=== PATIENT | male | born 1980 | race Caucasian/White ===

== ENCOUNTER 2017-10-07 18:29 | Emergency (ER) | payer SELFPAY ==
[2017-10-07 18:30] VITALS: BP 151/90; PULSE 77; RESP 16; TEMP 36.9; O2SAT 100; BMI 23.1
--- NOTE | 2017-10-07 18:46 | CT_ITS ---
STUDY: CT ABDOMEN AND PELVIS WITHOUT CONTRAST REASON FOR EXAM: Male, 37 years old. Right flank pain RADIATION DOSAGE (If Supplied By Facility): CTDIvol = ( 6.83 ) mGy, DLP = ( 342.99 ) mGycm TECHNIQUE: Transaxial images were obtained from the lower chest to the upper thighs without oral contrast, and without intravenous contrast. Sagittal and coronal images were reconstructed. Individualized dose optimization techniques were used for this CT. COMPARISON: None. FINDINGS: There is minimal dependent atelectasis in both lung bases. There is no pleural effusion. The heart is normal in size. There is a subcentimeter cyst in the periphery of the left lobe of the liver. The gallbladder and biliary ducts are unremarkable. The spleen is unremarkable. The pancreas is unremarkable. The adrenal glands are unremarkable. The right kidney is unremarkable. There is no dilatation of the collecting system in the right kidney. The left kidney is unremarkable. There is no dilatation of the collecting system in the left kidney. The stomach is unremarkable. The small bowel is unremarkable. There are diverticula in the distal colon without adjacent stranding. The appendix is visualized and appears normal. The aorta and branch vessels are unremarkable. The IVC is unremarkable. The retroperitoneum is unremarkable. There is no free fluid in the abdomen. The urinary bladder is unremarkable. The prostate is normal in size. There are small phleboliths scattered in the lower pelvis. The soft tissues are unremarkable. The osseous structures are unremarkable. CT/Abdomen/Pelvis without Cont IMPRESSION: No acute abnormalities are seen in the abdomen or pelvis. There is no evidence of renal stones or urinary tract dilatation with attention to the right side. There are no acute bowel abnormalities. The appendix is normal. There is mild diverticulosis of the distal colon. There is no ascites, free air, inflammation or significant lymphadenopathy. Electronically Signed: Jolie Jacobsen MD at 19:29 EDT Tel Direct: [phone], Service support ,
[2017-10-07] MEDS: Ondansetron 4 MG/2 ML Vial IV (18:54)
[2017-10-07] MEDS: Ketorolac 30 MG/ML Syringe IV (18:54)
[2017-10-07] MEDS: Morphine 4 MG/ML Syringe IV (18:54)
[2017-10-07] MEDS: 0.9% Normal Saline 1,000 ML 125 ML IV (18:54)
[2017-10-07 19:13] LABS: Absolute Lymphocyte Count 2.73 X10^3/ul (0.83-4.51); Absolute Neutrophil Count 6.3 X10^3/uL (2.0-7.7); Basophil# 0.03 X10^3/uL; Basophil% 0.3 % (0-1); Eosinophil# 0.22 X10^3/uL; Eosinophils% 2.2 % (0-5); Hematocrit 40.7 % (40-54); Hemoglobin 13.9 g/dl (13.0-16.5); Lymphocyte # 2.73 X10^3/ul (4.0); Lymphocyte % 27.8 % (19-41); Mean Corp Hgb Conc 34.2 g/gl (32-36); Mean Corpuscular Hgb 32.6 pg (27.0-32.0); Mean Corpuscular Volume 95.5 fL (80-94); Mean Platelet Vol. 9.4 fl (6.2-12.0); Monocyte# 0.56 X10^3/uL; Monocyte% 5.7 % (0-10); Neutrophil # 6.25 X10^3/uL (2.7-7.7); Neutrophil % 63.6 % (47-70); POSITIVE COUNT NO; POSITIVE DIFFERENTIAL NO; POSITIVE MORPHOLOGY NO; Platelet Count 287 K/mm3 (150-450); RBC Distribution Width CV 12.1 % (11.6-14.6); RBC Distribution Width SD 41.5 fl (35.1-43.9); Red Blood Count 4.26 M/mm3 (4.6-6.2); White Blood Count 9.8 K/mm3 (4.4-11.0)
[2017-10-07 19:18] LABS: ALB/GLOB Ratio 1.1 RATIO (0.9-2.4); AST(SGOT) 9 U/L (15-37); Alanine Aminotransfer ALT/SGPT 27 U/L (16-61); Albumin, Serum 3.6 g/dL (3.2-5.0); Alkaline Phosphatase 76 U/L (45-117); Anion Gap 6 (5-15); BUN 12 mg/dL (7-18); Calcium,Total 8.4 mg/dL (8.5-10.1); Chloride 107 mmol/L (98-107); EST Glomerular Filtration Rate 72 mL/min (>60); Est Glom Filt Rate - Afr Amer 87 mL/min (>60); Estimated Creatinine Clearance 93.71 ml/min; Globulin 3.3 g/dL (2.2-4.2); Glucose 104 mg/dL (74-106); Potassium 3.7 mmol/L (3.5-5.1); Protein, Total 6.9 g/dL (6.4-8.2); Sodium Level 140 mmol/L (136-145)
[2017-10-07 19:28] LABS: Bacteria 0 SEEN /hpf (None Seen); Mucous, Urine 0 SEEN /hpf (<or=2+); Red Blood Cells-Urine 0 SEEN /hpf (0-5); Squamous Epithelial Cells - UA 0 SEEN /hpf (0-5)
[2017-10-07 19:37] LABS: Color, Urine Yellow (Yellow); Glucose, Dipstick Normal (Normal); Ketone-Dipstick Negative (Negative); Leukocyte Esterase-Dipstick Negative /ul (Negative); Nitrite-Dipstick Negative (Negative); Occult Blood-Urine Negative /ul (Negative); Protein-Dipstick 15 mg/dl (Negative); Urine Bilirubin Dipstick Negative (Negative); Urine Clarity Clear (Clear); Urine Urobilinogen Normal (Normal)
[2017-10-07 19:45] LABS: White Blood Cells 0-5 SEEN /hpf (0-5)
--- NOTE | 2017-10-07 19:47 | ED.VISSUMM ---
- ER Visit Summary Date of Service: 10/07/17 Chief Complaint: [Flank pain] History of Present Illness: The patient is a 37 M [presents to the emergency department with right-sided flank pain that started about a week and a half ago. Patient states that he just moved back to the area about a week and a half ago because he went through a divorce. Patient denies any trauma. Denies urinary symptoms. Patient denies fever. Currently rates pain as 7 out of 10. Patient states that certain movements cause a more pain such as sitting up and the bumps in the car ride here were painful. Patient denies nausea or vomiting. Patient denies diarrhea. Patient has not had pain like this before. Patient denies any pain radiating into his legs.] Physical Examination: [HEENT-PERRLA, EOMI. Cranial nerves II through XII grossly intact. TMs clear. Mucous membranes moist. No adenopathy. Cardiovascular-regular rate and rhythm without murmur or ectopy Lungs-clear to auscultation, chest wall stable without crepitus or subcu emphysema Abdomen-normoactive bowel sounds, soft. Patient has tenderness to the right lower quadrant. Patient has CVA tenderness on the right. There is no rebound, rigidity, or perineal signs. Back exam-patient has tenderness to percussion of the right lumbar paraspinal musculature. No bony tenderness on exam of the thoracic or lumbar spine. Patient has negative straight leg raises. Deep tendon reflexes are plus 2 out of 4 bilaterally at the patella and Achilles. Patient has normal L5 extension. Patient has normal sensation to light touch. Extremities-intact ?4, normal range of motion, normal pulses, atraumatic] Test Results: [CBC with differential obtained was normal. Chemistries were normal. Urinalysis was normal. CT flank showed nothing acute.] Emergency Department Course and Treatment: [Patient was medicated with Toradol, morphine, and Zofran.] Treatment Plan: [Patient will be started on Flexeril and 12 [place] for pain. Patient will be referred to primary care physician front window cashier for no doc for follow-up in 5-7 days] Disposition: [Discharged home in stable condition]. Patient advised to return if worsening pain, fever, vomiting, or condition should worsen in any way. Impression: [Flank pain-etiology uncertain.] This note was generated with Dragon dictation software. It may contain incorrect words, spelling, and punctuation that were not noted in review of the chart prior to signing ED Disposition - Plan for ED Patient: Chief Complaint: Flank Pain Referrals: Care Physician,No Primary [Primary Care Provider] -
--- NOTE | 2017-10-07 19:50 | ED.DCSUM_ITS ---
- ER Visit Summary Date of Service: 10/07/17 Chief Complaint: [Flank pain] History of Present Illness: The patient is a 37 M [presents to the emergency department with right-sided flank pain that started about a week and a half ago. Patient states that he just moved back to the area about a week and a half ago because he went through a divorce. Patient denies any trauma. Denies urinary symptoms. Patient denies fever. Currently rates pain as 7 out of 10. Patient states that certain movements cause a more pain such as sitting up and the bumps in the car ride here were painful. Patient denies nausea or vomiting. Patient denies diarrhea. Patient has not had pain like this before. Patient denies any pain radiating into his legs.] Physical Examination: [HEENT-PERRLA, EOMI. Cranial nerves II through XII grossly intact. TMs clear. Mucous membranes moist. No adenopathy. Cardiovascular-regular rate and rhythm without murmur or ectopy Lungs-clear to auscultation, chest wall stable without crepitus or subcu emphysema Abdomen-normoactive bowel sounds, soft. Patient has tenderness to the right lower quadrant. Patient has CVA tenderness on the right. There is no rebound, rigidity, or perineal signs. Back exam-patient has tenderness to percussion of the right lumbar paraspinal musculature. No bony tenderness on exam of the thoracic or lumbar spine. Patient has negative straight leg raises. Deep tendon reflexes are plus 2 out of 4 bilaterally at the patella and Achilles. Patient has normal L5 extension. Patient has normal sensation to light touch. Extremities-intact ?4, normal range of motion, normal pulses, atraumatic] Test Results: [CBC with differential obtained was normal. Chemistries were normal. Urinalysis was normal. CT flank showed nothing acute.] Emergency Department Course and Treatment: [Patient was medicated with Toradol, morphine, and Zofran.] Treatment Plan: [Patient will be started on Flexeril and 12 [place] for pain. Patient will be referred to primary care physician video conference specialist for no doc for follow -up in 5-7 days] Disposition: [Discharged home in stable condition]. Patient advised to return if worsening pain, fever, vomiting, or condition should worsen in any way. Impression: [Flank pain-etiology uncertain.] This note was generated with Dragon dictation software. It may contain incorrect words, spelling, and punctuation that were not noted in review of the chart prior to signing ED Disposition - Plan for ED Patient: Chief Complaint: Flank Pain Referrals: Care Physician,No Primary [Primary Care Provider] -
--- NOTE | 2017-10-07 19:52 | DCINST.ED_ITS ---
ED Disposition - Plan for ED Patient: Chief Complaint: Flank Pain Instructions: ED Flank Pain Uncertain Cause Prescriptions: Hydrocodone/Acetaminophen [[place] 5-325 Tablet] 1 - 2 ea PO 4X/DAY PRN PRN 3 Days #12 tab PRN Reason: Pain Naproxen [Naprosyn] 500 mg PO BID PRN #20 tab Cyclobenzaprine [Flexeril] 10 mg PO TID PRN #20 tab PRN Reason: Muscle Spasm Referrals: Care Physician,No Primary [Primary Care Provider] - Lit Irvin MD [STAFF PHYSICIAN] - 5-7 Days
[2017-10-07 19:56] VITALS: BP 149/100; PULSE 77; RESP 16; O2SAT 100
--- NOTE | 2017-10-07 19:57 | ED.RN ---
PT INSTRUCTED HE COULD NOT DRIVE HOME DUE TO RECEIVING MORPHINE. PT STATED HE HAD A RIDE HERE TO TAKE HIM HOME.
== END 2017-10-07 20:02 | disposition home or self-care (01) ==
LOC: ED 19:16
PROVIDERS: Emergency Provider Emergency Medicine
DX: R10.31 Right lower quadrant pain (principal); Z72.0 Tobacco use
CPT/HCPCS: 74176; 80053; 81001; 85025; 96361; 96374; 96375; 99283; J7030; A4216; J2405

== ENCOUNTER 2019-11-15 17:54 | Emergency (ER) | payer SELFPAY ==
[2019-11-15 17:55] VITALS: BP 121/81; PULSE 119; RESP 18; TEMP 36.7; O2SAT 99; BMI 24.5
--- NOTE | 2019-11-15 19:23 | EKG12_ITS ---
Test Reason : CHEST OTHER Blood Pressure : / mmHG Vent. Rate : 096 BPM Atrial Rate : 096 BPM P-R Int : 144 ms QRS Dur : 082 ms QT Int : 352 ms P-R-T Axes : 073 062 064 degrees QTc Int : 444 ms Normal sinus rhythm Normal ECG Confirmed by MARYANA BRENNER ([id number]), newspaper or periodical editor NICOLA JAMISON ([id number]) on 11/18/2019 11:53:38 AM Referred By: MARICRUZ Confirmed By:MARYANA BRENNER
[2019-11-15 19:40] LABS: Absolute Lymphocyte Count 2.94 X10^3/uL (0.83-4.51); Absolute Neutrophil Count 5.8 X10^3/uL (2.0-7.7); Basophil# 0.08 X10^3/uL; Basophil% 0.8 % (0-1); Eosinophil# 0.24 X10^3/uL; Eosinophils% 2.4 % (0-5); Hematocrit 42.4 % (40-54); Hemoglobin 14.4 g/dL (13.0-16.5); Lymphocyte # 2.94 X10^3/ul (4.0); Lymphocyte % 29.8 % (19-41); Mean Corpuscular Hgb 32.4 pg (27.0-32.0); Mean Corpuscular Volume 95.5 fL (80-94); Mean Platelet Vol. 9.1 fl (6.2-12.0); Monocyte# 0.75 X10^3/uL; Monocyte% 7.6 % (0-10); NRBC Flagged by Analyzer 0 % (0-5); Neutrophil # 5.79 X10^3/uL (2.7-7.7); Neutrophil % 58.7 % (47-70); Platelet Count 333 K/mm3 (150-450); RBC Distribution Width CV 12.2 % (11.6-14.6); RBC Distribution Width SD 42.5 fl (35.1-43.9); Red Blood Count 4.44 M/mm3 (4.6-6.2); White Blood Count 9.9 K/mm3 (4.4-11.0)
[2019-11-15] MEDS: Mag Hydrox/Al Hydrox/Simeth 30 ML UDC PO (19:46)
[2019-11-15 20:10] LABS: ALB/GLOB Ratio 1.2 RATIO (0.9-2.4); AST(SGOT) 15 U/L (15-37); Alanine Aminotransfer ALT/SGPT 54 U/L (16-61); Albumin, Serum 4.1 g/dL (3.2-5.0); Alkaline Phosphatase 78 U/L (45-117); Anion Gap 6 (5-15); BUN 17 mg/dL (7-18); BUN/Creat Ratio 13.8 RATIO (10-20); Calcium,Total 8.5 mg/dL (8.5-10.1); Chloride 105 mmol/L (98-107); Creatinine, Serum 1.23 mg/dL (0.70-1.30); EST Glomerular Filtration Rate 69 mL/min (>60); Est Glom Filt Rate - Afr Amer 84 mL/min (>60); Estimated Creatinine Clearance 87.62 ml/min; Globulin 3.4 g/dL (2.2-4.2); Glucose 80 mg/dL (74-106); Lipase 78 U/L (73-393); Protein, Total 7.5 g/dL (6.4-8.2); Sodium Level 139 mmol/L (136-145)
--- NOTE | 2019-11-15 21:10 | ED.DCSUM_ITS ---
History of Present Illness Chief Complaint: Chest Other Past Medical History - Allergies and Home Meds Allergies/Adverse Reactions: Allergies No Known Allergies Allergy (Verified 11/15/19 17:57) Primary Care Physician: Care Physician,No Primary [Primary Care Provider] - Smoking Status: Current every day smoker Physical Exam Vital Signs/Narrative: Vital Signs Temp Pulse Resp BP Pulse Ox 11/15/19 17:55 98.1 F 119 H 18 121/81 H 99 Diagnostic/Tx/Re-eval Laboratory Last Values WBC 9.9 K/mm3 (4.4-11.0) 11/15/19 19:32 RBC 4.44 M/mm3 (4.6-6.2) L 11/15/19 19:32 Hgb 14.4 g/dL (13.0-16.5) 11/15/19 19:32 Hct 42.4 % (40-54) 11/15/19 19:32 MCV 95.5 fL (80-94) H 11/15/19 19:32 MCH 32.4 pg (27.0-32.0) H 11/15/19 19:32 MCHC 34.0 g/dL (32-36) 11/15/19 19:32 RDW Std Deviation 42.5 fl (35.1-43.9) 11/15/19 19:32 RDW Coeff of Judith 12.2 % (11.6-14.6) 11/15/19 19:32 Plt Count 333 K/mm3 (150-450) 11/15/19 19:32 MPV 9.1 fl (6.2-12.0) 11/15/19 19:32 Immature Gran % (Auto) 0.700 % (0.0-0.9) 11/15/19 19:32 Neut % (Auto) 58.7 % (47-70) 11/15/19 19:32 Lymph % (Auto) 29.8 % (19-41) 11/15/19 19:32 [place] % (Auto) 7.6 % (0-10) 11/15/19 19:32 Eos % (Auto) 2.4 % (0-5) 11/15/19 19:32 Baso % (Auto) 0.8 % (0-1) 11/15/19 19:32 Absolute Neuts (auto) 5.8 X10^3/uL (2.0-7.7) 11/15/19 19:32 Absolute Lymphs (auto) 2.94 X10^3/uL (0.83-4.51) 11/15/19 19:32 Nucleated RBC % 0 % (0-5) 11/15/19 19:32 Sodium 139 mmol/L (136-145) 11/15/19 19:32 Potassium 4.0 mmol/L (3.5-5.1) 11/15/19 19:32 Chloride 105 mmol/L (98-107) 11/15/19 19:32 Carbon Dioxide 28.0 mmol/L (21.0-32.0) 11/15/19 19:32 Anion Gap 6 (5-15) 11/15/19 19:32 BUN 17 mg/dL (7-18) 11/15/19 19:32 Creatinine 1.23 mg/dL (0.70-1.30) 11/15/19 19:32 Estim Creat Clear Calc 87.62 ml/min 11/15/19 19:32 Est GFR (MDRD) Af Amer 84 mL/min (>60) 11/15/19 19:32 Est GFR (MDRD) Non-Af 69 mL/min (>60) 11/15/19 19:32 BUN/Creatinine Ratio 13.8 RATIO (10-20) 11/15/19 19:32 Glucose 80 mg/dL (74-106) 11/15/19 19:32 Calcium 8.5 mg/dL (8.5-10.1) 11/15/19 19:32 Total Bilirubin 0.20 mg/dL (0.20-1.00) 11/15/19 19:32 AST 15 U/L (15-37) 11/15/19 19:32 ALT 54 U/L (16-61) 11/15/19 19:32 Alkaline Phosphatase 78 U/L (45-117) 11/15/19 19:32 Troponin I < 0.015 ng/mL (<0.045) 11/15/19 19:32 Total Protein 7.5 g/dL (6.4-8.2) 11/15/19 19:32 Albumin 4.1 g/dL (3.2-5.0) 06/29/20 19:32 Globulin 3.4 g/dL (2.2-4.2) 11/15/19 19:32 Albumin/Globulin Ratio 1.2 RATIO (0.9-2.4) 11/15/19 19:32 Lipase 78 U/L (73-393) 11/15/19 19:32 - EKG Initial EKG Interpretation: Sinus Rhythm - EKG demonstrates a normal sinus rhythm at a rate of 96 without concerning features of ACS or any ectopy ED Disposition - Plan for ED Patient: Disposition: Home or Assisted Living Diagnosis: GERD (gastroesophageal reflux disease) Instructions: ED ACID INDIGESTION Adult Prescriptions: Sucralfate [Carafate] 1 gm PO 4X/DAY #56 tab Prescription Printed Pantoprazole Sodium [Protonix] 40 mg PO DAILY #30 tab Prescription Printed Referrals: Renaldo Woody MD [NON-STAFF] - (Call for arrangements to discuss EGD and your reflux symptoms) Additional Instructions: As discussed you should quit smoking. As discussed uncontrolled GERD can lead to Easley's esophagus and potentially cancer.
[2019-11-15] MEDS: Pantoprazole Sodium 40 MG Tablet PO (21:22)
[2019-11-15 21:27] VITALS: PULSE 93; RESP 16; O2SAT 99
== END 2019-11-15 21:28 | disposition home or self-care (01) ==
PROVIDERS: Emergency Provider Emergency Medicine
DX: K21.9 Gastro-esophageal reflux disease without esophagitis (principal); F17.200 Nicotine dependence, unspecified, uncomplicated; Z79.899 Other long term (current) drug therapy
CPT/HCPCS: 80053; 83690; 84484; 85025; 93005; 99284; A4216

== ENCOUNTER 2020-04-10 17:03 | Emergency (ER) | payer MEDICAID, SELFPAY ==
[2020-04-10 17:04] VITALS: BP 151/89; PULSE 80; RESP 16; TEMP 35.8; O2SAT 98; BMI 23.1
--- NOTE | 2020-04-10 17:20 | ED.DCSUM_ITS ---
History of Present Illness Chief Complaint: Abscess Informant: Patient Onset: Days Context: Gradual Onset Current Severity: Moderate Maximum Severity: Moderate Narrative: She presents with a painful lump on his back for the past 2 days. He tried to have his significant other during the pus from the area but he states is too painful to touch. He denies fever or chills. He states it started out as a spider bite. - Past Medical History (1) GERD (gastroesophageal reflux disease) Status: Chronic Past Medical History - Allergies and Home Meds Allergies/Adverse Reactions: Allergies No Known Allergies Allergy (Verified 04/10/20 17:05) Primary Care Physician: Care Physician,No Primary [Primary Care Provider] - Prior records reviewed: Yes Lives: Spouse/ Significant Other Smoking Status: Current every day smoker Review of Systems General: Denies: Chills, Fever Eyes: Denies: Visual changes - bilaterally ENT: Denies: Bilateral ear pain Cardiovascular: Denies: Chest pain Respiratory: Denies: Dyspnea, Cough Gastrointestinal: Denies: Abdominal pain, Nausea, Vomiting, Diarrhea Genitourinary: Denies: Dysuria Musculoskeletal: Denies: Extremity Pain Skin: Reports: Abscess - 4 x 4 centimeter abscess over the right scapula. Mild erythema but no significant extending cellulitis. Fluctuance is noted. No sp ontaneous drainage. Neurological: Denies: Headache Hematologic: Denies: Easy bruising, Easy bleeding Allergy: Denies: Uticaria Physical Exam Vital Signs/Narrative: Vital Signs Temp Pulse Resp BP Pulse Ox 04/10/20 17:04 96.4 F L 80 16 151/89 H 98 Inital Vital Signs reviewed: Yes General: Well nourished, Well developed Head: Normocephalic ENT: Moist mucous membranes Neck: Supple Cardiovascular: Regular rate, Regular rhythm Respiratory: No distress, CTA bilaterally Abdomen: Soft, Nontender Back: - - 4 x 4 centimeter abscess of the inferior aspect of the right scapula. No spontaneous drainage. Fluctuance is noted. Neurological: Alert, Oriented x3 Diagnostic/Tx/Re-eval - Medical Decision Making At this time patient is refusing I&D. We will treat him with Bactrim and Keflex. He was advised this is not improving and he decides that he is willing to undergo I&D he can return at any time for this. ED Disposition - Plan for ED Patient: Disposition: Home or Assisted Living Diagnosis: Cutaneous abscess Instructions: ED Abscess Antibiotic Treatment Only Prescriptions: Smz/Tmp Ds [Bactrim Ds] 1 tab PO BID #20 tab Transmission Status: Pending to [facility] Cephalexin [Keflex] 500 mg PO Q6 #40 cap Transmission Status: Pending to [facility] Naproxen [Naprosyn] 500 mg PO BID PRN PRN #20 tab PRN Reason: Pain Score 4-10 Transmission Status: Pending to [facility] Referrals: Fast,Ida, DO [NON-STAFF] - As Needed
[2020-04-10] MEDS: Smz/Tmp Ds Tablet 1 TABLET PO (17:27)
[2020-04-10] MEDS: Naproxen 500 MG Tablet PO (17:27)
[2020-04-10] MEDS: Cephalexin 250 MG Capsule 500 MG PO (17:27)
[2020-04-10 17:46] VITALS: RESP 15
== END 2020-04-10 17:47 | disposition home or self-care (01) ==
PROVIDERS: Emergency Provider Emergency Medicine
DX: L02.212 Cutaneous abscess of back [any part, except buttock and flank] (principal); K21.9 Gastro-esophageal reflux disease without esophagitis; F17.200 Nicotine dependence, unspecified, uncomplicated
CPT/HCPCS: 99283

== ENCOUNTER 2020-04-11 08:03 | Emergency (ER) | payer MEDICAID, SELFPAY ==
[2020-04-10 17:04] VITALS: BMI 23.1
[2020-04-11 08:05] VITALS: BP 136/97; PULSE 136; RESP 17; TEMP 35.7; O2SAT 99; BMI 23.4
--- NOTE | 2020-04-11 08:43 | ED.DCSUM_ITS ---
- ER Visit Summary Date of Service: 04/11/20 Chief Complaint: Abscess History of Present Illness: The patient is a 39 M who presents with an abscess that is been getting worse over the past 2 days. Patient was seen here yesterday and was given prescriptions for Bactrim and Keflex. Patient refused incision and drainage at that time. Patient states that he applied warm compresses yesterday. Patient states that it started draining yesterday. Patient states his girlfriend was able to express large amount of purulent drainage. Patient describes the pain as throbbing. Patient denies any fevers or chills. Physical Examination: Vital signs are stable except for tachycardia of 136. Patient is afebrile. Patient is in no acute distress. Skin is warm and dry. There is erythema and warmth over the right mid thoracic area. There is some induration noted. There is a small pustule noted. There is minimal fluctuance. There is no active drainage. Heart was regular and tachycardic. Lungs are clear and equal bilaterally. Cranial nerves II through XII are intact. There are no focal motor or sensory deficits. Emergency Department Course and Treatment: LET gel was applied to the area. The area was cleaned with chlorhexidine prep. The area was anesthetized with 1% plain lidocaine locally. A small cruciate incision was made using an 11 blade scalpel. A small amount of purulent drainage was expressed. The wound was left open. Bacitracin dressing was applied. Patient tolerated the procedure well. Patient was given a dose of Bactrim and Keflex here. Patient was instructed to fill his prescriptions for Bactrim and Keflex. Patient was advised that these are likely $4 or less at any pharmacy. Patient was instructed to continue with warm compresses. Patient was instructed to follow-up with his primary care physician in 5 to 7 days. Patient understood and was agreeable with the plan. All questions were answered. Disposition: Discharge home Impression: Back abscess This note was generated with [employer] dictation software. It may contain incorrect words, spelling, and punctuation that were not noted in review of the chart prior to signing ED Disposition - Plan for ED Patient: Disposition: Home or Assisted Living Diagnosis: Abscess of back Instructions: ED Abscess Incision And Drainage Referrals: Olivia Greenberg [NON-STAFF] - 5-7 Days Additional Instructions: Fill your prescriptions for Bactrim and Keflex. They are $4 or less at any pharmacy. Continue to use warm compresses. Follow-up in 5 to 7 days for wound recheck.
[2020-04-11] MEDS: Smz/Tmp Ds Tablet 1 TABLET PO (08:55)
[2020-04-11] MEDS: Lidocaine 1% (20 ml mdv) 20 ML Vial INFILT (08:55)
[2020-04-11] MEDS: Lidocaine/Epi/Tetracaine 50 ML 1 APPLIC TOPICAL (08:55)
[2020-04-11] MEDS: Cephalexin 500 MG Capsule PO (08:55)
== END 2020-04-11 10:04 | disposition home or self-care (01) ==
PROVIDERS: Emergency Provider Emergency Medicine
DX: R00.0 Tachycardia, unspecified (principal); Z72.0 Tobacco use; L02.212 Cutaneous abscess of back [any part, except buttock and flank]
CPT/HCPCS: 10060; 99283

== ENCOUNTER 2021-02-04 18:44 | Emergency (ER) | payer MEDICAID, SELFPAY ==
[2021-02-04 18:45] VITALS: BP 143/108; PULSE 95; RESP 16; TEMP 37; O2SAT 99; BMI 27.1
--- NOTE | 2021-02-04 20:51 | ED.VIS.DENTA ---
HPI History of Present Illness Chief Complaint: Dental Narrative Narrative: Patient presenting with right-sided mandibular pain. Patient states that he has a history of dental problems. He states he has not had a problem in a couple of years. He used to have a dentist but he moved away and has been back for 2 years. He denies fever or chills. He denies any difficulty swallowing or breathing. Patient states his symptoms have currently been there for about 3 days. Patient denies any traumatic injury. PFSH PFSH Home Medications amoxicillin-pot clavulanate [Augmentin] 1 tab PO BID #20 tab 02/04/21 [Rx Last Taken Unknown] naproxen 500 mg PO BID #20 tab 02/04/21 [Rx Last Taken Unknown] Allergy/AdvReac Type Severity Reaction Status Date / Time No Known Allergies Allergy Verified 02/04/21 18:44 Social History Smoking Status: Current every day smoker tobacco type: cigarettes ROS ROS ED Constitutional Constitutional ED: Denies chills or fever(s) Eyes Eyes: Denies blurry vision or change in vision ENT ENT ED: Reports other Details: Dental pain ; Denies ear pain or rhinorrhea Cardiovascular Cardiovascular: Denies chest pain or palpitations Respiratory/Chest Respiratory/Chest: Denies cough or dyspnea Gastrointestinal Gastrointestinal: Denies abdominal pain or nausea Musculoskeletal Musculoskeletal: Denies arthralgias, back pain, myalgias or neck pain Integumentary Denies Abrasions or rash Neurologic Neurologic: Denies headache(s) or paresthesias EXAM Physical Exam Const Vital Signs: 02/04/21 18:45 02/04/21 20:54 Temperature 98.6 F Temperature Source Temporal Pulse Rate 95 74 Respiratory Rate 16 17 Blood Pressure 143/108 H 130/78 H Blood Pressure Mean 119 Pulse Ox 99 98 Oxygen Delivery Method Room Air Positive well nourished General Appearance ED: NAD HEENT HEENT Narrative: Multiple dental caries throughout. There is focal dental pain on the right sided mandibular teeth which are partially decayed. No restorable. Buccal mucosa normal. No sign of fluctuance. Tongue is normal size. No sublingual edema. Oropharynx is patent without stridor. Eyes PERRL Neck no lymphadenopathy and supple Resp normal respiratory effort and clear to auscultation bilaterally Cardio regular rate and regular rhythm Neuro oriented x3 and CN's II-XII intact bilaterally Sensorium / Orientation: alert Psych mental status grossly normal MDM MDM MDM Narrative Medical decision making narrative: Patient is given oxycodone for pain in the ED. He is also started on Augmentin. To be given prescription for Augmentin and Naprosyn for home. He is given dental referral sheet. Patient counseled on new or worsening symptoms. Patient stable discharge at this time. Impression: 1. Dental infection Discharge Plan Triage Chief Complaint: Dental ED Provider: Asael Pedroza Dx/Rx/DC Orders Instructions: ED Dental Abscess Prescriptions: New amoxicillin-pot clavulanate [Augmentin] 875-125 mg tablet 1 tab PO BID Qty: 20 RF: 0 naproxen 500 mg tablet 500 mg PO BID Qty: 20 RF: 0 Primary Care Provider: Care Physician,No Primary Referrals: Care Physician,No Primary [Primary Care Provider] - Disposition Disposition: Home, Self Care Discharge Date/Time: 02/04/21 20:58
[2021-02-04 20:54] VITALS: BP 130/78; PULSE 74; RESP 17; O2SAT 98
[2021-02-04] MEDS: oxyCODONE 5 MG Tablet PO (20:56)
[2021-02-04] MEDS: Amox/Clavulanate 875 MG Tablet PO (20:57)
== END 2021-02-04 20:58 | disposition home or self-care (01) ==
PROVIDERS: Emergency Provider Student in an Organized Health Care Education/Training Program
DX: K04.7 Periapical abscess without sinus (principal); K02.9 Dental caries, unspecified; F17.210 Nicotine dependence, cigarettes, uncomplicated
CPT/HCPCS: 99283

== ENCOUNTER 2021-03-01 15:46 | Emergency (ER) | payer MEDICAID, SELFPAY ==
[2021-03-01 15:47] VITALS: BP 147/101; PULSE 98; RESP 20; TEMP 37.4; O2SAT 100; BMI 26.4
--- NOTE | 2021-03-01 16:12 | EX.ED.DYSGE1 ---
HPI History of Present Illness Chief Complaint: Headache Detail of Chief Complaint: Body aches, congestion, cough Informant: patient Onset/Context/Timing Onset: Days (4 days) Context: Gradual Onset Current Severity: Mild Maximum Severity: Mild Narrative Narrative: Patient presents secondary to headache, body aches, congestion. He reports intermittent shortness of breath with occasional cough. He reports having a fever 2 days ago. 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 He got the first Covid vaccine but never followed up for the second injection. [facility] Medical History GERD (gastroesophageal reflux disease) Allergy/AdvReac Type Severity Reaction Status Date / Time No Known Allergies Allergy Verified 03/01/21 16:20 Social History Smoking Status: Current every day smoker tobacco type: cigarettes ROS ROS ED Constitutional Constitutional ED: Reports fever(s); Denies chills Eyes Eyes: Denies change in vision ENT ENT ED: Reports rhinorrhea, sore throat and other Details: Congestion Cardiovascular Cardiovascular: Denies chest pain Respiratory/Chest Respiratory/Chest: Reports cough and dyspnea Gastrointestinal Gastrointestinal: Denies abdominal pain, diarrhea, nausea or vomiting Genitourinary Genitourinary ED: Denies dysuria Musculoskeletal Musculoskeletal: Reports myalgias Integumentary Denies rash Neurologic Neurologic: Denies headache(s) or weakness Allergic/Immunologic Allergic/Immunologic ED: Denies urticaria EXAM Physical Exam Const Vital Signs: 03/01/21 15:47 Temperature 99.3 F H Temperature Source Temporal Pulse Rate 98 Respiratory Rate 20 H Blood Pressure 147/101 H Blood Pressure Mean 116 Pulse Ox 100 Oxygen Delivery Method Room Air Positive well nourished and well developed General Appearance ED: well developed HEENT Reports normocephalic, head/scalp atraumatic, TM's clear and moist mucous membranes HEENT Narrative: Mild posterior pharyngeal drainage. Uvula midline. Tympanic Membrane ED: Yes TM's clear Eyes PERRL and EOMs intact bilaterally Neck supple Chest Wall inspection of chest normal and palpation of chest normal Resp normal respiratory effort and clear to auscultation bilaterally Cardio regular rate and regular rhythm GI normal to inspection, nondistended, normoactive bowel sounds Palpation: soft Extremity normal to inspection Neuro oriented x3 and no sensory deficits noted Sensorium / Orientation: alert Motor Exam: strength 5/5 throughout Psych mental status grossly normal Skin no rashes or lesions noted MDM MDM MDM Narrative Medical decision making narrative: Patient was given naproxen here. Portable chest x-ray and Covid swab obtained. Lab Data Labs: Rapid Covid test positive. Radiography Diagnostic Testing: Clinical Impression(s) from Imaging Studies Chest X-Ray 03/01/21 16:40 IMPRESSION: Normal x-ray examination of the chest. Electronically Signed: Nneka Johnson MD at 16:53 EDT Tel , Service support , Treatment and Re-Evaluation Comments:: Portable chest x-ray per my interpretation shows no focal infiltrate. Radiology rotation is reviewed. On repeat evaluation patient is resting comfortably. O2 sat is 100% on room air. He is instructed to continue supportive care. He is to quarantine for 14 days from onset of symptoms. Discharge Plan Triage Chief Complaint: Headache ED Provider: Jolie Marr Dx/Rx/DC Orders Clinical Impression: COVID-19 Instructions: Coronavirus Disease 2019 (COVID-19): Overview, Coronavirus Disease 2019 (COVID-19): Caring for Yourself or Others Stand Alone Forms: ED Work / School Excuse Primary Care Provider: Care Physician,No Primary Referrals: Travon Rodriguez MD [STAFF PHYSICIAN] - 1-2 Weeks Care Physician,No Primary [Primary Care Provider] - Disposition Disposition: Home, Self Care
[2021-03-01] MEDS: Naproxen 500 MG Tablet PO (16:18)
--- NOTE | 2021-03-01 16:40 | RAD_ITS ---
STUDY: X-RAY CHEST REASON FOR EXAM: Male, 40 years old. Cough TECHNIQUE: Single frontal view of the chest. COMPARISON: None. FINDINGS: The lungs are clear and expanded. There is no demonstrated pleural abnormality. Normal size heart. Normal mediastinum and kallie. Normal visualized pulmonary arteries. Normal visualized aortic arch and descending thoracic aorta. Normal visualized thoracic spine. Normal visualized ribs, clavicles, and shoulders. There is no demonstrated abnormality of the visualized soft tissue structures of the upper abdomen. RAD/Chest 1 View (Portable) IMPRESSION: Normal x-ray examination of the chest. Electronically Signed: Nneka Johnson MD at 16:53 EDT Tel , Service support ,
== END 2021-03-01 17:33 | disposition home or self-care (01) ==
LOC: ED 17:02
PROVIDERS: Emergency Provider Emergency Medicine
DX: U07.1 COVID-19 (principal); K21.9 Gastro-esophageal reflux disease without esophagitis; F17.210 Nicotine dependence, cigarettes, uncomplicated
CPT/HCPCS: 71045; 87426; 99282

== ENCOUNTER 2021-04-01 18:41 | Emergency (ER) | payer MEDICAID, SELFPAY ==
[2021-04-01 18:43] VITALS: BP 143/91; PULSE 105; RESP 18; TEMP 37.3; O2SAT 99; BMI 25.4
[2021-04-01 18:48] VITALS: BP 143/91; PULSE 105; RESP 18; TEMP 37.3; O2SAT 99
--- NOTE | 2021-04-01 19:32 | RAD_ITS ---
STUDY: X-RAY CHEST REASON FOR EXAM: Male, 40 years old. Fever toothache chills TECHNIQUE: Frontal portable view of the chest COMPARISON: 01 March 2021 FINDINGS: The lungs are clear and expanded. There is no demonstrated pleural abnormality. Normal size heart. Normal mediastinum and kallie. Normal visualized pulmonary arteries. Normal visualized aortic arch and descending thoracic aorta. Normal visualized thoracic spine. Normal visualized ribs, clavicles, and shoulders. There is no demonstrated abnormality of the visualized soft tissue structures of the upper abdomen. RAD/Chest 1 View (Portable) IMPRESSION: Normal x-ray examination of the chest. Electronically Signed: Mamadou Smith MD at 20:13 EST Tel , Service support ,
--- NOTE | 2021-04-01 19:32 | EX.ED.DYSGE1 ---
HPI History of Present Illness Chief Complaint: Fever Informant: patient Onset/Context/Timing Onset: Weeks Context: Gradual Onset Timing: Intermittent Current Severity: Mild Maximum Severity: Mild Narrative Narrative: 40-year-old male no seen past medical history but he admittedly states that he rarely ever goes and sees a doctor. He has no primary care physician. He denies any significant surgeries other than his adenoids were removed. Patient states that ENT was diagnosed with Covid March 01. He did have a single vaccine in the [employer] but it caused him to have a hives so he never got the second. He said over the last month he had intermittent fever and chills. Yesterday had nausea and vomiting x2. He denies any dysuria. He has a nonproductive cough and denies any shortness of breath. He denies any abdominal pain. No chest pain. He has smoked marijuana in the past he said he does not know drugs now and is never done any type of IV drugs. He also has diffuse lower jaw dental pain. Prior similar symptoms: Yes Recent Illness/Hospitalization: No PFSH PFSH Medical History GERD (gastroesophageal reflux disease) Home Medications penicillin V potassium 500 mg PO 4X/DAY #40 tab 04/01/21 [Rx Last Taken Unknown] Allergy/AdvReac Type Severity Reaction Status Date / Time No Known Allergies Allergy Verified 04/01/21 18:44 Social History Smoking Status: Current every day smoker tobacco type: cigarettes ROS ROS ED ROS Narrative Fever and chills. Cough. Dental pain. Review of Systems ROS Unobtainable: Denies due to encephalopathy Constitutional Constitutional ED: Reports chills and fever(s) Eyes Eyes: Denies change in vision ENT ENT ED: Denies ear pain or sore throat Cardiovascular Cardiovascular: Denies chest pain Respiratory/Chest Respiratory/Chest: Reports cough; Denies dyspnea Gastrointestinal Gastrointestinal: Reports nausea and vomiting; Denies abdominal pain or diarrhea Genitourinary Genitourinary ED: Denies dysuria Musculoskeletal Musculoskeletal: Denies myalgias Integumentary Denies rash Neurologic Neurologic: Denies headache(s) Psychiatric Psychiatric: Denies depression Endocrine Endocrinology: Denies polyuria Allergic/Immunologic Allergic/Immunologic ED: Denies urticaria EXAM Physical Exam Narrative Exam Narrative: Right male no acute distress vital signs stable afebrile. Pulse ox 9 9% on room air no signs hypoxia. HEENT exam patient has very poor dentition with multiple areas of cavities dental decay and gingivitis. There is no abscess. There is really no significant jaw swelling. The floor of his mouth is unremarkable. There is no significant facial swelling. Neck nontender no lymphadenopathy. Lungs clear to auscultation bilateral. Heart regular rhythm no murmur. Abdomen soft nontender. Moving all 4 extremities. Calves are nontender. There is no cellulitis. Back nontender. Neurologically is awake alert with no focal motor deficit. Const Vital Signs: 04/01/21 18:43 04/01/21 18:48 Temperature 99.2 F H 99.2 F H Temperature Source Temporal Temporal Pulse Rate 105 H 105 H Respiratory Rate 18 18 Blood Pressure 143/91 H 143/91 H Blood Pressure Mean 108 108 Pulse Ox 99 99 Oxygen Delivery Method Room Air Room Air Positive well nourished and well developed; Negative for obese, cachectic, contractures or unkempt General Appearance ED: well developed and NAD; Negative for unkempt, cachectic, contractures, cyanotic, diaphoretic or pallor Nutritional Appearance: Negative for cachectic or obese HEENT Reports moist mucous membranes HEENT Narrative: Very poor decaying dentition with gingivitis and cavities. No abscess. No trismus. No facial swelling. Negative for trauma or tenderness Eyes PERRL and EOMs intact bilaterally Neck no lymphadenopathy, supple and no JVD General: Negative for tenderness Chest Wall inspection of chest normal and palpation of chest normal Resp normal respiratory effort and clear to auscultation bilaterally Effort and Inspection: Negative for pain with movement Auscultation: Negative for rales, rhonchi or wheezes Cardio regular rate, regular rhythm, S1 normal heart sound, S2 normal heart sound and no murmurs GI normal to inspection, nondistended, normoactive bowel sounds, non-tender, non-distended and no masses Auscultation: normoactive bowel sounds Palpation: soft; Negative for tender Back/Spine no CVA tenderness Cervical Spine: Negative for cervical spine tenderness Thoracic Spine / Upper Back: Negative for thoracic spinal tenderness Extremity normal to inspection General Extremety ED: Negative for edema or tenderness General Extremity: Negative for edema Neuro oriented x3, CN's II-XII intact bilaterally and no sensory deficits noted Sensorium / Orientation: alert; Negative for orientation impaired, lethargic or stuporous Motor Exam: strength 5/5 throughout Psych mental status grossly normal Appearance: Negative for unkempt Attitude: No agitated Mood & Affect: Negative for depressed or anxious Skin no rashes or lesions noted and no wounds General Skin Exam: Negative for jaundice or pallor MDM MDM MDM Narrative Medical decision making narrative: Middle-age male covered a month ago still having fever and chills also has infected dentition. Chest x-ray being obtained. Other than his dental caries and gingivitis he does not have anything specific on exam. Repeat exam no change. Patient will be started on a dose of penicillin VK. Discharged home on that 4 times a day for 10 days and follow-up with a dentist as soon as possible. Lab Data Attestation: I reviewed the patient's lab results. Radiography Chest X-Ray - ED: 1 View, Read by ED Physician, Heart, Lungs, Mediastinum, Bony Structures, No Acute Disease and Chronic Changes Diagnostic Testing: Single view, portable chest x-ray interpreted myself shows no acute abnormality. Chronic changes. No pneumonia. No infiltrate. Normal cardiac silhouette. I did go over the film with the patient. Discharge Plan Triage Chief Complaint: Fever ED Provider: Wicho Baker Dx/Rx/DC Orders Clinical Impression: Acute gingivitis, Dental cavities Instructions: Understanding Gingivitis, ED Dental Cavity Prescriptions: New penicillin V potassium 500 mg tablet 500 mg PO 4X/DAY Qty: 40 RF: 0 Primary Care Provider: Care Physician,No Primary Referrals: Olivia Greenberg [NON-STAFF] - As soon as possible Care Physician,No Primary [Primary Care Provider] - Activity Restrictions/Additional Instructions: You will be started on the antibiotic penicillin 4 times a day for 10 days for your dental infections. You must follow-up with a dentist as soon as possible either one of your choice or at the [facility] Tylenol and Motrin for pain and fevers. Follow-up if not improving. Disposition Disposition: Home, Self Care
[2021-04-01] MEDS: Penicillin Vk 250 MG Tablet 500 MG PO (20:10)
== END 2021-04-01 20:11 | disposition home or self-care (01) ==
PROVIDERS: Emergency Provider Emergency Medicine
DX: K05.00 Acute gingivitis, plaque induced (principal); K02.9 Dental caries, unspecified; R50.9 Fever, unspecified; R05.9 Cough, unspecified; R11.2 Nausea with vomiting, unspecified; K21.9 Gastro-esophageal reflux disease without esophagitis; F17.210 Nicotine dependence, cigarettes, uncomplicated; Z86.16 Personal history of COVID-19
CPT/HCPCS: 71045; 99283

== ENCOUNTER 2021-06-19 14:10 | Emergency (ER) | payer MEDICAID, SELFPAY ==
[2021-06-19 14:11] VITALS: BP 146/109; PULSE 115; RESP 18; TEMP 36.6; O2SAT 98; BMI 25.0
--- NOTE | 2021-06-19 15:29 | RAD_ITS ---
STUDY: X-RAY CHEST REASON FOR EXAM: Male, 40 years old. cough TECHNIQUE: Single AP portable view of the chest. COMPARISON: 04/01/2021 FINDINGS: The lungs are clear and expanded. There is no demonstrated pleural abnormality. Normal size heart. Normal mediastinum and kallie. Normal visualized pulmonary arteries. Normal visualized aortic arch and descending thoracic aorta. Normal visualized thoracic spine. Normal visualized ribs, clavicles, and shoulders. There is no demonstrated abnormality of the visualized soft tissue structures of the upper abdomen. RAD/Chest 1 View (Portable) IMPRESSION: Normal x-ray examination of the chest. Electronically Signed: Bryan Rojas MD at 16:22 EST ,
--- NOTE | 2021-06-19 15:29 | EKG12_ITS ---
Test Reason : GENERAL ILLNESS Blood Pressure : / mmHG Vent. Rate : 078 BPM Atrial Rate : 078 BPM P-R Int : 148 ms QRS Dur : 086 ms QT Int : 360 ms P-R-T Axes : 040 046 027 degrees QTc Int : 410 ms Normal sinus rhythm with sinus arrhythmia Normal ECG Confirmed by JORDIN TANG, VIKI ([id number]), supervising editor news reel NICOLA JAMISON ([id number]) on 06/21/2021 10:58:26 AM Referred By: SUSANNA Confirmed By:JOSÉ MIGUEL BRENNER MD
--- NOTE | 2021-06-19 15:30 | EX.ED.DYSGE1 ---
HPI History of Present Illness Chief Complaint: General Illness Detail of Chief Complaint: Not feeling well since this morning Informant: patient Narrative Narrative: Patient presents to the emergency department complaint of feeling well since this morning. Patient states that he woke up around 830 or 9 AM and was can have some coffee and smoke a cigarette when he started feeling hot all over and started feeling lightheaded and sweating. Symptoms occurred while sitting. Patient went to lay down and try to sleep and then got up to go to group. He was told group by the counselor that he looked pale. Patient then try to walk home and started feeling lightheaded again and hot and sweaty so he laid in the snow for short time and then walked home where he has to friend to bring him in to get evaluated. Patient has had a cough that is been chronic and he is a smoker. Patient states that he had Covid in February 2021. Patient did have one of the Covid vaccines but developed hives with it and so he did get the second 1. Patient otherwise has no medical history. He denies any chest pain. He denies abdominal pain. He has had intermittent blood in his stool for a long time he states and no black tarry stools. He denies abdominal pain. Prior similar symptoms: No PFSH PFSH Medical History (Updated 06/19/21 @ 18:[address] Manny Martinez DO) GERD (gastroesophageal reflux disease) Home Medications NK 06/19/21 [History Last Taken Unknown] Allergy/AdvReac Type Severity Reaction Status Date / Time No Known Allergies Allergy Verified 06/19/21 14:14 Surgical History (Updated 06/19/21 @ 15:36 by Dorothy Crooks) History of adenoidectomy Social History Smoking Status: Current every day smoker tobacco type: cigarettes ROS ROS ED Constitutional Constitutional ED: Reports systems reviewed and no addt'l complaints, except as documented; Denies body ache(s), change in weight or chills Eyes Eyes: Denies acute decrease in peripheral vision, change in vision, double vision or loss of vision ENT ENT ED: Reports none; Denies ear pain, lip swelling, loss taste/smell, neck pain, otalgia or sore throat Cardiovascular Cardiovascular: Reports none; Denies abdominal pain, chest pain with activity, leg edema, lightheadedness, palpitations, rapid heart rate or syncope Respiratory/Chest Respiratory/Chest: Reports none and cough; Denies change in mental status, dry cough, dyspnea, hemoptysis, shortness of breath at rest or shortness of breath with exertion Gastrointestinal Gastrointestinal: Reports none; Denies abdominal pain, change in stool character, diarrhea, hematemesis, hematochezia, melena, rectal bleeding or vomiting Genitourinary Genitourinary ED: Reports none; Denies abdominal discomfort, anuria, dysuria, genital pain or polyuria Musculoskeletal Musculoskeletal: Reports none; Denies arthralgias, back pain, difficulty walking, extremity pain, muscle weakness or myalgias Integumentary Reports none; Denies abscess or rash Neurologic Neurologic: Reports none, weakness and other Details: Dizziness ; Denies abnormal gait, confusion, focal weakness, frequent falls, headache(s), loss of vision, numbness, paresthesias, radicular pain or vertigo Psychiatric Psychiatric: Reports systems reviewed and no addt'l complaints, except as documented and none; Denies behavioral changes, confusion, difficulty concentrating, hallucinations, suicidal ideation, tactile hallucinations or visual hallucinations Endocrine Endocrinology: Denies none, cold intolerance, excessive sweating, fatigue or heat intolerance Hematologic/Lymphatic Hematologic/Lymphatic: Reports none; Denies anemia, easy bleeding or easy bruising Allergic/Immunologic Allergic/Immunologic ED: Denies as per HPI, none, lip swelling, mouth swelling, throat swelling, tongue swelling or hives EXAM Physical Exam Const Vital Signs: 06/19/21 14:11 06/19/21 15:36 06/19/21 17:12 Temperature 97.9 F Temperature Source Temporal Pulse Rate 115 H Pulse Rate [Lying] 89 Pulse Rate [Sitting] 83 Pulse Rate [Standing] 96 Respiratory Rate 18 Respiratory Effort Normal Non-Labored Respiratory Pattern Normal Blood Pressure 146/109 H Blood Pressure [Lying] 125/93 H Blood Pressure [Sitting] 131/110 H Blood Pressure [Standing] 128/106 H Blood Pressure Mean 121 Blood Pressure Mean [Lying] 103 Blood Pressure Mean [Sitting] 117 Blood Pressure Mean [Standing] 113 Pulse Ox 98 Oxygen Delivery Method Room Air Positive well nourished and well developed General Appearance ED: well developed and NAD HEENT Reports TM's clear and moist mucous membranes normocephalic and atraumatic; Negative for trauma or tenderness Tympanic Membrane ED: Yes TM's clear Eyes PERRL and EOMs intact bilaterally General Eye ED: Negative for pale conjunctiva or scleral icterus Neck no lymphadenopathy, supple and no JVD General: Negative for tenderness Chest Wall inspection of chest normal and palpation of chest normal Chest: Negative for tenderness Resp normal respiratory effort and clear to auscultation bilaterally Effort and Inspection: Negative for respiratory distress or pain with movement Auscultation: Negative for rhonchi, wheezes or diminished lung sounds Cardio regular rhythm, S1 normal heart sound, S2 normal heart sound and no murmurs Rate: tachycardic Peripheral Pulses: pulses 2+ throughout GI normal to inspection, nondistended, normoactive bowel sounds, soft to palpation, non-tender, non-distended and no masses Back/Spine no CVA tenderness and no thoracic nor lumbar tenderness Extremity normal to inspection General Extremety ED: Negative for edema General Extremity: Negative for edema Neuro oriented x3, CN's II-XII intact bilaterally, no sensory deficits noted and gait normal Sensorium / Orientation: awake, alert, oriented to person, oriented to place and oriented to time Motor Exam: strength 5/5 throughout and strength abnormal Psych mental status grossly normal Skin no rashes or lesions noted and no wounds MDM MDM MDM Narrative Medical decision making narrative: Lab work-up unremarkable. He did have an IV line established on arrival and was given a liter of same fluid bolus. COVID-19 test was negative. Orthostatic vital signs were negative. At this point etiology of patient's symptoms unclear. Recommending pushing fluids and rest. 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 Lab Data Attestation: I reviewed the patient's lab results. Labs: Laboratory Results - last 24 hr 06/19/21 06/19/21 06/19/21 16:00 16:00 16:00 WBC 11.1 H RBC 4.99 Hgb 15.6 Hct 45.9 MCV 92.0 MCH 31.3 MCHC 34.0 RDW Std Deviation 42.8 RDW Coeff of Judith 12.8 Plt Count 345 MPV 8.7 Immature Gran % (Auto) 1.100 H Neut % (Auto) 54.4 Lymph % (Auto) 38.3 [place] % (Auto) 4.7 Eos % (Auto) 1.0 Baso % (Auto) 0.5 Absolute Neuts (auto) 6.0 Absolute Lymphs (auto) 4.25 Nucleated RBC % 0 Differential Comment SCANNED Sodium 137 Potassium 4.1 Chloride 105 Carbon Dioxide 26.0 Anion Gap 6 BUN 16 Creatinine 1.11 Estim Creat Clear Calc 98.98 Est GFR (MDRD) Af Amer 94 Est GFR (MDRD) Non-Af 77 BUN/Creatinine Ratio 14.4 Glucose 102 Calcium 9.2 Troponin I High Sens 39 Urine Color Urine Clarity Urine pH Ur Specific [place] Urine Protein Urine Glucose (UA) Urine Ketones Urine Occult Blood Urine Nitrite Urine Bilirubin Urine Urobilinogen Ur Leukocyte Esterase Urine RBC Urine WBC Ur Squamous Epith Cells Urine Bacteria Urine Mucus Urine Opiates Screen Urine Methadone Screen Ur Barbiturates Screen Ur Phencyclidine Scrn Ur Amphetamines Screen U Methamphetamin-MDMA U Benzodiazepines Scrn Urine Cocaine Screen U Cannabinoids Screen Ur Drug Screen Comment Ethyl Alcohol < 3.0 06/19/21 06/19/21 16:49 16:49 WBC RBC Hgb Hct MCV MCH MCHC RDW Std Deviation RDW Coeff of Judith Plt Count MPV Immature Gran % (Auto) Neut % (Auto) Lymph % (Auto) [place] % (Auto) Eos % (Auto) Baso % (Auto) Absolute Neuts (auto) Absolute Lymphs (auto) Nucleated RBC % Differential Comment Sodium Potassium Chloride Carbon Dioxide Anion Gap BUN Creatinine Estim Creat Clear Calc Est GFR (MDRD) Af Amer Est GFR (MDRD) Non-Af BUN/Creatinine Ratio Glucose Calcium Troponin I High Sens Urine Color Yellow Urine Clarity Clear Urine pH 6.0 Ur Specific [place] 1.020 Urine Protein 15 H Urine Glucose (UA) Normal Urine Ketones Negative Urine Occult Blood Negative Urine Nitrite Negative Urine Bilirubin Negative Urine Urobilinogen Normal Ur Leukocyte Esterase Negative Urine RBC 0 SEEN Urine WBC 0 SEEN Ur Squamous Epith Cells 0 SEEN Urine Bacteria 0 SEEN Urine Mucus 0 SEEN Urine Opiates Screen NEGATIVE Urine Methadone Screen NEGATIVE Ur Barbiturates Screen NEGATIVE Ur Phencyclidine Scrn NEGATIVE Ur Amphetamines Screen NEGATIVE U Methamphetamin-MDMA NEGATIVE U Benzodiazepines Scrn NEGATIVE Urine Cocaine Screen NEGATIVE U Cannabinoids Screen NEGATIVE Ur Drug Screen Comment Ethyl Alcohol Radiography Chest X-Ray - ED: 1 View Diagnostic Testing: Clinical Impression(s) from Imaging Studies Chest X-Ray 06/19/21 15:29 IMPRESSION: Normal x-ray examination of the chest. Electronically Signed: Bryan Rojas MD at 16:22 EST , 1 view chest x-ray obtained interpreted by myself as no acute disease process. Radiology in agreement. EKG Initial EKG: Comments: Sinus rhythm with a ventricular rate of 78 bpm with occasional PACs Prior EKG tracings: not available for review Discharge Plan Triage Chief Complaint: General Illness Other Complaint: Dizziness ED Provider: Manyn Martinez Dx/Rx/DC Orders Clinical Impression: Weakness Instructions: ED Weakness (Uncertain Cause) Prescriptions: No Action NK RF: 0 Primary Care Provider: Care Physician,No Primary Referrals: Jeffrey Mclean MD [STAFF PHYSICIAN] - 3-5 Days Care Physician,No Primary [Primary Care Provider] - Disposition Disposition: Home, Self Care
[2021-06-19 16:15] LABS: Absolute Lymphocyte Count 4.25 X10^3/uL (0.83-4.51); Basophil# 0.06 X10^3/uL; Basophil% 0.5 % (0-1); Eosinophil# 0.11 X10^3/uL; Hematocrit 45.9 % (40-54); Hemoglobin 15.6 g/dL (13.0-16.5); Lymphocyte # 4.25 X10^3/ul (0.83-4.51); Lymphocyte % 38.3 % (19-41); Mean Corpuscular Hgb 31.3 pg (27.0-32.0); Mean Platelet Vol. 8.7 fl (6.2-12.0); Monocyte# 0.52 X10^3/uL; Monocyte% 4.7 % (0-10); NRBC Flagged by Analyzer 0 % (0-5); Neutrophil # 6.04 X10^3/uL (2.7-7.7); Neutrophil % 54.4 % (47-70); POSITIVE MORPHOLOGY YES; Platelet Count 345 K/mm3 (150-450); RBC Distribution Width CV 12.8 % (11.6-14.6); RBC Distribution Width SD 42.8 fl (35.1-43.9); Red Blood Count 4.99 M/mm3 (4.6-6.2); White Blood Count 11.1 K/mm3 (4.4-11.0)
[2021-06-19 16:17] LABS: Differential Indicated SCAN CRITERIA MET
[2021-06-19 16:37] LABS: Anion Gap 6 (5-15); BUN 16 mg/dL (7-18); BUN/Creat Ratio 14.4 RATIO (10-20); Calcium,Total 9.2 mg/dL (8.5-10.1); Chloride 105 mmol/L (98-107); Creatinine, Serum 1.11 mg/dL (0.70-1.30); EST Glomerular Filtration Rate 77 mL/min (>60); Est Glom Filt Rate - Afr Amer 94 mL/min (>60); Estimated Creatinine Clearance 98.98 ml/min; Glucose 102 mg/dL (74-106); Potassium 4.1 mmol/L (3.5-5.1); Sodium Level 137 mmol/L (136-145); Troponin-I HS 39 pg/mL (3.0-78.0)
[2021-06-19 16:50] LABS: Differential Comment SCANNED
[2021-06-19] MEDS: 0.9% Normal Saline 1,000 ML 1000 ML IV (16:51)
[2021-06-19 16:58] LABS: Bacteria 0 SEEN /hpf (None Seen); Mucous, Urine 0 SEEN /hpf (<or=2+); Red Blood Cells-Urine 0 SEEN /hpf (0-5); Squamous Epithelial Cells - UA 0 SEEN /hpf (0-5); White Blood Cells 0 SEEN /hpf (0-5)
[2021-06-19 17:12] VITALS: BP 125/93; BP 128/106; BP 131/110; PULSE 83; PULSE 89; PULSE 96
[2021-06-19 17:13] LABS: Color, Urine Yellow (Yellow); Glucose, Dipstick Normal (Normal); Ketone-Dipstick Negative (Negative); Leukocyte Esterase-Dipstick Negative /ul (Negative); Nitrite-Dipstick Negative (Negative); Occult Blood-Urine Negative /ul (Negative); Protein-Dipstick 15 mg/dl (Negative); Urine Bilirubin Dipstick Negative (Negative); Urine Clarity Clear (Clear); Urine Urobilinogen Normal (Normal)
[2021-06-19 17:56] LABS: Alcohol, Blood (Medical)-Serum < 3.0 mg/dL
[2021-06-19 18:00] LABS: Amphetamine Urine VISTA NEGATIVE (<1000 ng/mL); Barbiturate Urine VISTA NEGATIVE (< 200 ng/mL); Benzodiazepine Urine VISTA NEGATIVE (< 200 ng/mL); Cocaine Urine VISTA NEGATIVE (< 300 ng/mL); Ecstacy Urine VISTA NEGATIVE (< 500 ng/mL); Methadone Urine VISTA NEGATIVE (< 300 ng/mL); PCP Urine VISTA NEGATIVE (< 25 ng/mL); THC Urine VISTA NEGATIVE (< 50 ng/mL); Vista UDS pH Range 5
[2021-06-19 18:13] VITALS: BP 113/89; O2SAT 97
== END 2021-06-19 18:14 | disposition home or self-care (01) ==
PROVIDERS: Emergency Provider Emergency Medicine; Visit Provider Emergency Medicine
DX: R53.1 Weakness (principal); K92.1 Melena; Z20.822 Contact with and (suspected) exposure to COVID-19; R42 Dizziness and giddiness; F17.210 Nicotine dependence, cigarettes, uncomplicated; Z86.16 Personal history of COVID-19
CPT/HCPCS: 71045; 80048; 80307; 81001; 82077; 84484; 85025; 87426; 93005; 96360; 99285; J7030

== ENCOUNTER 2021-08-09 12:37 | Emergency (ER) | payer MEDICAID, SELFPAY ==
[2021-08-09 12:38] VITALS: BP 120/96; PULSE 104; RESP 16; TEMP 36.4; O2SAT 99; BMI 27.2
--- NOTE | 2021-08-09 12:43 | RAD_ITS ---
STUDY: X-RAY - RIGHT HAND REASON FOR EXAM: Male, 40 years old. Injury TECHNIQUE: 4 view(s) of the hand. COMPARISON: None. FINDINGS: Normal radiocarpal articulation. Normal distal radioulnar joint. Normal visualized carpal bones. Normal carpal articulations Normal carpometacarpal articulation of the thumb. Normal second through fifth carpometacarpal joints. Normal metacarpi. Normal metacarpophalangeal joint of the thumb. Normal interphalangeal joint of the thumb. Normal proximal and distal phalanges of the thumb. Normal metacarpophalangeal joints of the second through fifth fingers. Normal proximal and distal interphalangeal joints of the second through fifth fingers. Normal phalanges of the second through fifth fingers. The soft tissue structures are unremarkable. RAD/Hand Min 3 Views IMPRESSION: Normal x-ray examination of the hand. Electronically Signed: Salomon Hamilton MD at 13:29 EDT ,
--- NOTE | 2021-08-09 14:44 | EDS_ITS ---
HPI History of Present Illness Chief Complaint: Laceration [facility] Medical History (Updated 08/09/21 @ 14:[address] Wicho Baker MD) GERD (gastroesophageal reflux disease) Home Medications cephalexin 500 mg PO Q6 #20 cap 08/09/21 [Rx Last Taken Unknown] Allergy/AdvReac Type Severity Reaction Status Date / Time No Known Allergies Allergy Verified 06/19/21 14:14 Surgical History (Updated 06/19/21 @ 15:36 by Dorothy Crooks) History of adenoidectomy Social History Smoking Status: Current every day smoker tobacco type: cigarettes EXAM Physical Exam Const Vital Signs: 08/09/21 12:38 Temperature 97.6 F L Temperature Source Temporal Pulse Rate 104 H Respiratory Rate 16 Blood Pressure 120/96 H Blood Pressure Mean 104 Pulse Ox 99 Oxygen Delivery Method Room Air MDM MDM MDM Narrative Medical decision making narrative: 40-year-old male [id number]. Last night cut his right thumb on a door spring around 8:30 PM. Tetanus is 2 years ago. He denies any other complaints. He is having pain and swelling. Evaluate this patient with our PA. Right hand thumb has a close laceration on both the medial lateral aspect. He has full extension. He can extend against resistance. He has normal touch sensation. There is mild swelling. There is no noted foreign body. No cellulitis. He has limited flexion due to pain and swelling. But he can flex at the interphalangeal joint. Normal cap refill. Rest of the hand is unremarkable. Heart and lung exams are normal. X-ray was negative. This laceration is now around 16 hours old. To be cleaned and dressed. His tetanus is already up-to-date. We placed on Keflex for 5 days. Tylenol and Motrin at home for pain. He was given 2 [place] here for pain. Radiography Diagnostic Testing: Clinical Impression(s) from Imaging Studies Hand X-Ray 08/09/21 12:43 IMPRESSION: Normal x-ray examination of the hand. Electronically Signed: Salomon Hamilton MD at 13:29 EDT , Discharge Plan Triage Chief Complaint: Laceration ED Midlevel Provider: Jose Leos ED Provider: Wicho Baker Dx/Rx/DC Orders Clinical Impression: Laceration of right thumb Instructions: ED Laceration Small or ... Prescriptions: New cephalexin 500 mg capsule 500 mg PO Q6 Qty: 20 RF: 0 Primary Care Provider: Care Physician,No Primary Referrals: Maik Radford MD [NON-STAFF] - 1 Week if not improving Care Physician,No Primary [Primary Care Provider] - Activity Restrictions/Additional Instructions: Ice and elevate your thumb to decrease pain and swelling. Clean it twice a day with soap and water and dry thoroughly. Apply antibiotic ointment. Keflex 1 pill 4 times a day for the next 5 days. Return if worse. Fever, significant red or streaks. This should progressively improve if not follow-up with . Disposition Disposition: Home, Self Care
[2021-08-09 14:48] VITALS: BP 136/86; PULSE 66; RESP 18; O2SAT 99
--- NOTE | 2021-08-09 14:50 | EX.ED.GENINJ ---
HPI History of Present Illness Chief Complaint: Laceration Narrative Narrative: Patient is a 40-year-old male with history of drug abuse, homelessness, presents the emerge department with pain to the right thumb. Patient states he was assisting someone in a garage door when a cable snapped striking his right thumb. Patient states it is red, swollen, this happened approximately 8 PM last night. Patient did not come to the emergency department last night did not have a ride. Patient states the pain was worse and he is here for evaluation. [facility] Medical History (Updated 08/09/21 @ 14:[address] Wicho Baker MD) GERD (gastroesophageal reflux disease) Home Medications cephalexin 500 mg PO Q6 #20 cap 08/09/21 [Rx Last Taken Unknown] Allergy/AdvReac Type Severity Reaction Status Date / Time No Known Allergies Allergy Verified 06/19/21 14:14 Surgical History (Updated 06/19/21 @ 15:36 by Dorothy Crooks) History of adenoidectomy Social History Smoking Status: Current every day smoker tobacco type: cigarettes ROS ROS ED ROS Narrative Constitutional: Negative for fever, chills, weight loss or gain, weakness Eyes: Negative for vision loss, vision change, double vision ENT: Negative for any hearing changes, ringing in the ears, dizziness, discharge, pain Nose: Negative for any congestion, runny nose, sinus pain, allergies Throat: Negative for any sore throat hoarseness, voice changes, Cardiovascular: Negative for any chest pain, tightness, palpitations, racing heartbeat Respiratory: Negative for any coughs, sputum production, coughing, hemoptysis, shortness of breath, shortness of breath on exertion, Gastrointestinal: Negative for any abdominal pain, nausea, vomiting, diarrhea, constipation, blood in stool, blood in vomit : Negative for any urinary frequency, incontinence, dysuria, retention, blood in urine Muscle skeletal: Negative for any muscle joint pain, stiffness, myalgias, arthralgias, neck pain, back pain. Positive for right hand pain, right thumb pain Neurological: Negative for any headache, head injury, dizziness, syncope, numbness or tingling Skin: Negative for any rashes, lumps, itching, abrasions, lacerations Psychiatric: Negative for any depression, anxiety, stress, suicidal ideation, homicidal ideation Hematologic: Negative for any easy bruising, excessive bruising, easy bleeding Allergies: Negative for any eczema, hives, rash EXAM Physical Exam Const Vital Signs: 08/09/21 12:38 08/09/21 14:48 Temperature 97.6 F L Temperature Source Temporal Pulse Rate 104 H 66 Respiratory Rate 16 18 Blood Pressure 120/96 H 136/86 H Blood Pressure Mean 104 Pulse Ox 99 99 Oxygen Delivery Method Room Air Positive well nourished and well developed General Appearance ED: well developed HEENT atraumatic Eyes PERRL and EOMs intact bilaterally Chest Wall inspection of chest normal Resp normal respiratory effort and clear to auscultation bilaterally Cardio regular rhythm Rate: regular rate GI normal to inspection, nondistended, normoactive bowel sounds Back/Spine normal to inspection Extremity Extremity Narrative: Patient has 2 small superficial lacerations both to the anterior posterior base of the right first digit. Patient has full range of motion of the digit, patient is extensor, flexor tendon appear intact. Patient does have pain, soft tissue swelling, slight erythema. Negative for any signs or symptoms of infection, negative for any foreign body noted. General Extremety ED: Yes tenderness Neuro oriented x3 Sensorium / Orientation: alert Psych mental status grossly normal Skin no rashes or lesions noted MDM MDM Radiography Diagnostic Testing: Clinical Impression(s) from Imaging Studies Hand X-Ray 08/09/21 12:43 IMPRESSION: Normal x-ray examination of the hand. Electronically Signed: Salomon Hamilton MD at 13:29 EDT , Treatment and Re-Evaluation Narrative: Patient appears well, patient appears nontoxic, vital signs are stable. Patient presents to the emergency department with complaints of right thumb pain after injury. Patient's x-ray of the right hand showed a normal x-ray of the right hand. Patient's physical examination is consistent with a soft tissue injury. Negative for any foreign body, infection, tendon injury. Patient will have this wound cleansed, patient's tetanus is up-to-date in the last 2 years. Patient instructed use [id number] ibuprofen, Tylenol and will be placed on 5 days of Keflex. Patient strict return for any worsening symptoms. Patient stable for discharge. Discharge Plan Triage Chief Complaint: Laceration ED Midlevel Provider: Jose Leos ED Provider: Wicho Baker Dx/Rx/DC Orders Clinical Impression: Laceration of right thumb Instructions: ED Laceration Small or ... Prescriptions: New cephalexin 500 mg capsule 500 mg PO Q6 Qty: 20 RF: 0 Primary Care Provider: Care Physician,No Primary Referrals: Maik Radford MD [NON-STAFF] - 1 Week if not improving Care Physician,No Primary [Primary Care Provider] - Activity Restrictions/Additional Instructions: Ice and elevate your thumb to decrease pain and swelling. Clean it twice a day with soap and water and dry thoroughly. Apply antibiotic ointment. Keflex 1 pill 4 times a day for the next 5 days. Return if worse. Fever, significant red or streaks. This should progressively improve if not follow-up with Dr. Bradshaw Disposition: Home, Self Care
[2021-08-09] MEDS: HYDROcodone Bitartrate/Apap 5/325 Tablet PO (14:52)
== END 2021-08-09 15:01 | disposition home or self-care (01) ==
PROVIDERS: Emergency Provider Emergency Medicine; Visit Provider Emergency Medicine
DX: S61.011A Laceration without foreign body of right thumb without damage to nail, initial encounter (principal); W26.8XXA Contact with other sharp object(s), not elsewhere classified, initial encounter; K21.9 Gastro-esophageal reflux disease without esophagitis; F17.210 Nicotine dependence, cigarettes, uncomplicated
CPT/HCPCS: 73130; 87811; 99282

== ENCOUNTER → 2021-10-10 | Outpatient (CLI) | payer MEDICAID, SELFPAY ==
--- NOTE | 2021-10-10 13:18 | RAD_ITS ---
STUDY: X-RAY - ABDOMEN/PELVIS REASON FOR EXAM: Male, 41 years old. ABD PAIN TECHNIQUE: Single AP view of the abdomen / pelvis. COMPARISON: None. FINDINGS: Normal visualized lung bases. There is an unremarkable bowel gas pattern. There is no demonstrated free abdominal air. The visualized liver, spleen and kidneys are grossly normal in size and morphology. Normal soft tissue structures. Normal visualized osseous structures. RAD/Abd Inc Decub and/or Erect IMPRESSION: Normal x-ray examination of the abdomen and pelvis. Electronically Signed: Bryan Rojas MD at 9:10 EDT ,
[2021-10-10 13:30] LABS: Erythrocyte Sedimentation Rate 3 mm/hr (0-20)
[2021-10-10 13:32] LABS: Absolute Lymphocyte Count 2.95 X10^3/uL (0.83-4.51); Absolute Neutrophil Count 5.4 X10^3/uL (2.0-7.7); Basophil# 0.06 X10^3/uL; Basophil% 0.7 % (0-1); Eosinophils% 1.1 % (0-5); Hematocrit 39.7 % (40-54); Hemoglobin 13.4 g/dL (13.0-16.5); Lymphocyte # 2.95 X10^3/ul (0.83-4.51); Lymphocyte % 32.5 % (19-41); Mean Corp Hgb Conc 33.8 g/dL (32-36); Mean Corpuscular Hgb 31.7 pg (27.0-32.0); Mean Corpuscular Volume 93.9 fL (80-94); Mean Platelet Vol. 9.1 fl (6.2-12.0); Monocyte# 0.47 X10^3/uL; Monocyte% 5.2 % (0-10); NRBC Flagged by Analyzer 0 % (0-5); Neutrophil # 5.43 X10^3/uL (2.7-7.7); Neutrophil % 59.7 % (47-70); POSITIVE MORPHOLOGY YES; Platelet Count 302 K/mm3 (150-450); RBC Distribution Width CV 12.4 % (11.6-14.6); RBC Distribution Width SD 42.6 fl (35.1-43.9); Red Blood Count 4.23 M/mm3 (4.6-6.2); White Blood Count 9.1 K/mm3 (4.4-11.0)
[2021-10-10 13:37] LABS: Differential Indicated SCAN CRITERIA MET
[2021-10-10 13:51] LABS: ALB/GLOB Ratio 1.2 RATIO (0.9-2.4); AST(SGOT) 26 U/L (15-37); Alanine Aminotransfer ALT/SGPT 71 U/L (16-61); Albumin, Serum 3.8 g/dL (3.2-5.0); Alkaline Phosphatase 65 U/L (45-117); Anion Gap 7 (5-15); BUN 15 mg/dL (7-18); BUN/Creat Ratio 12.3 RATIO (10-20); Calcium,Total 8.8 mg/dL (8.5-10.1); Chloride 109 mmol/L (98-107); Creatinine, Serum 1.22 mg/dL (0.70-1.30); EST Glomerular Filtration Rate 69 mL/min (>60); Est Glom Filt Rate - Afr Amer 84 mL/min (>60); Globulin 3.2 g/dL (2.2-4.2); Glucose 115 mg/dL (74-106); Lipase 72 U/L (73-393); Potassium 4.2 mmol/L (3.5-5.1); Sodium Level 141 mmol/L (136-145)
[2021-10-10 14:03] LABS: Atypical Lymphocyte 1+ %; Reactive Lymphocyte 1+
== END | disposition home or self-care (01) ==
LOC: LAB 13:10
PROVIDERS: Referring Provider Nurse Practitioner Adult Health; Visit Provider Nurse Practitioner Adult Health
DX: R10.9 Unspecified abdominal pain (principal)
CPT/HCPCS: 36415; 74019; 80053; 83690; 85025; 85652

== ENCOUNTER 2022-02-09 14:49 | Emergency (ER) | payer MEDICAID, SELFPAY ==
[2022-02-09 14:50] VITALS: BP 143/92; PULSE 95; RESP 16; TEMP 36.2; O2SAT 97; BMI 28.4
--- NOTE | 2022-02-09 15:09 | EDS_ITS ---
HPI History of Present Illness HPI Narrative: Right shoulder injury after falling off a horse drawn cart. Chief Complaint: Upper Extremity Injury Informant: patient Occured/Mechanism Mechanism/Context: Yes injury and Yes blunt trauma Onset/Context/Timing Onset: Today Context: Sudden Onset Timing: Continuous Quality of Pain: Sharp and Aching Current Severity: Moderate Maximum Severity: Moderate Narrative Narrative: 41-year-old male history of reflux. Was on a horse drawn I think racing heart. It is coming out of the barn. The horse got spooked. He was thrown off the cart. He said when he stood up he kept the rains in his hand because he thought his shoulder was dislocated when the horse pulled he thinks it relocated his shoulder. He is right-hand dominant. He is never had any surgery to his right shoulder. Currently is being worked up for possible rotator cuff tear before today's injury. Denies any other complaints. No LOC. No head or neck injury. Prior similar symptoms: No Recent Illness/Hospitalization: No PFSH PFSH Medical History GERD (gastroesophageal reflux disease) Helicobacter pylori (H. pylori) Home Medications omeprazole 40 mg capsule,delayed release 20 mg PO DAILY 08/30/21 [History Last Taken Unknown] Allergy/AdvReac Type Severity Reaction Status Date / Time No Known Allergies Allergy Verified 02/09/22 14:50 Family History Other Cancer Heart disease Surgical History History of adenoidectomy Social History Smoking Status: Current every day smoker tobacco type: cigarettes ROS ROS ED ROS Narrative Denies recent illness. Review of Systems ROS Unobtainable: Denies due to encephalopathy Constitutional Constitutional ED: Denies chills or fever(s) Eyes Eyes: Denies blurry vision ENT ENT ED: Denies ear pain Cardiovascular Cardiovascular: Denies chest pain Respiratory/Chest Respiratory/Chest: Denies cough or dyspnea Gastrointestinal Gastrointestinal: Denies abdominal pain Genitourinary Genitourinary ED: Denies dysuria Musculoskeletal Musculoskeletal: Denies back pain Integumentary Denies abscess Neurologic Neurologic: Denies headache(s) Psychiatric Psychiatric: Denies anxiety Endocrine Endocrinology: Denies cold intolerance Hematologic/Lymphatic Hematologic/Lymphatic: Denies easy bleeding Allergic/Immunologic Allergic/Immunologic ED: Denies mouth swelling EXAM Physical Exam Narrative Exam Narrative: Signs stable afebrile. No acute distress. H EENT exam unremarkable atraumatic. Pupils round reactive light. C-spine, T-spine, L-spine and back nontender. Normal range of motion of neck. Trachea midline. Lungs clear to auscultation. Heart regular rhythm no murmur. Chest wall nontender. Abdomen soft nontender. Pelvic girdle intact. Moving all 4 extremities. Left upper both lower nontender normal range of motion no deformity. Normal strength. Right shoulder tenderness to palpation. No deformity. Clavicle appears to be intact. Distal humerus, right elbow, right forearm wrist and hand are all nontender with normal range of motion no deformity. Normal radial pulse. 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 No neurologic exam normal. GCS of 15. Const Vital Signs: 02/09/22 14:50 Temperature 97.1 F L Temperature Source Temporal Pulse Rate 95 Respiratory Rate 16 Blood Pressure 143/92 H Blood Pressure Mean 109 Pulse Ox 97 Oxygen Delivery Method Room Air Positive well nourished, well developed and unkempt; Negative for obese, cachectic or contractures General Appearance ED: unkempt, well developed and NAD; Negative for cachectic, contractures, cyanotic or diaphoretic Nutritional Appearance: Negative for cachectic or obese HEENT Reports moist mucous membranes normocephalic and atraumatic; Negative for trauma or tenderness Eyes PERRL and EOMs intact bilaterally General Eye ED: Negative for other Neck full ROM and supple General: Negative for tenderness Lymph Lymphatic: Negative for other Chest Wall inspection of chest normal and palpation of chest normal Chest: Negative for other Resp normal respiratory effort and clear to auscultation bilaterally Effort and Inspection: Negative for pain with movement Auscultation: Negative for rales, rhonchi or wheezes Cardio regular rate, regular rhythm, S1 normal heart sound, S2 normal heart sound and no murmurs Rate: Negative for bradycardia or tachycardic GI non-tender, non-distended and no masses Inspection: Negative for abdominal distention Auscultation: normoactive bowel sounds Palpation: soft; Negative for tender or guarding Bladder / Kidney Exam: No other Back/Spine no CVA tenderness General Back: Negative for CVA tenderness Cervical Spine: Negative for cervical spine tenderness Thoracic Spine / Upper Back: Negative for thoracic spinal tenderness Lumbar Spine / Lower Back: Negative for lumbar spinal tenderness Extremity normal to inspection and full ROM Extremity Narrative: Right Shoulder. No deformity. roving frame tender. Has decreased range of motion. Has canceled distal humerus, elbow, forearm, wrist and hand are nontender. Normal radial pulse. Normal help desk team leader strength. Decreased range of motion of the shoulder. General Extremety ED: Negative for edema General Extremity: Negative for edema Neuro oriented x3, CN's II-XII intact bilaterally, moves all extremities, no focal motor deficits and no sensory deficits noted Sensorium / Orientation: alert, oriented to person, oriented to place and oriented to time; Negative for orientation impaired, lethargic or stuporous Sensory Exam: No sensory level loss detected Motor Exam: strength 5/5 throughout Psych mental status grossly normal Appearance: unkempt Attitude: No agitated Mood & Affect: Negative for depressed, anxious or tearful Skin General Skin Exam: Negative for petechiae Lesions: no lesions Rashes: no rashes Trauma: no lacerations or abrasions MDM MDM MDM Narrative Medical decision making narrative: 41-year-old male right shoulder injury being thrown off a horse drawing cart. X-ray to be obtained. Prior to this injury today he was having problems and a concern was he may have a prior rotator cuff injury. He will be given 2 [place] p.o. for pain. He did not want any injections. Repeat exam patient is doing better. He will be discharged home Tylenol and Motrin for pain. Follow-up because prior to this injury they are working him up for possible rotator cuff tear of his right shoulder he will need an MRI if he does not get his range of motion back. Radiography Diagnostic Testing: Right shoulder x-ray 3 views turbid by myself and I will review shows no acute abnormality. Also read by the radiologist and agrees. Discharge Plan Triage Chief Complaint: Upper Extremity Injury ED Provider: Wicho Baker Dx/Rx/DC Orders Clinical Impression: Contusion of right shoulder Instructions: ED Shoulder Contusion Prescriptions: No Action omeprazole 40 mg capsule,delayed release(DR/EC) 20 mg PO DAILY [facility]: Farrukh Rothman MD [Med Staff - Active Staff] - As soon as possible [facility],Olivia Greenberg [Primary Care Provider] - 1 Week if not improving Activity Restrictions/Additional Instructions: Ice to the shoulder to decrease pain and swelling. Motrin Tylenol for pain. Follow-up with orthopedic doctor shoulders not improving he may need an MRI to evaluate for possible rotator cuff tear. Disposition Disposition: Home, Self Care
--- NOTE | 2022-02-09 15:10 | RAD_ITS ---
STUDY: X-RAY - RIGHT SHOULDER REASON FOR EXAM: Male, 41 years old. Status post fall TECHNIQUE: 4 view(s) of the shoulder. COMPARISON: None. FINDINGS: Normal glenohumeral articulation. Normal acromioclavicular joint. Normal acromion. Normal humeral head and visualized proximal humerus. The soft tissue structures are unremarkable. Normal visualized pulmonary apex. RAD/Shoulder min 2 Views IMPRESSION: Normal x-ray examination of the shoulder. Electronically Signed: Michael Price MD at 15:24 EDT ,
[2022-02-09] MEDS: HYDROcodone Bitartrate/Apap 5/325 Tablet PO (15:25)
[2022-02-09 16:41] VITALS: PULSE 87; RESP 17; O2SAT 98
== END 2022-02-09 16:42 | disposition home or self-care (01) ==
PROVIDERS: Emergency Provider Emergency Medicine; Visit Provider Emergency Medicine
DX: S40.011A Contusion of right shoulder, initial encounter (principal); V80.010A Animal-rider injured by fall from or being thrown from horse in noncollision accident, initial encounter; K21.9 Gastro-esophageal reflux disease without esophagitis; F17.210 Nicotine dependence, cigarettes, uncomplicated; Z79.899 Other long term (current) drug therapy
CPT/HCPCS: 73030; 99283

== ENCOUNTER 2022-02-23 08:00 | Emergency (ER) | payer MEDICAID, SELFPAY ==
[2022-02-23 08:01] VITALS: BP 135/97; PULSE 102; RESP 18; TEMP 36.7; O2SAT 98; BMI 26.4
--- NOTE | 2022-02-23 08:14 | ED.VIS.DENTA ---
HPI History of Present Illness Chief Complaint: Other, Pain/Inj Detail of Chief Complaint: Right-sided facial/jaw pain radiating to the anterior neck Informant: patient Onset/Context/Timing Onset: Days (2 days ago) Context: Sudden Onset Timing: Continuous Quality: Pain Location: Right side of the jaw Current Severity: Moderate Maximum Severity: Severe Worsened by: Palpation, opening closing his mouth, chewing Relieved by: - (Nothing) Associated Symptoms Assocated Symptom - Dental: Negative for fever, jaw swelling, face swelling, cold sensitivity or hot sensitivity Narrative Narrative: Patient is a 41-year-old male who presents with right-sided facial pain and ear pain. Onset 2 days ago. He denies fever, chills night sweats. He denies history of medic fever, heart murmur, mitral prolapse, SBE or being immune suppressed. Patient denies allergies to pain medicine or antibiotics. Patient denies change in voice. Patient denies drooling. Patient denies difficulty swallowing. States he has difficulty opening his mouth. He has not seen a dentist in some time. He denies ocular or visual symptoms. He does report right ear pain. He had no drainage from the ear. He has not noted a rash or any lesions. Prior similar symptoms: No Recent Illness[facility]: [facility] Medical History GERD (gastroesophageal reflux disease) Helicobacter pylori (H. pylori) Home Medications omeprazole 40 mg capsule,delayed release 20 mg PO DAILY 08/30/21 [History Last Taken Unknown] amoxicillin 500 mg capsule ea PO 02/20/22 [History Last Taken Unknown] clarithromycin 500 mg tablet ea PO 02/20/22 [History Last Taken Unknown] etodolac 300 mg capsule 300 mg PO Q8H 10 days #30 caps 02/20/22 [Rx Last Taken Unknown] clindamycin HCl 300 mg capsule (Cleocin HCl) 300 mg PO Q6H #28 CAPSULES 02/23/22 [Rx Last Taken Unknown] hydrocodone-acetaminophen 5-325mg 5mg-325mg 1 tab PO Q6H PRN PRN Pain 3 days #10 TABLETS 02/23/22 [Rx Last Taken Unknown] naproxen 500 mg tablet 500 mg PO BID #14 tabs 02/23/22 [Rx Last Taken Unknown] Allergy/AdvReac Type Severity Reaction Status Date / Time No Known Allergies Allergy Verified 02/23/22 08:01 Family History Other Cancer Heart disease Surgical History History of adenoidectomy Social History (Updated 02/23/22 @ 08:[address] Darrell Goldsmith MD) household members: none Smoking Status: Current every day smoker tobacco type: cigarettes alcohol intake: current alcohol intake frequency: holidays/special occasions only Alcohol type: beer ROS ROS ED Constitutional Constitutional ED: Denies chills, fever(s), subjective, sweats or weight loss Eyes Eyes: Denies blurry vision or change in vision ENT ENT ED: Reports ear pain and other Details: Additional information documented in the HPI ; Denies rhinorrhea or sore throat Cardiovascular Cardiovascular: Denies chest pain or palpitations Respiratory/Chest Respiratory/Chest: Denies cough, dyspnea or dyspnea on exertion Gastrointestinal Gastrointestinal: Denies nausea or vomiting Musculoskeletal Musculoskeletal: Reports neck pain; Denies arthralgias or myalgias Neurologic Neurologic: Denies headache(s), paresthesias or weakness Hematologic/Lymphatic Hematologic/Lymphatic: Denies easy bleeding or easy bruising Allergic/Immunologic Allergic/Immunologic ED: Denies mouth swelling, tongue swelling or urticaria EXAM Physical Exam Const Vital Signs: 02/23/22 08:01 Temperature 98.0 F Temperature Source Temporal Pulse Rate 102 H Respiratory Rate 18 Blood Pressure 135/97 H Blood Pressure Mean 109 Pulse Ox 98 Oxygen Delivery Method Room Air Positive well nourished and well developed; Negative for unkempt Constitutional Narrative: Patient appears uncomfortable. General Appearance ED: well developed; Negative for unkempt or pallor HEENT HEENT Narrative: Head is atraumatic normocephalic. There is no asymmetry. Patient has poor dentition. Teeth 29 through 32 are eroded to the gumline. There is evidence of soft tissue swelling. There is no fluctuance. There is no evidence of Ludewig's angina. There is no trismus. He has no TMJ tenderness with opening closing his mouth. Auricle appears normal. External auditory canals normal. TM is normal. The left TM was minimally visualized due to cerumen in the external auditory canal. Tooth #28 and 27 have significant decay. Mouth ED: Yes oral and palatal mucosa normal, Yes lips normal and Yes tongue normal Mouth: oral and palatal mucosa normal, lips normal and tongue normal Teeth and Gingiva: abnormal tooth and associated gingiva, caries, gingiva abnormal, poor dentition and teeth discoloration Throat: posterior oropharynx normal Eyes PERRL and EOMs intact bilaterally Eyes Narrative: There is no pain with movement of the eyes. General Eye ED: Negative for pale conjunctiva or scleral icterus Neck no lymphadenopathy, supple and no JVD Neck Narrative: Trachea is midline. There is no inspiratory expiratory stridor. There is no fullness in the submental region. There is no abnormality noted supple lingular region. General: normal visual inspection and tenderness; Negative for anterior neck swelling or submandibular swelling Lymph Lymphatic: no lymphadenopathy noted Chest Wall inspection of chest normal and palpation of chest normal Resp normal respiratory effort, no retractions and clear to auscultation bilaterally Cardio regular rhythm, S1 normal heart sound, S2 normal heart sound and no murmurs Rate: tachycardic Extremity normal to inspection and no joint enlargement Neuro oriented x3, CN's II-XII intact bilaterally, moves all extremities, no focal motor deficits and no sensory deficits noted Psych Psych Narrative: Affect is flat. Mood is depressed. Appearance: Negative for unkempt Skin Skin Narrative: There is no evidence of facial cellulitis. General Skin Exam: Negative for pallor MDM MDM MDM Narrative Medical decision making narrative: Patient has numerous dental caries and evidence of dental infection. He was treated with clindamycin and given NSAID and open analgesia for his pain since he has no allergies. He was instructed to follow-up with dentist. Laboratory studies are not indicated. There is no concern at this time for Ludewig's angina. There is no concern for HSV infection. Discharge Plan Triage Chief Complaint: Other, Pain/Inj ED Provider: Darrell Goldsmith Dx/Rx/DC Orders Clinical Impression: Abscess, dental, Dental caries extending into pulp, Dental caries extending into dentine, Gingivitis, acute, Periodontitis Instructions: ED Dental Abscess Prescriptions: New clindamycin HCl [Cleocin HCl] 300 mg capsule 300 mg PO Q6H Qty: 28 0RF hydrocodone-acetaminophen [hydrocodone-acetaminophen] 5-325 mg tablet 1 tab PO Q6H PRN PRN (Reason: Pain) 3 Days Qty: 10 0RF naproxen 500 mg tablet 500 mg PO BID Qty: 14 0RF No Action omeprazole 40 mg capsule,delayed release(DR/EC) 20 mg PO DAILY amoxicillin 500 mg capsule PO Label Comments: TAKE 2 CAPSULES BY MOUTH TWICE DAILY UNTIL GONE clarithromycin 500 mg tablet PO Label Comments: TAKE 1 TABLET BY MOUTH TWICE DAILY UNTIL GONE etodolac 300 mg capsule 300 mg PO Q8H 10 Days Qty: 30 0RF Rx Instructions: STOP ALL other NSAIDs including Mobic [facility]: [facility] [Primary Care Provider] - As soon as possible Activity Restrictions/Additional Instructions: 1. If you are unable to eat or drink anything return to the emergency department. 2. If you are unable to swallow your own saliva return immediately 3. The only person who will alleviate your pain and discomfort is a dentist. You need to contact the [facility] for urgent dental care Disposition Disposition: Home, Self Care
[2022-02-23] MEDS: Naproxen 250 MG Tablet 500 MG PO (08:32)
[2022-02-23] MEDS: HYDROcodone Bitartrate/Apap 5/325 Tablet PO (08:32)
[2022-02-23] MEDS: Clindamycin HCl 150 MG Capsule 300 MG PO (08:33)
== END 2022-02-23 08:41 | disposition home or self-care (01) ==
PROVIDERS: Emergency Provider Emergency Medicine; Visit Provider Emergency Medicine
DX: K05.00 Acute gingivitis, plaque induced (principal); K05.30 Chronic periodontitis, unspecified; K04.7 Periapical abscess without sinus; K02.9 Dental caries, unspecified; H92.01 Otalgia, right ear; K21.9 Gastro-esophageal reflux disease without esophagitis; F17.210 Nicotine dependence, cigarettes, uncomplicated; Z79.1 Long term (current) use of non-steroidal anti-inflammatories (NSAID); Z79.899 Other long term (current) drug therapy
CPT/HCPCS: 99283

== ENCOUNTER 2022-02-24 20:26 | Emergency (ER) | payer MEDICAID, SELFPAY ==
[2022-02-24 20:26] VITALS: BP 170/108; PULSE 95; RESP 16; TEMP 36.4; O2SAT 98; BMI 26.4
--- NOTE | 2022-02-24 20:41 | ED.VIS.DENTA ---
HPI History of Present Illness Chief Complaint: Other, Pain/Inj Detail of Chief Complaint: Patient presents because of dental pain that was not alleviated or improved Informant: patient Onset/Context/Timing Onset: Days Timing: Continuous Quality: Pain Location: Right lower jaw Current Severity: Severe Maximum Severity: Severe Relieved by: NSAIDs and Topicals Associated Symptoms Assocated Symptom - Dental: cold sensitivity and hot sensitivity; Negative for fever, jaw swelling or face swelling Narrative Narrative: Patient is a 41-year-old male who was seen yesterday by me. Patient was informed he needs to contact a dentist. Patient has significant dental caries. He has symptomatic pulpitis. Since she has sensitivity to both cold and hot he has both reversible and irreversible pulpitis. Unable to determine which tooth at this time. He has significant decay with exposure of the pulp. There is inflammation of the gum. There is no fluctuance. He denies fever, chills night sweats. He denies history of SBE, IV drug use or being immune suppressed. He was prescribed clindamycin as well as NSAID and opiate analgesia yesterday. He did fill his prescriptions. Prior similar symptoms: Yes Recent Illness[facility] Medical History GERD (gastroesophageal reflux disease) Helicobacter pylori (H. pylori) Home Medications omeprazole 40 mg capsule,delayed release 20 mg PO DAILY 08/30/21 [History Last Taken Unknown] amoxicillin 500 mg capsule ea PO 02/20/22 [History Last Taken Unknown] clarithromycin 500 mg tablet ea PO 02/20/22 [History Last Taken Unknown] etodolac 300 mg capsule 300 mg PO Q8H 10 days #30 caps 02/20/22 [Rx Last Taken Unknown] clindamycin HCl 300 mg capsule (Cleocin HCl) 300 mg PO Q6H #28 CAPSULES 02/23/22 [Rx Last Taken Unknown] hydrocodone-acetaminophen 5-325mg 5mg-325mg 1 tab PO Q6H PRN PRN Pain 3 days #10 TABLETS 02/23/22 [Rx Last Taken Unknown] naproxen 500 mg tablet 500 mg PO BID #14 tabs 02/23/22 [Rx Last Taken Unknown] Allergy/AdvReac Type Severity Reaction Status Date / Time No Known Allergies Allergy Verified 02/24/22 20:29 Family History Other Cancer Heart disease Surgical History History of adenoidectomy Social History household members: none Smoking Status: Current every day smoker tobacco type: cigarettes alcohol intake: current alcohol intake frequency: holidays/special occasions only Alcohol type: beer ROS ROS ED Constitutional Constitutional ED: Denies chills, fever(s), subjective, sweats or weight loss Eyes Eyes: Denies blurry vision or change in vision ENT ENT ED: Reports ear pain and other Details: ChangePatient complains of pain in his right ear. He denies drooling. He denies change in voice. He states it hurts to open his mouth completely. ; Denies rhinorrhea or sore throat Cardiovascular Cardiovascular: Denies chest pain or palpitations Respiratory/Chest Respiratory/Chest: Denies dyspnea Gastrointestinal Gastrointestinal: Denies abdominal pain Hematologic/Lymphatic Hematologic/Lymphatic: Denies easy bleeding or easy bruising EXAM Physical Exam Const Vital Signs: 02/24/22 20:26 02/24/22 20:35 Temperature 97.5 F L Temperature Source Temporal Pulse Rate 95 Respiratory Rate 16 Respiratory Effort Normal Non-Labored Respiratory Pattern Normal Blood Pressure 170/108 H Blood Pressure Mean 128 Pulse Ox 98 Oxygen Delivery Method Room Air Positive well nourished and well developed Constitutional Narrative: Patient's appearance is unchanged from yesterday when he was seen by me. General Appearance ED: well developed and NAD HEENT HEENT Narrative: Head is atraumatic normocephalic. There is no facial asymmetry. There is no evidence of facial cellulitis. There is no pain with pulling on the auricle portion of the tragus. The external auditory canals normal. TM is normal. There is no trismus. Patient has poor dentition is documented in yesterday's note. He has erosion of his teeth to the gumline involving his right lower molars and bicuspids. He has numerous caries with exposure to the pulp and dentin. He has evidence of peridental disease as well as gingivitis. Uvula is midline. There is no deviation with protrusion. There is no abnormality the posterior pharynx or soft palate. Eyes PERRL and EOMs intact bilaterally General Eye ED: Negative for pale conjunctiva or scleral icterus Neck no lymphadenopathy, supple and no JVD General: normal visual inspection and tenderness; Negative for anterior neck swelling or submandibular swelling Resp normal respiratory effort and no retractions Cardio regular rate, regular rhythm, S1 normal heart sound, S2 normal heart sound and no murmurs Neuro oriented x3, CN's II-XII intact bilaterally and moves all extremities Psych Psych Narrative: Mood and affect are depressed. Skin no rashes or lesions noted and no wounds MDM MDM MDM Narrative Medical decision making narrative: Patient was told that the pain medicine will not alleviate his pain since this is due to reversible and irreversible pulpitis. Definitive care is by a dentist. He was instructed to contact dentist on the list to see when he can be seen. He was instructed to come back if he has drooling. He was instructed to return if he cannot open his mouth. He was instructed to have his food pur?ed and room temperature. Discharge Plan Triage Chief Complaint: Other, Pain/Inj ED Provider: Darrell Goldsmith Dx/Rx/DC Orders Clinical Impression: Symptomatic irreversible pulpitis, Abscess, dental, Dental caries extending into pulp, Dental caries extending into dentine, Symptomatic reversible pulpitis, Gingivitis, Gingival and periodontal disease Prescriptions: No Action omeprazole 40 mg capsule,delayed release(DR/EC) 20 mg PO DAILY amoxicillin 500 mg capsule PO Label Comments: TAKE 2 CAPSULES BY MOUTH TWICE DAILY UNTIL GONE clarithromycin 500 mg tablet PO Label Comments: TAKE 1 TABLET BY MOUTH TWICE DAILY UNTIL GONE etodolac 300 mg capsule 300 mg PO Q8H 10 Days Qty: 30 0RF Rx Instructions: STOP ALL other NSAIDs including Mobic clindamycin HCl [Cleocin HCl] 300 mg capsule 300 mg PO Q6H Qty: 28 0RF hydrocodone-acetaminophen [hydrocodone-acetaminophen] 5-325 mg tablet 1 tab PO Q6H PRN PRN (Reason: Pain) 3 Days Qty: 10 0RF naproxen 500 mg tablet 500 mg PO BID Qty: 14 0RF Primary Care Provider: Olivia Storey Referrals: Olivia Storey [Primary Care Provider] - Activity Restrictions/Additional Instructions: You were given a list of dentists in the area. Recommend contacting them all tomorrow to see when you could be seen for definitive care. Recommend avoiding cold or hot beverages. Recommend pur?eing your food. 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 Pain will not be alleviated until you see a dentist for definitive care. Disposition Disposition: Home, Self Care
== END 2022-02-24 21:00 | disposition home or self-care (01) ==
PROVIDERS: Emergency Provider Emergency Medicine; Visit Provider Emergency Medicine
DX: K04.7 Periapical abscess without sinus (principal); K05.10 Chronic gingivitis, plaque induced; K04.01 Reversible pulpitis; K04.02 Irreversible pulpitis; K02.9 Dental caries, unspecified; K21.9 Gastro-esophageal reflux disease without esophagitis; F17.210 Nicotine dependence, cigarettes, uncomplicated
CPT/HCPCS: 99282

== ENCOUNTER 2022-02-25 17:01 | Emergency (ER) | payer MEDICAID, SELFPAY ==
[2022-02-25 17:01] VITALS: BP 158/108; PULSE 93; RESP 18; TEMP 37.2; O2SAT 99; BMI 26.4
--- NOTE | 2022-02-25 17:34 | ED.VIS.DENTA ---
HPI History of Present Illness Chief Complaint: Edema Detail of Chief Complaint: Dental pain with mild right facial swelling Informant: patient Onset/Context/Timing Onset: Weeks Context: Gradual Onset Timing: Continuous Current Severity: Moderate Maximum Severity: Moderate Relieved by: NSAIDs Associated Symptoms Assocated Symptom - Dental: jaw swelling, face swelling, cold sensitivity and hot sensitivity; Negative for fever Narrative Narrative: 41-year-old male denies any past medical history. Has had 2 recent visits for dental pain diagnosed with pulpitis, cavities and abscess. Currently on clindamycin was on narcotic pain medication and anti-inflammatories. Has not seen a dentist yet. Prior similar symptoms: Yes Recent Illness/Hospitalization: No PFSH PFSH Medical History GERD (gastroesophageal reflux disease) Helicobacter pylori (H. pylori) Home Medications omeprazole 40 mg capsule,delayed release 20 mg PO DAILY 08/30/21 [History Last Taken Unknown] clindamycin HCl 300 mg capsule (Cleocin HCl) 300 mg PO Q6H #28 CAPSULES 02/23/22 [Rx Last Taken Unknown] hydrocodone-acetaminophen 5-325mg 5mg-325mg 1 tab PO Q6H PRN PRN Pain 3 days #10 TABLETS 02/23/22 [Rx Last Taken Unknown] naproxen 500 mg tablet 500 mg PO BID #14 tabs 02/23/22 [Rx Last Taken Unknown] Allergy/AdvReac Type Severity Reaction Status Date / Time No Known Allergies Allergy Verified 02/24/22 20:29 Family History Other Cancer Heart disease Surgical History History of adenoidectomy Social History household members: none Smoking Status: Current every day smoker tobacco type: cigarettes alcohol intake: current alcohol intake frequency: holidays/special occasions only Alcohol type: beer ROS ROS ED ROS Narrative Dental pain. Mild facial swelling. Review of Systems ROS Unobtainable: Denies due to encephalopathy Constitutional Constitutional ED: Denies chills or fever(s) Eyes Eyes: Denies blurry vision ENT ENT ED: Denies ear pain Cardiovascular Cardiovascular: Denies chest pain Respiratory/Chest Respiratory/Chest: Denies cough or dyspnea Gastrointestinal Gastrointestinal: Denies abdominal pain Genitourinary Genitourinary ED: Denies dysuria Musculoskeletal Musculoskeletal: Denies arthralgias Integumentary Denies abscess Neurologic Neurologic: Denies headache(s) Psychiatric Psychiatric: Denies anxiety Endocrine Endocrinology: Denies cold intolerance Hematologic/Lymphatic Hematologic/Lymphatic: Denies easy bleeding Allergic/Immunologic Allergic/Immunologic ED: Reports mouth swelling; Denies tongue swelling or urticaria EXAM Physical Exam Narrative Exam Narrative: Pharyngeal male no acute distress. Vital signs stable afebrile. Pulse ox 90% on room air no hypoxia. H EENT exam right TM normal. Posterior pharynx unremarkable. He has very poor dentition. Decaying teeth. Multiple cavities. Inflamed gums along the right lower jaw. No palpable abscess. Diffuse dental tenderness. Mild trismus on the right. He can swallow and breathe without any difficulty. Neck nontender. Trachea midline no lymphadenopathy. Lungs clear to auscultation bilaterally. Heart regular rhythm no murmur rate about 90. Abdomen soft nontender. Moving all 4 extremities. Neurologically is awake alert with no focal motor deficits. Const Vital Signs: 02/25/22 17:01 Temperature 98.9 F Temperature Source Temporal Pulse Rate 93 Respiratory Rate 18 Blood Pressure 158/108 H Blood Pressure Mean 124 Pulse Ox 99 Oxygen Delivery Method Room Air Positive well nourished and well developed; Negative for obese, cachectic, contractures or unkempt General Appearance ED: well developed and NAD; Negative for unkempt, cachectic or contractures Nutritional Appearance: Negative for cachectic or obese HEENT Reports TM's clear HEENT Narrative: Very poor dentition. Gingivitis. No abscess. Mild trismus on the right. Posterior pharynx unremarkable. Decaying teeth. Multiple cavities. Minimal right facial swelling. tenderness; Negative for trauma Tympanic Membrane ED: Yes TM's clear Mouth ED: Yes oral and palatal mucosa abnormal Mouth: oral and palatal mucosa abnormal Teeth and Gingiva: abnormal tooth and associated gingiva, caries, gingiva abnormal, poor dentition and teeth discoloration Throat: posterior oropharynx normal Eyes PERRL and EOMs intact bilaterally General Eye ED: Negative for pale conjunctiva Neck no lymphadenopathy, supple and no JVD General: normal visual inspection; Negative for anterior neck swelling, tenderness or submandibular swelling Lymph Lymphatic: no lymphadenopathy noted; Negative for lymphadenopathy Chest Wall inspection of chest normal and palpation of chest normal Chest: Negative for other Resp normal respiratory effort, no retractions and clear to auscultation bilaterally Effort and Inspection: Negative for other Cardio regular rate, regular rhythm, S1 normal heart sound, S2 normal heart sound and no murmurs Jugular Venous Distention: Negative for other Palpation: Negative for palpable S3 Rate: Negative for bradycardia Rhythm: Negative for abnormal rhythm GI normal to inspection, nondistended, normoactive bowel sounds, non-tender, non-distended and no masses Inspection: Negative for other Palpation: soft Bladder / Kidney Exam: No other Extremity normal to inspection and no joint enlargement General Extremety ED: Negative for edema or other findings General Extremity: Negative for edema or other findings Neuro oriented x3, CN's II-XII intact bilaterally, moves all extremities, no focal motor deficits and no sensory deficits noted Sensorium / Orientation: alert, oriented to person, oriented to place and oriented to time; Negative for orientation impaired Gait (Neuro): Negative for normal gait Motor Exam: strength 5/5 throughout Psych mental status grossly normal Appearance: Negative for unkempt Attitude: No agitated Mood & Affect: Negative for depressed, anxious or tearful Skin no rashes or lesions noted and no wounds General Skin Exam: Negative for other MDM MDM MDM Narrative Medical decision making narrative: Patient with significant gingivitis, dental decay and caries. Already on clindamycin. Will be given 2 Gila here for pain. He is already had a narcotic pain prescription. He will continue anti-inflammatories and Tylenol. He has to follow-up with a dentist and was referred to the [facility] clinic. Discharge Plan Triage Chief Complaint: Edema ED Provider: Wicho Baker Dx/Rx/DC Orders Clinical Impression: Abscess, dental, Dental caries extending into pulp, Gingivitis, acute, Gingivitis, Pain, dental Instructions: ED Dental Pain, ED Dental Cavity, ED Dental Abscess Prescriptions: No Action omeprazole 40 mg capsule,delayed release(DR/EC) 20 mg PO DAILY clindamycin HCl [Cleocin HCl] 300 mg capsule 300 mg PO Q6H Qty: 28 0RF hydrocodone-acetaminophen [hydrocodone-acetaminophen] 5-325 mg tablet 1 tab PO Q6H PRN PRN (Reason: Pain) 3 Days Qty: 10 0RF naproxen 500 mg tablet 500 mg PO BID Qty: 14 0RF Primary Care Provider: [facility] Olivia Sinha Referrals: [facility],Olivia Greenberg [Primary Care Provider] - As soon as possible Activity Restrictions/Additional Instructions: Continue and finish your antibiotic the clindamycin. Motrin and Tylenol for pain. Warm salt water gargling Call and follow-up with a dentist as soon as possible. There is a dental clinic across the street at the Olivia Green[facility]. Disposition Disposition: Home, Self Care
[2022-02-25] MEDS: HYDROcodone Bitartrate/Apap 5/325 Tablet PO (17:47)
[2022-02-25 17:50] VITALS: PULSE 92; RESP 17; O2SAT 97
== END 2022-02-25 17:51 | disposition home or self-care (01) ==
PROVIDERS: Emergency Provider Emergency Medicine; Visit Provider Emergency Medicine
DX: K05.00 Acute gingivitis, plaque induced (principal); K04.7 Periapical abscess without sinus; K04.01 Reversible pulpitis; K02.9 Dental caries, unspecified; K08.89 Other specified disorders of teeth and supporting structures; K21.9 Gastro-esophageal reflux disease without esophagitis; F17.210 Nicotine dependence, cigarettes, uncomplicated; Z79.899 Other long term (current) drug therapy
CPT/HCPCS: 99283

== ENCOUNTER 2022-02-26 11:14 | Inpatient (IN) | payer MEDICAID, SELFPAY ==
[2022-02-26] VITALS (7 sets, daily range): BP systolic 143–155; BP diastolic 89–111; PULSE 83–105; RESP 14–25; TEMP 36.5–37.3; O2SAT 95–100; BMI 26.4; BMI 26.9
--- NOTE | 2022-02-26 11:34 | CT_ITS ---
STUDY: CT FACIAL BONES WITH CONTRAST REASON FOR EXAM: Male, 41 years old. Dental abscess. Right facial swelling. RADIATION DOSAGE (If Supplied By Facility): CTDIvol = ( 29.38 ) mGy, DLP = ( 709.07 ) mGycm TECHNIQUE: The patient was scanned in a multi detector CT scanner. Transaxial imaging was performed following the intravenous administration of [id number] 100ML. Sagittal and coronal images were reconstructed. Individualized dose optimization techniques were used for this CT. COMPARISON: None. FINDINGS: There is diffuse soft tissue swelling overlying the left cervical region extending from the region of the hyoid bone to the region of the right maxillary region. There is evidence of enlarged lymph nodes in the right cervical chain. There is edematous changes of the right masseter musculature. No debra abscess or fluid collection is seen. This is suggestive of diffuse cellulitis. There is evidence of a cavity in the last molar tooth along the posterior aspect of the mandible. Enlargement of the right submandibular gland. Inflammatory process extends into the right lateral oropharynx with asymmetry of the piriform sinuses. Normal orbital rogel and orbital contents. Normal nasal bones and anterior nasal spine. Normal facial bones. There is no demonstrated fracture. Normal visualized paranasal sinuses. CT/Sinus/Facial Bone WITH Contras IMPRESSION: Diffuse right cervical and facial edematous changes with enlargement of the cervical lymph nodes and surrounding musculature including the diffuse cellulitis. No focal abscess or abnormal fluid collection is seen. There is also enlargement of the right submandibular gland. The inflammatory process extends into the right lateral oropharynx with asymmetry of the piriform sinus. Findings suggestive of a cavity in the last molar in the posterior mandible. Electronically Signed: Salomon Hamilton MD at 12:56 EDT ,
--- NOTE | 2022-02-26 11:36 | EX.ED.DYSGE1 ---
HPI History of Present Illness Chief Complaint: Dental Detail of Chief Complaint: Facial swelling x4 days Informant: patient Narrative Narrative: Patient presents the emergency department complaint of right-sided facial swelling for the last 4 days. Patient complains of difficulty the opening his mouth. He complains of pain to the right side of the neck. He was seen at the dentist office today and referred to the emergency department for IV antibiotics at his it was felt he may have multiple abscesses. Patient has been running a fever up to 102 at home. Patient initially was started on clindamycin 4 days ago and then the dentist thought he should be on amoxicillin. Patient states he has had a problem with his teeth for a long time. Prior similar symptoms: No PFSH PFSH Medical History GERD (gastroesophageal reflux disease) Helicobacter pylori (H. pylori) Home Medications omeprazole 40 mg capsule,delayed release 40 mg PO BID GERD 08/30/21 [History Last Taken 2 Days Ago ~02/24/22] clindamycin HCl 300 mg capsule (Cleocin HCl) 300 mg PO Q6H #28 CAPSULES 02/23/22 [Rx Last Taken 02/25/22] naproxen 500 mg tablet 500 mg PO BID #14 tabs 02/23/22 [Rx Last Taken 02/25/22] diphenhydramine 25 mg-acetaminophen 500 mg tablet (Acetaminophen PM Extra Strength) 2 tab PO QHS SINUS 02/26/22 [History Last Taken 02/25/22] hydrocodone-acetaminophen 5-325mg 5mg-325mg 1 tab PO Q6H PRN Pain 02/26/22 [History Last Taken 02/25/22] Allergy/AdvReac Type Severity Reaction Status Date / Time No Known Allergies Allergy Verified 02/26/22 11:18 Family History Other Cancer Heart disease Surgical History History of adenoidectomy Social History household members: none Smoking Status: Current every day smoker tobacco type: cigarettes alcohol intake: current alcohol intake frequency: holidays/special occasions only Alcohol type: beer ROS ROS ED Review of Systems ROS Unobtainable: other Constitutional Constitutional ED: Reports lethargy; Denies chills, fever(s), sweats or weight loss Eyes Eyes: Denies blurry vision, change in vision or diplopia ENT ENT ED: Reports other Details: Facial swelling and dental pain ; Denies rhinorrhea or sore throat Cardiovascular Cardiovascular: Reports chest pain and racing heartbeat; Denies orthopnea Respiratory/Chest Respiratory/Chest: Reports dyspnea and dyspnea on exertion; Denies cough, orthopnea or sputum Gastrointestinal Gastrointestinal: Denies abdominal pain, diarrhea, nausea or vomiting Genitourinary Genitourinary ED: Denies dysuria, hematuria or urinary frequency Musculoskeletal Musculoskeletal: Denies arthralgias, back pain, myalgias or neck pain Integumentary Denies abscess, Abrasions or rash Neurologic Neurologic: Denies headache(s) or weakness Psychiatric Psychiatric: Denies anxiety, depression or suicidal thoughts Endocrine Endocrinology: Denies polydipsia, polyphagia or polyuria Hematologic/Lymphatic Hematologic/Lymphatic: Denies easy bleeding, easy bruising or lymphadenopathy Allergic/Immunologic Allergic/Immunologic ED: Denies mouth swelling, tongue swelling or urticaria EXAM Physical Exam Const Vital Signs: 02/26/22 11:15 02/26/22 13:00 Temperature 97.7 F L 98.7 F Temperature Source Temporal Temporal Pulse Rate 105 H 96 Respiratory Rate 18 25 H Blood Pressure 155/111 H 147/101 H Blood Pressure Mean 125 116 Pulse Ox 100 98 Oxygen Delivery Method Room Air Room Air Positive well nourished and well developed General Appearance ED: well developed and NAD HEENT Reports TM's clear and moist mucous membranes HEENT Narrative: Patient has trismus with decreased ability to open the mouth. Does have soft tissue swelling noted over the right upper face. I do not palpate any discrete abscesses along the gingiva. He has multiple broken and carried teeth. He has tenderness diffusely about the right upper and lower teeth. Patient able to touch the tongue to the roof of the mouth and I do not appreciate any abnormalities to the floor of the mouth. There is no facial erythema or cellulitis noted. normocephalic and atraumatic; Negative for trauma or tenderness Tympanic Membrane ED: Yes TM's clear Eyes PERRL and EOMs intact bilaterally General Eye ED: Negative for pale conjunctiva or scleral icterus Neck no lymphadenopathy, supple and no JVD General: Negative for tenderness Chest Wall inspection of chest normal and palpation of chest normal Chest: Negative for tenderness Resp normal respiratory effort and clear to auscultation bilaterally Effort and Inspection: Negative for respiratory distress or pain with movement Auscultation: Negative for rhonchi, wheezes or diminished lung sounds Cardio regular rate, regular rhythm, S1 normal heart sound, S2 normal heart sound and no murmurs Peripheral Pulses: pulses 2+ throughout GI normal to inspection, nondistended, normoactive bowel sounds, soft to palpation, non-tender, non-distended and no masses Back/Spine no CVA tenderness and no thoracic nor lumbar tenderness Extremity normal to inspection General Extremety ED: Negative for edema General Extremity: Negative for edema Neuro oriented x3, CN's II-XII intact bilaterally, no sensory deficits noted and gait normal Sensorium / Orientation: awake, alert, oriented to person, oriented to place and oriented to time Motor Exam: strength 5/5 throughout and strength abnormal Psych mental status grossly normal Skin no rashes or lesions noted and no wounds MDM MDM MDM Narrative Medical decision making narrative: IV line established and started on Zosyn 4.[address] scan showed no discrete abscess but did show a lot of inflammatory changes extending to right lateral oropharynx with asymmetry of the piriform sinus. There was enlargement of the submandibular gland. There were diffuse cervical and facial edematous changes with enlarged cervical nodes. Case discussed with hospitalist will evaluate patient for admission. This is the patient's fourth visit to the department. Lab Data Attestation: I reviewed the patient's lab results. Labs: Laboratory Results - last 24 hr 02/26/22 02/26/22 02/26/22 12:01 12:01 12:01 WBC 17.6 H RBC 4.43 L Hgb 14.0 Hct 41.1 MCV 92.8 MCH 31.6 MCHC 34.1 RDW Std Deviation 41.5 RDW Coeff of Judith 12.1 Plt Count 315 MPV 9.6 Sodium 135 L Potassium 4.4 Chloride 103 Carbon Dioxide 23.0 Anion Gap 9 BUN 13 Creatinine 1.00 Estim Creat Clear Calc 108.75 Est GFR (MDRD) Af Amer 105 Est GFR (MDRD) Non-Af 87 BUN/Creatinine Ratio 13.0 Glucose 110 H Lactic Acid 1.0 Calcium 9.7 Radiography Diagnostic Testing: Clinical Impression(s) from Imaging Studies Facial/Sinus 02/26/22 11:34 IMPRESSION: Diffuse right cervical and facial edematous changes with enlargement of the cervical lymph nodes and surrounding musculature including the diffuse cellulitis. No focal abscess or abnormal fluid collection is seen. There is also enlargement of the right submandibular gland. The inflammatory process extends into the right lateral oropharynx with asymmetry of the piriform sinus. Findings suggestive of a cavity in the last molar in the posterior mandible. Electronically Signed: Salomon Hamilton MD at 12:56 EDT , Discharge Plan Triage Chief Complaint: Dental Other Complaint: Edema ED Provider: Manny Martinez Dx/Rx/DC Orders Clinical Impression: Right facial swelling, Dental abscess, Dental caries, Leukocytosis Prescriptions: No Action omeprazole 40 mg capsule,delayed release(DR/EC) 40 mg PO BID clindamycin HCl [Cleocin HCl] 300 mg capsule 300 mg PO Q6H Qty: 28 0RF naproxen 500 mg tablet 500 mg PO BID Qty: 14 0RF hydrocodone-acetaminophen 5-325 mg tablet 1 tab PO Q6H PRN (Reason: Pain) Label Comments: TAKE 1 TABLET BY MOUTH EVERY 6 HOURS NEEDED FOR PAIN diphenhydramine-acetaminophen [Acetaminophen PM Extra Str] 25-500 mg Tablet 2 tab PO QHS Primary Care Provider: Olivia Storey Referrals: [facility] Olivia Sinha [Primary Care Provider] - Disposition Disposition: Acute Care Hospital [facility]
[2022-02-26] MEDS: Ondansetron 4 MG/2 ML Vial IV (11:50)
[2022-02-26] MEDS: Morphine 4 MG/ML Syringe IV (11:50)
[2022-02-26] MEDS: 0.9% Normal Saline 1,000 ML 150 ML IV ×2 (11:59→15:31)
[2022-02-26 12:28] LABS: Hematocrit 41.1 % (40-54); Mean Corp Hgb Conc 34.1 g/dL (32-36); Mean Corpuscular Hgb 31.6 pg (27.0-32.0); Mean Corpuscular Volume 92.8 fL (80-94); Mean Platelet Vol. 9.6 fl (6.2-12.0); Platelet Count 315 K/mm3 (150-450); RBC Distribution Width CV 12.1 % (11.6-14.6); RBC Distribution Width SD 41.5 fl (35.1-43.9); Red Blood Count 4.43 M/mm3 (4.6-6.2); White Blood Count 17.6 K/mm3 (4.4-11.0)
[2022-02-26 12:39] LABS: Anion Gap 9 (5-15); BUN 13 mg/dL (7-18); Calcium,Total 9.7 mg/dL (8.5-10.1); Chloride 103 mmol/L (98-107); EST Glomerular Filtration Rate 87 mL/min (>60); Est Glom Filt Rate - Afr Amer 105 mL/min (>60); Estimated Creatinine Clearance 108.75 ml/min; Glucose 110 mg/dL (74-106); Potassium 4.4 mmol/L (3.5-5.1); Sodium Level 135 mmol/L (136-145)
--- NOTE | 2022-02-26 13:41 | PCM.HP.STD ---
[facility] - General General Date of Service: 02/26/22 Chief Complaint: right facial swelling. difficulty swallowing. [facility] Narrative DMITRY OLIVER, is a 41 M who presents with right facial swelling and trismus. Patient has been dealing with a bad tooth since the eighth. Was seen in the ER every day since then. Patient has been on clindamycin despite that his facial swelling is gotten worse and has difficulty swallowing has gotten worse as well. Patient saw dentist today and was concerned about abscesses and sent the patient to the emergency room. Patient had a CAT scan that did not show any abscesses, however, it showed diffuse right cervical and facial edematous changes with enlargement of the cervical lymph node and surrounding musculature including diffuse cellulitis. No focal abscesses or abnormal fluid collections are seen. Also enlargement of the right semitubular gland. The inflammatory process extends into the right lateral oropharynx with asymmetry of the piriform sinus. Also suggesting a cavity in the last molar on the posterior mandible on the right. Patient received piperacillin/tazobactam in the emergency room. [facility] Medical History GERD (gastroesophageal reflux disease) Helicobacter pylori (H. pylori) Home Medications omeprazole 40 mg capsule,delayed release 20 mg PO DAILY 08/30/21 [History Last Taken Unknown] clindamycin HCl 300 mg capsule (Cleocin HCl) 300 mg PO Q6H #28 CAPSULES 02/23/22 [Rx Last Taken Unknown] naproxen 500 mg tablet 500 mg PO BID #14 tabs 02/23/22 [Rx Last Taken Unknown] diphenhydramine 25 mg-acetaminophen 500 mg tablet (Acetaminophen PM Extra Strength) 2 tab PO QHS SINUS 02/26/22 [History Last Taken 02/25/22] hydrocodone-acetaminophen 5-325mg 5mg-325mg 1 tab PO Q6H PRN Pain 02/26/22 [History Last Taken 02/25/22] Allergy/AdvReac Type Severity Reaction Status Date / Time No Known Allergies Allergy Verified 02/26/22 11:18 Family History Other Cancer Heart disease Surgical History History of adenoidectomy Social History household members: none Smoking Status: Current every day smoker tobacco type: cigarettes alcohol intake: current alcohol intake frequency: holidays/special occasions only Alcohol type: beer ROS ROS Narrative Fevers. Chills. No shortness of breath. Trismus. No difficulty moving his eyes. Vital Signs Vital Signs Vital Signs: 02/26/22 11:15 02/26/22 13:00 Temperature 36.5 C L 37.1 C Temperature Source Temporal Temporal Pulse Rate 105 H 96 Respiratory Rate 18 25 H Blood Pressure 155/111 H 147/101 H Blood Pressure Mean 125 116 Pulse Ox 100 98 Oxygen Delivery Method Room Air Room Air Weight Weight: 90.718 kg Body Mass Index (BMI) 26.4 Physical Exam Const alert and oriented x3 Constitutional Narrative: Appears ill. HEENT HEENT Narrative: Right facial swelling involving the pentecostalism region to the right mandible and cheek on the right side. Patient unable to open his mouth wide at all so unable to visualize posterior pharynx. Unable to visualize his dentition as well other than his front teeth. Eyes PERRL, EOMs intact bilaterally and conjunctivae normal Resp normal respiratory effort, no retractions, no use of accessory muscles and clear to auscultation bilaterally Cardio regular rate, regular rhythm, S1 normal heart sound and S2 normal heart sound GI normal to inspection, nondistended, normoactive bowel sounds, soft to palpation and non-distended Neuro oriented x3 and moves all extremities Sensorium / Orientation: awake and alert Psych affect normal Results Lab / Micro Data Attestation: I reviewed the patient's lab results. Result Diagrams: 02/26/22 12:01 02/26/22 12:01 Labs: Laboratory Results - last 24 hr 02/26/22 12:01: WBC 17.6 H, RBC 4.43 L, Hgb 14.0, Hct 41.1, MCV 92.8, MCH 31.6, MCHC 34.1, RDW Std Deviation 41.5, RDW Coeff of Judith 12.1, Plt Count 315, MPV 9.6 02/26/22 12:01: Sodium 135 L, Potassium 4.4, Chloride 103, Carbon Dioxide 23.0, Anion Gap 9, BUN 13, Creatinine 1.00, Estim Creat Clear Calc 108.75, Est GFR (MDRD) Af Amer 105, Est GFR (MDRD) Non-Af 87, BUN/Creatinine Ratio 13.0, Glucose 110 H, Calcium 9.7 02/26/22 12:01: Lactic Acid 1.0 Radiology Impression Facial/Sinus 02/26/22 11:34 IMPRESSION: Diffuse right cervical and facial edematous changes with enlargement of the cervical lymph nodes and surrounding musculature including the diffuse cellulitis. No focal abscess or abnormal fluid collection is seen. There is also enlargement of the right submandibular gland. The inflammatory process extends into the right lateral oropharynx with asymmetry of the piriform sinus. Findings suggestive of a cavity in the last molar in the posterior mandible. Electronically Signed: Salomon Hamilton MD at 12:56 EDT , Assessment & Plan Assessment/Plan (1) Ludwigs angina: PLAN: Patient with trismus, submandibular swelling and noted swelling of the right submandibular gland. Currently, the patient is stable, however, given its progression, I am concerned about airway compromise or even collapse. I did discuss the case with Dr. Mat Talley. Given lack of any abscesses no surgical urgency from an ENT standpoint, however, the patient will need to see oral surgeon for his tooth but given his difficulty opening his mouth at this time would not be feasible at this point in time. Patient received piperacillin/tazobactam in the emergency room and will continue that on the floor Will also start him on dexamethasone. When I discussed with Dr. Talley, he recommended dexamethasone 8 mg every 8 hours for 3 doses. (2) Cellulitis, face: PLAN: Treatment as above. (3) Dental caries extending into pulp: PLAN: Likely the nidus of his tooth is a cavity in his last molar root. That will need to be addressed. We will need to see an oral surgeon to have that addressed. PLAN: Plan VTE prophylaxis: LMWH Charges/Coding Visit Charges Inpatient E&M: 73409 Init Hosp L3
--- NOTE | 2022-02-26 14:23 | NURSING ---
MED SURG ADAM RIGHT FACIAL SWELLING, CELLULITIS OF FACE, DENTAL ABCESS, DENTAL CARIES
[2022-02-26] MEDS: oxyCODONE 5 MG Tablet 10 MG PO ×2 (15:31→19:56)
[2022-02-26] MEDS: dexAMETHasone 10 MG/ML Vial 8 MG IV ×2 (17:05→23:23)
--- NOTE | 2022-02-26 18:08 | PCM.PN.BLA ---
Progress Note Asked to see the patient at the request of Dr. Naranjo for facial cellulitis History of present illness: The patient is a 41-year-old white male who 4 days ago started to notice facial swelling. He presented to the emergency room and was prescribed clindamycin. He states he was taking the clindamycin at home and the facial swelling proceeded to get worse. This morning he woke up with temporal swelling as well as neck swelling and increasingly more difficulty swallowing on the right side. He then presented to the emergency room again. A CT scan of the neck was obtained. He was admitted for IV antibiotics. He states he knows that he has bad teeth and apparently saw a dentist who recommended that he go back to the emergency room for admission. PFSH Medical History? GERD (gastroesophageal reflux disease) Helicobacter pylori (H. pylori) Home Medications omeprazole 40 mg capsule,delayed release 20 mg PO DAILY 08/30/21 [History Last Taken Unknown] clindamycin HCl 300 mg capsule (Cleocin HCl) 300 mg PO Q6H #28 CAPSULES 02/23/22 [Rx Last Taken Unknown] naproxen 500 mg tablet 500 mg PO BID #14 tabs 02/23/22 [Rx Last Taken Unknown] diphenhydramine 25 mg-acetaminophen 500 mg tablet (Acetaminophen PM Extra Strength) 2 tab PO QHS SINUS 02/26/22 [History Last Taken 02/25/22] hydrocodone-acetaminophen 5-325mg 5mg-325mg 1 tab PO Q6H PRN Pain 02/26/22 [History Last Taken 02/25/22] Allergy/AdvReac Type Severity Reaction Status Date / Time No Known Allergies Allergy ? ? Verified 02/26/22 11:18 Family History? Other Cancer Heart disease Surgical History? History of adenoidectomy Social History? household members:? none Smoking Status:? Current every day smoker tobacco type: cigarettes alcohol intake:? current alcohol intake frequency: holidays/special occasions only Alcohol type: beer ROS ROS Narrative Fevers.? Chills.? No shortness of breath.? Trismus.? No difficulty moving his eyes. Physical exam: The patient is awake alert in no acute distress. There is no stridor or stertor. Scalp and skull are normal. Facial nerve is intact bilaterally. He has some mild temporal edema on the right side as well as edema of the right cheek extending down into the right neck. There is no redness of any of these areas. All of these areas are tender to palpation. He does not have any obvious adenopathy. The right parotid gland is somewhat indurated and full as is the right submandibular gland. There is no fluctuance in any area. Nasal exam reveals no purulence Mouth and oropharynx reveals 1 cm trismus. He has broken carried teeth in the right mandibular molar area. CT scan of the neck reveals cellulitis involving the right parotid right submandibular gland right vallecula and right piriform sinus. His airway is patent. There is no obvious abscess. Assessment: Facial and neck cellulitis secondary to a odontogenic infection. Plan: He will need IV antibiotics. I would also give him 3 doses of IV Decadron for the piriform and vallecular swelling. Once his infection is improving he may be discharged to the care of an oral surgeon for dental extraction.
[2022-02-26] MEDS: 0.9% Saline Lock 10 ML Syringe IV (23:24)
[2022-02-27] MEDS: 0.9% Normal Saline 1,000 ML 150 ML IV ×2 (03:04→10:22)
[2022-02-27 03:30] VITALS: BP 128/94; PULSE 96; RESP 14; TEMP 36.4; O2SAT 95
[2022-02-27] MEDS: oxyCODONE 5 MG Tablet 10 MG PO ×5 (03:52→21:45)
[2022-02-27 06:20] LABS: Absolute Lymphocyte Count 1.23 X10^3/uL (0.83-4.51); Absolute Neutrophil Count 9.1 X10^3/uL (2.0-7.7); Basophil# 0.02 X10^3/uL; Basophil% 0.2 % (0-1); Hematocrit 37.5 % (40-54); Hemoglobin 12.3 g/dL (13.0-16.5); Lymphocyte # 1.23 X10^3/ul (0.83-4.51); Lymphocyte % 11.6 % (19-41); Mean Corp Hgb Conc 32.8 g/dL (32-36); Mean Corpuscular Hgb 31.7 pg (27.0-32.0); Mean Corpuscular Volume 96.6 fL (80-94); Mean Platelet Vol. 9.6 fl (6.2-12.0); Monocyte# 0.14 X10^3/uL; Monocyte% 1.3 % (0-10); NRBC Flagged by Analyzer 0 % (0-5); Neutrophil # 9.14 X10^3/uL (2.7-7.7); Neutrophil % 86.4 % (47-70); Platelet Count 276 K/mm3 (150-450); RBC Distribution Width CV 12.2 % (11.6-14.6); RBC Distribution Width SD 43.3 fl (35.1-43.9); Red Blood Count 3.88 M/mm3 (4.6-6.2); White Blood Count 10.6 K/mm3 (4.4-11.0)
[2022-02-27] MEDS: dexAMETHasone 10 MG/ML Vial 8 MG IV (06:33)
[2022-02-27] MEDS: 0.9% Saline Lock 10 ML Syringe IV (06:33)
[2022-02-27 06:46] LABS: Anion Gap 6 (5-15); BUN 13 mg/dL (7-18); BUN/Creat Ratio 13.6 RATIO (10-20); Calcium,Total 9.1 mg/dL (8.5-10.1); Chloride 107 mmol/L (98-107); Creatinine, Serum 0.96 mg/dL (0.70-1.30); EST Glomerular Filtration Rate 91 mL/min (>60); Est Glom Filt Rate - Afr Amer 110 mL/min (>60); Estimated Creatinine Clearance 113.28 ml/min; Glucose 239 mg/dL (74-106); Potassium 4.2 mmol/L (3.5-5.1); Sodium Level 136 mmol/L (136-145)
--- NOTE | 2022-02-27 07:39 | PN.HOSP_ITS ---
Subjective Subjective Follow-up for deep facial cellulitis involving oropharyngeal and laryngopharynx region Objective Data Objective Data Vital Signs: Vital Signs Temp Pulse Resp BP Pulse Ox O2 Del Method 97.5 F L 96 14 128/94 H 95 Room Air 02/27/22 03:30 02/27/22 03:30 02/27/22 03:30 02/27/22 03:30 02/27/22 03:30 02/27/22 03:30 Oxygen Delivery Method Room Air Weight: 204 lb 2.369 oz Body Mass Index (BMI) 26.9 Intake & Output: Intake and Output for Last 24 Hours 02/25/22 02/26/22 02/27/22 23:59 23:59 23:59 Intake Total 1852.5 / 1852.5 50 / 50 Balance 1852.5 / 1852.5 50 / 50 Lab / Micro Data Result Diagrams: 02/27/22 05:53 02/27/22 05:53 Labs: Laboratory Results - last 24 hr 02/26/22 12:01: WBC 17.6 H, RBC 4.43 L, Hgb 14.0, Hct 41.1, MCV 92.8, MCH 31.6, MCHC 34.1, RDW Std Deviation 41.5, RDW Coeff of Judith 12.1, Plt Count 315, MPV 9.6 02/26/22 12:01: Sodium 135 L, Potassium 4.4, Chloride 103, Carbon Dioxide 23.0, Anion Gap 9, BUN 13, Creatinine 1.00, Estim Creat Clear Calc 108.75, Est GFR (MDRD) Af Amer 105, Est GFR (MDRD) Non-Af 87, BUN/Creatinine Ratio 13.0, Glucose 110 H, Calcium 9.7 02/26/22 12:01: Lactic Acid 1.0 02/27/22 05:53: WBC 10.6, RBC 3.88 L, Hgb 12.3 L, Hct 37.5 L, MCV 96.6 H, MCH 31.7, MCHC 32.8, RDW Std Deviation 43.3, RDW Coeff of Judith 12.2, Plt Count 276, MPV 9.6, Immature Gran % (Auto) 0.500, Neut % (Auto) 86.4 H, Lymph % (Auto) 11.6 L, [place] % (Auto) 1.3, Eos % (Auto) 0.0, Baso % (Auto) 0.2, Absolute Neuts (auto) 9.1 H, Absolute Lymphs (auto) 1.23, Nucleated RBC % 0 02/27/22 05:53: Sodium 136, Potassium 4.2, Chloride 107, Carbon Dioxide 23.0, Anion Gap 6, BUN 13, Creatinine 0.96, Estim Creat Clear Calc 113.28, Est GFR (MDRD) Af Amer 110, Est GFR (MDRD) Non-Af 91, BUN/Creatinine Ratio 13.6, Glucose 239 H, Calcium 9.1 Radiography Diagnostic Testing: Radiology Impression Facial/Sinus 02/26/22 11:34 IMPRESSION: Diffuse right cervical and facial edematous changes with enlargement of the cervical lymph nodes and surrounding musculature including the diffuse cellulitis. No focal abscess or abnormal fluid collection is seen. There is also enlargement of the right submandibular gland. The inflammatory process extends into the right lateral oropharynx with asymmetry of the piriform sinus. Findings suggestive of a cavity in the last molar in the posterior mandible. Electronically Signed: Salomon Hamilton MD at 12:56 EDT , Physical Exam Narrative Seen and examined. Since symptoms started about last Friday night with pain around posterior right jaw and then moved to cheondoism/TM joint next day and progressively got worse involved whole right side of face and neck next couple days. Patient not able to open mouth fully. Mild trismus. fever at home. General: Alert, Oriented x3, Cooperative HEENT: Swelling of right side of face, parotid region and submandibular region upper half of right side of neck,Up to atraumatic, PERRLA, EOMI, Normocephalic On bimanual oral exam: Dental caries over right upper molar, right upper second and lower molars are decayed/absent. Dental caries/cavities of molars. Swelling of gum over molar. No tenderness of floor of mouth. Deep visualization of oropharynx not possible due to trismus. Neck: Supple, No JVD, Negative Carotid Bruits Fiorella trismus.ngs: Air entry diminished in bilateral lung bases. No crepitati on/rhonchi Cardiovascular: Regular rate, Regular Rhythm, Normal S1, Normal S2, No murmurs Abdomen: Bowel Sounds Present, Soft, Non Tender, Non-Distended : No renal angle tenderness. No suprapubic tenderness. Extremities: No edema, Capillary Refill Less than 3 Seconds Skin: No rashes, No breakdown Musculoskeletal: No Tenderness to Palpation of Joints or Extremities Neurological: Cranial nerves II-XII grossly intact, DTR 2+/4 and Symmetrical, Neuro grossly intact Psych/Mental Status: Normal Affect, Appropriate. Assessment & Plan Assessment/Plan (1) Ludwigs angina: PLAN: 41-year-old gentleman was admitted through the ED for right-sided facial swelling for 4 days along with difficulty opening mouth, pain to right side of neck. Fever 102 Fahrenheit at home. Patient has history of dental caries and cavities for long time. 1. Ludewig's angina with cellulitis of face with deep tracking into right lateral oropharynx and pyriform sinus: Patient has trismus and submandibular gland swelling. CT scan reviewed reported diffuse right cervical and vaginal edematous changes with enlargement of cervical lymph nodes and surrounding musculature. No focal abscess or abnormal fluid collection. The inflammatory process extending into right lateral oropharynx and asymmetry of pyriform sinus. Cavity in the last molar in posterior mandible. Patient with trismus, submandibular swelling and noted swelling of the right submandibular gland. Patient is feeling better with IV antibiotics. Admitting hospitalist discussed with Dr. Mat Talley. There was concern of airway compromise but patient overall is feeling better with IV antibiotics. Patient still has trismus.On IV Zosyn. Patient had 3 doses of dexamethasone [address] Talley recommendation. 2. Dental caries, cavity and gingivitis, periodonitis and history of COVID-19 in the past: Patient advised to follow-up with oral surgeon after discharge in 1 to 2 weeks Clinical Impression(s) from Imaging Studies Facial/Sinus 02/26/22 11:34 IMPRESSION: Diffuse right cervical and facial edematous changes with enlargement of the cervical lymph nodes and surrounding musculature including the diffuse cellulitis. No focal abscess or abnormal fluid collection is seen. There is also enlargement of the right submandibular gland. The inflammatory process extends into the right lateral oropharynx with asymmetry of the piriform sinus. Findings suggestive of a cavity in the last molar in the posterior mandible. (2) Dental caries extending into pulp: PLAN: Likely the nidus of his tooth is a cavity in his last molar root. That will need to be addressed. We will need to see an oral surgeon to have that addressed. PLAN: Plan VTE prophylaxis: LMWH Charges/Coding Visit Charges Inpatient E&M: 00300 Subs Hosp L2
[2022-02-27 08:45] VITALS: BP 136/87; PULSE 78; RESP 16; TEMP 36.4; O2SAT 99
[2022-02-27 09:00] VITALS: O2SAT 95
[2022-02-27] MEDS: Pantoprazole Sodium 20 MG Tablet PO (09:15)
--- NOTE | 2022-02-27 11:35 | CASEMGMT ---
ZAINAB GALO Assessment: Face to Face with pt for initial transition planning/care coordination assessment. ZAINAB GALO introduced self and role at [facility], pt voices understanding and consents to assessment. Pt is A/O x4 and answers all questions appropriately at this time. Care providers, pharmacy, and demographics verified/updated. Admitting Dx: R facial cellulitis PCP: Olivia Arceo Specialists:Piper Garcia Preferred Pharmacy: [facility] Insurance: [facility] Prescription Benefit: yes LW/HPOA: Pt denies having a LW/DPOA and denies need for info regarding AD. LNOK: Indy Jean, Living Arrangements: Pt lives alone in a camper at the [facility]. Pt reports he has electricity, water and heat. Pt reports he is working with [facility] for housing resources but is interested in further resources, updated SW. Transportation: Pt currently does not have a license. He states his friend transports him to medical appts. DME/HHC: Pt denies having any DME in the home or previous HHC. Pt reports he smokes 1 pack of cigarettes per day and on rare occasion drinks alcohol. Pt denies use of street drugs or illegal drugs. Reports he is on probation. Pt goes to [employer] weekly on Fridays and states he has Peer to Peer mentor. Pt states no concerns with going home at time of dc. Pt states no further concerns/needs. CM to follow. Advised pt to ask CM if any further question/concerns/needs arise, voices understanding. Pt Goal: Home Plan: Home
--- NOTE | 2022-02-27 11:56 | CASEMGMT ---
Social Work SW notified by RNCM that pt needed housing resources. SW provided [facility], [facility] Housing pamphlet and people to people resources. Pt grateful. Will contact these agencies for assistance. JOSEE Lloyd
[2022-02-27 14:45] VITALS: BP 132/84; PULSE 92; RESP 16; TEMP 36.3; O2SAT 95
[2022-02-27 21:51] VITALS: BP 122/81; PULSE 89; RESP 18; TEMP 36.6; O2SAT 97
[2022-02-28 06:14] LABS: Absolute Lymphocyte Count 3.02 X10^3/uL (0.83-4.51); Basophil# 0.03 X10^3/uL; Basophil% 0.2 % (0-1); Eosinophil# 0.07 X10^3/uL; Eosinophils% 0.5 % (0-5); Hematocrit 35.4 % (40-54); Hemoglobin 11.9 g/dL (13.0-16.5); Lymphocyte # 3.02 X10^3/ul (0.83-4.51); Lymphocyte % 19.9 % (19-41); Mean Corp Hgb Conc 33.6 g/dL (32-36); Mean Corpuscular Hgb 32.5 pg (27.0-32.0); Mean Corpuscular Volume 96.7 fL (80-94); Mean Platelet Vol. 9.5 fl (6.2-12.0); Monocyte# 0.89 X10^3/uL; Monocyte% 5.9 % (0-10); NRBC Flagged by Analyzer 0 % (0-5); Neutrophil % 72.6 % (47-70); Platelet Count 292 K/mm3 (150-450); RBC Distribution Width CV 12.2 % (11.6-14.6); RBC Distribution Width SD 43.3 fl (35.1-43.9); Red Blood Count 3.66 M/mm3 (4.6-6.2); White Blood Count 15.1 K/mm3 (4.4-11.0)
[2022-02-28 06:15] VITALS: BP 132/93; PULSE 63; RESP 18; TEMP 36.5; O2SAT 100
[2022-02-28] MEDS: oxyCODONE 5 MG Tablet 10 MG PO ×2 (06:43→11:43)
[2022-02-28 07:01] LABS: Anion Gap 6 (5-15); BUN 20 mg/dL (7-18); BUN/Creat Ratio 22.6 RATIO (10-20); Calcium,Total 8.7 mg/dL (8.5-10.1); Chloride 106 mmol/L (98-107); Creatinine, Serum 0.89 mg/dL (0.70-1.30); EST Glomerular Filtration Rate 100 mL/min (>60); Est Glom Filt Rate - Afr Amer 121 mL/min (>60); Estimated Creatinine Clearance 122.19 ml/min; Glucose 104 mg/dL (74-106); Potassium 4.1 mmol/L (3.5-5.1); Sodium Level 138 mmol/L (136-145)
[2022-02-28] MEDS: Acetaminophen 325 MG Tablet 650 MG PO (09:05)
[2022-02-28] MEDS: Pantoprazole Sodium 20 MG Tablet PO (09:05)
--- NOTE | 2022-02-28 10:52 | CASEMGMT ---
Social Work SW called [facility] to set up follow up appointment for dental at the request of Dr. Prabhakar. Appointment for 03/01/22 set up at 1:45. Pt notified and aware of time. Pt agreeable to attending. JOSEE Lloyd
--- NOTE | 2022-02-28 11:18 | DCINST_ITS ---
Discharge Instructions Diet Discharge Diet: No restrictions Activity Discharge Activity: Return to Normal Activity Weight Bearing Status: Full weight bearing Follow Up Care Test Results: Test results from this visit will be discussed in further detail at your follow- up appointment, if applicable. Discharge Plan Admission Admit Date/Time: 02/26/22 13:35 Primary Reason for Your Visit: Right facial cellulitis, odontogenic infection Attending Provider: Keith Prabhakar [facility] Providers: Mat Talley ; Jeffrey Naranjo ; Syed Anderson Discharge Orders/Prescriptions Prescriptions: New amoxicillin-pot clavulanate 875-125 mg tablet 1 tab PO BID Qty: 30 0RF Rx Instructions: take with food hydrocodone-acetaminophen 5-325 mg tablet 1 tab PO Q6H PRN (Reason: pain) 7 Days Qty: 15 0RF Rx Instructions: one or two every six hours for severe pain Continued omeprazole 40 mg capsule,delayed release(DR/EC) 40 mg PO BID naproxen 500 mg tablet 500 mg PO BID Qty: 14 0RF diphenhydramine-acetaminophen [Acetaminophen PM Extra Str] 25-500 mg Tablet 2 tab PO QHS Discontinued clindamycin HCl [Cleocin HCl] 300 mg capsule 300 mg PO Q6H Qty: 28 0RF hydrocodone-acetaminophen 5-325 mg tablet 1 tab PO Q6H PRN (Reason: Pain) Label Comments: TAKE 1 TABLET BY MOUTH EVERY 6 HOURS NEEDED FOR PAIN [facility] - See Referral Note (to [place]) Disposition Disposition (needs filled in before D/C Order can be placed): Home, Self Care
[2022-02-28 11:48] VITALS: BP 141/96; PULSE 74; RESP 18; TEMP 36.6; O2SAT 97
--- NOTE | 2022-02-28 18:38 | PCM.DC.SUM ---
Providers Date of Admission: 02/26/22 Date of Discharge: 02/28/22 Primary Care Physician: [facility] Consultations 02/26/22 15:16 Consult: ENT Routine Consulting Provider: Mat Talley Reason for Consult: right facial cellulitis. trismus EMERGENT Consult: No MD Notified: Yes Date Notified: 02/26/22 Time Notified: 13:37 Method of Notification: Verbal Reason For Visit: RIGHT FACIAL CELLULITIS Diagnosis Discharge Diagnosis (1) Ludwigs angina: Status: Acute Code(s): K12.2 - Cellulitis and abscess of mouth (2) Dental caries extending into pulp: Status: Acute Code(s): K02.9 - Dental caries, unspecified Plan Final diagnosis: #1 facial and neck cellulitis secondary to odontogenic infection #2 odontogenic infection #3 GERD Medications at Discharge Home Medications omeprazole 40 mg capsule,delayed release 40 mg PO BID GERD 08/30/21 naproxen 500 mg tablet 500 mg PO BID #14 tabs 02/23/22 diphenhydramine 25 mg-acetaminophen 500 mg tablet (Acetaminophen PM Extra Strength) 2 tab PO QHS SINUS 02/26/22 amoxicillin 875 mg-potassium clavulanate 125 mg tablet 1 tab PO BID #30 tabs 02/28/22 hydrocodone-acetaminophen 5-325mg 5mg-325mg 1 tab PO Q6H PRN pain 7 days #15 tabs 02/28/22 Hospital Course Operations None Procedures None Summary of Care Provided Minutes Spent on Discharge: 31 Hospital Course: This 41-year-old white male was seen in the emergency room at [facility] with complaints of right facial swelling and tenderness, he had been seen previously in the ER and placed on antibiotics but return to the ER for reevaluation due to increased pain and swelling. Work-up in the emergency room included a CT scan of the head and neck which showed no discrete abscess but there was noted to be inflammatory changes extending to the right lateral oropharynx with asymmetry of the piriform sinus. Labs revealed an elevated white blood cell count at 17.6 and the patient's chemistry panel was unremarkable. Patient was admitted to [place] [address] and placed on IV antibiotics, he was seen in consultation by ENT, ENT recommended follow-up as an outpatient regarding the patient's dental problems. On 02/28/2022, patient was seen and examined: On examination he appeared in good health and spirits. Vital signs as documented. Skin warm and dry and without overt rashes. Neck without JVD, neck was supple, trachea midline, thyroid was normal. Lungs clear bilaterally, normal air movement was noted. Heart exam notable for regular rhythm, normal sounds and absence of murmurs, rubs or gallops. Abdomen unremarkable and without evidence of organomegaly, masses, or abdominal aortic enlargement. Bowel sounds are present, abdomen is not distended. Extremities nonedematous, no cyanosis was noted, no clubbing was noted. Neuro: Cranial nerves II through XII are grossly intact, no focal motor deficits were noted, sensation to light touch and pinprick intact, motor exam 5/5 throughout. Psych: Patient is alert and oriented x3, he does not appear anxious or depressed, he does not appear agitated. On 02/28/2022, patient was seen and examined and felt to be in stable condition for discharge home. Weight / BMI Weight Weight: 92.6 kg Body Mass Index (BMI) 26.9 ABG / Lab / Microbiology Data Result Diagrams: 02/28/22 05:45 02/28/22 05:45 Laboratory: Laboratory Results - last 24 hr 02/28/22 05:45: WBC 15.1 H, RBC 3.66 L, Hgb 11.9 L, Hct 35.4 L, MCV 96.7 H, MCH 32.5 H, MCHC 33.6, RDW Std Deviation 43.3, RDW Coeff of Judith 12.2, Plt Count 292, MPV 9.5, Immature Gran % (Auto) 0.900, Neut % (Auto) 72.6 H, Lymph % (Auto) 19.9, [place] % (Auto) 5.9, Eos % (Auto) 0.5, Baso % (Auto) 0.2, Absolute Neuts (auto) 11.0 H, Absolute Lymphs (auto) 3.02, Nucleated RBC % 0 02/28/22 05:45: Sodium 138, Potassium 4.1, Chloride 106, Carbon Dioxide 26.0, Anion Gap 6, BUN 20 H, Creatinine 0.89, Estim Creat Clear Calc 122.19, Est GFR (MDRD) Af Amer 121, Est GFR (MDRD) Non-Af 100, BUN/Creatinine Ratio 22.6 H, Glucose 104, Calcium 8.7 Microbiology: Microbiology 02/26/22 13:20 Blood Culture (Wb) - Anticubital Right Blood Culture - Preliminary No growth in 48 hours. 02/26/22 12:01 Blood Culture (Wb) - Left Hand Blood Culture - Preliminary No growth in 48 hours. D/C Instructions Discharge Diet: No restrictions Weight Bearing Status: Full weight bearing Meaningful Use Info Meaningful Use Diagnoses (Choose all that apply): None applicable Discharge Plan Admission Admit Date/Time: 02/26/22 13:35 Primary Reason for Your Visit: Right facial cellulitis, odontogenic infection Attending Provider: Keith Prabhakar [facility] Providers: Mat Talley ; Jeffrey Naranjo ; Syed Anderson Discharge Orders/Prescriptions Prescriptions: New amoxicillin-pot clavulanate 875-125 mg tablet 1 tab PO BID Qty: 30 0RF Rx Instructions: take with food hydrocodone-acetaminophen 5-325 mg tablet 1 tab PO Q6H PRN (Reason: pain) 7 Days Qty: 15 0RF Rx Instructions: one or two every six hours for severe pain Continued omeprazole 40 mg capsule,delayed release(DR/EC) 40 mg PO BID naproxen 500 mg tablet 500 mg PO BID Qty: 14 0RF diphenhydramine-acetaminophen [Acetaminophen PM Extra Str] 25-500 mg Tablet 2 tab PO QHS Discontinued clindamycin HCl [Cleocin HCl] 300 mg capsule 300 mg PO Q6H Qty: 28 0RF hydrocodone-acetaminophen 5-325 mg tablet 1 tab PO Q6H PRN (Reason: Pain) Label Comments: TAKE 1 TABLET BY MOUTH EVERY 6 HOURS NEEDED FOR PAIN [facility] - See Referral Note (tomorrow) Disposition Disposition (needs filled in before D/C Order can be placed): Home, Self Care Charges/Coding Visit Charges Inpatient E&M: 56148 Disch Hosp
== END 2022-02-28 12:29 | disposition home or self-care (01) | DRG 115 ==
LOC: ED 14:24 → MS3 14:37
PROVIDERS: Internal Medicine; Emergency Provider Emergency Medicine; Visit Provider Internal Medicine
DX: K12.2 Cellulitis and abscess of mouth (principal); L03.221 Cellulitis of neck; K04.6 Periapical abscess with sinus; K21.9 Gastro-esophageal reflux disease without esophagitis; K02.9 Dental caries, unspecified; F17.210 Nicotine dependence, cigarettes, uncomplicated; K05.00 Acute gingivitis, plaque induced; K05.30 Chronic periodontitis, unspecified; K05.10 Chronic gingivitis, plaque induced; K04.01 Reversible pulpitis; K04.02 Irreversible pulpitis; L03.211 Cellulitis of face; Z79.1 Long term (current) use of non-steroidal anti-inflammatories (NSAID); Z79.899 Other long term (current) drug therapy
CPT/HCPCS: 36415; 70487; 80048; 83605; 85025; 85027; 87040; 99282; 99283; 99284; 99406; J7030; Q9967; A4216; J2405

== ENCOUNTER → 2022-03-14 | Outpatient (CLI) | payer MEDICAID, SELFPAY ==
--- NOTE | 2022-03-14 07:51 | MRI_ITS ---
STUDY: MRI RIGHT SHOULDER REASON FOR EXAM: Male, 41 years old. pt dragged by horse, dislocated shoulder, , pain with motion TECHNIQUE: Standardized fat and water weighted pulse sequences were obtained in all 3 orthogonal planes. COMPARISON: X-ray of the right shoulder dated February 09, 2022 FINDINGS: Normal supraspinatus tendon. Normal infraspinatus tendon. Normal subscapularis tendon. Normal teres minor tendon. Normal supraspinatus muscle. Normal infraspinatus muscle. Normal subscapularis muscle. Normal teres minor muscle. Normal glenohumeral articulation. Normal humeral head and visualized proximal humerus. Normal biceps labral complex. Normal intracapsular long biceps tendon. A 270 circumferential tear of the glenoid labrum is present originating in the posterior superior aspect of the labrum and extending across the anterior to posterior and inferior aspect of the labrum. There is partial detachment, irregularity, and lobularity. The middle and inferior glenohumeral ligaments also demonstrate some mild to moderate thickening. A small glenohumeral joint effusion is present. Normal rotator interval. Normal acromioclavicular articulation. There is a Type II morphology (curved), with a neutral orientation. There is no subacromial-subdeltoid bursal fluid. Normal visualized coracohumeral and coracoacromial ligaments. Normal quadrilateral space. Normal axillary space. Normal deltoid muscle. Normal trapezius muscle. MRI/Upper Ext Joint Only(Routine) IMPRESSION: 1. A 270 circumferential tear of the glenoid labrum is present originating in the posterior superior aspect of the labrum and extending across the anterior to posterior and inferior aspect of the labrum. There is partial detachment, irregularity, and lobularity. 2. The middle and inferior glenohumeral ligaments also demonstrate some mild to moderate thickening. Electronically Signed: Xander Muller MD at 14:19 EDT ,
== END | disposition home or self-care (01) ==
LOC: MRI 07:51
PROVIDERS: Referring Provider Physician Assistant; Visit Provider Physician Assistant
DX: S43.004A Unspecified dislocation of right shoulder joint, initial encounter (principal); M25.511 Pain in right shoulder
CPT/HCPCS: 73221

== ENCOUNTER 2022-04-24 08:59 | Day surgery (SDC) | payer MEDICAID, SELFPAY ==
[2022-04-24] VITALS (9 sets, daily range): BP systolic 121–140; BP diastolic 77–107; PULSE 73–108; RESP 16–18; TEMP 36.2–36.7; O2SAT 91–98; BMI 27.6
[2022-04-24] MEDS: Lactated Ringers 1,000 ML 15 ML IV (09:35)
--- NOTE | 2022-04-24 10:02 | HP.PCM_ITS ---
HPI - General HPI Narrative DMITRY OLIVER, is a 41 M who presents for right shoulder scope stabilization for labrum tear. No changes to H and P. Right side marked, plan for pre op block/ Patient was on chronic narcotics in the past, denies drug or alcohol use currently. Narcotic counseling done. MR#: [id number] Acct: [id number] Name:DMITRY TREVINO Rep #: [id number] : 1980 ? ? Provider: Dr. Farrukh Rothman MD Age/Sex:? 41/M ? ? Location: [facility] Status: Signed Intake Vital Signs ? 02/27/2210:51 Height 6 ft 1 in Intake Visit Reasons:?RIGHT SHOULDER Allergies No Known Allergies Allergy (Verified 03/18/22 13:01) Medications omeprazole 40 mg capsule,delayed release 40 mg PO BID GERD 08/30/21 [History Confirmed 03/18/22] naproxen 500 mg tablet 500 mg PO BID #14 tabs 02/23/22 [Rx Confirmed 03/18/22] diphenhydramine 25 mg-acetaminophen 500 mg tablet (Acetaminophen PM Extra Strength) 2 tab PO QHS SINUS 02/26/22 [History Confirmed 03/18/22] amoxicillin 875 mg-potassium clavulanate 125 mg tablet 1 tab PO BID #30 tabs 02/28/22 [Rx Confirmed 03/18/22] hydrocodone-acetaminophen 5-325mg 5mg-325mg 1 tab PO Q6H PRN pain 7 days #15 tabs 02/28/22 [Rx Confirmed 03/18/22] PFSH Medical History?(Updated 03/18/22 @ 13:06 by Farrukh Rothman MD) GERD (gastroesophageal reflux disease) Helicobacter pylori (H. pylori) Superior labrum muhszxux-bl-hcrhevyho (SLAP) tear of right shoulder Surgical History? History of adenoidectomy Family History? Other Cancer Heart disease Social History? household members:? none Smoking Status:? Current every day smoker tobacco type: cigarettes alcohol intake:? current alcohol intake frequency: holidays/special occasions only Alcohol type: beer HPI RIGHT SHOULDER Details: Parts of this documentation were recorded by a scribe, this documentation accurately reflects the service provided and the decisions made by me, Dr. Farrukh Rothman MD 03/18/22 [id number]. DMITRY OLIVER is a 41 year old M here today for right shoulder instability.? He is referred by the physician assistant case manager Tremaine. A horse lead pulled his shoulder out. RHD. It came out again, his friend had put it back in. Arm dangled down. Some numbness in the hand - comes and goes, but none in the lateral side of the shoulder. 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 Not a WBC claim. DId try some PT but popping all the time and catching. Family is in [facility]. Per PA notes ?Pt. advises he was drug by a horse about 3 1/2 weeks ago which dislocated his right shoulder and he had a friend pop it back in. Then approximately a week and a half ago he feel off a cart when his horse was spooked and he dislocated it again and he was seen at the [facility] ED where he had right shoulder Xrays done. The Xrays did not reveal dislocation but he was advised to get an MRI to check for a torn rotator cuff. Yesterday a horse panel was about to fall and he reached out to catch it which aggravated his right shoulder again. Pt. has applied ice and has been taking Meloxicam with little relief. He rates his pain as 7/10 today and describes it as a deep dull pain with occasional popping with ROM. Pt. has occasional numbness and tingling. Denies previous shoulder surgeries, injections or PT. Ortho Exam General General: Yes no acute distress Neurologic: Yes alert and Yes oriented x3 Psychologic: Yes reasonable and appropriate Right Shoulder Skin/Wound: Yes CDI, No ecchymosis, No erythema and No swelling Contralateral Normal: Yes Testing: Positive AROM-Forward Elevation 0-180, AROM-External Rotation at side 0-60, Apprehension Test, Sulcus Sign, translation and jerk; Negative Hawkin's, Neer's, TTP AC Joint, Drop Arm or empty can Internal Rotation: L3 Supplemental Info [facility] [address] [place] [address] Upper Ext Joint Only(Routine) MR#: [id number] Acct: [id number] Name: DMITRY OLIVER Rep #: [id number] : 1980 M 41 From: Xander yadav MD [facility] Status: REG CLI Study: Upper Ext Joint Only(Routine) Date of Exam: 1 Exam# [id number] Ordering Dr: London Rogel STUDY: MRI RIGHT SHOULDER REASON FOR EXAM: Male, 41 years old. pt dragged by horse, dislocated shoulder, , pain with motion TECHNIQUE: Standardized fat and water weighted pulse sequences were obtained in all 3 orthogonal planes. COMPARISON: X-ray of the right shoulder dated February 09, 2022 FINDINGS: Normal supraspinatus tendon. Normal infraspinatus tendon. Normal subscapularis tendon. Normal teres minor tendon. Normal supraspinatus muscle. Normal infraspinatus muscle. Normal subscapularis muscle. Normal teres minor muscle. Normal glenohumeral articulation. Normal humeral head and visualized proximal humerus. Normal biceps labral complex. Normal intracapsular long biceps tendon. A 270 circumferential tear of the glenoid labrum is present originating in the posterior superior aspect of the labrum and extending across the anterior to posterior and inferior aspect of the labrum. There is partial detachment, irregularity, and lobularity. The middle and inferior glenohumeral ligaments also demonstrate some mild to moderate thickening. A small glenohumeral joint effusion is present. Normal rotator interval. Normal acromioclavicular articulation. There is a Type II morphology (curved), with a neutral orientation. There is no subacromial-subdeltoid bursal fluid. Normal visualized coracohumeral and coracoacromial ligaments. Normal quadrilateral space. Normal axillary space. Normal deltoid muscle. Normal trapezius muscle. MRI/Upper Ext Joint Only(Routine) IMPRESSION: 1. A 270 circumferential tear of the glenoid labrum is present originating in the posterior superior aspect of the labrum and extending across the anterior to posterior and inferior aspect of the labrum. There is partial detachment, irregularity, and lobularity. 2. The middle and inferior glenohumeral ligaments also demonstrate some mild to moderate thickening. Electronically Signed: Xander Muller MD at 14:19 EDT , MR#:? [id number] Acct: [id number] Name:? DMITRY OLIVER Rep #: [id number] :?? 1980 M 41 ? From:? ? Michael Price MD PCP: [facility] ? Status: REG ER Study: Shoulder min 2 Views ? Date of Exam: 02/09/22 Exam# [id number] ? Ordering Dr:? Wicho Baker MD STUDY: ? X-RAY - RIGHT SHOULDER REASON FOR EXAM: ? Male, 41 years old.? Status post fall TECHNIQUE: ? 4 view(s) of the shoulder. COMPARISON: ? None. FINDINGS: Normal glenohumeral articulation.? Normal acromioclavicular joint.? Normal acromion. Normal humeral head and visualized proximal humerus. The soft tissue structures are unremarkable. Normal visualized pulmonary apex. RAD/Shoulder min 2 Views IMPRESSION: Normal x-ray examination of the shoulder. ? Electronically Signed: Michael Price MD at 15:24 EDT , Coding Level of Care Code Off vis,new,level 4 Diagnoses Dislocation of right shoulder joint? S43.004A Right shoulder pain? 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 He has tried a trial of nonoperative management including physical therapy but it still persists.? Other options would be rest ice NSAIDs activity modifications. Surgical management of this would be right shoulder arthroscopy and stabilization of the labrum.? We talked about the pros and cons risks and benefits of nonoperative versus operative treatment.? I do think he had of a moderate to high risk of repeat subluxations and dislocations as well as further damage to the cartilage and surrounding structures without surgery.? He understands and wishes to proceed with surgery. Pros and cons risks and benefits were discussed with the patient including but not limited to infection (higher because smoker and history of fascial abscess), pain, stiffness, bleeding, damage to surrounding structures, neurovascular injury, recurrence or retear, failure or wear of hardware or fixation, instability, fracture, deep vein thrombosis and pulmonary embolism, anesthetic risks, patient dissatisfaction, need for further surgery and other risks.? Patient understood and wished to proceed with surgery, and signed the informed consent documentation. [facility] Medical History (Updated 04/17/22 @ 08:31 by Elizabeth Thomas) Alcohol use Anxiety Arthritis Cardiology follow-up encounter Depression Fatty liver Gastric reflux GERD (gastroesophageal reflux disease) Helicobacter pylori (H. pylori) History of edema History of hiatal hernia History of IBS History of irregular heartbeat History of pain when walking History of stress test Hypertension Leg cramps Marijuana use Migraine headache Shortness of breath on exertion Smoker Substance abuse Superior labrum uflkoxwm-mr-thilszmuk (SLAP) tear of right shoulder Syncope Home Medications omeprazole 40 mg capsule,delayed release 40 mg PO BID GERD 08/30/21 [History Last Taken 2 Days Ago ~02/24/22] ibuprofen 800 mg tablet 800 mg PO Q6H PRN Pain 04/17/22 [History Last Taken Unknown] Allergy/AdvReac Type Severity Reaction Status Date / Time No Known Allergies Allergy Verified 04/24/22 09:35 Family History Other Cancer Heart disease Surgical History (Updated 04/17/22 @ 08:31 by Elizabeth Thomas) History of adenoidectomy History of esophagogastroduodenoscopy (EGD) Hx of colonoscopy Social History household members: none Smoking Status: Current every day smoker tobacco type: cigarettes alcohol intake: current alcohol intake frequency: holidays/special occasions only Alcohol type: beer Vital Signs Vital Signs Vital Signs: 04/24/22 09:30 04/24/22 09:30 Temperature 98.1 F Temperature Source Temporal Pulse Rate 94 Respiratory Rate 18 Respiratory Pattern Normal Blood Pressure 135/98 H Blood Pressure Mean 110 Blood Pressure Source Monitor Blood Pressure Position Semi-Fowlers Blood Pressure Location Left Arm Pulse Ox 98 Oxygen Delivery Method Room Air Weight Weight: 209 lb 7.026 oz Body Mass Index (BMI) 27.6
[2022-04-24] MEDS: Cefazolin 2 GM in 0.9% Normal Saline 100 ML IV (10:15)
[2022-04-24] MEDS: Epinephrine (1 mg/ml) 1 MG/ML VIAL (11:05)
--- NOTE | 2022-04-24 13:15 | PCM.OPRPT ---
Problems Associated Problem List Diagnoses (1) Dislocation of right shoulder joint: Report of Operation Date of Procedure: 04/24/22 Pre-Operative Diagnosis: RIGHT SHOULDER instability Post-Operative Diagnosis: same Surgery/Procedure Performed:: right shoulder stabilization (labrum repair) Description of Surgical Findings:: labrum tear from 3-9 on clock face, biceps root stable, normal cartilage Surgeon: Farrukh Rothman Type of Anesthesia: Block,Regional and General Anesthesiologist: Jeffrey Joel Estimated Blood Loss (mL): 40 Description of Procedure: Patient was brought to the operating room theater.? Placed lateral on the operating room table.? All bony prominences appropriately padded.? SCD on the legs.? 2 g IV Ancef administered prior to the start of the procedure.? General anesthesia induced.?Bazan bag used. 10 pounds traction with arm at 30 degrees abduction. Upper extremity prepped and draped in the usual sterile fashion with chlorhexidine-based prep solution allowing over 3 minutes drying time prior to draping.? Preoperative timeout performed to confirm the site patient and the surgery. Began by making standard posterior, anterior x2 portals with canulas 7x7mm. Just posterior to biceps and above subscap. Labrum tear from 3-9. Biceps root stable. Very mild fraying undersurface SS but cuff intact, no hill sachs, normal bare area, axillary recess normal. Small loose body removed. Labrum elevated, shaver to create bleeding bed for healing circumferentially from 3-9. Using nitinol wire and suture passing, used Arthrex all suture fiber brenda anchors knotless 1.8mm, 2 posteriorly at 7 and 8 oclock, and 4 anteriorly from 530, 430, 330, and 3 on clock face. Tensioned anterior laburm from inf to superiorly, and anteriorly to posteriorly slightly en face where there was a small area at 3oclock of full thickness cartilage loss. Stable solid repair, bumper recreated nicely. Pictures taken and uploaded. Portals closed with 2-0 vircyl for portals. ? Skin cleaned with wet and dry dressing followed by Steri-Strips Adaptic 4 x 4 gauze ABD pad dressings and and cloth tape with sling. Patient woken up with her general anesthetic transferred off the operating room table taken postanesthetic care unit in stable condition.? All sponge and monitoring counts were correct no complications.? Plan to the patient pendulums QID and FU 2 days, discharge home per day surgery criteria. Complications none Admit VTE Documentation VTE Present on Admission: No VTE Mechan Device Prophylaxis: SCD's Reason prophylaxis not ordered:: Treatment Not Indicated Procedures Musculoskeletal [id number]: Other Procedure See Report
--- NOTE | 2022-04-24 13:24 | EX.PCM.DISCH ---
Discharge Instructions Diet Discharge Diet: No restrictions Activity Lifting Restrictions: no lifting. pendulum exercises 4 times daily, ok for hand wrist elbow ROM Dressing / Incision Call your doctor if your incision/area has: Continuous Slow Oozing, Sudden Increased Bleeding, Increased Pain/ Swelling, Increased Redness, Foul Smelling Discharge and Swelling at the incision site Change Dressing in: leave in place till F/U Cleanse incision/area with: Do not get Incision Wet Follow Up Care Please Follow Up With: Farrukh Rothman MD When: 2 days if able, otherwise 2 wks Test Results: Test results from this visit will be discussed in further detail at your follow-up appointment, if applicable. Discharge Plan Admission Attending Provider: Farrukh Rothman [facility] Orders/Prescriptions Prescriptions: New oxycodone-acetaminophen [Percocet] 5-325 mg tablet 1 tab PO Q4H MDD 6 PRN (Reason: pain) 7 Days Qty: 30 0RF No Action omeprazole 40 mg capsule,delayed release(DR/EC) 40 mg PO BID ibuprofen 800 mg Tablet 800 mg PO Q6H PRN (Reason: Pain) Referrals / Follow Up: Farrukh Rothman MD [Med Staff - Active Staff] - [facility] Greenberg [Primary Care Provider] - Disposition Disposition (needs filled in before D/C Order can be placed): Home, Self Care
[2022-04-24] MEDS: Acetaminophen 325 MG Tablet PO (15:06)
[2022-04-24] MEDS: oxyCODONE 5 MG Tablet PO (15:06)
== END 2022-04-24 15:51 | disposition home or self-care (01) ==
LOC: SDC 09:00 → AC 09:02
PROVIDERS: Referring Provider Orthopaedic Surgery Sports Medicine; Visit Provider Orthopaedic Surgery Sports Medicine
PROC: (CPT 29805; principal; 2022-04-24 10:05)
DX: M25.311 Other instability, right shoulder (principal); S43.004A Unspecified dislocation of right shoulder joint, initial encounter; X50.9XXA Other and unspecified overexertion or strenuous movements or postures, initial encounter; Y93.K9 Activity, other involving animal care; I10 Essential (primary) hypertension; K21.9 Gastro-esophageal reflux disease without esophagitis; F17.210 Nicotine dependence, cigarettes, uncomplicated; Z79.1 Long term (current) use of non-steroidal anti-inflammatories (NSAID); Z79.899 Other long term (current) drug therapy
CPT/HCPCS: 29806; 01630; C1776; J7120; J2405

== ENCOUNTER 2022-06-19 14:00 | Outpatient (RCR) | payer MEDICAID, SELFPAY ==
--- NOTE | 2022-05-07 12:27 | HP.PTEVAL_ITS ---
Patient's Visit Information DMITRY OLIVER is a 41 year old M referred to Physical Therapy by Dr. Farrukh Rothman MD with a diagnosis of Right Labral Repair 04/24/22. Date of Evaluation: 05/07/22 Physical Therapist: Fely Wei DPT - Visit Plan Frequency: 3x /Week Duration: 4 Weeks Plan: SLAP Repair 04/24/22. HEP Given IE: pendulums, postural corrections, elbow flexion/extn - Subjective Right shoulder surgery- 3 accidents with horses-04/24/[address] Rothman- Labral repair. Went to see him this morning- he told him nothing aggressive yet- can start to come out of the sling a little bit. 2 days ago fell asleep on the couch and then fell off onto the right arm. Currently a Agg: anything Eases: ice pack Best: 09/25. Pain is located in the posterior shoulder and radiates down the back of the arm to the elbow and forearm. N/T in the fingers but not consistent. Describes the pain as dull and achy- can also be sharp. He was taken off narcotic pain medications. It was feeling a little better prior to falling- -12/26 since he fell. No MRI/X-rays since surgery. Sleep: disturbed- hard to get comfortable- usually a side sleeper (couch, recliner, bed). Does not sleep in his sling. He has some neck pain now due to the sling. Does get DAVIS but has no blurred vision or dizziness. Does have some bulging discs in his neck. 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 Right hand dominate. Fully I prior to surgery. PMHX/Meds: no changes since surgery. - Objective Posture: FH, RS- very guarded right UE- no sling. Gait: no arm swing or trunk rotation. Palpation: significant tenderness throughout scapular border, upper trap, bicipital groove and down the bicep/tricep to elbow. ROM: Elbow/Wrist/Hand: WFL, Shoulder PROM: Flexion: 50 degrees, Abd: 40 degrees, IR: to belly, ER: neutral- very guarded. Strength: Scap: fair minus, Shoulder: not tested, Elbow: 3+/5 with pain, Wrist: 4+/5 - Balance/Special Test Scores Quick DASH Score: 72.7250 - Goals Goal 1:: Patient will be I with HEP and progression Goal Time Frame: 12-16 Weeks Goal 2:: Patient will demo AROM of right shoulder WLF (as per protocol) Goal Time Frame: 12-16 Weeks Goal 3:: Patient will maintain proper posture t/o tx session to demo increased scap s/s Goal Time Frame: 12-16 Weeks Goal 4:: Patient will report 80% improvement Goal Time Frame: 12-16 Weeks - Rehabilitation Potential Physical Therapy Diagnosis: Patient presents with hypomobility- s/p Labral Repair 04/24/22-decreased UE and scapular s/s, ROM and muscular endurance leading to poor posture and increased pain with ADL's. Rehabilitation Potential: Fair - Anticipated Interventions Patient/Client Instruction: Educate patient on: Benefits of Fitness Program Therapeutic Exercise to Include: Strength training, Endurance training, Balance training, Coordination, Agility training, Body mechanics, Postural training, Flexibilty training, Passive ROM, Active ROM, Dynamic Lumbar Stabilization, Scapular Strength/Stabilization For the Purpose of:: To improve muscle performance and motor function TENS: Yes Cryotherapy (ice pack, ice massage): Yes Thermo therapy (hot pack): Yes Thank you for the opportunity to evaluate your patient. For Medicare and Medicare HMO plans, please review the plan of care and approve it. It will need to be FAXED BACK to us at [phone] for Medicare purposes. For Medicare only, by signing this I certify the plan of care. Please let me know if there are questions or concerns regarding this plan of care. Physician Signature: Date:_
--- NOTE | 2022-06-04 13:58 | HP.PTREVAL ---
Dr. Farrukh Rothman MD, It has been my pleasure to treat DMITRY OLIVER over the last 6 visits for Right Labral Repair 04/24/22. Please see the progress note below for an update on the physical therapy plan of care! Subjective: Patient reports that his shoulder hurts a lot- pain is located in the anterior shoulder and down the deltoid to the elbow. Worst: 6-11/25. Sleep: still wakes him up at night- hard to get comfortable and will wake him up. He is using his shoulder a lot- no sling use. Feels that when he raises his arm overhead it shoves more into the neck musculature. He is doing some exercises at home (wall walks). He is not back to work- he is trying to find a job in more of an office setting. He has seen the MD 2x since surgery- he reports its normal but scar tissue is building and needs to keep it moving. Objective/Function: Posture: FH, RS- very guarded right UE- Gait: no arm swing or trunk rotation. Palpation: significant tenderness throughout scapular border, upper trap, bicipital groove and down the bicep/tricep to elbow. ROM: Elbow/Wrist/Hand: WFL, Shoulder AROM and PROM are the same due to guarding: Flexion: 120 degrees, Abd:100 degrees, IR: pocket, ER: 20 degrees. Strength: Scap: fair minus, Shoulder: tested at neutral: 4/5 with discomfort, Elbow: 3+/5 with pain, Wrist: 4+/5 Plan Plan: 06/04/22: Continue 2-3x a week for 4 weeks- encouraged HEP of stretching and importance of compliance. SLAP Repair 04/24/22. HEP Given IE: pendulums, postural corrections, elbow flexion/extn Balance/Gait/Functional tests - Balance/Special Test Scores Quick DASH Score: [phone] Goals Goal 1:: Patient will be I with HEP and progression Goal Time Frame: 12-16 Weeks Goal 2:: Patient will demo AROM of right shoulder WLF (as per protocol) Goal Time Frame: 12-16 Weeks Goal 3:: Patient will maintain proper posture t/o tx session to demo increased scap s/s Goal Time Frame: 12-16 Weeks Goal 4:: Patient will report 80% improvement Goal Time Frame: 12-16 Weeks Anticipated Interventions Patient/Client Instruction: Educate patient on: Benefits of Fitness Program Therapeutic Exercise to Include: Strength training, Endurance training, Balance training, Coordination, Agility training, Body mechanics, Postural training, Flexibilty training, Passive ROM, Active ROM, Dynamic Lumbar Stabilization, Scapular Strength/Stabilization For the Purpose of:: To improve muscle performance and motor function TENS: Yes Cryotherapy (ice pack, ice massage): Yes Thermo therapy (hot pack): Yes Please do not hesitate to contact me at [phone] by phone or if you have questions or concerns regarding this new plan of care! Sincerely, NOHEMY MckayT
--- NOTE | 2022-07-18 10:07 | HP.PT.NRP ---
DMITRY OLIVER was seen in my office for initial evaluation on 05/07/22. The following Plan of Care was established for this patient: Initial Frequency: 3x /Week Initial Duration: 4 Weeks Patient/Client Instruction: Educate patient on: Benefits of Fitness Program Therapeutic Exercise to Include: Strength training, Endurance training, Balance training, Coordination, Agility training, Body mechanics, Postural training, Flexibilty training, Passive ROM, Active ROM, Dynamic Lumbar Stabilization, Scapular Strength/Stabilization For the Purpose of:: To improve muscle performance and motor function TENS: Yes Cryotherapy (ice pack, ice massage): Yes Thermo therapy (hot pack): Yes This patient was last seen in our office . Pertinent comments regarding their Physical therapy will appear below: Patient has been inconsistent with attendance to PT and has not attended in since Jun 24- at this time it is appropriate to discharge patient and return to MD for further evaluation At this point I will be discontinuing this patient from physical therapy. I would be happy to see this patient again in the future if found appropriate by the physician. Thank you! Fely Wei, TRUONG Balance/Gait/Functional tests - Balance/Special Test Scores Quick DASH Score: [phone]
== END 2022-06-19 19:00 | disposition home or self-care (01) ==
LOC: PT 14:00
PROVIDERS: Referring Provider Orthopaedic Surgery Sports Medicine; Visit Provider Orthopaedic Surgery Sports Medicine
DX: S43.004A Unspecified dislocation of right shoulder joint, initial encounter (principal)
CPT/HCPCS: 97110; 97140; 97162; 97164

== ENCOUNTER → 2022-07-17 | Outpatient (CLI) | payer MEDICAID, SELFPAY ==
--- NOTE | 2022-07-17 14:25 | RAD_ITS ---
STUDY: X-RAY CHEST REASON FOR EXAM: Male, 41 years old. Shortness of breath. TECHNIQUE: Frontal and lateral views of the chest. COMPARISON: June 19, 2021. FINDINGS: Low volume inspiration with minimal bibasilar atelectasis. No focal consolidation. There is no demonstrated pleural abnormality. Normal size heart. Normal mediastinum and kallie. Normal visualized pulmonary arteries. Normal visualized aortic arch and descending thoracic aorta. Normal visualized thoracic spine. Normal visualized ribs, clavicles, and shoulders. There is no demonstrated abnormality of the visualized soft tissue structures of the upper abdomen. RAD/Chest PA and Lateral IMPRESSION: Low volume inspiration with no acute or active cardiopulmonary disease. Electronically Signed: Jeffery Wiggins, at 9:36 EST ,
[2022-07-17 15:25] LABS: D-Dimer Quantitative (DVT/PE) < 0.27 FEU/ug/m (0.27-0.49)
[2022-07-17 15:39] LABS: BNP,B-Type NATRIURETIC PEPTIDE 5.9 pg/mL (0-100)
[2022-07-17 15:49] LABS: ALB/GLOB Ratio 1.1 RATIO (0.9-2.4); AST(SGOT) 38 U/L (15-37); Alanine Aminotransfer ALT/SGPT 106 U/L (16-61); Albumin, Serum 3.9 g/dL (3.2-5.0); Alkaline Phosphatase 71 U/L (45-117); Anion Gap 7 (5-15); BUN 15 mg/dL (7-18); BUN/Creat Ratio 12.4 RATIO (10-20); Calcium,Total 9.2 mg/dL (8.5-10.1); Chloride 103 mmol/L (98-107); Creatinine, Serum 1.21 mg/dL (0.70-1.30); EST Glomerular Filtration Rate 70 mL/min (>60); Est Glom Filt Rate - Afr Amer 84 mL/min (>60); Globulin 3.6 g/dL (2.2-4.2); Glucose 170 mg/dL (74-106); Lipase 89 U/L (73-393); Potassium 3.6 mmol/L (3.5-5.1); Protein, Total 7.5 g/dL (6.4-8.2); Sodium Level 137 mmol/L (136-145); Thyroid Stim Hormone (TSH) 1.29 uIU/mL (0.358-3.74)
[2022-07-17 16:30] LABS: Absolute Lymphocyte Count 2.69 X10^3/uL (0.83-4.51); Absolute Neutrophil Count 5.8 X10^3/uL (2.0-7.7); Basophil# 0.07 X10^3/uL; Basophil% 0.8 % (0-1); Eosinophil# 0.14 X10^3/uL; Eosinophils% 1.5 % (0-5); Hematocrit 42.8 % (40-54); Hemoglobin 14.9 g/dL (13.0-16.5); Lymphocyte # 2.69 X10^3/ul (0.83-4.51); Mean Corp Hgb Conc 34.8 g/dL (32-36); Mean Corpuscular Hgb 32.1 pg (27.0-32.0); Mean Corpuscular Volume 92.2 fL (80-94); Monocyte# 0.52 X10^3/uL; Monocyte% 5.6 % (0-10); NRBC Flagged by Analyzer 0.2 % (0-5); Neutrophil # 5.76 X10^3/uL (2.7-7.7); Neutrophil % 61.9 % (47-70); Platelet Count 335 K/mm3 (150-450); RBC Distribution Width CV 11.9 % (11.6-14.6); RBC Distribution Width SD 39.8 fl (35.1-43.9); Red Blood Count 4.64 M/mm3 (4.6-6.2); White Blood Count 9.3 K/mm3 (4.4-11.0)
[2022-07-18 16:08] LABS: Hemoglobin A1c 5.6 % (3.8-5.6)
== END | disposition home or self-care (01) ==
LOC: LAB 14:09
PROVIDERS: Visit Provider Nurse Practitioner Family
DX: R06.02 Shortness of breath (principal); K21.9 Gastro-esophageal reflux disease without esophagitis
CPT/HCPCS: 36415; 71046; 80053; 83036; 83690; 83880; 84443; 85025; 85379

== ENCOUNTER 2022-07-23 17:57 | Emergency (ER) | payer MEDICAID, SELFPAY ==
[2022-07-23 17:58] VITALS: BP 182/106; PULSE 96; RESP 22; TEMP 36.1; O2SAT 97; BMI 29.2
--- NOTE | 2022-07-23 18:23 | EKG12_ITS ---
Test Reason : Blood Pressure : / mmHG Vent. Rate : 083 BPM Atrial Rate : 083 BPM P-R Int : 152 ms QRS Dur : 084 ms QT Int : 340 ms P-R-T Axes : 062 052 049 degrees QTc Int : 399 ms Normal sinus rhythm Normal ECG Confirmed by SHIRA TANG, ALEX ([id number]), legal editor NICOLA JAMISON ([id number]) on 07/25/2022 8:55:04 AM Referred By: Confirmed By:ALEX SILVA MD
--- NOTE | 2022-07-23 18:25 | EDS_ITS ---
HPI History of Present Illness Chief Complaint: Back Detail of Chief Complaint: Back pain and multiple other complaints Informant: patient Narrative Narrative: Patient presents to the emergency department stating that he is feeling very hot . Patient states he has had pain in his back for a couple of months. Patient has seen his primary care physician last week and had outpatient chest x-ray that he tells me was normal and had some outpatient blood work done. Patient also complains of right upper dental pain today. Patient feels anxious. He denies fever otherwise. He has had some mild cough and mild sinus congestion. Patient denies recent travel or surgery. Patient states that his stool has been more yellow than usual. He denies urinary symptoms. [facility] Medical History Alcohol use Anxiety Arthritis Cardiology follow-up encounter Depression Fatty liver Gastric reflux GERD (gastroesophageal reflux disease) Helicobacter pylori (H. pylori) History of edema History of hiatal hernia History of IBS History of irregular heartbeat History of pain when walking History of stress test Hypertension Leg cramps Marijuana use Migraine headache Right shoulder pain Shortness of breath on exertion Smoker Substance abuse Superior labrum ouvgfrdh-ez-hdonfzygb (SLAP) tear of right shoulder Syncope Home Medications omeprazole 40 mg capsule,delayed release 40 mg PO BID GERD 08/30/21 [History Last Taken 2 Days Ago ~02/24/22] cyclobenzaprine 5 mg tablet 5 mg PO TID PRN muscle spasm #14 tabs 05/07/22 [Rx Last Taken Unknown] acetaminophen 500 mg tablet tablet PO 06/04/22 [History Last Taken Unknown] ibuprofen 200 mg tablet 200 mg PO Q6H PRN 07/04/22 [History Last Taken Unknown] clindamycin HCl 300 mg capsule (Cleocin HCl) 300 mg PO Q6H #40 CAPSULES 07/23/22 [Rx Last Taken Unknown] hydrocodone-acetaminophen 5-325mg 5mg-325mg 1 tab PO Q4H PRN PRN Pain 2 days #10 TABLETS 07/23/22 [Rx Last Taken Unknown] Allergy/AdvReac Type Severity Reaction Status Date / Time No Known Allergies Allergy Verified 07/23/22 18:01 Family History Other Cancer Heart disease Surgical History History of adenoidectomy History of esophagogastroduodenoscopy (EGD) Hx of colonoscopy Social History household members: none Smoking Status: Current every day smoker tobacco type: cigarettes alcohol intake: current alcohol intake frequency: holidays/special occasions only Alcohol type: beer ROS ROS ED Review of Systems ROS Unobtainable: other Constitutional Constitutional ED: Reports lethargy; Denies chills, fever(s), sweats or weight loss Eyes Eyes: Denies blurry vision, change in vision or diplopia ENT ENT ED: Reports other Details: Dental pain ; Denies rhinorrhea or sore throat Cardiovascular Cardiovascular: Denies chest pain, orthopnea or racing heartbeat Respiratory/Chest Respiratory/Chest: Reports cough; Denies dyspnea, dyspnea on exertion, orthopnea or sputum Gastrointestinal Gastrointestinal: Reports other Details: Yellow stool ; Denies abdominal pain, diarrhea, nausea or vomiting Genitourinary Genitourinary ED: Denies dysuria, hematuria or urinary frequency Musculoskeletal Musculoskeletal: Reports back pain; Denies arthralgias, myalgias or neck pain Integumentary Denies abscess, Abrasions or rash Neurologic Neurologic: Denies headache(s) or weakness Psychiatric Psychiatric: Denies anxiety, depression or suicidal thoughts Endocrine Endocrinology: Denies polydipsia, polyphagia or polyuria Hematologic/Lymphatic Hematologic/Lymphatic: Denies easy bleeding, easy bruising or lymphadenopathy Allergic/Immunologic Allergic/Immunologic ED: Denies mouth swelling, tongue swelling or urticaria EXAM Physical Exam Const Vital Signs: 07/23/22 17:58 07/23/22 18:27 07/23/22 18:28 Temperature 97.0 F L Temperature Source Temporal Pulse Rate 96 96 81 Respiratory Rate 22 H 20 H 20 H Blood Pressure 182/106 H 195/103 H 172/104 H Blood Pressure Mean 131 133 126 Pulse Ox 97 100 98 Oxygen Delivery Method Room Air Room Air Room Air Positive well nourished and well developed General Appearance ED: well developed and NAD HEENT Reports TM's clear and moist mucous membranes HEENT Narrative: Broken and carried right upper molar #2 tender to palpation. There is no gingival erythema or abscess. normocephalic and atraumatic; Negative for trauma or tenderness Tympanic Membrane ED: Yes TM's clear Eyes PERRL and EOMs intact bilaterally General Eye ED: Negative for pale conjunctiva or scleral icterus Neck no lymphadenopathy, supple and no JVD General: Negative for tenderness Chest Wall inspection of chest normal and palpation of chest normal Chest: Negative for tenderness Resp normal respiratory effort and clear to auscultation bilaterally Effort and Inspection: Negative for respiratory distress or pain with movement Auscultation: Negative for rhonchi, wheezes or diminished lung sounds Cardio regular rate, regular rhythm, S1 normal heart sound, S2 normal heart sound and no murmurs Peripheral Pulses: pulses 2+ throughout GI normal to inspection, nondistended, normoactive bowel sounds, soft to palpation, non-tender, non-distended and no masses Back/Spine no CVA tenderness and no thoracic nor lumbar tenderness Back/Spine Narrative: I cannot reproduce patient's pain with palpation. He describes the pain as righ t mid thoracic paraspinal. Patient has no tenderness over lumbar spine or lumbar paraspinal musculature. He has negative straight leg raises. Deep tendon reflexes are plus 2 out of 4 bilaterally at the patella and Achilles. Patient has normal L5 extension bilaterally. Patient has normal sensation to light touch. Extremity normal to inspection General Extremety ED: Negative for edema General Extremity: Negative for edema Neuro oriented x3, CN's II-XII intact bilaterally, no sensory deficits noted and gait normal Sensorium / Orientation: awake, alert, oriented to person, oriented to place and oriented to time Motor Exam: strength 5/5 throughout and strength abnormal Psych mental status grossly normal Skin no rashes or lesions noted and no wounds MDM MDM MDM Narrative Medical decision making narrative: IV line established on arrival. Patient with multiple complaints. Etiology of his back pain unclear could be musculoskeletal versus pleurisy versus PE. He did have a D-dimer that was negative therefore I feel PE is ruled out. He had a chest x-ray done on the first of this month that was unremarkable therefore I did not repeat it today. He has normal lung exam and no hypoxemia. Patient did receive Ativan 1 mg IV as I suspected a component of anxiety. Patient chemistries were normal and LFTs essentially unremarkable. EKG showed a sinus rhythm with a rate of 85 bpm with no acute ST segment changes. Troponin was normal. Urinalysis was normal. COVID and influenza were negative. Patient was given Toradol 30 mg IV and continued complaint of dental pain therefore he was given 1 [place] p.o. Patient was started on clindamycin. At this point he will be discharged to home with a prescription for [place] and clindamycin. He is advised to follow-up with a dentist within next 3 to 4 days. Patient's pain is over the mid thoracic paraspinal musculature on the right side and suspect likely musculoskeletal. Patient understands that if his pain persist may need further imaging such as possibly including MRI to evaluate further. Lab Data Attestation: I reviewed the patient's lab results. Labs: Laboratory Results - last 24 hr 07/23/22 07/23/22 07/23/22 18:40 18:40 18:40 WBC 10.8 RBC 4.85 Hgb 15.0 Hct 45.2 MCV 93.2 MCH 30.9 MCHC 33.2 RDW Std Deviation 41.7 RDW Coeff of Judith 12.1 Plt Count 340 MPV 9.2 D-Dimer Quant (PE/DVT) 0.35 Sodium 139 Potassium 3.9 Chloride 103 Carbon Dioxide 26.0 Anion Gap 10 BUN 18 Creatinine 1.20 Estim Creat Clear Calc 90.63 Est GFR (MDRD) Af Amer 85 Est GFR (MDRD) Non-Af 70 BUN/Creatinine Ratio 15.0 Glucose 86 Calcium 10.0 Total Bilirubin 0.30 Direct Bilirubin 0.09 AST 35 ALT 116 H Alkaline Phosphatase 86 Troponin I High Sens 39 Total Protein 8.4 H Albumin 4.8 Globulin 3.6 Urine Color Urine Clarity Urine pH Ur Specific [place] Urine Protein Urine Glucose (UA) Urine Ketones Urine Occult Blood Urine Nitrite Urine Bilirubin Urine Urobilinogen Ur Leukocyte Esterase Urine RBC Urine WBC Ur Squamous Epith Cells Urine Bacteria Urine Mucus 07/23/22 19:13 WBC RBC Hgb Hct MCV MCH MCHC RDW Std Deviation RDW Coeff of Judith Plt Count MPV D-Dimer Quant (PE/DVT) Sodium Potassium Chloride Carbon Dioxide Anion Gap BUN Creatinine Estim Creat Clear Calc Est GFR (MDRD) Af Amer Est GFR (MDRD) Non-Af BUN/Creatinine Ratio Glucose Calcium Total Bilirubin Direct Bilirubin AST ALT Alkaline Phosphatase Troponin I High Sens Total Protein Albumin Globulin Urine Color Yellow Urine Clarity Clear Urine pH 5.0 Ur Specific [place] 1.025 Urine Protein 30 H Urine Glucose (UA) Normal Urine Ketones 5 H Urine Occult Blood Negative Urine Nitrite Negative Urine Bilirubin 1 H Urine Urobilinogen 1 H Ur Leukocyte Esterase 25 H Urine RBC 0-5 SEEN Urine WBC 0 SEEN Ur Squamous Epith Cells 0 SEEN Urine Bacteria 0 SEEN Urine Mucus 0 SEEN EKG Initial EKG: Attestation: I personally reviewed and interpreted this EKG as follows: Comments: Sinus rhythm with a rate of 83 bpm with somewhat peaked T waves Prior EKG tracings: not available for review Discharge Plan Triage Chief Complaint: Back ED Provider: Manny Martinez Dx/Rx/DC Orders Clinical Impression: Pain, dental, Back pain Instructions: ED Back Pain (Acute or Chronic), ED Dental Pain Prescriptions: New clindamycin HCl [Cleocin HCl] 300 mg capsule 300 mg PO Q6H Qty: 40 0RF hydrocodone-acetaminophen [hydrocodone-acetaminophen] 5-325 mg tablet 1 tab PO Q4H PRN PRN (Reason: Pain) 2 Days Qty: 10 0RF No Action omeprazole 40 mg capsule,delayed release(DR/EC) 40 mg PO BID cyclobenzaprine 5 mg tablet 5 mg PO TID MDD 3 PRN (Reason: muscle spasm) Qty: 14 2RF acetaminophen 500 mg tablet PO ibuprofen 200 mg tablet 200 mg PO Q6H PRN Primary Care Provider: Andreea Luciano Referrals: [facility],[place] [Non-Staff] - 3-5 Days Disposition Disposition: Home, Self Care
[2022-07-23 18:27] VITALS: BP 195/103; PULSE 96; RESP 20; O2SAT 100
[2022-07-23 18:28] VITALS: BP 172/104; PULSE 81; RESP 20; O2SAT 98
[2022-07-23 18:46] LABS: Hematocrit 45.2 % (40-54); Mean Corp Hgb Conc 33.2 g/dL (32-36); Mean Corpuscular Hgb 30.9 pg (27.0-32.0); Mean Corpuscular Volume 93.2 fL (80-94); Mean Platelet Vol. 9.2 fl (6.2-12.0); Platelet Count 340 K/mm3 (150-450); RBC Distribution Width CV 12.1 % (11.6-14.6); RBC Distribution Width SD 41.7 fl (35.1-43.9); Red Blood Count 4.85 M/mm3 (4.6-6.2); White Blood Count 10.8 K/mm3 (4.4-11.0)
[2022-07-23] MEDS: LORazepam 2 MG/ML Syringe 1 MG IV (18:56)
[2022-07-23] MEDS: 0.9% Normal Saline 1,000 ML 150 ML IV (18:57)
[2022-07-23 19:04] LABS: AST(SGOT) 35 U/L (15-37); Alanine Aminotransfer ALT/SGPT 116 U/L (16-61); Albumin, Serum 4.8 g/dL (3.2-5.0); Alkaline Phosphatase 86 U/L (45-117); Anion Gap 10 (5-15); BUN 18 mg/dL (7-18); Bilirubin, Direct 0.09 mg/dL (0.00-0.30); Chloride 103 mmol/L (98-107); D-Dimer Quantitative (DVT/PE) 0.35 FEU/ug/m (0.27-0.49); EST Glomerular Filtration Rate 70 mL/min (>60); Est Glom Filt Rate - Afr Amer 85 mL/min (>60); Estimated Creatinine Clearance 90.63 ml/min; Globulin 3.6 g/dL (2.2-4.2); Glucose 86 mg/dL (74-106); Potassium 3.9 mmol/L (3.5-5.1); Protein, Total 8.4 g/dL (6.4-8.2); Sodium Level 139 mmol/L (136-145); Troponin-I HS 39 pg/mL (3.0-78.0)
[2022-07-23 19:14] LABS: Bacteria 0 SEEN /hpf (None Seen); Mucous, Urine 0 SEEN /hpf (<or=2+); Squamous Epithelial Cells - UA 0 SEEN /hpf (0-5); White Blood Cells 0 SEEN /hpf (0-5)
[2022-07-23 19:16] LABS: Color, Urine Yellow (Yellow); Glucose, Dipstick Normal (Normal); Ketone-Dipstick 5 mg/dl (Negative); Leukocyte Esterase-Dipstick 25 /ul (Negative); Nitrite-Dipstick Negative (Negative); Occult Blood-Urine Negative /ul (Negative); Protein-Dipstick 30 mg/dl (Negative); Specific Gravity, Urine 1.025 (1.002-1.030); Urine Clarity Clear (Clear); Urine Urobilinogen 1 mg/dl (Normal)
[2022-07-23 19:17] LABS: Urine Bilirubin Dipstick 1 mg/dL (Negative)
[2022-07-23 19:21] LABS: Red Blood Cells-Urine 0-5 SEEN /hpf (0-5)
[2022-07-23] MEDS: Ketorolac 30 MG/ML Syringe IV (19:32)
[2022-07-23] MEDS: HYDROcodone Bitartrate/Apap 5/325 Tablet PO (20:16)
[2022-07-23] MEDS: Clindamycin HCl 150 MG Capsule 300 MG PO (20:16)
== END 2022-07-23 20:23 | disposition home or self-care (01) ==
PROVIDERS: Emergency Provider Emergency Medicine; PCP Nurse Practitioner Adult Health; Visit Provider Emergency Medicine
DX: M54.9 Dorsalgia, unspecified (principal); I10 Essential (primary) hypertension; K08.89 Other specified disorders of teeth and supporting structures; F17.210 Nicotine dependence, cigarettes, uncomplicated; R09.81 Nasal congestion
CPT/HCPCS: 80048; 80076; 81001; 84484; 85027; 85379; 87428; 93005; 96361; 96374; 96375; 99284

== ENCOUNTER → 2022-08-02 | Outpatient (CLI) | payer MEDICAID, SELFPAY ==
--- NOTE | 2022-08-02 07:54 | US_ITS ---
STUDY: ABDOMINAL ULTRASOUND REASON FOR EXAM: Male, 41 years old. RUQ PAIN TECHNIQUE: Transabdominal ultrasound was performed with real-time and static lopez scale imaging. TECHNICAL QUALITY: Adequate. COMPARISON: None. FINDINGS: Liver: The liver measures 19 cm. There is increased echogenicity consistent with fatty infiltration. The bile ducts are within normal limits. There is hepatic color flow. The direction of portal flow is hepatopetal. There is no demonstrated mass lesion. Portal vein measurement: Gallbladder: Normal distended gallbladder. The gallbladder wall measures 2 mm. There is a negative sonographic Reyes''s sign. There is no pericholecystic fluid. There are no gallstones. Common Bile Duct (C.B.D.): The common bile duct measures 7 mm. Pancreas: Normal size of the head, body and tail of the pancreas. There is normal echogenicity of the pancreas. There is no demonstrated pancreatic mass or cyst. Spleen: Normal size of the spleen. The spleen measures 10.1 cm. Right Kidney: Normal size of the right kidney. The right kidney measures 11.4 x 5.9 x 5.2 cm. Normal renal cortex. The right cortex measures 1.7 cm. There is no demonstrated renal mass or cyst. There is no right hydronephrosis. Left Kidney: Normal size of the left kidney. The left kidney measures 11.5 x 5.6 x 6.3 cm. Normal renal cortex. The left cortex measures 1.8 cm. There is no demonstrated renal mass or cyst. There is no left hydronephrosis. Aorta: Tapers normally I.V.C.: The IVC is patent. There is no ascites. US/Abdomen Complete IMPRESSION: Hepatomegaly with diffuse fatty infiltration of the liver, no discrete lesion Electronically Signed: Colby Kim MD at 10:19 EDT ,
== END | disposition home or self-care (01) ==
LOC: US 07:48
PROVIDERS: PCP Nurse Practitioner Adult Health; Referring Provider Nurse Practitioner Family; Visit Provider Nurse Practitioner Family
DX: R10.11 Right upper quadrant pain (principal); R74.01 Elevation of levels of liver transaminase levels
CPT/HCPCS: 76700

== ENCOUNTER → 2023-01-16 | Outpatient (CLI) | payer MEDICAID, SELFPAY ==
--- NOTE | 2023-01-16 15:25 | RAD_ITS ---
INDICATION: CERVICALGIA EXAMINATION/TECHNIQUE: X-RAY - XR Spine Cervical 4 or 5 Views COMPARISON: None. FINDINGS: VERTEBRAE: Preserved vertebral body height. No fracture. No spondylolisthesis. Preservation of the normal cervical lordosis. Mild multilevel facet arthropathy. DISCS: Mild multilevel degenerative disc disease and spondylosis. NECK SOFT TISSUES: No prevertebral soft tissue widening. LUNG APICES: Clear. RAD/Cerv Spine 4 or 5 Views IMPRESSION: No evidence of acute fracture or spondylolisthesis. Mild multilevel degenerative disc disease and spondylosis. Electronically Signed: Jase Hawkins MD at 23:24 EDT ,
== END | disposition home or self-care (01) ==
LOC: RAD 15:21
PROVIDERS: PCP Nurse Practitioner Adult Health; Referring Provider Nurse Practitioner Family; Visit Provider Nurse Practitioner Family
DX: M54.2 Cervicalgia (principal)
CPT/HCPCS: 72050

== ENCOUNTER 2023-04-30 18:30 | Emergency (ER) | payer MEDICAID, SELFPAY ==
[2023-04-30 18:31] VITALS: BP 152/110; PULSE 102; RESP 16; TEMP 36; O2SAT 100; BMI 27.3
== END 2023-04-30 19:05 | disposition left against medical advice (07) ==
LOC: ED 19:05
PROVIDERS: PCP Nurse Practitioner Adult Health
DX: Z53.21 Procedure and treatment not carried out due to patient leaving prior to being seen by health care provider (principal)

== ENCOUNTER 2023-05-01 13:46 | Emergency (ER) | payer MEDICAID, SELFPAY ==
[2023-05-01 13:47] VITALS: BP 166/108; PULSE 103; RESP 18; TEMP 36.8; O2SAT 97; BMI 27.8
--- NOTE | 2023-05-01 13:58 | ED.VIS.DENTA ---
HPI History of Present Illness Chief Complaint: Dental Detail of Chief Complaint: Dental pain and loose tooth. Informant: patient Onset/Context/Timing Onset: Days Context: Gradual Onset Timing: Continuous Current Severity: Mild Maximum Severity: Moderate Relieved by: NSAIDs Associated Symptoms Assocated Symptom - Dental: Negative for fever, jaw swelling, face swelling, cold sensitivity or hot sensitivity Narrative Narrative: 42-year-old male no seen past medical history. States is right lower front tooth is loose and painful. He has been using ibuprofen. Currently does not have a dentist. Prior similar symptoms: Yes Recent Illness/Hospitalization: No PFSH PFSH Medical History Alcohol use Anxiety Arthritis Cardiology follow-up encounter Depression Fatty liver Gastric reflux GERD (gastroesophageal reflux disease) Helicobacter pylori (H. pylori) History of edema History of hiatal hernia History of IBS History of irregular heartbeat History of pain when walking History of stress test Hypertension Leg cramps Marijuana use Migraine headache Right shoulder pain Shortness of breath on exertion Smoker Substance abuse Superior labrum ndpfrnzw-[id number] (SLAP) tear of right shoulder Syncope Home Medications omeprazole 40 mg capsule,delayed release 40 mg PO BID GERD 08/30/21 [History Last Taken 2 Days Ago ~02/24/22] cyclobenzaprine 5 mg tablet 5 mg PO TID PRN muscle spasm #14 tabs 05/07/22 [Rx Last Taken Unknown] acetaminophen 500 mg tablet tablet PO 06/04/22 [History Last Taken Unknown] ibuprofen 200 mg tablet 200 mg PO Q6H PRN 07/04/22 [History Last Taken Unknown] clindamycin HCl 300 mg capsule (Cleocin HCl) 300 mg PO Q6H #40 CAPSULES 07/23/22 [Rx Last Taken Unknown] hydrocodone-acetaminophen 5-325mg 5mg-325mg 1 tab PO Q4H PRN PRN Pain 2 days #10 TABLETS 07/23/22 [Rx Last Taken Unknown] meloxicam 15 mg tablet 15 mg PO DAILY PRN pain #30 tabs 08/22/22 [Rx Last Taken Unknown] penicillin V potassium 500 mg tablet 500 mg PO Q6H 10 days #40 tabs 05/01/23 [Rx Last Taken Unknown] Allergy/AdvReac Type Severity Reaction Status Date / Time No Known Allergies Allergy Verified 05/01/23 13:47 Family History Other Cancer Heart disease Surgical History History of adenoidectomy History of esophagogastroduodenoscopy (EGD) Hx of colonoscopy Social History household members: none Smoking Status: Current every day smoker tobacco type: cigarettes alcohol intake: current alcohol intake frequency: holidays/special occasions only Alcohol type: beer ROS ROS ED Review of Systems ROS Unobtainable: Denies due to encephalopathy Constitutional Constitutional ED: Denies chills or fever(s) Eyes Eyes: Denies blurry vision ENT ENT ED: Denies ear pain Cardiovascular Cardiovascular: Denies chest pain Respiratory/Chest Respiratory/Chest: Denies cough or dyspnea Gastrointestinal Gastrointestinal: Denies abdominal pain Genitourinary Genitourinary ED: Denies dysuria or hematuria Musculoskeletal Musculoskeletal: Denies arthralgias Integumentary Denies abscess Neurologic Neurologic: Denies headache(s) Psychiatric Psychiatric: Denies anxiety or depression Endocrine Endocrinology: Denies cold intolerance Hematologic/Lymphatic Hematologic/Lymphatic: Denies easy bleeding or easy bruising Allergic/Immunologic Allergic/Immunologic ED: Denies mouth swelling, tongue swelling or urticaria EXAM Physical Exam Narrative Exam Narrative: 42-year-old male no acute distress. Vital signs stable and afebrile. HEENT exam multiple missing teeth. All his teeth indicating with cavities. His right lower front tooth is loose but still in place. He has significant gingivitis. No Eileen's angina. No trouble swallowing or breathing. Posterior pharynx unremarkable. No significant facial swelling. Neck nontender no lymphadenopathy. Lungs clear. Heart regular rhythm. Abdomen soft. Moving all 4 extremities. Nontender no edema. He is awake and alert. Const Vital Signs: 05/01/23 13:47 Temperature 98.2 F Temperature Source Temporal Pulse Rate 103 H Respiratory Rate 18 Blood Pressure 166/108 H Blood Pressure Mean 127 Pulse Ox 97 Oxygen Delivery Method Room Air Positive well nourished and well developed; Negative for obese, cachectic, contractures or unkempt General Appearance ED: well developed and NAD; Negative for unkempt, cachectic, contractures or pallor Nutritional Appearance: Negative for cachectic or obese HEENT Denies other Negative for trauma, tenderness or other Face and Sinus: Negative for sinuses nontender Mouth ED: No oral and palatal mucosa normal, Yes lips normal, Yes tongue normal, Yes salivary gland normal, No mouth trauma, Yes oral and palatal mucosa abnormal and No salivary gland abnormal Mouth: No oral and palatal mucosa normal, lips normal, tongue normal, salivary gland normal, No mouth trauma, oral and palatal mucosa abnormal and No salivary gland abnormal Teeth and Gingiva: abnormal tooth and associated gingiva, caries, gingiva abnormal, poor dentition and teeth discoloration Throat: posterior oropharynx normal Eyes PERRL and EOMs intact bilaterally General Eye ED: Negative for pale conjunctiva or scleral icterus Visual Acuity: Negative for other Neck no lymphadenopathy, supple and no JVD Lymph Lymphatic: no lymphadenopathy noted; Negative for lymphadenopathy or other Chest Wall inspection of chest normal and palpation of chest normal Chest: Negative for other Resp normal respiratory effort, no retractions and clear to auscultation bilaterally Effort and Inspection: Negative for other Cardio regular rate, regular rhythm, S1 normal heart sound, S2 normal heart sound and no murmurs Jugular Venous Distention: Negative for other Palpation: Negative for palpable S3 Rate: Negative for bradycardia Rhythm: Negative for abnormal rhythm GI normal to inspection, nondistended, normoactive bowel sounds, non-tender, non-distended and no masses Inspection: Negative for other Palpation: soft Bladder / Kidney Exam: No other Back/Spine no CVA tenderness General Back: Negative for CVA tenderness Cervical Spine: Negative for other Thoracic Spine / Upper Back: Negative for thoracic spinal tenderness, paraspinal muscle tenderness or paraspinal muscle spasm Extremity normal to inspection and no joint enlargement General Extremety ED: Negative for edema or other findings General Extremity: Negative for edema or other findings Neuro oriented x3, CN's II-XII intact bilaterally, moves all extremities and no focal motor deficits Sensorium / Orientation: alert, oriented to person and oriented to place; Negative for oriented to time or orientation impaired Motor Exam: strength 5/5 throughout Psych mental status grossly normal Appearance: Negative for unkempt Attitude: No agitated Mood & Affect: Negative for depressed, anxious or tearful Skin no rashes or lesions noted and no wounds General Skin Exam: Negative for pallor MDM MDM MDM Narrative Medical decision making narrative: 42-year-old male history of substance abuse with dental pain, dental caries and gingivitis. He does have a loose right lower tooth. He will need to follow-up with a dentist. Will be placed on Pen-Vee K 500 4 times daily. Motrin and Tylenol for pain. History & Record Review Discussion w/independent historian: Patient Additional record(s) reviewed:: Prior inpatient record, Prior outpatient record, Prior ED visit and Prior labs Discharge Plan Triage Chief Complaint: Dental ED Provider: Wicho Baker Dx/Rx/DC Orders Clinical Impression: Dental caries, Gingivitis, Pain, dental Instructions: ED Dental Pain, ED Dental Cavity Prescriptions: New penicillin V potassium 500 mg tablet 500 mg PO Q6H 10 Days Qty: 40 0RF No Action omeprazole 40 mg capsule,delayed release(DR/EC) 40 mg PO BID cyclobenzaprine 5 mg tablet 5 mg PO TID MDD 3 PRN (Reason: muscle spasm) Qty: 14 2RF acetaminophen 500 mg tablet PO ibuprofen 200 mg tablet 200 mg PO Q6H PRN meloxicam 15 mg tablet 15 mg PO DAILY MDD 1 PRN (Reason: pain) Qty: 30 1RF clindamycin HCl [Cleocin HCl] 300 mg capsule 300 mg PO Q6H Qty: 40 0RF hydrocodone-acetaminophen [hydrocodone-acetaminophen] 5-325 mg tablet 1 tab PO Q4H PRN PRN (Reason: Pain) 2 Days Qty: 10 0RF Primary Care Provider: Andreea Luciano Referrals: Olivia Greenberg [Non-Staff] - As soon as possible Andreea Luciano, [employer]ICAL COORDINATOR-C [Primary Care Provider] - Activity Restrictions/Additional Instructions: Call and follow-up with a dentist as soon as possible. Warm salt water gargling. Motrin up to 800 mg 3 times a day for pain. Tylenol for pain. Take the antibiotic hetacillin 1 pill 4 times a day till gone. Disposition Disposition: Home, Self Care
== END 2023-05-01 14:11 | disposition home or self-care (01) ==
PROVIDERS: Emergency Provider Emergency Medicine; PCP Nurse Practitioner Adult Health; Visit Provider Emergency Medicine
DX: K02.9 Dental caries, unspecified (principal); F19.11 Other psychoactive substance abuse, in remission; K05.10 Chronic gingivitis, plaque induced; K08.89 Other specified disorders of teeth and supporting structures; I10 Essential (primary) hypertension; F17.210 Nicotine dependence, cigarettes, uncomplicated
CPT/HCPCS: 99282

== ENCOUNTER 2023-09-21 23:52 | Emergency (ER) | payer MEDICAID, SELFPAY ==
[2023-09-21 23:53] VITALS: BP 141/96; PULSE 122; RESP 18; TEMP 36.6; O2SAT 99
[2023-09-22] VITALS (8 sets, daily range): BP systolic 116–169; BP diastolic 69–107; PULSE 78–125; RESP 16–19; TEMP 36.2–36.7; O2SAT 96–99
--- NOTE | 2023-09-22 00:02 | EDS_ITS ---
HPI HPI - Psych History of Present Illness Chief Complaint: Suicidal Narrative Narrative: 43-year-old male presents with police, pink slipped for suicidal ideation. He is uncooperative with examination. It is reported that he has been suicidal all day and taking pills. His girlfriend gave them an empty bottle of pantazaprole, and he has been taking Tylenol. There were 30 tablets found on the floor. He is uncooperative with examination and refuses to answer any questions until the police leave. However, he is belligerent and represents a danger to himself and to staff as he is yelling, screaming, and acting out. PFSH PFS Medical History Alcohol use Anxiety Arthritis Cardiology follow-up encounter Depression Fatty liver Gastric reflux GERD (gastroesophageal reflux disease) Helicobacter pylori (H. pylori) History of edema History of hiatal hernia History of IBS History of irregular heartbeat History of pain when walking History of stress test Hypertension Leg cramps Marijuana use Migraine headache Right shoulder pain Shortness of breath on exertion Smoker Substance abuse Superior labrum ajmejjlb-eo-uohsntlnu (SLAP) tear of right shoulder Syncope Home Medications omeprazole 40 mg capsule,delayed release 40 mg PO BID GERD 08/30/21 [History Last Taken 2 Days Ago ~02/24/22] acetaminophen 500 mg tablet 500 mg PO Q6H PRN pain 06/04/22 [History Last Taken Unknown] pantoprazole 40 mg tablet,delayed release 40 mg PO BID 09/22/23 [History Last Taken Unknown] Allergy/AdvReac Type Severity Reaction Status Date / Time No Known Allergies Allergy Verified 05/01/23 13:47 Family History Other Cancer Heart disease Surgical History History of adenoidectomy History of esophagogastroduodenoscopy (EGD) Hx of colonoscopy Social History household members: none Smoking Status: Current every day smoker tobacco type: cigarettes alcohol intake: current alcohol intake frequency: holidays/special occasions only Alcohol type: beer ROS ROS ED ROS Narrative Unable to obtain secondary to patient refusing to answer questions, and being belligerent. EXAM Physical Exam Narrative Exam Narrative: Afebrile. Vital signs noted. Positive tachycardia. Lungs clear to auscultation bilaterally. Abdomen soft nontender with normoactive bowel sounds. Noted violent behavior and accompanied by police. Const Vital Signs: 09/21/23 23:53 09/22/23 02:04 09/22/23 03:00 Temperature 98 F Temperature Source Temporal Pulse Rate 122 H 125 H 101 H Respiratory Rate 18 19 H 19 H Blood Pressure 141/96 H 169/107 H 116/99 H Blood Pressure Mean 111 127 104 Pulse Ox 99 97 96 Oxygen Delivery Method Room Air Room Air Room Air 09/22/23 04:00 09/22/23 05:00 09/22/23 06:07 Temperature Temperature Source Pulse Rate 78 87 92 Respiratory Rate 17 19 H 16 Blood Pressure 133/103 H 155/103 H 128/89 H Blood Pressure Mean 113 120 102 Pulse Ox 96 97 97 Oxygen Delivery Method Room Air Room Air Room Air MDM MDM MDM Narrative Medical decision making narrative: For safety of the patient and for the staff, he was placed in 4 point leather restraints. He still refuses to answer questions, but he has been pink slipped by the police. He has suspected ingestion currently. Medical screening labs will be obtained. I will obtain initial acetaminophen level, but it is unknown when he last took them and how many he might have taken. After he was administered Geodon 20 mg intramuscularly, he was still belligerent and combative although he was in restraints. 1 hour [id number] recommendation is continued restraints of all 4 limbs for safety of staff. He was administered Ativan 2 mg intramuscularly. Allowed blood work. It was discussed with him what it would take for him to get out of the leather restraints. I reviewed his laboratory work and he has an elevated white count of 15.7 which I think is nonspecific, hemoglobin normal at 15.5, platelet count normal at 350. His urine for drugs of abuse is positive for amphetamines and cannabinoids. He was more cooperative with his history, and denies taking any medications stating that his medications are on the floor including the Tylenol and that he did not ingest anything except for shot of alcohol, and he admits to he and his girlfriend smoking marijuana. He states that she called the police because he was not giving her the answer that she wanted to hear. I reviewed the patient's laboratory work further, CMP is grossly unremarkable. Salicylate level 3.1, acetaminophen level less than 2.0. We will redraw an acetaminophen level at 4 hours, but I doubt any significant rise that would put him on the nomogram that would require treatment. His urine for drugs of abuse is positive for cannabinoids which she admits to smoking and amphetamines. Additionally, his ethyl alcohol is negative. As his acetaminophen level is less than 2.0 at 4 hours, I feel he is medically cleared already for evaluation by the crisis counselor. The patient will be signed out to the oncoming physician Dr. Asael Pedroza, to make final disposition after evaluation by crisis counselor. Currently, he is in stable condition and out of restraints. History & Record Review Discussion w/independent historian: Other (Police/law enforcement) Lab Data Attestation: I reviewed the patient's lab results. Labs: Laboratory Results - last 24 hr 09/21/23 09/21/23 09/22/23 00:56 01:30 01:15 WBC 15.7 H RBC 4.95 Hgb 15.5 Hct 44.8 MCV 90.5 MCH 31.3 MCHC 34.6 RDW Std Deviation 39.7 RDW Coeff of Judith 11.9 Plt Count 350 MPV 9.0 Immature Gran % (Auto) 0.800 Neut % (Auto) 80.1 H Lymph % (Auto) 13.0 L [place] % (Auto) 4.8 Eos % (Auto) 0.8 Baso % (Auto) 0.5 Absolute Neuts (auto) 12.6 H Absolute Lymphs (auto) 2.05 Nucleated RBC % 0 Sodium 139 Potassium 3.8 Chloride 107 Carbon Dioxide 23.0 Anion Gap 9 BUN 15 Creatinine 1.13 Est GFR (MDRD) Af Amer 91 Est GFR (MDRD) Non-Af 75 BUN/Creatinine Ratio 13.3 Glucose 132 H Calcium 9.3 Total Bilirubin 0.40 AST 16 ALT 50 Alkaline Phosphatase 89 Total Protein 7.7 Albumin 4.1 Globulin 3.6 Albumin/Globulin Ratio 1.1 Salicylates 3.1 Urine Opiates Screen NEGATIVE Urine Methadone Screen NEGATIVE Acetaminophen < 2.0 L Ur Barbiturates Screen NEGATIVE Ur Phencyclidine Scrn NEGATIVE Ur Amphetamines Screen POSITIVE H MDMA (Ecstasy) Screen NEGATIVE U Benzodiazepines Scrn NEGATIVE Urine Cocaine Screen NEGATIVE U Cannabinoids Screen POSITIVE H Ur Drug Screen Comment Ethyl Alcohol < 3.0 09/22/23 05:15 WBC RBC Hgb Hct MCV MCH MCHC RDW Std Deviation RDW Coeff of Judith Plt Count MPV Immature Gran % (Auto) Neut % (Auto) Lymph % (Auto) [place] % (Auto) Eos % (Auto) Baso % (Auto) Absolute Neuts (auto) Absolute Lymphs (auto) Nucleated RBC % Sodium Potassium Chloride Carbon Dioxide Anion Gap BUN Creatinine Est GFR (MDRD) Af Amer Est GFR (MDRD) Non-Af BUN/Creatinine Ratio Glucose Calcium Total Bilirubin AST ALT Alkaline Phosphatase Total Protein Albumin Globulin Albumin/Globulin Ratio Salicylates Urine Opiates Screen Urine Methadone Screen Acetaminophen < 2.0 L Ur Barbiturates Screen Ur Phencyclidine Scrn Ur Amphetamines Screen MDMA (Ecstasy) Screen U Benzodiazepines Scrn Urine Cocaine Screen U Cannabinoids Screen Ur Drug Screen Comment Ethyl Alcohol Discharge Plan Triage Chief Complaint: Suicidal ED Provider: Marques Meyers Dx/Rx/DC Orders Prescriptions: No Action omeprazole 40 mg capsule,delayed release(DR/EC) 40 mg PO BID acetaminophen 500 mg tablet 500 mg PO Q6H PRN (Reason: pain) pantoprazole 40 mg tablet,delayed release (DR/EC) 40 mg PO BID Primary Care Provider: Andreea Luciano Referrals: Andreea Luciano, [employer]BACKUP ENGINEER-C [Primary Care Provider] -
[2023-09-22] MEDS: Ziprasidone IM 20 MG/ML VIAL IM (00:04)
--- NOTE | 2023-09-22 00:08 | ED.RN ---
Pt arrives in handcuffs with 4 [employer] officers. Pt is yelling and screaming obscenities. Pt is combative with PD and ED staff. Pt was placed in violent locked restraints at [address] Meyers's order. Pt continues to scream and pull at restraints. Pt shaking bed back and fourth trying to flip the bed. Pt is threatening staff and PD. Pt medicated per JUL. Will continue to monitor closely. Sitter placed in room.
[2023-09-22 01:16] LABS: Amphetamine Urine VISTA POSITIVE (<1000 ng/mL); Barbiturate Urine VISTA NEGATIVE (< 200 ng/mL); Benzodiazepine Urine VISTA NEGATIVE (< 200 ng/mL); Cocaine Urine VISTA NEGATIVE (< 300 ng/mL); Ecstacy Urine VISTA NEGATIVE (< 500 ng/mL); Methadone Urine VISTA NEGATIVE (< 300 ng/mL); PCP Urine VISTA NEGATIVE (< 25 ng/mL); THC Urine VISTA POSITIVE (< 50 ng/mL); Vista UDS pH Range 4
[2023-09-22 01:40] LABS: Absolute Lymphocyte Count 2.05 X10^3/uL (0.83-4.51); Absolute Neutrophil Count 12.6 X10^3/uL (2.0-7.7); Basophil# 0.08 X10^3/uL; Basophil% 0.5 % (0-1); Eosinophil# 0.12 X10^3/uL; Eosinophils% 0.8 % (0-5); Hematocrit 44.8 % (40-54); Hemoglobin 15.5 g/dL (13.0-16.5); Lymphocyte # 2.05 X10^3/ul (0.83-4.51); Mean Corp Hgb Conc 34.6 g/dL (32-36); Mean Corpuscular Hgb 31.3 pg (27.0-32.0); Mean Corpuscular Volume 90.5 fL (80-94); Monocyte# 0.75 X10^3/uL; Monocyte% 4.8 % (0-10); NRBC Flagged by Analyzer 0 % (0-5); Neutrophil % 80.1 % (47-70); Platelet Count 350 K/mm3 (150-450); RBC Distribution Width CV 11.9 % (11.6-14.6); RBC Distribution Width SD 39.7 fl (35.1-43.9); Red Blood Count 4.95 M/mm3 (4.6-6.2); White Blood Count 15.7 K/mm3 (4.4-11.0)
[2023-09-22 02:07] LABS: Alcohol, Blood (Medical)-Serum < 3.0 mg/dL
[2023-09-22 02:10] LABS: ALB/GLOB Ratio 1.1 RATIO (0.9-2.4); AST(SGOT) 16 U/L (15-37); Alanine Aminotransfer ALT/SGPT 50 U/L (16-61); Albumin, Serum 4.1 g/dL (3.2-5.0); Alkaline Phosphatase 89 U/L (45-117); Anion Gap 9 (5-15); BUN 15 mg/dL (7-18); BUN/Creat Ratio 13.3 RATIO (10-20); Calcium,Total 9.3 mg/dL (8.5-10.1); Chloride 107 mmol/L (98-107); Creatinine, Serum 1.13 mg/dL (0.70-1.30); EST Glomerular Filtration Rate 75 mL/min (>60); Est Glom Filt Rate - Afr Amer 91 mL/min (>60); Globulin 3.6 g/dL (2.2-4.2); Glucose 132 mg/dL (74-106); Potassium 3.8 mmol/L (3.5-5.1); Protein, Total 7.7 g/dL (6.4-8.2); Sodium Level 139 mmol/L (136-145)
[2023-09-22 02:55] LABS: Salicylate 3.1 mg/dL (2.8-20.0)
[2023-09-22 02:56] LABS: Acetaminophen (Tylenol) Level < 2.0 ug/mL (10.0-30.0)
--- NOTE | 2023-09-22 05:40 | ED.RN ---
This RN went to place the patient back on the monitor, the patient stated this is fucking bullshit, it is 5 am this RN stated Im sorry, we have to have you on the monitor due to us being told you took tylenol/ overdosed on tylenol. Just give me 30 more minutes. he agreed.
--- NOTE | 2023-09-22 06:08 | ED.RN ---
This pt ripped off his cardiac leads and bp. RN reiterated the need for it. Pt sighed loudly and said seriously, fucking dumb but allowed this RN to replace it.
[2023-09-22 06:32] LABS: Acetaminophen (Tylenol) Level < 2.0 ug/mL (10.0-30.0)
--- NOTE | 2023-09-22 07:05 | ED.RN ---
crisis called, chart faxed.
== END 2023-09-22 09:29 | disposition home or self-care (01) ==
PROVIDERS: Emergency Provider Emergency Medicine; PCP Nurse Practitioner Adult Health; Visit Provider Emergency Medicine
DX: R45.851 Suicidal ideations (principal); I10 Essential (primary) hypertension; K21.9 Gastro-esophageal reflux disease without esophagitis; F17.210 Nicotine dependence, cigarettes, uncomplicated; Z79.899 Other long term (current) drug therapy; Z78.1 Physical restraint status
CPT/HCPCS: 80053; 80307; 80320; 80329; 85025; 96372; 99285; A4216; G0480; J3486

== ENCOUNTER → 2023-12-16 | Outpatient (CLI) | payer MEDICAID, SELFPAY ==
[2023-12-16 17:10] LABS: Erythrocyte Sedimentation Rate 7 mm/hr (0-20)
[2023-12-16 17:12] LABS: Absolute Lymphocyte Count 2.12 X10^3/uL (0.83-4.51); Absolute Neutrophil Count 6.3 X10^3/uL (2.0-7.7); Basophil# 0.09 X10^3/uL; Eosinophil# 0.18 X10^3/uL; Eosinophils% 1.9 % (0-5); Hematocrit 39.1 % (40-54); Hemoglobin 12.9 g/dL (13.0-16.5); Lymphocyte # 2.12 X10^3/ul (0.83-4.51); Lymphocyte % 22.8 % (19-41); Mean Corpuscular Hgb 30.4 pg (27.0-32.0); Mean Platelet Vol. 9.3 fl (6.2-12.0); Monocyte# 0.53 X10^3/uL; Monocyte% 5.7 % (0-10); NRBC Flagged by Analyzer 0 % (0-5); Neutrophil # 6.32 X10^3/uL (2.7-7.7); Neutrophil % 67.8 % (47-70); Platelet Count 312 K/mm3 (150-450); RBC Distribution Width CV 12.6 % (11.6-14.6); RBC Distribution Width SD 42.4 fl (35.1-43.9); Red Blood Count 4.25 M/mm3 (4.6-6.2); White Blood Count 9.3 K/mm3 (4.4-11.0)
[2023-12-16 17:22] LABS: Vitamin B12 361 pg/mL (211-911); Vitamin D,25 Hydroxy 27.6 ng/mL
[2023-12-16 17:31] LABS: ALB/GLOB Ratio 1.1 RATIO (0.9-2.4); AST(SGOT) 31 U/L (15-37); Alanine Aminotransfer ALT/SGPT 63 U/L (16-61); Albumin, Serum 3.7 g/dL (3.2-5.0); Alkaline Phosphatase 84 U/L (45-117); Anion Gap 8 (5-15); BUN 16 mg/dL (7-18); BUN/Creat Ratio 13.4 RATIO (10-20); Calcium,Total 9.4 mg/dL (8.5-10.1); Chloride 104 mmol/L (98-107); Cholesterol 243 mg/dL (200); Creatinine, Serum 1.19 mg/dL (0.70-1.30); EST Glomerular Filtration Rate 71 mL/min (>60); Est Glom Filt Rate - Afr Amer 85 mL/min (>60); Globulin 3.5 g/dL (2.2-4.2); Glucose 113 mg/dL (74-106); High Density Lipoprotein 63 mg/dL; Potassium 4.3 mmol/L (3.5-5.1); Protein, Total 7.2 g/dL (6.4-8.2); Sodium Level 135 mmol/L (136-145); Thyroid Stim Hormone (TSH) 1.38 uIU/mL (0.358-3.74); Triglycerides 110 mg/dL; Very Low Density Lipoprotein 22 mg/dL (5-40)
[2023-12-18 04:08] LABS: CRP, High Sensitivity 8.31 mg/L (0.00-3.00)
== END | disposition home or self-care (01) ==
LOC: VSLAB 11:47
PROVIDERS: PCP Nurse Practitioner Adult Health; Visit Provider Nurse Practitioner Family
DX: I10 Essential (primary) hypertension (principal); M79.641 Pain in right hand
CPT/HCPCS: 36415; 80053; 80061; 82306; 82607; 84443; 85025; 85652; 86141

== ENCOUNTER 2024-01-01 11:43 | Emergency (ER) | payer MEDICAID, SELFPAY ==
[2024-01-01 11:43] VITALS: BP 165/101; PULSE 93; RESP 18; TEMP 36.6; O2SAT 97; BMI 25.6
--- NOTE | 2024-01-01 12:13 | CT_ITS ---
INDICATION: recent neck injury EXAMINATION: CT CERVICAL SPINE - CT Spine Cervical W/O Contrast Injection TECHNIQUE: Helically acquired images were obtained of the cervical spine. 2D reformatted images were reviewed. The protocol utilizes one or more of the following dose reduction techniques: automated exposure control, adjustment of mA and/or kV according to patient size,and/or use of iterative reconstruction technique. IV Contrast dosage and agent: None. RADIATION DOSAGE (If Supplied By Facility): CTDIvol = ( 23.74 ) mGy, DLP = ( 579.73 ) mGycm COMPARISON: No relevant prior comparison study available FINDINGS: VERTEBRAE: No fracture or traumatic subluxation. No discrete lytic or blastic abnormality. Rightward torticollis of the lower cervical spine. Mild straightening of the cervical spine. Alignment of the vertebral bodies unremarkable. Normal craniocervical junction and cervicothoracic junction. DISCS and SPINAL CANAL: Small posterior lateral degenerative spurs at the level of C6-C7. No critical stenosis. NECK SOFT TISSUES: No prevertebral soft tissue swelling. There is no cervical adenopathy. LUNG APICES: Clear. CT/Spine Cervical without Contras IMPRESSION: No evidence of acute cervical spinal fracture or spondylolisthesis. Electronically Signed: Michael Price MD at 12:43 EDT ,
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
== END 2024-01-01 14:14 | disposition left against medical advice (07) ==
LOC: ED 12:19
PROVIDERS: Emergency Provider Emergency Medicine; PCP Nurse Practitioner Adult Health; Visit Provider Emergency Medicine
DX: G56.03 Carpal tunnel syndrome, bilateral upper limbs (principal); I10 Essential (primary) hypertension; K21.9 Gastro-esophageal reflux disease without esophagitis; Z79.899 Other long term (current) drug therapy; F17.210 Nicotine dependence, cigarettes, uncomplicated; V19.88XA Pedal cyclist (driver) (passenger) injured in other specified transport accidents, initial encounter
CPT/HCPCS: 72125; 99282

== ENCOUNTER 2024-06-05 15:53 | Emergency (ER) | payer MEDICAID, SELFPAY ==
[2024-06-05 15:54] VITALS: BP 147/95; PULSE 100; RESP 18; TEMP 36.4; O2SAT 100; BMI 25.9
--- NOTE | 2024-06-05 16:18 | EKG12_ITS ---
Test Reason : CP Blood Pressure : */* mmHG Vent. Rate : 99 BPM Atrial Rate : 99 BPM P-R Int : 146 ms QRS Dur : 84 ms QT Int : 336 ms P-R-T Axes : 66 44 62 degrees QTcB Int : 431 ms Normal sinus rhythm Minimal voltage criteria for LVH, may be normal variant ( Sokolow-Abdul ) Borderline ECG Confirmed by JORDIN TANG, VIKI ([id number]), manuscript editor NICOLA JAMISON ([id number]) on 06/07/2024 10:50:21 A M Referred By: MERLE WOLF Confirmed By: VIKI BRENNER MD
--- NOTE | 2024-06-05 16:40 | ED.VIS.CHEST ---
HPI History of Present Illness Chief Complaint: Chest Pain Narrative Narrative: Chief complaint and HPI: Resolved epigastric abdominal pain and flulike symptoms. 43-year-old male with past medical history of GERD and marijuana abuse presents for evaluation of resolved epigastric abdominal pain and flulike symptoms. Patient states yesterday he developed epigastric abdominal pain. He states it was different from his GERD. States that it resolved by the evening. Patient states today he has had a headache, body aches, cough. He denies any fever, chest pain, shortness of breath, nausea, vomiting, constipation, diarrhea, dysuria. Patient states that he did have diarrhea 1 week ago. Review of systems: See HPI Medications: As listed on the chart Allergies: As listed on the chart PFSH: Per chart Vital signs: As listed on the chart. Reviewed. Physical exam: Gen: A&O x3, NAD Head: Normocephalic, atraumatic Eyes: No sclera icterus, conjunctiva clear ENT: Moist mucous membranes Neck: Trachea midline, No JVD CV: RRR, no murmurs, no peripheral edema Resp: Lungs CTA BL, no w/r/c GI: Abd soft, non-distended, non-tender, no r/r/g Musc: Full ROM, no deformity Skin: Warm, dry Neuro: Alert, oriented, grossly intact, sensation intact Psych: Cooperative, appropriate mood and affect [facility] Medical History Right shoulder pain Depression Anxiety Substance abuse Marijuana use Alcohol use Arthritis Fatty liver Migraine headache Syncope History of hiatal hernia History of IBS Gastric reflux Smoker Shortness of breath on exertion Leg cramps History of pain when walking History of edema History of stress test Cardiology follow-up encounter Hypertension History of irregular heartbeat Superior labrum jpyeeqsh-kb-swvybxnjh (SLAP) tear of right shoulder Helicobacter pylori (H. pylori) GERD (gastroesophageal reflux disease) Home Medications ?Medication ?Instructions ?Recorded ?Last Taken ?Type omeprazole 40 mg capsule,delayed 40 mg PO BID GERD 08/30/21 2 Days Ago History release ~02/24/22 acetaminophen 500 mg tablet 500 mg PO Q6H PRN pain 06/04/22 Unknown History pantoprazole 40 mg tablet,delayed 40 mg PO BID 09/22/23 Unknown History release prednisone 20 mg tablet 40 mg (2 x 20 mg) PO DAILY 10 days 01/01/24 Unknown Rx #20 tabs Allergy/AdvReac Type Severity Reaction Status Date / Time No Known Allergies Allergy Verified 06/05/24 15:54 Family History Other Cancer Heart disease Surgical History Hx of colonoscopy History of esophagogastroduodenoscopy (EGD) History of adenoidectomy Social History household members: none Smoking Status: Current every day smoker tobacco type: cigarettes alcohol intake: current alcohol intake frequency: holidays/special occasions only Alcohol type: beer EXAM Physical Exam Const Vital Signs: 06/05/24 15:54 06/05/24 16:02 Temperature 97.5 F L Temperature Source Temporal Pulse Rate 100 Respiratory Rate 18 Respiratory Effort Normal Non-Labored Blood Pressure 147/95 H Blood Pressure Mean 112 Pulse Ox 100 Oxygen Delivery Method Room Air MDM MDM MDM Narrative Medical decision making narrative: 43-year-old male with past medical history of GERD and marijuana abuse presents for evaluation of resolved epigastric abdominal pain and flulike symptoms. Differential diagnosis includes but is not limited to viral illness, influenza, COVID-19 infection, GERD, cholecystitis, cholelithiasis, pancreatitis, PUD. Suspect less likely ACS or pneumonia. Toradol ordered for body aches. Laboratory workup and chest x-ray ordered. EKG reviewed see below. Shortly after all orders were placed, patient states that he does not want any laboratory workup or chest x-ray. I did explain to him that without the laboratory workup and chest x-ray I cannot workup the patient's resolved epigastric abdominal pain. I let him know that he could have cholecystitis, pancreatitis, PUD, cholelithiasis, ACS. I personally explained to them that choosing not to have a workup may result in permanent bodily harm or . I discussed at length that without further evaluation and monitoring there may be unforeseen circumstances and deterioration causing permanent bodily harm or because of their choice. They are alert and oriented and can make their own decisions. They state that they are aware of the serious risks as explained, but they continue to wish to only have the viral swab performed. Viral swab was performed. When the nursing staff went to check on the patient the patient eloped. I did not have time to speak with him prior to him leaving or set up appropriate follow-up. EKG: Interpreted by me/EM physician: EKG shows normal sinus rhythm without any acute ischemic changes. Heart rate 89 Impression: 1. Resolved epigastric abdominal pain 2. Flulike symptoms Discharge Plan Triage Chief Complaint: Chest Pain ED Provider: Noah Zamora Dx/Rx/DC Orders Prescriptions: No Action omeprazole 40 mg capsule,delayed release(DR/EC) 40 mg PO BID acetaminophen 500 mg tablet 500 mg PO Q6H PRN (Reason: pain) pantoprazole 40 mg tablet,delayed release (DR/EC) 40 mg PO BID prednisone 20 mg tablet 40 mg PO DAILY 10 Days Qty: 20 0RF Primary Care Provider: Care Physician,No Primary Referrals: Care Physician,No Primary [Primary Care Provider] - Print Language: Qatari Disposition Disposition: Elopement Discharge Date/Time: 06/05/24 17:18
--- NOTE | 2024-06-05 16:49 | ED.RN ---
EMS STUDENT IN TO START A LINE. HE RIPS OFF GOWN AND STATES HE IS LEAVING
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
== END 2024-06-05 17:18 | disposition left against medical advice (07) ==
LOC: ED 16:31
PROVIDERS: Emergency Provider Surgery; Visit Provider Surgery
DX: R10.13 Epigastric pain (principal); K21.9 Gastro-esophageal reflux disease without esophagitis; R05.9 Cough, unspecified; I10 Essential (primary) hypertension; R51.9 Headache, unspecified; R07.9 Chest pain, unspecified; M79.10 Myalgia, unspecified site; F17.210 Nicotine dependence, cigarettes, uncomplicated; Z79.899 Other long term (current) drug therapy
CPT/HCPCS: 87631; 93005; 99283; A4216

== ENCOUNTER → 2024-07-01 | Outpatient (CLI) | payer MEDICAID, SELFPAY ==
--- NOTE | 2024-07-01 13:12 | RAD_ITS ---
PROCEDURE: HIP, UNI W/ PELVIS 2-3 VIEWS REASON FOR EXAM: Pain. TECHNIQUE: Three-view right hip to include the AP pelvis COMPARISON: None. RAD/HIP, UNI W/ Pelvis 2-3 Views IMPRESSION: No significant joint space narrowing is seen. No evidence of femoral head osteonecrosis. No fracture, dislocation, or other significant osseous change is seen. If clinical concern persists, short-term follow-up imaging may be obtained to r ule out a currently occult fracture. Reading Location: [id number]
--- NOTE | 2024-07-01 13:12 | RAD_ITS ---
PROCEDURE: SHOULDER MIN 2 VIEWS REASON FOR EXAM: Pain. TECHNIQUE: Four view right shoulder COMPARISON: None available. RAD/Shoulder min 2 Views IMPRESSION: Mild right acromioclavicular joint degenerative changes are seen, with partial associated joint narrowing. The right glenohumeral joint demonstrates mild degenerative changes, without ap parent joint narrowing. No acute fracture or dislocation is seen. Reading Location: [id number]
== END | disposition home or self-care (01) ==
PROVIDERS: PCP Nurse Practitioner Family
DX: M25.511 Pain in right shoulder (principal); M25.551 Pain in right hip
CPT/HCPCS: 73030; 73502

== ENCOUNTER 2024-10-27 11:16 | Emergency (ER) | payer MEDICAID, SELFPAY ==
[2024-10-27 11:18] VITALS: BP 153/132; PULSE 134; RESP 22; TEMP 36.8; O2SAT 100
[2024-10-27 11:31] VITALS: BP 159/103; PULSE 119; RESP 29; O2SAT 100
[2024-10-27 11:57] VITALS: O2SAT 99
--- NOTE | 2024-10-27 11:57 | EKG12_ITS ---
Test Reason : cp Blood Pressure : */* mmHG Vent. Rate : 123 BPM Atrial Rate : 123 BPM P-R Int : 130 ms QRS Dur : 82 ms QT Int : 322 ms P-R-T Axes : 76 53 68 degrees QTcB Int : 460 ms Sinus tachycardia Nonspecific T wave abnormality Abnormal ECG Confirmed by Yahir Kidd ([id number]), graphics editor NICOLA JAMISON ([id number]) on 10/28/2024 6:49:32 AM Referred By: Manohar Confirmed By: Yahir Kidd
--- NOTE | 2024-10-27 11:58 | RAD_ITS ---
PROCEDURE: CHEST PA AND LATERAL 10/27/2024 REASON FOR EXAM: CHEST PAIN TECHNIQUE: Frontal and lateral views of the chest. COMPARISON: Chest x-ray of 07/17/2022 RAD/Chest PA and Lateral IMPRESSION: Lungs appear clear of acute disease. No pleural effusion or pneumothorax is noted. The cardiomediastinal silhouette is within the normal range, and unchanged. No acute osseous changes evident. Negative examination. Reading Location: [address]
--- NOTE | 2024-10-27 12:10 | CT_ITS ---
PROCEDURE: BRAIN/HEAD WITHOUT CONTRAST 10/27/2024 REASON FOR EXAM: HEADACHE WITH HYPERTENSION TECHNIQUE: Head CT without intravenous contrast. Coronal and Sagittal reconstruction series were provided. One or more dose reduction techniques were used (e.g., Automated exposure control, adjustment of the mA and/or kV according to patient size, use of iterative reconstruction technique. RADIATION DOSE SUMMARY: CTDlvol: 47.06 mGy DLP: 872.68 mGycm COMPARISON: Prior study dated February 26, 2022 FINDINGS: Brain: Normal CSF Spaces: Normal Sinuses/Mastoids: Clear at visualized levels Bones: Unremarkable CT/Brain/Head without Contrast IMPRESSION: Unremarkable examination. Reading [facility]
--- NOTE | 2024-10-27 12:10 | EX.ED.DYSGE1 ---
HPI History of Present Illness Chief Complaint: Hypertension Detail of Chief Complaint: Hypertension with chest pain. Informant: patient Onset/Context/Timing Onset: Days Context: Gradual Onset Current Severity: Mild Maximum Severity: Mild Narrative Narrative: 44-year-old male history of anxiety, hypertension and reflux. Said he is not on blood pressure medication. Currently he and his are . States his blood pressure has been as high as 192/123. He had a headache and chest pain with this and has had that for the last 4 days. He denies any exertional chest pain. No history of DVT or PE. No leg pain or swelling. He is on no medications currently. He was supposed to be on blood pressure medication but is noncompliant with and said he has not really taken it for months. Prior similar symptoms: Yes Recent Illness/Hospitalization: No PFSH PFSH Medical History Right shoulder pain Depression Anxiety Substance abuse Marijuana use Alcohol use Arthritis Fatty liver Migraine headache Syncope History of hiatal hernia History of IBS Gastric reflux Smoker Shortness of breath on exertion Leg cramps History of pain when walking History of edema History of stress test Cardiology follow-up encounter Hypertension History of irregular heartbeat Superior labrum [id number] (SLAP) tear of right shoulder Helicobacter pylori (H. pylori) GERD (gastroesophageal reflux disease) Home Medications ?Medication ?Instructions ?Recorded ?Last Taken ?Type omeprazole 40 mg capsule,delayed 40 mg PO BID GERD 08/30/21 2 Days Ago History release ~02/24/22 Allergy/AdvReac Type Severity Reaction Status Date / Time No Known Allergies Allergy Verified 10/27/24 11:20 Family History Other Cancer Heart disease Surgical History Hx of colonoscopy History of esophagogastroduodenoscopy (EGD) History of adenoidectomy Social History household members: none housing: homeless Smoking Status: Current every day smoker tobacco type: cigarettes alcohol intake: current alcohol intake frequency: holidays/special occasions only Alcohol type: beer ROS ROS ED ROS Narrative Headache. Chest pain. Constitutional Constitutional ED: Denies chills Eyes Eyes: Denies blurry vision ENT ENT ED: Denies ear pain Cardiovascular Cardiovascular: Reports chest pain; Denies palpitations or racing heartbeat Respiratory/Chest Respiratory/Chest: Denies cough or dyspnea Gastrointestinal Gastrointestinal: Denies abdominal pain or diarrhea Genitourinary Genitourinary ED: Denies dysuria or hematuria Musculoskeletal Musculoskeletal: Denies arthralgias Integumentary Denies abscess Neurologic Neurologic: Reports headache(s) Psychiatric Psychiatric: Reports anxiety Endocrine Endocrinology: Denies cold intolerance Hematologic/Lymphatic Hematologic/Lymphatic: Reports none Allergic/Immunologic Allergic/Immunologic ED: Denies mouth swelling or tongue swelling EXAM Physical Exam Narrative Exam Narrative: 44-year-old male sitting upright in bed. Initial blood pressure 153/132 currently 159/103. Afebrile. Pulse ox 100% on room air no hypoxia. H EENT exam pupils round reactive light. No facial droop. No trauma. Normal speech. Neck nontender no JVD. Lungs clear to auscultation bilaterally. Heart tachycardic 115 no murmur. Chest wall and ribs are nontender. Abdomen is soft nontender. No peritoneal signs. Back nontender. Moving all 4 extremities. 5/5 music assistant strength. Dorsi plantarflexion intact. Normal range of motion. Nontender no edema. Calves are nontender. Neurologically is awake and alert. Answering questions following commands. NIH is 0. Const Vital Signs: 10/27/24 11:18 10/27/24 11:31 10/27/24 11:32 Temperature 98.3 F Temperature Source Temporal Pulse Rate 134 H 119 H Respiratory Rate 22 H 29 H Respiratory Effort Short of Breath Respiratory Pattern Tachypnea Blood Pressure 153/132 H 159/103 H Blood Pressure Mean 139 121 Pulse Ox 100 100 Oxygen Delivery Method Room Air 10/27/24 11:57 10/27/24 12:17 10/27/24 13:00 Temperature Temperature Source Pulse Rate 109 H 108 H Respiratory Rate 24 H 22 H Respiratory Effort Respiratory Pattern Blood Pressure 161/100 H 165/120 H Blood Pressure Mean 120 135 Pulse Ox 99 100 97 Oxygen Delivery Method Room Air Room Air Positive well nourished and well developed; Negative for obese, cachectic, contractures or unkempt General Appearance ED: well developed and NAD; Negative for unkempt, cachectic, contractures, cyanotic, diaphoretic or pallor Nutritional Appearance: Negative for cachectic or obese HEENT Reports moist mucous membranes Negative for trauma or tenderness Eyes PERRL and EOMs intact bilaterally Neck no lymphadenopathy, supple and no JVD Chest Wall inspection of chest normal and palpation of chest normal Resp normal respiratory effort and clear to auscultation bilaterally Cardio regular rhythm, S1 normal heart sound, S2 normal heart sound and no murmurs; Negative for regular rate Rate: tachycardic GI normal to inspection, nondistended, normoactive bowel sounds, non-tender, non-distended and no masses Auscultation: normoactive bowel sounds Palpation: soft; Negative for tender, guarding or rebound tenderness present Back/Spine no CVA tenderness General Back: Negative for CVA tenderness Cervical Spine: Negative for cervical spine tenderness Thoracic Spine / Upper Back: Negative for thoracic spinal tenderness or paraspinal muscle tenderness Lumbar Spine / Lower Back: Negative for lumbar spinal tenderness Extremity normal to inspection General Extremety ED: Negative for edema or tenderness General Extremity: Negative for edema Neuro oriented x3 and CN's II-XII intact bilaterally Sensorium / Orientation: alert Motor Exam: Negative for strength 5/5 throughout Psych mental status grossly normal Appearance: Negative for unkempt Mood & Affect: anxious Skin no rashes or lesions noted, no wounds and skin turgor normal General Skin Exam: elasticity normal; Negative for jaundice or pallor Lesions: No lesion noted Rashes: No rashes noted Trauma: Negative for abrasion Wounds: Negative for wounds noted MDM MDM MDM Narrative Medical decision making narrative: 44-year-old male history of hypertension noncompliant not taking his medication. States he is supposed to be on lisinopril. Said headache and chest pain as well as 4 days of elevated blood pressure. Does seem anxious recently having marital issues. He is either or from his . He will undergo cardiac workup. Due to his headache and hypertension I will get a CT also. He will be given lisinopril to help lower his blood pressure. Some of this is also related to anxiety. Patient was given an Ativan. He either spit it out or threw it up. I went back to reevaluate him. And he left prior to being discharged. I am attempting to get a hold of him via phone. History & Record Review Additional record(s) reviewed:: Prior inpatient record, Prior outpatient record, Prior ED visit and Prior labs Lab Data Attestation: I reviewed the patient's lab results. Lab results narrative: CBC shows a white count of 10. H&H 14 and 40. Platelets 352. Electrolytes are sodium 137. Gap 16. BUN and creatinine of 18 and 1. Glucose 105. Troponin 12. Labs: Laboratory Results - last 24 hr 10/27/24 11:51 WBC 10.1 RBC 4.50 L Hgb 14.1 Hct 40.6 MCV 90.2 MCH 31.3 MCHC 34.7 RDW Std Deviation 41.8 RDW Coeff of Judith 12.7 Plt Count 352 MPV 9.7 Immature Gran % (Auto) 0.700 Neut % (Auto) 65.0 Lymph % (Auto) 26.9 [place] % (Auto) 5.5 Eos % (Auto) 1.0 Baso % (Auto) 0.9 Absolute Neuts (auto) 6.6 Absolute Lymphs (auto) 2.72 Nucleated RBC % 0 Sodium 137 Potassium 4.2 Chloride 101 Carbon Dioxide 20.1 L Anion Gap 16 H BUN 18 Creatinine 1.08 Est GFR (MDRD) Non-Af 86 BUN/Creatinine Ratio 16.6 Glucose 105 H Calcium 9.9 Troponin T High Sens 12 Radiography Chest X-Ray - ED: 2 View, Read by ED Physician, Read by Radiologist, Normal, Heart, Lungs, Mediastinum, Bony Structures, No Acute Disease and Chronic Changes Diagnostic Testing: Clinical Impression(s) from Imaging Studies Chest X-Ray 10/27/24 11:58 IMPRESSION: Lungs appear clear of acute disease. No pleural effusion or pneumothorax is noted. The cardiomediastinal silhouette is within the normal range, and unchanged. No acute osseous changes evident. Negative examination. Reading Location: [id number] 10/27/24 12:10 IMPRESSION: Unremarkable examination. Reading Location: [facility] Chest x-ray, 2 views, AP and lateral, interpreted both by myself and radiologist. Normal cardiac silhouette. No mediastinum. Normal lung mariano. Chronic changes. No acute process. Rhythm Strip Rhythm Strip: Sinus Tach Rate: 123 Ectopy: None EKG Initial EKG: Attestation: I personally reviewed and interpreted this EKG as follows: Interpretation: No Acute Injury Pattern and Sinus Tachycardia Comments: Sinus tachycardia rate of 123 no acute signs of [place]. There is some nonspecific ST wave flattening in V45 and 6. No ST elevation. No T wave inversions. Discharge Plan Triage Chief Complaint: Hypertension Other Complaint: Chest Pain ED Provider: Wicho Baker Dx/Rx/DC Orders Clinical Impression: Hypertension, Medical non-compliance, Headache, Atypical chest pain Prescriptions: No Action omeprazole 40 mg capsule,delayed release(DR/EC) 40 mg PO BID Primary Care Provider: Zakiya Dupont Referrals: Zakiya Dupont, INS[employer] SAL[employer] COORDINATOR-C [Primary Care Provider] - Print Language: Citizen Of [place] Disposition Disposition: Home, Self Care Discharge Date/Time: 10/27/24 14:04
[2024-10-27 12:17] VITALS: BP 161/100; PULSE 109; RESP 24; O2SAT 100
[2024-10-27] MEDS: Lisinopril 20 MG Tablet PO (12:39)
[2024-10-27 12:41] LABS: Absolute Lymphocyte Count 2.72 X10^3/uL (0.83-4.51); Absolute Neutrophil Count 6.6 X10^3/uL (2.0-7.7); Basophil# 0.09 X10^3/uL; Basophil% 0.9 % (0-1); Hematocrit 40.6 % (40-54); Hemoglobin 14.1 g/dL (13.0-16.5); Lymphocyte # 2.72 X10^3/ul (0.83-4.51); Lymphocyte % 26.9 % (19-41); Mean Corp Hgb Conc 34.7 g/dL (32-36); Mean Corpuscular Hgb 31.3 pg (27.0-32.0); Mean Corpuscular Volume 90.2 fL (80-94); Mean Platelet Vol. 9.7 fl (6.2-12.0); Monocyte# 0.56 X10^3/uL; Monocyte% 5.5 % (0-10); NRBC Flagged by Analyzer 0 % (0-5); Neutrophil # 6.59 X10^3/uL (2.7-7.7); Platelet Count 352 K/mm3 (150-450); RBC Distribution Width CV 12.7 % (11.6-14.6); RBC Distribution Width SD 41.8 fl (35.1-43.9); White Blood Count 10.1 K/mm3 (4.4-11.0)
[2024-10-27 13:00] VITALS: BP 165/120; PULSE 108; RESP 22; O2SAT 97
[2024-10-27 13:06] LABS: Anion Gap 16 (5-15); BUN 18 mg/dL (4-19); BUN/Creat Ratio 16.6 RATIO (10-20); Calcium,Total 9.9 mg/dL (7.6-11.0); Carbon Dioxide 20.1 mmol/L (21.0-32.0); Chloride 101 mmol/L (98-108); Creatinine, Serum 1.08 mg/dL (0.70-1.20); EST Glomerular Filtration Rate 86 (>60); Glucose 105 mg/dL (70-99); Potassium 4.2 mmol/L (3.3-5.1); Sodium Level 137 mmol/L (133-145); Troponin T High Sensitivity 12 ng/L (<=22)
[2024-10-27] MEDS: Ondansetron 4 MG/2 ML Vial IV (13:17)
--- NOTE | 2024-10-27 13:34 | ED.RN ---
saw this pt leaving room, called out to patient to discuss reason pt is leaving. pt did not respond and continued to walk out. caught up with pt and saw that pt D/C own IV. Dr. Baker notified. IV found on floor on L side of bed intact
--- NOTE | 2024-10-28 11:33 | ED.RN ---
Pt wanted to know why someone called him yesterday. I explained that there were no notes left and no message was passed on. Pt left prior to discharge.
== END 2024-10-27 14:04 | disposition home or self-care (01) ==
PROVIDERS: Emergency Provider Emergency Medicine; PCP Nurse Practitioner Family; Visit Provider Emergency Medicine
DX: I10 Essential (primary) hypertension (principal); R07.89 Other chest pain; R51.9 Headache, unspecified; F41.9 Anxiety disorder, unspecified; Z59.00 Homelessness unspecified; Z91.199 Patient's noncompliance with other medical treatment and regimen due to unspecified reason; F17.210 Nicotine dependence, cigarettes, uncomplicated; K21.9 Gastro-esophageal reflux disease without esophagitis
CPT/HCPCS: 70450; 71046; 80048; 84484; 85025; 93005; 96374; 99285; A4216; J2405

== ENCOUNTER 2024-10-28 16:33 | Emergency (ER) | payer MEDICAID, SELFPAY ==
[2024-10-28 16:33] VITALS: BP 181/118; PULSE 137; RESP 16; TEMP 37; O2SAT 100; BMI 25.1
--- NOTE | 2024-10-28 16:49 | CT_ITS ---
PROCEDURE: CTA CHEST W/WO CONTRAST 10/28/2024 REASON FOR EXAM: CHEST PAIN, HYPERTENSION TECHNIQUE: CTA axial imaging of the chest with intravenous contrast. Coronal and Sagittal reconstruction series were provided. 3D, 3D post processing, 3D reconstructions, Maximum intensity projection (MIPs) Volume rendering and Shaded surface rendering was provided. PATIENT PREPARATION: Per protocol CONTRAST: Isovue 370 VOLUME: 100mL One or more dose reduction techniques were used (e.g., Automated exposure control, adjustment of the mA and/or kV according to patient size, use of iterative reconstruction technique). RADIATION DOSE SUMMARY: CTDlvol: 20 mGy DLP: 421 mGycm COMPARISON: Chest radiograph 10/27/2024. FINDINGS: Hardware: None. Lymph nodes: No axillary, mediastinal or hilar lymphadenopathy. Heart: The heart is normal in size without pericardial effusion. The great vessels are normal in caliber. Minimal calcific plaque of the thoracic aorta. Pulmonary Vessels: No central filling defect within the segmental or subsegmental pulmonary arteries. Lungs and Airways: The central airways are patent. Minimal bibasilar atelectasis. No suspicious pulmonary mass. No pleural effusion or pneumothorax. Upper Abdomen: Visualized portions of the upper abdominal viscera are unremarkable. Bones: Bone windows are unremarkable. CT/CTA Chest W/WO Contrast IMPRESSION: Normal CTA chest. Reading Location: [id number]
--- NOTE | 2024-10-28 16:51 | EDS_ITS ---
HPI History of Present Illness Chief Complaint: Hypertension Informant: patient Onset/Context/Timing Onset: Days (5) Context: Gradual Onset Timing: Continuous Quality: Sharp Location: Substernal Worsened by: Breathing Relieved by: Nothing Narrative Narrative: Patient presents with elevated blood pressure and chest pain that became worse today. Patient states it has been constant for the past 5 days. Patient was seen here yesterday but left without completing treatment. Patient describes the pain as sharp. Patient states it is over the substernal area. Patient states it radiates into his back. Patient states it is worse with breathing. Patient admits to some nausea and vomiting. Patient admits to some diaphoresis and lightheadedness. Patient also admits to some palpitations. [facility] Medical History Right shoulder pain Depression Anxiety Substance abuse Marijuana use Alcohol use Arthritis Fatty liver Migraine headache Syncope History of hiatal hernia History of IBS Gastric reflux Smoker Shortness of breath on exertion Leg cramps History of pain when walking History of edema History of stress test Cardiology follow-up encounter Hypertension History of irregular heartbeat Superior labrum dwbtbddl-jv-hmtqobjsw (SLAP) tear of right shoulder Helicobacter pylori (H. pylori) GERD (gastroesophageal reflux disease) Home Medications ?Medication ?Instructions ?Recorded ?Last Taken ?Type omeprazole 40 mg capsule,delayed 40 mg PO BID GERD 2 Days Ago History release ~02/24/22 clonidine HCl 0.2 mg tablet 0.2 mg PO DAILY #10 tabs 0 10/28/24 Unknown Rx hydroxyzine pamoate 25 mg capsule 25 mg PO TID PRN PRN Anxiety #30 10/28/24 Unknown Rx CAPSULES Allergy/AdvReac Type Severity Reaction Status Date / Time No Known Allergies Allergy Verified 10/28/24 16:35 Family History Other Cancer Heart disease Surgical History Hx of colonoscopy History of esophagogastroduodenoscopy (EGD) History of adenoidectomy Social History household members: none housing: homeless Smoking Status: Current every day smoker tobacco type: cigarettes alcohol intake: current alcohol intake frequency: holidays/special occasions only Alcohol type: beer ROS ROS ED Constitutional Constitutional ED: Denies chills or fever(s) Eyes Eyes: Reports blurry vision; Denies change in vision ENT ENT ED: Denies rhinorrhea or sore throat Cardiovascular Cardiovascular: Reports chest pain and palpitations Respiratory/Chest Respiratory/Chest: Reports dyspnea; Denies cough Gastrointestinal Gastrointestinal: Denies nausea or vomiting Genitourinary Genitourinary ED: Denies dysuria or hematuria Musculoskeletal Musculoskeletal: Reports back pain and neck pain Integumentary Denies abscess or rash Neurologic Neurologic: Reports headache(s); Denies weakness Allergic/Immunologic Allergic/Immunologic ED: Denies mouth swelling or urticaria EXAM Physical Exam Const Vital Signs: 10/28/24 16:33 10/28/24 16:54 10/28/24 16:54 Temperature 98.6 F Temperature Source Oral Pulse Rate 137 H Respiratory Rate 16 Respiratory Effort Normal Non-Labored Respiratory Pattern Normal Blood Pressure 181/118 H Blood Pressure Mean 139 Pulse Ox 100 Oxygen Delivery Method Room Air Room Air 10/28/24 17:00 10/28/24 18:00 10/28/24 19:00 Temperature Temperature Source Pulse Rate 133 H 100 100 Respiratory Rate 19 H 20 H 18 Respiratory Effort Respiratory Pattern Blood Pressure 166/112 H 175/108 H 181/108 H Blood Pressure Mean 130 130 132 Pulse Ox 98 99 100 Oxygen Delivery Method Room Air 10/28/24 20:00 10/28/24 20:47 Temperature 98.6 F Temperature Source Pulse Rate 96 92 Respiratory Rate 18 18 Respiratory Effort Respiratory Pattern Blood Pressure 157/106 H 134/102 H Blood Pressure Mean 123 112 Pulse Ox 100 100 Oxygen Delivery Method Room Air Positive well nourished and well developed General Appearance ED: well developed and NAD HEENT Reports moist mucous membranes Neck supple and no JVD Chest Wall palpation of chest normal Resp normal respiratory effort and clear to auscultation bilaterally Cardio regular rhythm Rate: tachycardic GI non-distended Palpation: soft and tender epigastric, LUQ and RUQ; Negative for guarding or rebound tenderness present Neuro oriented x3, CN's II-XII intact bilaterally and no sensory deficits noted Sensorium / Orientation: alert Sensory Exam: sensory level loss detected Motor Exam: strength 5/5 throughout Psych Mood & Affect: anxious Skin no rashes or lesions noted MDM MDM MDM Narrative Medical decision making narrative: Differential diagnosis includes cardiac dysrhythmia, cardiac ischemia, aortic dissection, electrolyte abnormality, pneumonia, pulmonary embolism, anxiety, gastroesophageal reflux disease, and musculoskeletal pain. EKG will be obtained to assess for cardiac dysrhythmia and cardiac ischemia. CT of the chest will be obtained to assess for aortic dissection and pulmonary embolism. CBC will be obtained to assess for leukocytosis and anemia. Basic metabolic profile will be obtained to assess for electrolyte abnormality and renal function. High- sensitivity troponin will be obtained to assess for cardiac ischemia. 2-hour repeat high-sensitivity troponin will be obtained to assess for ongoing cardiac ischemia. History & Record Review Additional record(s) reviewed:: Prior ED visit and Prior labs Lab Data Attestation: I reviewed the patient's lab results. Lab results narrative: CBC was reviewed. There is a mild leukocytosis of 14.3. The remainder is within normal limits. Basic metabolic profile was reviewed. BUN was mildly e levated at 22 and creatinine was 1.34. These are slightly increased from previous results. High-sensitivity troponin was reviewed and was normal at 14. 2-hour repeat high-sensitivity troponin was reviewed and was also normal at 14. Labs: Laboratory Results - last 24 hr 10/28/24 10/28/24 16:54 18:55 WBC 14.3 H RBC 4.74 Hgb 15.0 Hct 43.0 MCV 90.7 MCH 31.6 MCHC 34.9 RDW Std Deviation 41.3 RDW Coeff of Judith 12.6 Plt Count 353 MPV 9.1 Immature Gran % (Auto) 0.400 Neut % (Auto) 67.3 Lymph % (Auto) 24.2 [place] % (Auto) 6.8 Eos % (Auto) 0.8 Baso % (Auto) 0.5 Absolute Neuts (auto) 9.6 H Absolute Lymphs (auto) 3.47 Nucleated RBC % 0 Sodium 139 Potassium 3.4 Chloride 100 Carbon Dioxide 21.5 Anion Gap 17 H BUN 22 H Creatinine 1.34 H Estim Creat Clear Calc 78.67 Est GFR (MDRD) Non-Af 67 BUN/Creatinine Ratio 16.2 Glucose 139 H Calcium 10.6 Troponin T High Sens 14 D Troponin T Hi Sens 2 Hr 14 Radiography Diagnostic Testing: Clinical Impression(s) from Imaging Studies Chest CTA 10/28/24 16:49 IMPRESSION: Normal CTA chest. Reading Location: [facility] CT of the chest was obtained. There is no evidence of pulmonary embolism or aortic dissection. There is no acute infiltrate. There is no acute process noted. This was interpreted by the radiologist and was also independently reviewed by myself. EKG Initial EKG: Attestation: I personally reviewed and interpreted this EKG as follows: Interpretation: Sinus Tachycardia (131) and Non-Specific ST Changes Comments: EKG was obtained. On my independent interpretation, it showed a sinus tachycardia with a rate of 131. MI interval, QRS interval, and QTc intervals were all normal. [place] was normal. There there is evidence of left ventricular hypertrophy with nonspecific ST-T wave changes. Prior EKG tracings: available for review Prior: Unchanged (10/27/2024) Treatment and Re-Evaluation :: Patient was given IV fluids. Patient was given aspirin. Patient was given a dose of labetalol. Patient's blood pressure only improved slightly with this. Patient was given a dose of clonidine. Patient's blood pressure improved to 134/100. Patient was feeling better on reevaluation. Patient was advised of his findings. Patient states he had been prescribed lisinopril in the past but caused him to have urinary frequency. Patient no longer takes this. Patient was given a prescription for clonidine. Patient was also requesting a prescription for something for his anxiety. Patient was given a prescription for a short term course of hydroxyzine. Patient was given a referral for primary care physician. Patient was instructed to follow-up in 5 to 7 days. Patient was instructed to return if worse in any way. Patient understood and was agreeable with the plan. All questions were answered. Discharge Plan Triage Chief Complaint: Hypertension ED Provider: Jeffrey Hernandez Dx/Rx/DC Orders Clinical Impression: Hypertension, Atypical chest pain Instructions: ED Hypertension, Established Prescriptions: New hydroxyzine pamoate 25 mg capsule 25 mg PO TID PRN PRN (Reason: Anxiety) Qty: 30 0RF clonidine HCl 0.2 mg tablet 0.2 mg PO DAILY Qty: 10 0RF No Action omeprazole 40 mg capsule,delayed release(DR/EC) 40 mg PO BID Primary Care Provider: Zakiya Dupont Referrals: Zakiya Dupont, DIRECTOR [employer]LOBAL MARKET RESEARCH-C [Primary Care Provider] - 5-7 Days Print Language: [place] Disposition Disposition: Home, Self Care Discharge Date/Time: 10/28/24 20:51
[2024-10-28] MEDS: Labetalol 20 MG/4 ML Vial IV (16:58)
[2024-10-28] MEDS: Aspirin 81 MG TAB.CHEW 324 MG PO (16:58)
[2024-10-28 17:00] VITALS: BP 166/112; PULSE 133; RESP 19; O2SAT 98
[2024-10-28 17:00] LABS: Absolute Lymphocyte Count 3.47 X10^3/uL (0.83-4.51); Absolute Neutrophil Count 9.6 X10^3/uL (2.0-7.7); Basophil# 0.07 X10^3/uL; Basophil% 0.5 % (0-1); Eosinophil# 0.12 X10^3/uL; Eosinophils% 0.8 % (0-5); Lymphocyte # 3.47 X10^3/ul (0.83-4.51); Lymphocyte % 24.2 % (19-41); Mean Corp Hgb Conc 34.9 g/dL (32-36); Mean Corpuscular Hgb 31.6 pg (27.0-32.0); Mean Corpuscular Volume 90.7 fL (80-94); Mean Platelet Vol. 9.1 fl (6.2-12.0); Monocyte# 0.97 X10^3/uL; Monocyte% 6.8 % (0-10); NRBC Flagged by Analyzer 0 % (0-5); Neutrophil # 9.63 X10^3/uL (2.7-7.7); Neutrophil % 67.3 % (47-70); Platelet Count 353 K/mm3 (150-450); RBC Distribution Width CV 12.6 % (11.6-14.6); RBC Distribution Width SD 41.3 fl (35.1-43.9); Red Blood Count 4.74 M/mm3 (4.6-6.2); White Blood Count 14.3 K/mm3 (4.4-11.0)
[2024-10-28 17:30] LABS: Anion Gap 17 (5-15); BUN 22 mg/dL (4-19); BUN/Creat Ratio 16.2 RATIO (10-20); Calcium,Total 10.6 mg/dL (7.6-11.0); Carbon Dioxide 21.5 mmol/L (21.0-32.0); Chloride 100 mmol/L (98-108); Creatinine, Serum 1.34 mg/dL (0.70-1.20); EST Glomerular Filtration Rate 67 (>60); Estimated Creatinine Clearance 78.67 ml/min (50-250); Glucose 139 mg/dL (70-99); Potassium 3.4 mmol/L (3.3-5.1); Sodium Level 139 mmol/L (133-145); Troponin T High Sensitivity 14 ng/L (<=22)
[2024-10-28 18:00] VITALS: BP 175/108; PULSE 100; RESP 20; O2SAT 99
[2024-10-28] MEDS: cloNIDine HCl 0.2 MG Tablet PO (18:54)
[2024-10-28 19:00] VITALS: BP 181/108; PULSE 100; RESP 18; O2SAT 100
[2024-10-28] MEDS: Acetaminophen 500 MG Tablet 1000 MG PO (19:23)
[2024-10-28 19:24] LABS: Troponin T High Sens 2 HR 14 ng/L (<=22)
[2024-10-28 20:00] VITALS: BP 157/106; PULSE 96; RESP 18; O2SAT 100
[2024-10-28 20:47] VITALS: BP 134/102; PULSE 92; RESP 18; TEMP 37; O2SAT 100
== END 2024-10-28 20:51 | disposition home or self-care (01) ==
PROVIDERS: Emergency Provider Emergency Medicine; PCP Nurse Practitioner Family; Referring Provider Emergency Medicine; Visit Provider Emergency Medicine
DX: R07.89 Other chest pain (principal); I10 Essential (primary) hypertension; F17.210 Nicotine dependence, cigarettes, uncomplicated; R51.9 Headache, unspecified; R06.00 Dyspnea, unspecified; Z59.00 Homelessness unspecified; K21.9 Gastro-esophageal reflux disease without esophagitis; R00.2 Palpitations; M54.2 Cervicalgia
CPT/HCPCS: 71275; 80048; 84484; 85025; 93005; 96374; 99285; Q9967; A4216

== ENCOUNTER 2025-04-03 10:00 | Emergency (ER) | payer MEDICAID, SELFPAY ==
[2025-04-03 10:00] VITALS: BP 177/103; PULSE 97; RESP 18; TEMP 37.1; O2SAT 98; BMI 27.1
--- NOTE | 2025-04-03 10:12 | CT_ITS ---
PROCEDURE: SOFT TISSUE NECK WITH CONTRAST 04/03/2025 REASON FOR EXAM: DIFFICULTY SWALLOWING, SWELLING TECHNIQUE: Procedure Code: CTNEW Modality: CT Procedure: SOFT TISSUE NECK WITH CONTRAST CONTRAST: Isovue 370 VOLUME: 100 mL One or more dose reduction techniques were used (e.g., Automated exposure control, adjustment of the mA and/or kV according to patient size, use of iterative reconstruction technique). RADIATION DOSE SUMMARY: CTDlvol: 15.95 mGy DLP: 540.94 mGycm COMPARISON: None. FINDINGS: Airway: Patent. Salivary glands: Unremarkable. Lymph nodes: No lymphadenopathy. Thyroid: Unremarkable. Vasculature: No acute bony abnormalities. Orbits: Unremarkable. Paranasal sinuses and mastoids: Clear. Lung apices: Clear. Upper mediastinum: Unremarkable. Bones: No acute bony abnormalities. CT/Soft Tissue Neck WITH Contrast IMPRESSION: Unremarkable CT scan of the neck without acute or suspicious abnormalities. No lymphadenopathy. Reading Location: [facility]
--- NOTE | 2025-04-03 10:14 | EX.ED.DYSGE1 ---
HPI History of Present Illness Chief Complaint: Other, Pain/Inj Narrative Narrative: 44-year-old male past medical history of hypertension, previous dental caries, smoker, presents with right lower jaw pain as well as difficulty swallowing that has had for the last few days. States has had subjective fevers as well. Has been taking Tylenol and ibuprofen without relief. States he has not seen a dentist in quite some time but has noticed facial swelling mainly on the right side of his face. Occasionally has a dry mouth as well. No other exacerbating or alleviating factors. [facility] Medical History Right shoulder pain Depression Anxiety Substance abuse Marijuana use Alcohol use Arthritis Fatty liver Migraine headache Syncope History of hiatal hernia History of IBS Gastric reflux Smoker Shortness of breath on exertion Leg cramps History of pain when walking History of edema History of stress test Cardiology follow-up encounter Hypertension History of irregular heartbeat Superior labrum [id number] (SLAP) tear of right shoulder Helicobacter pylori (H. pylori) GERD (gastroesophageal reflux disease) Home Medications Medication Instructions Recorded Last Taken Type clonidine HCl 0.2 mg tablet 0.2 mg PO DAILY #10 tabs 10/28/24 04/02/25 Rx acetaminophen 500 mg capsule 1,000 mg PO Q6H PRN pain 04/03/25 04/02/25 History amoxicillin 875 mg-potassium 1 tab PO BID #20 tabs 04/03/25 Unknown Rx clavulanate 125 mg tablet escitalopram oxalate 20 mg tablet 20 mg PO DAILY 04/03/25 04/02/25 History ibuprofen 200 mg tablet (Advil) 400 mg PO Q4H PRN pain 04/03/25 04/02/25 History lisinopril 20 mg tablet 20 mg PO DAILY 04/03/25 04/02/25 History naproxen sodium 220 mg capsule 220 mg PO BID PRN pain 04/03/25 04/02/25 History (Aleve) quetiapine 100 mg tablet 100 mg PO QHS 04/03/25 04/01/25 History Allergy/AdvReac Type Severity Reaction Status Date / Time No Known Allergies Allergy Verified 04/03/25 10:01 Family History Other Cancer Heart disease Surgical History Hx of colonoscopy History of esophagogastroduodenoscopy (EGD) History of adenoidectomy Social History household members: none housing: homeless Smoking Status: Current every day smoker tobacco type: cigarettes alcohol intake: current alcohol intake frequency: holidays/special occasions only Alcohol type: beer ROS ROS ED ROS Narrative Review of systems positive for right lower jaw pain, swelling of right side of face. Reports difficulty swallowing over the last few days. Subjective fever. No other exacerbating or alleviating factors. EXAM Physical Exam Narrative Exam Narrative: Afebrile. Vital signs noted. Nontoxic-appearing. Cardiovascular examination reveals a regular rate and rhythm. Lungs are clear to auscultation bilaterally. Abdomen is soft nontender with positive bowel sounds. Inspection of the mouth does reveal poor dentition and dental caries in the right lower jaw with tooth erosion all the way down to the gumline. No fluctuant abscess. Airway is patent. Mild trismus. No drooling. No noted Richardson angina. Positive tenderness to palpation right jaw, lower, without crepitance or erythema or fluctuance noted. Const Vital Signs: 04/03/25 10:00 04/03/25 10:08 04/03/25 12:00 Temperature 98.7 F Temperature Source Temporal Pulse Rate 97 64 Respiratory Rate 18 18 Respiratory Effort Normal Respiratory Pattern Normal Blood Pressure 177/103 H 141/78 H Blood Pressure Mean 127 99 Pulse Ox 98 98 Oxygen Delivery Method Room Air Room Air 04/03/25 12:06 Temperature 98.4 F Temperature Source Pulse Rate 78 Respiratory Rate 16 Respiratory Effort Respiratory Pattern Blood Pressure 141/78 H Blood Pressure Mean 99 Pulse Ox 99 Oxygen Delivery Method MDM MDM MDM Narrative Medical decision making narrative: Differential diagnosis includes but not limited to parotitis versus dental abscess versus chronic dental pain versus mandibular abscess. I do feel that CT imaging is indicated. I reviewed his prior ED visits and he had right lower jaw pain previously in 2021. That was 3 years ago. I will check a CBC and BMP as well. Upon exiting the room, he did ask for analgesics. He was given 1 [place] tablet here. I reviewed his laboratory work and he has normal white count of 10.3 with hemoglobin normal at 13.4, plate count normal at 340. BMP is grossly normal except for glucose 105 with a normal anion gap of 11. I reviewed the radiology report of the CT of the soft tissue neck. There is no noted abnormality, no lymphadenopathy. Upon repeat examination, patient states he is having pain all over his face and in his jaw still. He requested extra strength Tylenol. However, he had been given a [place] tablet with 325 mg of acetaminophen in it so he will be given a 650 mg orally. He was also started on Augmentin. I will write him a prescription for Augmentin and he was urged to follow-up with a dentist. Return instructions to the emergency department were reviewed. Disposition is discharged home in stable condition. History & Record Review Discussion w/independent historian: Patient Additional record(s) reviewed:: Prior ED visit (Previous right lower jaw pain in 2021) Lab Data Attestation: I reviewed the patient's lab results. Labs: Laboratory Results - last 24 hr 04/03/25 10:29 WBC 10.3 RBC 4.19 L Hgb 13.4 Hct 39.3 L MCV 93.8 MCH 32.0 MCHC 34.1 RDW Std Deviation 43.2 RDW Coeff of Judith 12.4 Plt Count 340 MPV 9.0 Immature Gran % (Auto) 0.700 Neut % (Auto) 64.1 Lymph % (Auto) 25.7 Woodson % (Auto) 7.2 Eos % (Auto) 1.7 Baso % (Auto) 0.6 Absolute Neuts (auto) 6.6 Absolute Lymphs (auto) 2.65 Nucleated RBC % 0 Sodium 139 Potassium 4.3 Chloride 103 Carbon Dioxide 24.1 Anion Gap 11 BUN 13 Creatinine 0.84 Estim Creat Clear Calc 121.89 Est GFR (MDRD) Non-Af 110 BUN/Creatinine Ratio 15.8 Glucose 105 H Calcium 10.0 Radiography Diagnostic Testing: Clinical Impression(s) from Imaging Studies Soft Tissue Neck CT 04/03/25 10:12 IMPRESSION: Unremarkable CT scan of the neck without acute or suspicious abnormalities. No lymphadenopathy. Reading Location: [facility] Discharge Plan Triage Chief Complaint: Other, Pain/Inj ED Provider: Marques Meyers Dx/Rx/DC Orders Clinical Impression: Dental caries, Dental abscess, Mandible pain Instructions: ED Dental Pain, ED Dental Abscess, ED Tooth Abscess Prescriptions: New amoxicillin-pot clavulanate 875-125 mg tablet 1 tab PO BID Qty: 20 0RF No Action lisinopril 20 mg tablet 20 mg PO DAILY quetiapine 100 mg tablet 100 mg PO QHS escitalopram oxalate 20 mg tablet 20 mg PO DAILY naproxen sodium [Aleve] 220 mg capsule 220 mg PO BID PRN (Reason: pain) ibuprofen [Advil] 200 mg tablet 400 mg PO Q4H PRN (Reason: pain) acetaminophen 500 mg capsule 1,000 mg PO Q6H PRN (Reason: pain) clonidine HCl 0.2 mg tablet 0.2 mg PO DAILY Qty: 10 0RF Primary Care Provider: Zakiya Dupont Referrals: Zakiya Dupont, [facility] [Primary Care Provider, [facility]] Activity Restrictions/Additional Instructions: Stop smoking. Follow-up with a dentist to soon as possible. Take antibiotics as directed. Continue ibuprofen and/or Tylenol as needed for pain. Print Language: Argentine Disposition Disposition: Home, Self Care Discharge Date/Time: 04/03/25 12:07
[2025-04-03] MEDS: HYDROcodone Bitartrate/Apap 5/325 Tablet PO (10:32)
[2025-04-03 10:35] LABS: Hematocrit 39.3 % (40-54); Hemoglobin 13.4 g/dL (13.0-16.5); Immature Granulocytes Count 0.070 X10^3/uL (0.0-0.0); Mean Corp Hgb Conc 34.1 g/dL (32-36); Mean Corpuscular Volume 93.8 fL (80-94); Mean Platelet Vol. 9.0 fl (6.2-12.0); NRBC Flagged by Analyzer 0 % (0-5); Platelet Count 340 K/mm3 (150-450); RBC Distribution Width CV 12.4 % (11.6-14.6); RBC Distribution Width SD 43.2 fl (35.1-43.9); Red Blood Count 4.19 M/mm3 (4.6-6.2); White Blood Count 10.3 K/mm3 (4.4-11.0)
[2025-04-03 11:14] LABS: Anion Gap 11 (5-15); BUN 13 mg/dL (4-19); BUN/Creat Ratio 15.8 RATIO (10-20); Calcium,Total 10.0 mg/dL (7.6-11.0); Carbon Dioxide 24.1 mmol/L (21.0-32.0); Chloride 103 mmol/L (98-108); Estimated Creatinine Clearance 121.89 ml/min (50-250); Glucose 105 mg/dL (70-99); Potassium 4.3 mmol/L (3.3-5.1)
--- OUTSIDE RECORDS SUMMARY | 2025-04-03 11:21 | XMS RPT_ITS | CCD ---
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 Performed By: #### L 500.2500, L100.0100, L501.4021 #### [facility] [address] [place], [address] Urea nitrogen [Mass/Vol] 22 mg/dL High 4-19 [facility] Comment on above: Performed By: #### L 500.2500, L100.0100, L501.4021 #### [facility] [address] [place], [address] Basophil percentageOrdered B y: Jeffrey Hernandez on 10-28-2024 Basophils/100 WBC (Bld) 0.5 % Normal 0-1 [facility] Comment on above: Performed By: #### L 500.2500, L100.0100, L501.4021 #### [facility] [address] [place], [address] CBC W/Diff, Automatedon 10-17 Absolute Lymph 3.47 X10 3/uL Normal 0.83-4.51 [facility] Comment on above: Performed By: #### L 500.2500, L100.0100, L501.4021 #### [facility] [address] [place], [address] Absolute Neut 9.6 X10 3/uL High 2.0-7.7 [facility] Comment on above: Performed By: #### L 500.2500, L100.0100, L501.4021 #### [facility] [address] [place], [address] IG% 0.400 Normal 0.0-0.9 [facility] Comment on above: Result Comment: IG% - Immature Granulocytes (promyelocytes, myelocytes and metamyelocytes) > 1% indicates that a LEFT SHIFT is Present. Performed By: #### L 500.2500, L100.0100, L501.4021 #### [facility] [address] [place], [address] Lymphocytes/100 WBC (Bld) 24.2 % Normal 19-41 [facility] Comment on above: Performed By: #### L 500.2500, L100.0100, L501.4021 #### [facility] [address] [place], [address] Nucleated RBC (Bld) [#/Vol] 0 10*3/uL Normal 0-5 [facility] Comment on above: Performed By: #### L 500.2500, L100.0100, L501.4021 #### [facility] [address] [place], [address] RDW SD 41.3 fl Normal 35.1-43.9 [facility] Comment on above: Performed By: #### L 500.2500, L100.0100, L501.4021 #### [facility] [address] [place], [address] CTA Chest W/WO Contraston CTA Chest W/WO Contrast [facility] Imaging Services [address] [place] [address] CTA Chest W/WO Contrast MR#: [id number] Acct: [id number] Name: BENITOJOSE ELIAS LOCO Rep #: [id number] : 1980 M 44 From: Ammy Loco nd, MD PCP: Zakiya Dupont [facility], SNUBBER-C Status: REG ER Study: CTA Chest W/WO Contrast Date of Exam: 10/28/24 Exam# [id number] Ordering Dr: Jeffrey Hernandez DO PROCEDURE: CTA CHEST W/WO CONTRAST 10/28/2024 REASON FOR EXAM: CHEST PAIN, HYPERTENSION TECHNIQUE: CTA axial imaging of the chest with intravenous contrast. Coronal and Sagittal reconstruction series were provided. 3D, 3D post processing, 3D reconstructions, Maximum intensity projection (MIPs) Volume rendering and Shaded surface rendering was provided. PATIENT PREPARATION: Per protocol CONTRAST: Isovue 370 VOLUME: 100mL One or more dose reduction techniques were used (e.g., Automated exposure control, adjustment of the mA and/or kV according to patient size, use of iterative reconstruction technique). RADIATION DOSE SUMMARY: CTDlvol: 20 mGy DLP: 421 mGycm COMPARISON: Chest radiograph 10/27/2024. FINDINGS: Hardware: None. Lymph nodes: No axillary, mediastinal or hilar lymphadenopathy. Heart: The heart is normal in size without pericardial effusion. The great vessels are normal in caliber. Minimal calcific plaque of the thoracic aorta. Pulmonary Vessels: No central filling defect within the segmental or subsegmental pulmonary arteries. Lungs and Airways: The central airways are patent. Minimal bibasilar atelectasis. No suspicious pulmonary mass. No pleural effusion or pneumothorax. Upper Abdomen: Visualized portions of the upper abdominal viscera are unremarkable. Bones: Bone windows are unremarkable. CT/CTA Chest W/WO Contrast IMPRESSION: Normal CTA chest. Reading Location: [id number] CC: [facility] SNUBBER-C Zakiya Dupont; Dr. Jeffrey Hernandez DO Crusher Loader Operator: Signed Normal [facility] Carbon dioxide, total [Moles /volume] in Central venous bloodOrdered By: Jeffrey Hernandez on 10-28-2024 CO2 [Moles/Vol] 21.5 mmol/L 21.0-32.0 [facility] Chloride assayOrdered By: Domenico Hernandez on 10-28-2024 Chloride [Moles/Vol] 100 mmol/L 98-108 [facility] Emergency Department Summary on 10-28-2024 Emergency Department Summary [facility] Medical Records Department [address] [place] [address] Emergency Department Summary 10/28/24 MR#: [id number] Acct: [id number] Name: JOSE ELIAS OLIVER Rep #: [id number] : 1980 44 From: Jeffrey Hernandez DO PCP: Zakiya Dupont [facility], SNUBBER-C Status:DEP ER Location: ED HPI History of Present Illness Chief Complaint: Hypertension Informant: patient Onset/Context/Timing Onset: Days (5) Context: Gradual Onset Timing: Continuous Quality: Sharp Location: Substernal Worsened by: Breathing Relieved by: Nothing Narrative Narrative: Patient presents with elevated blood pressure and chest pain that became worse today. Patient states it has been constant for the past 5 days. Patient was seen here yesterday but left without completing treatment. Patient describes the pain as sharp. Patient states it is over the substernal area. Patient states it radiates into his back. Patient states it is worse with breathing. Patient admits to some nausea and vomiting. Patient admits to some diaphoresis and lightheadedness. Patient also admits to some palpitations. [facility] Medical History Right shoulder pain Depression Anxiety Substance abuse Marijuana use Alcohol use Arthritis Fatty liver Migraine headache Syncope History of hiatal hernia History of IBS Gastric reflux Smoker Shortness of breath on exertion Leg cramps History of pain when walking History of edema History of stress test Cardiology follow-up encounter Hypertension History of irregular heartbeat Superior labrum ixeqbgrf-zx-nufxlkrmq (SLAP) tear of right shoulder Helicobacter pylori (H. pylori) GERD (gastroesophageal reflux disease) Home Medications ???Medication ???Instructions ???Recorded ???Last Taken ???Type omeprazole 40 mg capsule,delayed 40 mg PO BID GERD 08/30/21 2 Days Ago History release 02/24/22 clonidine HCl 0.2 mg tablet 0.2 mg PO DAILY #10 tabs 10/28/24 Unknown Rx hydroxyzine pamoate 25 mg capsule 25 mg PO TID PRN PRN Anxiety #30 10/28/24 Unknown Rx CAPSULES Allergy/AdvReac Type Severity Reaction Status Date / Time No Known Allergies Allergy Verified 10/28/24 16:35 Family History Other Cancer Heart disease Surgical History Hx of colonoscopy History of esophagogastroduodenoscopy (EGD) History of adenoidectomy Social History household members: none housing: homeless Smoking Status: Current every day smoker tobacco type: cigarettes alcohol intake: current alcohol intake frequency: holidays/special occasions only Alcohol type: beer ROS ROS ED Constitutional Constitutional ED: Denies chills or fever(s) Eyes Eyes: Reports blurry vision; Denies change in vision ENT ENT ED: Denies rhinorrhea or sore throat Cardiovascular Cardiovascular: Reports chest pain and palpitations Respiratory/Chest Respiratory/Chest: Reports dyspnea; Denies cough Gastrointestinal Gastrointestinal: Denies nausea or vomiting Genitourinary Genitourinary ED: Denies dysuria or hematuria Musculoskeletal Musculoskeletal: Reports back pain and neck pain Integumentary Denies abscess or rash Neurologic Neurologic: Reports headache(s); Denies weakness Allergic/Immunologic Allergic/Immunologic ED: Denies mouth swelling or urticaria EXAM Physical Exam Const Vital Signs: 10/28/24 16:33 10/28/24 16:54 10/28/24 16:54 Temperature 98.6 F Temperature Source Oral Pulse Rate 137 H Respiratory Rate 16 Respiratory Effort Normal Non-Labored Respiratory Pattern Normal Blood Pressure 181/118 H Blood Pressure Mean 139 Pulse Ox 100 Oxygen Delivery Method Room Air Room Air 10/28/24 17:00 10/28/24 18:00 10/28/24 19:00 Temperature Temperature Source Pulse Rate 133 H 100 100 Respiratory Rate 19 H 20 H 18 Respiratory Effort Respiratory Pattern Blood Pressure 166/112 H 175/108 H 181/108 H Blood Pressure Mean 130 130 132 Pulse Ox 98 99 100 Oxygen Delivery Method Room Air 10/28/24 20:00 10/28/24 20:47 Temperature 98.6 F Temperature Source Pulse Rate 96 92 Respiratory Rate 18 18 Respiratory Effort Respiratory Pattern Blood Pressure 157/106 H 134/102 H Blood Pressure Mean 123 112 Pulse Ox 100 100 Oxygen Delivery Method Room Air Positive well nourished and well developed General Appearance ED: well developed and NAD HEENT Reports moist mucous membranes Neck supple and no JVD Chest Wall palpation of chest normal Resp normal respiratory effort and clear to auscultation bilaterally (more content not included)... Normal [facility] Eosinophil percentageOrdered By: Jeffrey Hernandez on 10-28-2024 Eosinophils/100 WBC (Bld) 0.8 % Normal 0-5 [facility] Comment on above: Performed By: #### L 500.2500, L100.0100, L501.4021 #### [facility] [address] [place], [address] Erythrocyte distribution wid th ratioOrdered By: Jeffrey Hernandez on 10-28-2024 Erythrocyte distribution width (RBC) [Ratio] 12.6 % Normal 11.6-14.6 [facility] Comment on above: Performed By: #### L 500.2500, L100.0100, L501.4021 #### [facility] [address] [place], [address] Erythrocyte distribution wid th standard deviationOrdered By: Jeffrey Hernandez on 10-28-2024 Erythrocyte distribution width (RBC) [Ratio] 41.3 fl 35.1-43.9 [facility] Glomerular filtration rate ( GFR) estimation/1.73 sq m using serum, plasma, or whole bOrdered By: Jeffrey Hernandez on 10-28-2024 GFR/1.73 sq M.predicted among non-blacks MDRD (S/P/Bld) [Vol rate/Area] 67 mL/min/{1.73_m2} >60 [facility] Comment on above: mL/min/1.73m2 CKD-EP I Creatinine Equation (2020) Hemoglobin measurementOrdere d By: Jeffrey Hernandez on 10-28-2024 Hemoglobin (Bld) [Mass/Vol] 15.0 g/dL Normal 13.0-16.5 [facility] Comment on above: Performed By: #### L 500.2500, L100.0100, L501.4021 #### [facility] [address] [place], [address] Immature granulocytes/100 WB C Auto (Bld)Ordered By: Jeffrey Hernandez on 10-28-2024 Immature granulocytes/100 WBC (Bld) 0.400 % 0.0-0.9 [facility] Comment on above: IG% - Immature Granu locytes (promyelocytes, myelocytes and metamyelocytes) > 1% indicates that a LEFT SHIFT is Present. L499.0042on 10-28-2024 Trop T High Sen 14 ng/L Normal <=22 [facility] Comment on above: Performed By: #### L 499.0042 ####[facility] [address] [place], [address] L499.0043on 10-28-2024 Trop T High Sen Normal <=22 [facility] Comment on above: Result Comment: PT D ISCHARGED Performed By: #### L 499.0043 #### [facility] [address] [place], [address] L501.4021on 10-28-2024 Trop T High Sen 14 ng/L Normal <=22 [facility] Comment on above: Performed By: #### L 500.2500, L100.0100, L501.4021 #### [facility] [address] [place], [address] MCV (mean corpuscular volume ) determinationOrdered By: Jeffrey Hernandez on 10-28-2024 MCV (RBC) [Entitic vol] 90.7 fL Normal 80-94 [facility] Comment on above: Performed By: #### L 500.2500, L100.0100, L501.4021 #### [facility] [address] [place], [address] Mean corpuscular hemoglobin (MCH) determinationOrdered By: Jeffrey Hernandez on 10-28-2024 MCH (RBC) [Entitic mass] 31.6 pg Normal 27.0-32.0 [facility] Comment on above: Performed By: #### L 500.2500, L100.0100, L501.4021 #### [facility] [address] [place], [address] Mean corpuscular hemoglobin concentration (MCHC) determinationOrdered By: Jeffrey Hernandez on 10-28-2024 MCHC (RBC) [Mass/Vol] 34.9 g/dL Normal 32-36 [facility] Comment on above: Performed By: #### L 500.2500, L100.0100, L501.4021 #### [facility] [address] [place], [address] Mean platelet volume determi nationOrdered By: Jeffrey Hernandez on 10-28-2024 Platelet mean volume (Bld) [Entitic vol] 9.1 fL Normal 6.2-12.0 [facility] Comment on above: Performed By: #### L 500.2500, L100.0100, L501.4021 #### [facility] [address] [place], [address] Monocyte percentageOrdered B y: Jeffrey Hernandez on 10-28-2024 Monocytes/100 WBC (Bld) 6.8 % Normal 0-10 [facility] Comment on above: Performed By: #### L 500.2500, L100.0100, L501.4021 #### [facility] [address] [place], [address] Neutrophil percentageOrdered By: Jeffrey Hernandez on 10-28-2024 Neutrophils/100 WBC (Bld) 67.3 % Normal 47-70 [facility] Comment on above: Performed By: #### L 500.2500, L100.0100, L501.4021 #### [facility] [address] [place], [address] Nucleated red blood cell per centageOrdered By: Jeffrey Hernandez on 10-28-2024 Nucleated RBC/100 WBC (Bld) [Ratio] 0 % 0-5 [facility] Platelet countOrdered By: Domenico Hernandez on 10-28-2024 Platelets (Bld) [#/Vol] 353 10*3/uL Normal 150-450 [facility] Comment on above: Performed By: #### L 500.2500, L100.0100, L501.4021 #### [facility] [address] [place], [address] Potassium measurement (mass/ volume)Ordered By: Jeffrey Hernandez on 10-28-2024 Potassium (Unsp spec) [Mass/Vol] 3.4 mmol/L 3.3-5.1 [facility] Serum creatinine measurement (mass/volume)Ordered By: Jeffrey Hernandez on 10-28-2024 Creatinine [Mass/Vol] 1.34 mg/dL High 0.70-1.20 [facility] Serum glucose measurement (m ass/volume)Ordered By: Jeffrey Hernandez on 10-28-2024 Glucose [Mass/Vol] 139 mg/dL High 70-99 [facility] Serum or plasma calcium navarro urement (mass/volume)Ordered By: Jeffrey Hernandez on 10-28-2024 Calcium [Mass/Vol] 10.6 mg/dL 7.6-11.0 [facility] Serum or plasma urea nitroge n measurement (mass/volume)Ordered By: Jeffrey Hernandez on 10-28-2024 Urea nitrogen [Mass/Vol] 22 mg/dL High 4-19 [facility] Sodium levelOrdered By: Jeffrey Hernandez on 10-28-2024 Sodium [Moles/Vol] 139 mmol/L 133-145 [facility] Troponin T.cardiac [Mass/vol ume] in Serum or Plasma by High sensitivity methodOrdered By: Jeffrey Hernandez on 10-28-2024 Troponin T.cardiac High sensitivity method [Mass/Vol] 14 ng/L <22 [facility] Troponin T.cardiac High sensitivity method [Mass/Vol] 14 ng/L <22 [facility] Comment on above: Delta: 12 on 5-1151 White blood cell (WBC) count Ordered By: Jeffrey Hernandez on 10-28-2024 WBC (Bld) [#/Vol] 14.3 10*3/uL High 4.4-11.0 [facility] Comment on above: Performed By: #### L 500.2500, L100.0100, L501.4021 #### [facility] [address] [place], [address] 12 Lead EKGon 10-27-2024 12 Lead EKG [facility] Cardiovascular Services [address] [place] [address] 12 Lead EKG 10/27/24 1122 MR#: [id number] Acct: [id number] Name: JOSE ELIAS OLIVER Rep #: [id number] : 1980 44 From: Yahir Kidd MD Attending Dr: Status: DEP ER Ordering Dr: Wicho Baker MD Date: 10/27/24 Location: ED Sex: M C Admitted: Test Reason : cp Blood Pressure : */* mmHG Vent. Rate : 123 BPM Atrial Rate : 123 BPM P-R Int : 130 ms QRS Dur : 82 ms QT Int : 322 ms P-R-T Axes : 76 53 68 degrees QTcB Int : 460 ms Sinus tachycardia Nonspecific T wave abnormality Abnormal ECG Confirmed by Yahir Kidd ([id number]), editorial clerk NICOLA JAMISON ([id number]) on 10/28/2024 6:49:32 AM Referred By: Ak Confirmed By: Yahir Kidd 10/28/24 0649 Date Yahir Kidd MD CC: [facility] SNUBBER-C Zakiya Dupont; Dr. Wicho Baker MD Signed Normal [facility] Absolute lymphocyte countOrd ered By: Wicho Baker on 10-27-2024 Lymphocytes Auto (Unsp spec) [#/Vol] 2.72 10*3/uL 0.83-4.51 [facility] Absolute neutrophil countOrd ered By: Wicho Baker on 10-27-2024 Neutrophils (Bld) [#/Vol] 6.6 10*3/uL 2.0-7.7 [facility] Anion gap in Serum or Plasma Ordered By: Wicho Baker on 10-27-2024 Anion gap [Moles/Vol] 16 mmol/L High 5-15 [facility] Automated lymphocyte count a s percentage of total leukocytesOrdered By: Wicho Baker on 10-27-2024 Lymphocytes/100 WBC Auto (Unsp spec) 26.9 % [facility] BUN/creatinine ratioOrdered By: Wicho Baker on 10-27-2024 Urea nitrogen/Creatinine [Mass ratio] 16.6 mg/mg 03-07 [facility] Basic Metabolic Profile (BMP )on 10-27-2024 BUN/CRE 16.6 RATIO Normal 03-07 [facility] Comment on above: Performed By: #### L 501.4021, L500.2500, L100.0100 ####[facility] [address] [place], [address] Calcium [Mass/Vol] 9.9 mg/dL Normal 7.6-11.0 [facility] Comment on above: Performed By: #### L 501.4021, L500.2500, L100.0100 ####[facility] [address] [place], [address] Chloride [Moles/Vol] 101 mmol/L Normal 98-108 [facility] Comment on above: Performed By: #### L 501.4021, L500.2500, L100.0100 ####[facility] [address] [place], [address] CO2 [Moles/Vol] 20.1 mmol/L Low 21.0-32.0 [facility] Comment on above: Performed By: #### L 501.4021, L500.2500, L100.0100 ####[facility] [address] [place], [address] Creatinine [Mass/Vol] 1.08 mg/dL Normal 0.70-1.20 [facility] Comment on above: Performed By: #### L 501.4021, L500.2500, L100.0100 ####[facility] [address] [place], [address] GAP 16 High -15 [facility] Comment on above: Performed By: #### L 501.4021, L500.2500, L100.0100 ####[facility] [address] [place], [address] GFR/1.73 sq M.predicted among non-blacks MDRD (S/P/Bld) [Vol rate/Area] 86 mL/min/{1.73_m2} Normal >60 [facility] Comment on above: Result Comment: mL/m in/1.73m2 CKD-EPI Creatinine Equation (2020) Performed By: #### L 501.4021, L500.2500, L100.0100 ####[facility] [address] [place], [address] Glucose [Mass/Vol] 105 mg/dL High 70-99 [facility] Comment on above: Performed By: #### L 501.4021, L500.2500, L100.0100 ####[facility] [address] [place], [address] Potassium [Moles/Vol] 4.2 mmol/L Normal 3.3-5.1 [facility] Comment on above: Performed By: #### L 501.4021, L500.2500, L100.0100 ####[facility] [address] [place], [address] Sodium [Moles/Vol] 137 mmol/L Normal 133-145 [facility] Comment on above: Performed By: #### L 501.4021, L500.2500, L100.0100 ####[facility] [address] [place], [address] Urea nitrogen [Mass/Vol] 18 mg/dL Normal 4-19 [facility] Comment on above: Performed By: #### L 501.4021, L500.2500, L100.0100 ####[facility] [address] [place], [place], [address] Basophil percentageOrdered B y: Wicho Baker on 10-27-2024 Basophils/100 WBC (Bld) 0.9 % 0-1 [facility] Brain/Head without Contrasto n 10-27-2024 Brain/Head without Contrast [facility] Imaging Services [address] [place], [place] [address] Brain/Head without Contrast MR#: [id number] Acct: [id number] Name: JOSE ELIAS OLIVER Rep #: [id number] : 1980 M 44 From: Salomon bhatt MD PCP: Zakiya Dupont [facility], SNUBBER-C Status: REG ER Study: Brain/Head without Contrast Date of Exam: 10/17 06/12 Exam# [id number] Ordering Dr: Wicho Baker MD PROCEDURE: BRAIN/HEAD WITHOUT CONTRAST 10/27/2024 REASON FOR EXAM: HEADACHE WITH HYPERTENSION TECHNIQUE: Head CT without intravenous contrast. Coronal and Sagittal reconstruction series were provided. One or more dose reduction techniques were used (e.g., Automated exposure control, adjustment of the mA and/or kV according to patient size, use of iterative reconstruction technique. RADIATION DOSE SUMMARY: CTDlvol: 47.06 mGy DLP: 872.68 mGycm COMPARISON: Prior study dated February 26, 2022 FINDINGS: Brain: Normal CSF Spaces: Normal Sinuses/Mastoids: Clear at visualized levels Bones: Unremarkable CT/Brain/Head without Contrast IMPRESSION: Unremarkable examination. Reading Location: [facility] CC: [facility] SNUBBER-C Zakiya Dupont; Dr. Wicho Baker MD Crusher Loader Operator: Signed Normal [facility] CBC W/Diff, Automatedon 10-17 Absolute Lymph 2.72 X10 3/uL Normal 0.83-4.51 [facility] Comment on above: Performed By: #### L 501.4021, L500.2500, L100.0100 ####[facility] [address] [place], [place], [id number] Absolute Neut 6.6 X10 3/uL Normal 2.0-7.7 [facility] Comment on above: Performed By: #### L 501.4021, L500.2500, L100.0100 ####[facility] [address] [place], [address] Basophils/100 WBC (Bld) 0.9 % Normal 0-1 [facility] Comment on above: Performed By: #### L 501.4021, L500.2500, L100.0100 ####[facility] [address] [place], [address] Eosinophils/100 WBC (Bld) 1.0 % Normal 0-5 [facility] Comment on above: Performed By: #### L 501.4021, L500.2500, L100.0100 ####[facility] [address] [place], [address] Erythrocyte distribution width (RBC) [Ratio] 12.7 % Normal 11.6-14.6 [facility] Comment on above: Performed By: #### L 501.4021, L500.2500, L100.0100 ####[facility] [address] [place], [address] Hematocrit (Bld) [Volume fraction] 40.6 % Normal 40-54 [facility] Comment on above: Performed By: #### L 501.4021, L500.2500, L100.0100 ####[facility] [address] [place], [address] Hemoglobin (Bld) [Mass/Vol] 14.1 g/dL Normal 13.0-16.5 [facility] Comment on above: Performed By: #### L 501.4021, L500.2500, L100.0100 ####[facility] [address] [place], [address] IG% 0.700 Normal 0.0-0.9 [facility] Comment on above: Result Comment: IG% - Immature Granulocytes (promyelocytes, myelocytes and metamyelocytes) > 1% indicates that a LEFT SHIFT is Present. Performed By: #### L 501.4021, L500.2500, L100.0100 ####[facility] [address] [place], [address] Lymphocytes/100 WBC (Bld) 26.9 % Normal 19-41 [facility] Comment on above: Performed By: #### L 501.4021, L500.2500, L100.0100 ####[facility] [address] [place], [address] MCH (RBC) [Entitic mass] 31.3 pg Normal 27.0-32.0 [facility] Comment on above: Performed By: #### L 501.4021, L500.2500, L100.0100 ####[facility] [address] [place], [address] MCHC (RBC) [Mass/Vol] 34.7 g/dL Normal 32-36 [facility] Comment on above: Performed By: #### L 501.4021, L500.2500, L100.0100 ####[facility] [address] [place], [address] MCV (RBC) [Entitic vol] 90.2 fL Normal 80-94 [facility] Comment on above: Performed By: #### L 501.4021, L500.2500, L100.0100 ####[facility] [address] [place], [address] Monocytes/100 WBC (Bld) 5.5 % Normal 0-10 [facility] Comment on above: Performed By: #### L 501.4021, L500.2500, L100.0100 ####[facility] [address] [place], [address] Neutrophils/100 WBC (Bld) 65.0 % Normal 47-70 [facility] Comment on above: Performed By: #### L 501.4021, L500.2500, L100.0100 ####[facility] [address] [place], [address] Nucleated RBC (Bld) [#/Vol] 0 10*3/uL Normal 0-5 [facility] Comment on above: Performed By: #### L 501.4021, L500.2500, L100.0100 ####[facility] [address] [place], [address] Platelet mean volume (Bld) [Entitic vol] 9.7 fL Normal 6.2-12.0 [facility] Comment on above: Performed By: #### L 501.4021, L500.2500, L100.0100 ####[facility] [address] [place], [address] Platelets (Bld) [#/Vol] 352 10*3/uL Normal 150-450 [facility] Comment on above: Performed By: #### L 501.4021, L500.2500, L100.0100 ####[facility] [address] [place], [address] RBC (Bld) [#/Vol] 4.50 10*6/uL Low 4.6-6.2 [facility] Comment on above: Performed By: #### L 501.4021, L500.2500, L100.0100 ####[facility] [address] [place], [address] RDW SD 41.8 fl Normal 35.1-43.9 [facility] Comment on above: Performed By: #### L 501.4021, L500.2500, L100.0100 ####[facility] [address] [place], [address] WBC (Bld) [#/Vol] 10.1 10*3/uL Normal 4.4-11.0 [facility] Comment on above: Performed By: #### L 501.4021, L500.2500, L100.0100 ####[facility] [address] [place], [address] Carbon dioxide, total [Moles /volume] in Central venous bloodOrdered By: Wicho Baker on 10-27-2024 CO2 [Moles/Vol] 20.1 mmol/L Low 21.0-32.0 [facility] Chest PA and Lateralon 10-27 Chest PA and Lateral [facility] Imaging Services [address] [place] [address] Chest PA and Lateral MR#: [id number] Acct: [id number] Name: JOSE ELIAS OLIVER Rep #: [id number] : 1980 M 44 From: Hazel Perez PCP: Zakiya Dupont Jeffrey, SNUBBER-C Status: REG ER Study: Chest PA and Lateral Date of Exam: 10/27/24 Exam# [id number] Ordering Dr: Wicho Baker MD PROCEDURE: CHEST PA AND LATERAL 10/27/2024 REASON FOR EXAM: CHEST PAIN TECHNIQUE: Frontal and lateral views of the chest. COMPARISON: Chest x-ray of 07/17/2022 RAD/Chest PA and Lateral IMPRESSION: Lungs appear clear of acute disease. No pleural effusion or pneumothorax is noted. The cardiomediastinal silhouette is within the normal range, and unchanged. No acute osseous changes evident. Negative examination. Reading Location: [address] CC: [facility] SNUBBER-C Zakiya Dupont; Dr. Wicho Baker MD Crusher Loader Operator: Signed Normal [facility] Chloride assayOrdered By: Jack Baker on 10-27-2024 Chloride [Moles/Vol] 101 mmol/L 98-108 [facility] Emergency Department Summary on 10-27-2024 Emergency Department Summary [facility] Medical Records Department [address] [place] [address] Emergency Department Summary 10/27/24 MR#: [id number] Acct: [id number] Name: JOSE ELIAS OLIVER Rep #: [id number] : 1980 44 From: Wicho Baker MD PCP: KENDALL Bernardo, SNUBBER-C Status:DEP ER Location: ED HPI History of Present Illness Chief Complaint: Hypertension Detail of Chief Complaint: Hypertension with chest pain. Informant: patient Onset/Context/Timing Onset: Days Context: Gradual Onset Current Severity: Mild Maximum Severity: Mild Narrative Narrative: 44-year-old male history of anxiety, hypertension and reflux. Said he is not on blood pressure medication. Currently he and his are . States his blood pressure has been as high as 192/123. He had a headache and chest pain with this and has had that for the last 4 days. He denies any exertional chest pain. No history of DVT or PE. No leg pain or swelling. He is on no medications currently. He was supposed to be on blood pressure medication but is noncompliant with and said he has not really taken it for months. Prior similar symptoms: Yes Recent Illness/Hospitalization: No PFSH PFSH Medical History Right shoulder pain Depression Anxiety Substance abuse Marijuana use Alcohol use Arthritis Fatty liver Migraine headache Syncope History of hiatal hernia History of IBS Gastric reflux Smoker Shortness of breath on exertion Leg cramps History of pain when walking History of edema History of stress test Cardiology follow-up encounter Hypertension History of irregular heartbeat Superior labrum khcnbdsc-qb-poczlfuzx (SLAP) tear of right shoulder Helicobacter pylori (H. pylori) GERD (gastroesophageal reflux disease) Home Medications ???Medication ???Instructions ???Recorded ???Last Taken ???Type omeprazole 40 mg capsule,delayed 40 mg PO BID GERD 08/30/21 2 Days Ago History release 02/24/22 Allergy/AdvReac Type Severity Reaction Status Date / Time No Known Allergies Allergy Verified 10/27/24 11:20 Family History Other Cancer Heart disease Surgical History Hx of colonoscopy History of esophagogastroduodenoscopy (EGD) History of adenoidectomy Social History household members: none housing: homeless Smoking Status: Current every day smoker tobacco type: cigarettes alcohol intake: current alcohol intake frequency: holidays/special occasions only Alcohol type: beer ROS ROS ED ROS Narrative Headache. Chest pain. Constitutional Constitutional ED: Denies chills Eyes Eyes: Denies blurry vision ENT ENT ED: Denies ear pain Cardiovascular Cardiovascular: Reports chest pain; Denies palpitations or racing heartbeat Respiratory/Chest Respiratory/Chest: Denies cough or dyspnea Gastrointestinal Gastrointestinal: Denies abdominal pain or diarrhea Genitourinary Genitourinary ED: Denies dysuria or hematuria Musculoskeletal Musculoskeletal: Denies arthralgias Integumentary Denies abscess Neurologic Neurologic: Reports headache(s) Psychiatric Psychiatric: Reports anxiety Endocrine Endocrinology: Denies cold intolerance Hematologic/Lymphatic Hematologic/Lymphatic: Reports none Allergic/Immunologic Allergic/Immunologic ED: Denies mouth swelling or tongue swelling EXAM Physical Exam Narrative Exam Narrative: 44-year-old male sitting upright in bed. Initial blood pressure 153/132 currently 159/103. Afebrile. Pulse ox 100% on room air no hypoxia. H EENT exam pupils round reactive light. No facial droop. No trauma. Normal speech. Neck nontender no JVD. Lungs clear to auscultation bilaterally. Heart tachycardic 115 no murmur. Chest wall and ribs are nontender. Abdomen is soft nontender. No peritoneal signs. Back nontender. Moving all 4 extremities. 5/5 drapery head former strength. Dorsi plantarflexion intact. Normal range of motion. Nontender no edema. Calves are nontender. Neurologically is awake and alert. Answering questions following commands. NIH is 0. Const Vital Signs: 10/27/24 11:18 10/27/24 11:31 10/27/24 11:32 Temperature 98.3 F Temperature Source Temporal Pulse Rate 134 H 119 H Respiratory Rate 22 H 29 H Respiratory Effort Short of Breath Respiratory Pattern Tachypnea Blood Pressure 153/132 H 159/103 H Blood Pressure Mean 139 121 Pulse Ox 100 100 Oxygen Delivery Method Room Air 10/27/24 11:57 10/27/24 12:17 10/27/24 13:00 Temperature Temperature Source Pulse Rate 109 H 108 H Respiratory Rate 24 H 22 H Respiratory Effort Respiratory Pattern Blood Pressure (more content not included)... Normal [facility] Eosinophil percentageOrdered By: Wicho Baker on 10-27-2024 Eosinophils/100 WBC (Bld) 1.0 % 0-5 [facility] Erythrocyte distribution wid th ratioOrdered By: Wicho Baker on 10-27-2024 Erythrocyte distribution width (RBC) [Ratio] 12.7 % 11.6-14.6 [facility] Erythrocyte distribution wid th standard deviationOrdered By: Wicho Baker on 10-27-2024 Erythrocyte distribution width (RBC) [Ratio] 41.8 fl 35.1-43.9 [facility] Glomerular filtration rate ( GFR) estimation/1.73 sq m using serum, plasma, or whole bOrdered By: Wicho Baker on 10-27-2024 GFR/1.73 sq M.predicted among non-blacks MDRD (S/P/Bld) [Vol rate/Area] 86 mL/min/{1.73_m2} >60 [facility] Comment on above: mL/min/1.73m2 CKD-EP I Creatinine Equation (2020) Hematocrit Auto (Bld) [Volum e fraction]Ordered By: Wicho Baker on 10-27-2024 Hematocrit (Bld) [Volume fraction] 40.6 % 40-54 [facility] Hemoglobin measurementOrdere d By: Wicho Baker on 10-27-2024 Hemoglobin (Bld) [Mass/Vol] 14.1 g/dL 13.0-16.5 [facility] Immature granulocytes/100 WB C Auto (Bld)Ordered By: Wicho Baker on 10-27-2024 Immature granulocytes/100 WBC (Bld) 0.700 % 0.0-0.9 [facility] Comment on above: IG% - Immature Granu locytes (promyelocytes, myelocytes and metamyelocytes) > 1% indicates that a LEFT SHIFT is Present. L499.0042on 10-27-2024 Trop T High Sen Normal <=22 [facility] Comment on above: Result Comment: CONSTANZA ENT DISCHARGED Performed By: #### L 499.0042 #### [facility] [address] [place], [address] L499.0043on 10-27-2024 Trop T High Sen Normal <=22 [facility] Comment on above: Result Comment: Canc elled via OM: Order cancelled - Patient discharged Performed By: #### L 499.0043 ####[facility] [address] [place], [address] L501.4021on 10-27-2024 Trop T High Sen 12 ng/L Normal <=22 [facility] Comment on above: Performed By: #### L 501.4021, L500.2500, L100.0100 ####[facility] [address] [place], [address] MCV (mean corpuscular volume ) determinationOrdered By: Wicho Baker on 10-27-2024 MCV (RBC) [Entitic vol] 90.2 fL 80-94 [facility] Mean corpuscular hemoglobin (MCH) determinationOrdered By: Wicho Baker on 10-27-2024 MCH (RBC) [Entitic mass] 31.3 pg 27.0-32.0 [facility] Mean corpuscular hemoglobin concentration (MCHC) determinationOrdered By: Wicho Baker on 10-27-2024 MCHC (RBC) [Mass/Vol] 34.7 g/dL 32-36 [facility] Mean platelet volume determi nationOrdered By: Wicho Baker on 10-27-2024 Platelet mean volume (Bld) [Entitic vol] 9.7 fL 6.2-12.0 [facility] Monocyte percentageOrdered B y: Wicho Baker on 10-27-2024 Monocytes/100 WBC (Bld) 5.5 % 0-10 [facility] Neutrophil percentageOrdered By: Wicho Baker on 10-27-2024 Neutrophils/100 WBC (Bld) 65.0 % 47-70 [facility] Nucleated red blood cell per centageOrdered By: Wicho Baker on 10-27-2024 Nucleated RBC/100 WBC (Bld) [Ratio] 0 % 0-5 [facility] Platelet countOrdered By: Jack Baker on 10-27-2024 Platelets (Bld) [#/Vol] 352 10*3/uL 150-450 [facility] Potassium measurement (mass/ volume)Ordered By: Wicho Baker on 10-27-2024 Potassium (Unsp spec) [Mass/Vol] 4.2 mmol/L 3.3-5.1 [facility] RBC Auto (Bld) [#/Vol]Ordere d By: Wicho Baker on 10-27-2024 RBC (Bld) [#/Vol] 4.50 10*6/uL Low 4.6-6.2 [facility] Serum creatinine measurement (mass/volume)Ordered By: Wicho Baker on 10-27-2024 Creatinine [Mass/Vol] 1.08 mg/dL 0.70-1.20 [facility] Serum glucose measurement (m ass/volume)Ordered By: Wicho Baker on 10-27-2024 Glucose [Mass/Vol] 105 mg/dL High 70-99 [facility] Serum or plasma calcium navarro urement (mass/volume)Ordered By: Wicho Baker on 10-27-2024 Calcium [Mass/Vol] 9.9 mg/dL 7.6-11.0 [facility] Serum or plasma urea nitroge n measurement (mass/volume)Ordered By: Wicho Baker on 10-27-2024 Urea nitrogen [Mass/Vol] 18 mg/dL 4-19 [facility] Sodium levelOrdered By: Wicho Baker on 10-27-2024 Sodium [Moles/Vol] 137 mmol/L 133-145 [facility] Troponin T.cardiac [Mass/vol ume] in Serum or Plasma by High sensitivity methodOrdered By: Wicho Baker on 10-27-2024 Troponin T.cardiac High sensitivity method [Mass/Vol] 12 ng/L <22 [facility] White blood cell (WBC) count Ordered By: Wicho Baker on 10-27-2024 WBC (Bld) [#/Vol] 10.1 10*3/uL 4.4-11.0 [facility] HIP, UNI W/ Pelvis 2-3 Views on 07-01-2024 HIP, UNI W/ Pelvis 2-3 Views [facility] Imaging Services [address] [place], [place] [id number] HIP, UNI W/ Pelvis 2-3 Views MR#: [id number] Acct: [id number] Name: BENITOJOSE ELIAS LOCO Rep #: [id number] : 1980 M 43 From: Hazel Perez PCP: KENDALL Bernardo, SNUBBER-C Status: REG CLI Study: HIP, UNI W/ Pelvis 2-3 Views Date of Exam: Exam# [id number] Ordering Dr: Too Godoy SNUBBER- Jeffrey PROCEDURE: HIP, UNI W/ PELVIS 2-3 VIEWS REASON FOR EXAM: Pain. TECHNIQUE: Three-view right hip to include the AP pelvis COMPARISON: None. RAD/HIP, UNI W/ Pelvis 2-3 Views IMPRESSION: No significant joint space narrowing is seen. No evidence of femoral head osteonecrosis. No fracture, dislocation, or other significant osseous change is seen. If clinical concern persists, short-term follow-up imaging may be obtained to rule out a currently occult fracture. Reading Location: [address] CC: [facility] SNUBBER-C Zakiya Dupont; Too ARGUETA SNUBBER-C Walt Crusher Loader Operator: Signed Normal [facility] Shoulder min 2 Viewson 07-01 Shoulder min 2 Views [facility] Imaging Services [address] [place] [id number] Shoulder min 2 Views MR#: [id number] Acct: [id number] Name: JOSE ELIAS OLIVER Rep #: [id number] : 1980 M 43 From: Hazel Perez PCP: KENDALL Bernardo, SNUBBER-C Status: REG CLI Study: Shoulder min 2 Views Date of Exam: 07/01/24 Exam# [id number] Ordering Dr: Too Godoy SNUBBER- C PROCEDURE: SHOULDER MIN 2 VIEWS REASON FOR EXAM: Pain. TECHNIQUE: Four view right shoulder COMPARISON: None available. RAD/Shoulder min 2 Views IMPRESSION: Mild right acromioclavicular joint degenerative changes are seen, with partial associated joint narrowing. The right glenohumeral joint demonstrates mild degenerative changes, without apparent joint narrowing. No acute fracture or dislocation is seen. Reading Location: [address] CC: [facility] SNUBBER-C Zakiya Dupont; Too [facility] SNUBBER-C Walt Crusher Loader Operator: Signed [facility] Office Visit (UCTR ) JOSE ELIAS OLIVER ([id number]) 1980 M Date Time Provider Department 06/13/24 12:30 PM NEAL BRADSHAW [facility] During your visit today, we recorded the following information about you: Temperature Pulse Respiration Blood pressure 97.3 degrees 97/minute 16/minute 144/82 Weight 87.6 kg Neal Bradshaw APRN.EMERGENCY DEPARTMENT 06/13/2024 12:41 PM Signed This note was created using [employer]. Subjective Jose Elias Oliver is a 43 year old male. Presents for broken tooth to left lower gum. Reports area is swollen and painful. Has been taking ibuprofen and tylenol as needed for pain. Objective BP 144/82 Pulse 97 Temp 36.3 ?C (97.3 ?F) (Tympanic) Resp 16 Wt 87.6 kg (193 lb 2 oz) SpO2 100% BMI 25.48 kg/m? Physical Exam PHYSICAL EXAMINATION: General appearance: Well appearing, alert, in no acute distress, well-hydrated, well nourished. Oropharynx: Positive findings: tooth number 19 is cracked and dark at gumline. Lower left gum swollen and red. Neck: Supple, no adenopathy; thyroid symmetric, normal size, no bruits Assessment and Plan ASSESSMENT/PLAN: 1. Dental abscess - ICD9: 522.5, ICD10: K04.7 - AMOXICILLIN 875 MG TABLET Neal Bradshaw APRN.EMERGENCY DEPARTMENT Allergies As of Date: 06/13/2024 (No Known Allergies) Date Reviewed: 06/13/2024 Reviewed by: Nilam Mason LPN - Fully Assessed Reason for Visit: Dental Problem [31] Cmt: Broken tooth with swelling and pain x 2 days Primary Visit Diagnosis:Dental abscess [K04.7] Order(s):amoxicillin (AMOXIL) 875 mg tabletTake 1 tablet by mouth two times a day for 5 days.Disp: 10 tabletRfl: 0 Prescriptions as of 06/13/2024 - amoxicillin (AMOXIL) 875 mg tablet Take 1 tablet by mouth two times a day for 5 days. - OLANZapine (ZYPREXA) 5 mg tablet Take 5 mg by mouth every evening. - pantoprazole DR (PROTONIX) 40 mg tablet Take 1 tablet by mouth every 12 hours. - famotidine (PEPCID) 10 mg tablet Take 10 mg by mouth once daily. unsure of dose Problem List As Of Date: 06/13/2024 (None) Prescriptions ordered this encounter Disp Refills Start End AMOXICILLIN 875 MG TABLET 10 t* 0 06/13/2024 06/18/2024 Route: ORAL Sig: Take 1 tablet by mouth two times a day for 5 days. Disposition: Return if symptoms worsen or fail to improve. Follow-up and Disposition History for Encounter Date Provider Department Center 06/13/2024 [id number] BRADSHAW [facility] Encounter Status:Closed by NEAL BRADSHAW on 06/13/24 Normal [facility] 12 Lead EKGon 06-05-2024 12 Lead EKG [facility] Cardiovascular Services [address] [place] [address] 12 Lead EKG 06/05/24 1601 MR#: [id number] Acct: [id number] Name: JOSE ELIAS OLIVER Rep #: [id number] : 1980 43 From: Ema Xie MD Attending Dr: Status: DEP ER Ordering Dr: Noah Zamora DO Date: 5 Location: ED Sex: M C Admitted: Test Reason : CP Blood Pressure : */* mmHG Vent. Rate : 99 BPM Atrial Rate : 99 BPM P-R Int : 146 ms QRS Dur : 84 ms QT Int : 336 ms P-R-T Axes : 66 44 62 degrees QTcB Int : 431 ms Normal sinus rhythm Minimal voltage criteria for LVH, may be normal variant ( Sokolow-Abdul ) Borderline ECG Confirmed by JORDIN TANG, VIKI ([id number]), editorial clerk NICOLA JAMISON ([id number]) on 06/07/2024 10:50:21 AM Referred By: SAMUEL WOLF Confirmed By: VIKI XIE MD 06/07/24 1050 Date Ema Xie MD CC: Dr. Noah Wolf-DO Feliberto; No Primary Care Physician Signed Normal [facility] CBC W/Diff, Automatedon 05-19 Absolute Neut Normal 2.0-7.7 [facility] Comment on above: Result Comment: PT D ISCHARGED Performed By: #### L 500.4050, L100.0100 #### [facility] [address] [place], [address] HCT Normal 40-54 [facility] Comment on above: Result Comment: PT D ISCHARGED Performed By: #### L 500.4050, L100.0100 #### [facility] [address] [place], [address] HGB Normal 13.0-16.5 [facility] Comment on above: Result Comment: PT D ISCHARGED Performed By: #### L 500.4050, L100.0100 #### [facility] [address] [place], [address] MCH Normal 27.0-32.0 [facility] Comment on above: Result Comment: PT D ISCHARGED Performed By: #### L 500.4050, L100.0100 #### [facility] [address] [place], [address] MCHC Normal 32-36 [facility] Comment on above: Result Comment: PT D ISCHARGED Performed By: #### L 500.4050, L100.0100 #### [facility] [address] [place], [address] MCV Normal 80-94 [facility] Comment on above: Result Comment: PT D ISCHARGED Performed By: #### L 500.4050, L100.0100 #### [facility] [address] [place], [address] NEUT% Normal 47-70 [facility] Comment on above: Result Comment: PT D ISCHARGED Performed By: #### L 500.4050, L100.0100 #### [facility] [address] [place], [address] PLT Normal 150-450 [facility] Comment on above: Result Comment: PT D ISCHARGED Performed By: #### L 500.4050, L100.0100 #### [facility] [address] [place], [address] RBC Normal 4.6-6.2 [facility] Comment on above: Result Comment: PT D ISCHARGED Performed By: #### L 500.4050, L100.0100 #### [facility] [address] [place], [address] RDW CV Normal 11.6-14.6 [facility] Comment on above: Result Comment: PT D ISCHARGED Performed By: #### L 500.4050, L100.0100 #### [facility] [address] [place], [address] RDW SD Normal 35.1-43.9 [facility] Comment on above: Result Comment: PT D ISCHARGED Performed By: #### L 500.4050, L100.0100 #### [facility] [address] [place], [address] WBC Normal 4.4-11.0 [facility] Comment on above: Result Comment: PT D ISCHARGED Performed By: #### L 500.4050, L100.0100 #### [facility] [address] [place], [address] Comprehensive Metabolic Prof ilon 06-05-2024 ALB Normal 3.2-5.0 [facility] Comment on above: Order Comment: 'TROP ' Serial specimen #1, #2 or #3: 1 Result Comment: CONSTANZA ENT DISCHARGED Performed By: #### L 500.4050, L100.0100 #### [facility] [address] [place], [address] ALK P Normal 45-117 [facility] Comment on above: Order Comment: 'TROP ' Serial specimen #1, #2 or #3: 1 Result Comment: CONSTANZA ENT DISCHARGED Performed By: #### L 500.4050, L100.0100 #### [facility] [address] [place], [address] ALT Normal 16-61 [facility] Comment on above: Order Comment: 'TROP ' Serial specimen #1, #2 or #3: 1 Result Comment: CONSTANZA ENT DISCHARGED Performed By: #### L 500.4050, L100.0100 #### [facility] [address] [place], [address] AST Normal 15-37 [facility] Comment on above: Order Comment: 'TROP ' Serial specimen #1, #2 or #3: 1 Result Comment: CONSTANZA ENT DISCHARGED Performed By: #### L 500.4050, L100.0100 #### [facility] [address] [place], [address] BUN Normal 7-18 [facility] Comment on above: Order Comment: 'TROP ' Serial specimen #1, #2 or #3: 1 Result Comment: CONSTANZA ENT DISCHARGED Performed By: #### L 500.4050, L100.0100 #### [facility] [address] [place], [address] BUN/CRE Normal 10-20 [facility] Comment on above: Order Comment: 'TROP ' Serial specimen #1, #2 or #3: 1 Result Comment: CONSTANZA ENT DISCHARGED Performed By: #### L 500.4050, L100.0100 #### [facility] [address] [place], [address] CA,Total Normal 8.5-10.1 [facility] Comment on above: Order Comment: 'TROP ' Serial specimen #1, #2 or #3: 1 Result Comment: CONSTANZA ENT DISCHARGED Performed By: #### L 500.4050, L100.0100 #### [facility] [address] [place], [address] CL Normal 98-107 [facility] Comment on above: Order Comment: 'TROP ' Serial specimen #1, #2 or #3: 1 Result Comment: CONSTANZA ENT DISCHARGED Performed By: #### L 500.4050, L100.0100 #### [facility] [address] [place], [address] CO2 Normal 21.0-32.0 [facility] Comment on above: Order Comment: 'TROP ' Serial specimen #1, #2 or #3: 1 Result Comment: CONSTANZA ENT DISCHARGED Performed By: #### L 500.4050, L100.0100 #### [facility] [address] [place], [address] CREAT,SERUM Normal 0.70-1.30 [facility] Comment on above: Order Comment: 'TROP ' Serial specimen #1, #2 or #3: 1 Result Comment: CONSTANZA ENT DISCHARGED Performed By: #### L 500.4050, L100.0100 #### [facility] [address] [place], [address] EST GFR Normal >60 [facility] Comment on above: Order Comment: 'TROP ' Serial specimen #1, #2 or #3: 1 Result Comment: CONSTANZA ENT DISCHARGED Performed By: #### L 500.4050, L100.0100 #### [facility] [address] [place], [address] EST GFR - AA Normal >60 [facility] Comment on above: Order Comment: 'TROP ' Serial specimen #1, #2 or #3: 1 Result Comment: CONSTANZA ENT DISCHARGED Performed By: #### L 500.4050, L100.0100 #### [facility] [address] [place], [address] GAP Normal 5-15 [facility] Comment on above: Order Comment: 'TROP ' Serial specimen #1, #2 or #3: 1 Result Comment: CONSTANZA ENT DISCHARGED Performed By: #### L 500.4050, L100.0100 #### [facility] [address] [place], [address] GLU Normal 74-106 [facility] Comment on above: Order Comment: 'TROP ' Serial specimen #1, #2 or #3: 1 Result Comment: CONSTANZA ENT DISCHARGED Performed By: #### L 500.4050, L100.0100 #### [facility] [address] [place], [address] Potassium Normal 3.5-5.1 [facility] Comment on above: Order Comment: 'TROP ' Serial specimen #1, #2 or #3: 1 Result Comment: CONSTANZA ENT DISCHARGED Performed By: #### L 500.4050, L100.0100 #### [facility] [address] [place], [address] T BILI Normal 0.20-1.00 [facility] Comment on above: Order Comment: 'TROP ' Serial specimen #1, #2 or #3: 1 Result Comment: CONSTANZA ENT DISCHARGED Performed By: #### L 500.4050, L100.0100 #### [facility] [address] [place], [address] T PROT Normal 6.4-8.2 [facility] Comment on above: Order Comment: 'TROP ' Serial specimen #1, #2 or #3: 1 Result Comment: CONSTANZA ENT DISCHARGED Performed By: #### L 500.4050, L100.0100 #### [facility] [address] [place], [address] Comprehensive Metabolic Profil Normal 136-145 [facility] Comment on above: Order Comment: 'TROP ' Serial specimen #1, #2 or #3: 1 Result Comment: CONSTANZA ENT DISCHARGED Performed By: #### L 500.4050, L100.0100 #### [facility] [address] [place], [address] Emergency Department Summary on 06-05-2024 Emergency Department Summary [facility] Medical Records Department [address] [place] [address] Emergency Department Summary 06/05/24 MR#: [id number] Acct: [id number] Name: JOSE ELIAS OLIVER Rep #: [id number] : 1980 43 From: Noah Zamora DO PCP: Care Physician,No Primary Status:DEP ER Location: ED HPI History of Present Illness Chief Complaint: Chest Pain Narrative Narrative: Chief complaint and HPI: Resolved epigastric abdominal pain and flulike symptoms. 43-year-old male with past medical history of GERD and marijuana abuse presents for evaluation of resolved epigastric abdominal pain and flulike symptoms. Patient states yesterday he developed epigastric abdominal pain. He states it was different from his GERD. States that it resolved by the evening. Patient states today he has had a headache, body aches, cough. He denies any fever, chest pain, shortness of breath, nausea, vomiting, constipation, diarrhea, dysuria. Patient states that he did have diarrhea 1 week ago. Review of systems: See HPI Medications: As listed on the chart Allergies: As listed on the chart PFSH: Per chart Vital signs: As listed on the chart. Reviewed. Physical exam: Gen: A O x3, NAD Head: Normocephalic, atraumatic Eyes: No sclera icterus, conjunctiva clear ENT: Moist mucous membranes Neck: Trachea midline, No JVD CV: RRR, no murmurs, no peripheral edema Resp: Lungs CTA BL, no w/r/c GI: Abd soft, non-distended, non-tender, no r/r/g Musc: Full ROM, no deformity Skin: Warm, dry Neuro: Alert, oriented, grossly intact, sensation intact Psych: Cooperative, appropriate mood and affect PFSH PFSH Medical History Right shoulder pain Depression Anxiety Substance abuse Marijuana use Alcohol use Arthritis Fatty liver Migraine headache Syncope History of hiatal hernia History of IBS Gastric reflux Smoker Shortness of breath on exertion Leg cramps History of pain when walking History of edema History of stress test Cardiology follow-up encounter Hypertension History of irregular heartbeat Superior labrum tqvdgjez-qm-nchdaeewm (SLAP) tear of right shoulder Helicobacter pylori (H. pylori) GERD (gastroesophageal reflux disease) Home Medications ???Medication ???Instructions ???Recorded ???Last Taken ???Type omeprazole 40 mg capsule,delayed 40 mg PO BID GERD 08/30/21 2 Days Ago History release 02/24/22 acetaminophen 500 mg tablet 500 mg PO Q6H PRN pain 06/04/22 Unknown History pantoprazole 40 mg tablet,delayed 40 mg PO BID 09/22/23 Unknown History release prednisone 20 mg tablet 40 mg (2 x 20 mg) PO DAILY 10 days 01/01/24 Unknown Rx #20 tabs Allergy/AdvReac Type Severity Reaction Status Date / Time No Known Allergies Allergy Verified 06/05/24 15:54 Family History Other Cancer Heart disease Surgical History Hx of colonoscopy History of esophagogastroduodenoscopy (EGD) History of adenoidectomy Social History household members: none Smoking Status: Current every day smoker tobacco type: cigarettes alcohol intake: current alcohol intake frequency: holidays/special occasions only Alcohol type: beer EXAM Physical Exam Const Vital Signs: 06/05/24 15:54 06/05/24 16:02 Temperature 97.5 F L Temperature Source Temporal Pulse Rate 100 Respiratory Rate 18 Respiratory Effort Normal Non-Labored Blood Pressure 147/95 H Blood Pressure Mean 112 Pulse Ox 100 Oxygen Delivery Method Room Air MDM MDM MDM Narrative Medical decision making narrative: 43-year-old male with past medical history of GERD and marijuana abuse presents for evaluation of resolved epigastric abdominal pain and flulike symptoms. Differential diagnosis includes but is not limited to viral illness, influenza, COVID-19 infection, GERD, cholecystitis, cholelithiasis, pancreatitis, PUD. Suspect less likely ACS or pneumonia. Toradol ordered for body aches. Laboratory workup and chest x-ray ordered. EKG reviewed see below. Shortly after all orders were placed, patient states that he does not want any laboratory workup or chest x-ray. I did explain to him that without the laboratory workup and chest x-ray I cannot workup the patient's resolved epigastric abdominal pain. I let him know that he could have cholecystitis, pancreatitis, PUD, cholelithiasis, ACS. I personally explained to them that choosing not to have a workup may result in permanent bodily harm or . I discussed at length that without further evaluation and monitoring there may be unforeseen circumstances and deterioration causing permanent bodil (more content not included)... Normal [place] [id number] 06-05-2024 00.[facility] Pending SARS-CoV-2 (COVID 19) A Positive A INFLUENZA A Negative INFLUENZA B Negative RSV PCR Negative SARS-CoV-2 (COVID 19) Normal [facility] Comment on above: Performed By: #### L 400.2026, ####[facility]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 right wrist pops with flexion Aggravating: grasping and touching, Relieving: Pain relievers: Motrin Associated: hands feel swollen and weak, peeling skin Pertinent negatives: Denies fever, MEDICATIONS: OLANZapine (ZYPREXA) 5 mg tablet Take 5 mg by mouth every evening. pantoprazole DR (PROTONIX) 40 mg tablet Take 1 tablet by mouth every 12 hours. famotidine (PEPCID) 10 mg tablet Take 10 mg by mouth once daily. unsure of dose (Patient not taking: Reported on 07/30/2021 ) ALLERGIES: ALLERGIES No Known Allergies VITALS: BP 154/108 Pulse 97 Temp 36 ?C (96.8 ?F) Resp 20 Wt 83.7 kg (184 lb 8.4 oz) SpO2 98% BMI 24.35 kg/m? PHYSICAL EXAM: GEN: alert, uncomfortable HEENT: PERRL, EOMI, sclera clear, MMM NECK: supple, no lymphadenopathy, no thyromegaly HEART: regular rate, regular rhythm, no murmurs LUNGS: clear to auscultation, no wheezes or crackles, no increased WOB HANDS: holding hands with fingers partially flexed. There is superficial peeling of the left index finger palmar side. Bilateral oil stains in creases. Many scars and abrasions of fingers. Diffuse suspected tenosynovitis without erythema or induration. Painful to make a fist. Bilateral tender 1st and 2nd digits. Discomfort of both palms. Crepitus in the right wrist with finger flexion. 2+/4 radial pulses. ASSESSMENT/PLAN: 1. Bilateral hand pain - ICD9: 729.5, ICD10: M79.641, M79.642 (primary diagnosis) - XR HAND GENERAL 3V PA/LAT/OBL BILATERAL - negative. 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 - PREDNISONE 10 MG TABLET taper Follow up with worsening symptoms. May need ortho or rheumatology evaluation. 2. Dermatitis contact - ICD9: 692.9, ICD10: L25.9 Irritant dermatitis. - CETAPHIL MOISTURIZING TOPICAL CREAM Mat Tavarez MD Allergies As of Date: 11/24/2023 (No Known Allergies) Date Reviewed: 11/24/2023 Reviewed by: Venessa Mcfarlane MA - Fully Assessed Reason for Visit: Edema [39] Cmt: Bilateral hand swelling, painful x 1 week Primary Visit Diagnosis:Bilateral hand pain [M79.641, M79.642] Other Visit Diagnosis:Dermatitis contact [L25.9] Order(s):XR HAND GENERAL 3V PA/LAT/OBL BILATERAL [[id number]] Order #: [id number] FUTURE predniSONE (DELTASONE) 10 mg tabletTake by mouth 6 pills on day 1, 5 pills on day 2, 4 pills on day 3, 3 pills on day 4, 2 pills on day 5, 1 pill on day 6Disp: 21 tabletRfl: 0 Rzwdzeqr-Zmhhkdcoppd-Sqrfo, Wh (CETAPHIL MOISTURIZING) creamApply to affected area as needed for up to 7 days.Disp: 85 gRfl: 0 Prescriptions as of 11/24/2023 - OLANZapine (ZYPREXA) 5 mg tablet Take 5 mg by mouth every evening. - predniSONE (DELTASONE) 10 mg tablet Take by mouth 6 pills on day 1, 5 pills on day 2, 4 pills on day 3, 3 pills on day 4, 2 pills on day 5, 1 pill on day 6 - Dbzuyuvz-Ruxiscjwwfo-Vpfcf, Wh (CETAPHIL MOISTURIZING) cream Apply to affected area as needed for up to 7 days. - pantoprazole DR (PROTONIX) 40 mg tablet Take 1 tablet by mouth every 12 hours. - famotidine (PEPCID) 10 mg tablet Take 10 mg by mouth once daily. unsure of dose Problem List As Of Date: 11/24/2023 (None) Prescriptions ordered this encounter Disp Refills Start End PREDNISONE 10 MG TABLET 21 t* 0 11/24/2023 11/30/2023 Sig: Take by mouth 6 pills on day 1, 5 pills on day 2, 4 pills on day 3, 3 pills on day 4, 2 pills on day 5, 1 pill on day 6 CETAPHIL MOISTURIZING TOPICAL CREAM 85 g 0 11/24/2023 12/01/2023 Route: TOPICAL Sig: Apply to affected area as needed for up to 7 days. Medications Discontinued During This Encounter Prescriptions - Bisacodyl (DULCOLAX) 5 mg tab (Discontinued) Reported on 07/30/2021 - bismuth subsalicylate (PEPTO-BISMOL) 262 mg chew (Discontinued) Take 1 tablet by mouth four times daily for 14 days. - buspirone HCl (BUSPAR ORAL) (Discontinued) Reported on 07/30/2021 - Gatorade Sports Drink (Discontinued) Reported on 07/30/2021 - omeprazole (PRILOSEC) 20 mg capsule (Discontinued) Reported on 01/05/2023 - polyethylene glycol 3350 (MIRALAX, GLYCOLAX) 17 gram/dose powder (Discontinued) Reported on 07/30/2021 - QUEtiapine (SEROQUEL) 50 mg tablet (Discontinued) Reported on 07/30/2021 Level of Service: OFFICE/OUTPATIENT E (more content not included)... Normal [facility] XR HAND 3V PA/LAT/OBL BILon 11-24-2023 XR HAND 3V PA/LAT/OBL BRANDON * * *Final Report* * * DATE OF EXAM: Nov 24 2023 1:42PM WOX 5556 - XR HAND 3V PA/LAT/OBL BRANDON / PROCEDURE REASON: multiple diagnoses * * * * Physician Interpretation * * * * TITLE: XR HAND 3V PA/LAT/OBL BRANDON CLINICAL INDICATION: Hand pain TECHNIQUE: 3 view radiographic study of the bilateral hands COMPARISON: None FINDINGS: No acute fracture or dislocation identified. Joint spaces preserved. No radiographic evidence of destructive osseous lesion. No radiopaque foreign body. No soft tissue gas. 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: [facility] Transcribe Date/Time: Nov 24 2023 1:48P Dictated by : ADAM URBAN MD This examination was interpreted and the report reviewed and electronically signed by: ADAM URBAN MD on Nov 24 2023 1:54PM [facility] DIVISION OF RADIOLOGY * * *Final Report* * * DATE OF EXAM: Nov 24 2023 1:42PM WOX 5556 - XR HAND 3V PA/LAT/OBL BRANDON / PROCEDURE REASON: multiple diagnoses * * * * Physician Interpretation * * * * TITLE: XR HAND 3V PA/LAT/OBL BRANDON CLINICAL INDICATION: Hand pain TECHNIQUE: 3 view radiographic study of the bilateral hands COMPARISON: None FINDINGS: No acute fracture or dislocation identified. Joint spaces preserved. No radiographic evidence of destructive osseous lesion. No radiopaque foreign body. No soft tissue gas. DIVISION OF RADIOLOGY Provider, Nayan Taylor - 11/24/2023 * * *Final Report* * * DATE OF EXAM: Nov 24 2023 1:42PM WOX 5556 - XR HAND 3V PA/LAT/OBL BRANDON / PROCEDURE REASON: multiple diagnoses * * * * Physician Interpretation * * * * TITLE: XR HAND 3V PA/LAT/OBL BRANDON CLINICAL INDICATION: Hand pain TECHNIQUE: 3 view radiographic study of the bilateral hands COMPARISON: None FINDINGS: No acute fracture or dislocation identified. Joint spaces preserved. No radiographic evidence of destructive osseous lesion. No radiopaque foreign body. No soft tissue gas. 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: [facility] Transcribe Date/Time: Nov 24 2023 1:48P Dictated by : ADAM URBAN MD This examination was interpreted and the report reviewed and electronically signed by: ADAM URBAN MD on Nov 24 2023 1:54PM [facility]ative[facility] - [facility] PA and L ateral and ObliqueOrdered By: [facility] Provider on 11-24-2023 [facility] Basophil percentageOrdered B y: Marques Meyers on 09-22-2023 Basophil percentage < 2.0 ug/mL 10.0-30.0 [facility] Serum or plasma salicylates measurement (mass/volume)Ordered By: Marques Meyers on 09-22-2023 Salicylates [Mass/Vol] 3.1 mg/dL 2.8-20.0 [facility] Absolute lymphocyte countOrd ered By: Marques Meyers on 09-21-2023 Lymphocytes Auto (Unsp spec) [#/Vol] 2.05 10*3/uL 0.83-4.51 [facility] Automated lymphocyte count a s percentage of total leukocytesOrdered By: Marques Meyers on 09-21-2023 Lymphocytes/100 WBC Auto (Unsp spec) 13.0 % 19-41 [facility] Basophil percentageOrdered B y: Marques Meyers on 09-21-2023 Basophils/100 WBC (Bld) 0.5 % 0-1 [facility] Bilirubin [Mass/Vol] 0.40 mg/dL 0.20-1.00 [facility] Comment on above: For patients on eltr ombopag therapy, use of Dimension [place] TBIL is not recommended. Chloride [Moles/Vol] 107 mmol/L 98-107 [facility] Eosinophils/100 WBC (Bld) 0.8 % 0-5 [facility] Glucose [Mass/Vol] 132 mg/dL 74-106 [facility] Comment on above: Fasting Glucose resu lt greater than or equal to 126 mg/dL suggests DIABETES MELLITUS per A.D.A. criteria. Hemoglobin (Bld) [Mass/Vol] 15.5 g/dL 13.0-16.5 [facility] Monocytes/100 WBC (Bld) 4.8 % 0-10 [facility] Neutrophils (Bld) [#/Vol] 12.6 10*3/uL 2.0-7.7 [facility] Neutrophils/100 WBC (Bld) 80.1 % 47-70 [facility] Potassium [Moles/Vol] 3.8 mmol/L 3.5-5.1 [facility] Protein [Mass/Vol] 7.7 g/dL 6.4-8.2 [facility] Sodium [Moles/Vol] 139 mmol/L 136-145 [facility] WBC (Bld) [#/Vol] 15.7 10*3/uL 4.4-11.0 [facility] [place] Determination of erythrocyte mean corpuscular volume (MCV)Ordered By: Marques Meyers on 09-21-2023 MCV (RBC) [Entitic vol] 90.5 fL 80-94 [facility] Erythrocyte distribution wid th ratioOrdered By: Marques Meyers on 09-21-2023 Erythrocyte distribution width (RBC) [Ratio] 11.9 % 11.6-14.6 [facility] Erythrocyte distribution wid th standard deviationOrdered By: Marques Meyers on 09-21-2023 Erythrocyte distribution width (RBC) [Entitic vol] 39.7 fL 35.1-43.9 [facility] Hematocrit Auto (Bld) [Volum e fraction]Ordered By: Marques Meyers on 09-21-2023 Hematocrit (Bld) [Volume fraction] 44.8 % 40-54 [facility] Immature granulocytes/100 WB C Auto (Bld)Ordered By: Marques Meyers on 09-21-2023 Immature granulocytes/100 WBC (Bld) 0.800 % 0.0-0.9 [facility] Comment on above: IG% - Immature Granu locytes (promyelocytes, myelocytes and metamyelocytes) > 1% indicates that a LEFT SHIFT is Present. Laboratory - Chemistry and C hemistry - challengeOrdered By: Marques Meyers on 09-21-2023 Albumin/Globulin [Mass ratio] 1.1 {ratio} 0.9-2.4 [facility] ALP [Catalytic activity/Vol] 89 U/L 45-117 [facility] ALT [Catalytic activity/Vol] 50 U/L 16-61 [facility] CO2 [Moles/Vol] 23.0 mmol/L 21.0-32.0 [facility] Globulin (S) [Mass/Vol] 3.6 g/dL 2.2-4.2 [facility] Urea nitrogen/Creatinine [Mass ratio] 13.3 mg/mg 10-20 [facility] Laboratory - Drug toxicology Ordered By: Marques Meyers on 09-21-2023 Amphetamines Ql (U) Positive <1000 ng/mL [facility] Benzodiazepines Ql (U) Negative < 200 ng/mL [facility] Cannabinoids Screen Ql (U) Positive < 50 ng/mL [facility] Cocaine Ql (U) Negative < 300 ng/mL [facility] Opiates Ql (U) Negative < 300 ng/mL [facility] Laboratory - Hematology and Cell countsOrdered By: Marques Meyers on 09-21-2023 MCH (RBC) [Entitic mass] 31.3 pg 27.0-32.0 [facility] MCHC (RBC) [Mass/Vol] 34.6 g/dL 32-36 [facility] Nucleated RBC/100 WBC (Bld) [Ratio] 0 % 0-5 [facility] Platelet mean volume (Bld) [Entitic vol] 9.0 fL 6.2-12.0 [facility] Platelets (Bld) [#/Vol] 350 10*3/uL 150-450 [facility] No Panel InformationOrdered By: Marques Meyers on 09-21-2023 Estimated GFR (MDRD) Amer 91 mL/min >60 [facility] Comment on above: GFR Calc Estimated GFR (MDRD) Non-Af Amer 75 mL/min >60 [facility] Comment on above: Non- GFR Calc Ethyl Alcohol Level < 3.0 mg/dL [facility] Comment on above: The serum:whole bloo d ethanol ratio is approximately 1.14and varies slightly with hematocrit. Medical Alcohol reference interval and critical value innon-tolerant individuals; 50 - 100 Impairment 100 Intoxication 100 - 250 Severe Poisoning 250 - 400 Deep/possible fatal coma MDMA (Ecstasy) Screen Negative < 500 ng/mL [facility] Urine Barbiturates Screen Negative < 200 ng/mL [facility] Urine Drug Screen Comment [facility] Comment on above: CONFIRMATORY TESTING FOR ALL POSITIVE URINE DRUG SCREENRESULTS WILL ONLY BE SENT OUT UPON PHYSICIAN ORDER. VISTA Urine Drug Screen methods provide only preliminaryanalytical test results. A more specific alternate chemicalmethod must be used in order to obtain a confirmedanalytical result. Gas chromatography/mass spectrometery(GC/MS) is the preferred confirmatory method. Clinicalconsideration and professional judgement should be appliedto any drug of abuse test result, particularly whenpreliminary positive results are used. URINE TCA TESTING MUST BE ORDERED SEPARATELY. USE TESTMNEMONIC: [facility] Urine Methadone Screen Negative < 300 ng/mL [facility] RBC Auto (Bld) [#/Vol]Ordere d By: Marques Meyers on 09-21-2023 RBC (Bld) [#/Vol] 4.95 10*6/uL 4.6-6.2 [facility] [place] Serum or plasma calcium navarro urement (mass/volume)Ordered By: Marques Meyers on 09-21-2023 Calcium [Mass/Vol] 9.3 mg/dL 8.5-10.1 [facility] Serum or plasma creatinine m easurement (mass/volume)Ordered By: Marques Meyers on 09-21-2023 Creatinine [Mass/Vol] 1.13 mg/dL 0.70-1.30 [facility] Comment on above: The validity of the calculated GFR & GFRAA in patients over 70 years has not been determined. Clinical correlation is essential. Serum or plasma urea nitroge n measurement (mass/volume)Ordered By: Marques Meyers on 09-21-2023 Urea nitrogen [Mass/Vol] 15 mg/dL 7-18 [facility] Thin prep Papanicolaou smear with manual screeningOrdered By: Marques Meyers on 09-21-2023 Thin prep Papanicolaou smear with manual screening 4.1 g/dL 3.2-5.0 [facility] Thin prep Papanicolaou smear with manual screening 16 U/L 15-37 [facility] Thin prep Papanicolaou smear with manual screening 9 5-15 [facility] Urine phencyclidine (PCP) de tectionOrdered By: Marques Meyers on 09-21-2023 Phencyclidine Ql (U) Negative < 25 ng/mL [facility] XR WRIST GENERAL 3V PA/LAT/O BL RIGHTon 04-05-2023 [facility] XR Wrist - right PA and Late ral and Obliqueon 04-05-2023 IMPRESSION: NO ACUTE FRACTURE 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 Loader Operator: JOSE A Transcribe Date/Time: Apr 05 2023 10:20A Dictated by : MITCH FRY MD This examination was interpreted and the report reviewed and electronically signed by: MITCH FRY MD on Apr 05 2023 10:22AM [facility] DIVISION OF RADIOLOGY * * *Final Report* * * DATE OF EXAM: Apr 05 2023 10:17AM WOX 5271 - XR WRIST 3V PA/LAT/OBL RT / PROCEDURE REASON: Wrist pain, acute, right * * * * Physician Interpretation * * * * Examination: XR WRIST 3V PA/LAT/OBL RT History: Wrist pain, acute, right Technique: XR WRIST 3V PA/LAT/OBL RT Comparison: None RESULT: 3 views of the right wrist show no fracture or focal bony abnormality. Normal mineralization and alignment. DIVISION OF RADIOLOGY Provider, Josie Karishma [facility] - 04/05/2023 * * *Final Report* * * DATE OF EXAM: Apr 05 2023 10:17AM WOX 5271 - XR WRIST 3V PA/LAT/OBL RT / PROCEDURE REASON: Wrist pain, acute, right * * * * Physician Interpretation * * * * Examination: XR WRIST 3V PA/LAT/OBL RT History: Wrist pain, acute, right Technique: XR WRIST 3V PA/LAT/OBL RT Comparison: None RESULT: 3 views of the right wrist show no fracture or focal bony abnormality. Normal mineralization and alignment. 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 Martinez on 07-23-2022 Basophil percentage 0 SEEN /hpf 0-5 [facility] Bilirubin [Mass/Vol] 0.30 mg/dL 0.20-1.00 [facility] Comment on above: For patients on eltr ombopag therapy, use of Dimension [place] TBIL is not recommended. Chloride [Moles/Vol] 103 mmol/L 98-107 [facility] Glucose [Mass/Vol] 86 mg/dL 74-106 [facility] Potassium [Moles/Vol] 3.9 mmol/L 3.5-5.1 [facility] Protein [Mass/Vol] 8.4 g/dL 6.4-8.2 [facility] Sodium [Moles/Vol] 139 mmol/L 136-145 [facility] WBC (Bld) [#/Vol] 10.8 10*3/uL 4.4-11.0 [facility] [place] Bilirubin Test strip Ql (U)O rdered By: Dr. Martinez on 07-23-2022 Bilirubin Ql (U) 1 mg/dL Negative [facility] Comment on above: COLOR OF URINE MAY A FFECT DIPSTICK RESULTS. Blood erythrocytes count (nu mber/volume)Ordered By: Dr. Martinez on 07-23-2022 RBC (Bld) [#/Vol] 4.85 10*6/uL 4.6-6.2 [facility] [place] Blood hemoglobin measurement (mass/volume)Ordered By: Dr. Martinez on 07-23-2022 Hemoglobin (Bld) [Mass/Vol] 15.0 g/dL 13.0-16.5 [facility] Blood platelet mean volumeOr dered By: Dr. Martinez on 07-23-2022 Platelet mean volume (Bld) [Entitic vol] 9.2 fL 6.2-12.0 [facility] Determination of erythrocyte mean corpuscular volume (MCV)Ordered By: Dr. Martinez on 07-23-2022 MCV (RBC) [Entitic vol] 93.2 fL 80-94 [facility] Direct bilirubinOrdered By: Dr. Martinez on 07-23-2022 Bilirubin.direct [Mass/Vol] 0.09 mg/dL 0.00-0.30 [facility] Hematocrit Auto (Bld) [Volum e fraction]Ordered By: Dr. Martinez on 07-23-2022 Hematocrit (Bld) [Volume fraction] 45.2 % 40-54 [facility] Influenza virus A and B and SARS-CoV-2 (COVID-19) Ag panel - Upper respiratory specimOrdered By: Dr. Martinez on 07-23-2022 SARS-CoV-2 (COVID-19) RNA SARAH+probe Ql (Resp) [facility] Ketones Test strip Ql (U)Ord ered By: Dr. Martinez on 07-23-2022 Ketones Ql (U) 5 mg/dl Negative [facility] Laboratory - Chemistry and C hemistry - challengeOrdered By: Dr. Martinez on 07-23-2022 ALP [Catalytic activity/Vol] 86 U/L 45-117 [facility] ALT [Catalytic activity/Vol] 116 U/L 16-61 [facility] CO2 [Moles/Vol] 26.0 mmol/L 21.0-32.0 [facility] Globulin (S) [Mass/Vol] 3.6 g/dL 2.2-4.2 [facility] Urea nitrogen/Creatinine [Mass ratio] 15.0 mg/mg 10-20 [facility] Laboratory - Hematology and Cell countsOrdered By: Dr. Martinez on 07-23-2022 Erythrocyte distribution width (RBC) [Entitic vol] 41.7 fL 35.1-43.9 [facility] Erythrocyte distribution width (RBC) [Ratio] 12.1 % 11.6-14.6 [facility] MCH (RBC) [Entitic mass] 30.9 pg 27.0-32.0 [facility] MCHC Auto (RBC) [Mass/Vol]Or dered By: Dr. Martinez on 07-23-2022 MCHC (RBC) [Mass/Vol] 33.2 g/dL 32-36 [facility] Mucus LM Ql (Urine sed)Order ed By: Dr. Martinez on 07-23-2022 Mucus Ql (Urine sed) 0 SEEN /hpf [facility] Nitrite Test strip Ql (U)Ord ered By: Dr. Martinez on 07-23-2022 Nitrite Ql (U) Negative Negative [facility] No Panel InformationOrdered By: Dr. Martinez on 07-23-2022 D-Dimer Quantitative (PE/DVT) 0.35 FEU/ug/m 0.27-0.49 [facility] Comment on above: NORMAL D-Dimer level (<0.50) indicates no DVT or PE. Estimated Creatinine Clearance Calc 90.63 ml/min [facility] Estimated GFR (MDRD) Amer 85 mL/min >60 [facility] Comment on above: GFR Calc Estimated GFR (MDRD) Non-Af Amer 70 mL/min >60 [facility] Comment on above: Non- GFR Calc Troponin I High Sensitivity 39 pg/mL 3.0-78.0 [facility] Comment on above: Please Note: New Saima t Units and Gender Specific Reference Ranges. For more information see Policy Stat Procedure [place] High Sensitivity Troponin (TNIH) and attachments. Platelets bldOrdered By: Dr. Martinez on 07-23-2022 Platelets (Bld) [#/Vol] 340 10*3/uL 150-450 [facility] Protein Test strip Ql (U)Ord ered By: Dr. Martinez on 07-23-2022 Protein Ql (U) 30 mg/dl Negative [facility] Serum or plasma albumin navarro urement (mass/volume)Ordered By: Dr. Martinez on 07-23-2022 Albumin [Mass/Vol] 4.8 g/dL 3.2-5.0 [facility] Serum or plasma calcium navarro urement (mass/volume)Ordered By: Dr. Martinez on 07-23-2022 Calcium [Mass/Vol] 10.0 mg/dL 8.5-10.1 [facility] Serum or plasma creatinine m easurement (mass/volume)Ordered By: Dr. Martinez on 07-23-2022 Creatinine [Mass/Vol] 1.20 mg/dL 0.70-1.30 [facility] Comment on above: The validity of the calculated GFR & GFRAA in patients over 70 years has not been determined. Clinical correlation is essential. Serum or plasma urea nitroge n measurement (mass/volume)Ordered By: Dr. Martinez on 07-23-2022 Urea nitrogen [Mass/Vol] 18 mg/dL 7-18 [facility] Squamous epithelial cells de tection in urine sediment by light microscopyOrdered By: Dr. Martinez on 07-23-2022 Epithelial cells.squamous LM Ql (Urine sed) 0 SEEN /hpf 0-5 [facility] Thin prep Papanicolaou smear with manual screeningOrdered By: Dr. Martinez on 07-23-2022 Thin prep Papanicolaou smear with manual screening 35 U/L 15-37 [facility] Thin prep Papanicolaou smear with manual screening 10 5-15 [facility] Urine blood detectionOrdered By: Dr. Martinez on 07-23-2022 RBC Ql (U) Negative Negative [facility] RBC Ql (U) 0-5 SEEN /hpf 0-5 [facility] Urine clarityOrdered By: Dr. Martinez on 07-23-2022 Clarity (U) Clear Clear [facility] Urine color determinationOrd ered By: Dr. Martinez on 07-23-2022 Color (U) Yellow Yellow [facility] Urine glucose detectionOrder ed By: Dr. Martinez on 07-23-2022 Glucose Ql (U) Normal mg/dl Normal [facility] Urine leukocyte esterase det ection by dipstickOrdered By: Dr. Martinez on 07-23-2022 Leukocyte esterase Test strip Ql (U) 25 /ul Negative [facility] Urine pHOrdered By: Dr. Faith yadav on 07-23-2022 pH (U) 5.0 [pH] 5.0 - 8.0 [facility] Urine sediment bacteria coun t by microscopy (number/high power field)Ordered By: Dr. Martinez on 07-23-2022 Bacteria LM.HPF (Urine sed) [#/Area] 0 /[HPF] None Seen [facility] Urine specific gravity measu rementOrdered By: Dr. Martinez on 07-23-2022 Specific gravity (U) [Rel density] 1.025 1.002-1.03 0 [facility] Urobilinogen Auto test strip Ql (U)Ordered By: Dr. Martinez on 07-23-2022 Urobilinogen Ql (U) 1 mg/dl Normal [facility] [place] Whole blood hemoglobin A1c/t otal hemoglobin ratio (mass fraction)Ordered By: Zakiya Dupont on 07-18-2022 HbA1c (Bld) [Mass fraction] 5.6 % 3.8-5.6 [facility] Comment on above: Normal < 5.7 % Predi abetic 5.7 - 6.4 % Diabetic >or= 6.5 % Please note range changes. Absolute lymphocyte countOrd ered By: Zakiya Dupont on 07-17-2022 Lymphocytes Auto (Unsp spec) [#/Vol] 2.69 10*3/uL 0.83-4.51 [facility] Basophil percentageOrdered B y: Zakiya Dupont on 07-17-2022 Basophils/100 WBC (Bld) 0.8 % 0-1 [facility] Bilirubin [Mass/Vol] 0.30 mg/dL 0.20-1.00 [facility] Comment on above: For patients on eltr ombopag therapy, use of Dimension [place] TBIL is not recommended. Chloride [Moles/Vol] 103 mmol/L 98-107 [facility] Eosinophils/100 WBC (Bld) 1.5 % 0-5 [facility] Glucose [Mass/Vol] 170 mg/dL 74-106 [facility] Comment on above: Fasting Glucose resu lt greater than or equal to 126 mg/dL suggests DIABETES MELLITUS per A.D.A. criteria. Neutrophils (Bld) [#/Vol] 5.8 10*3/uL 2.0-7.7 [facility] Neutrophils/100 WBC (Bld) 61.9 % 47-70 [facility] Potassium [Moles/Vol] 3.6 mmol/L 3.5-5.1 [facility] Protein [Mass/Vol] 7.5 g/dL 6.4-8.2 [facility] Sodium [Moles/Vol] 137 mmol/L 136-145 [facility] WBC (Bld) [#/Vol] 9.3 10*3/uL 4.4-11.0 [facility] Blood erythrocytes count (nu mber/volume)Ordered By: Zakiya Dupont on 07-17-2022 RBC (Bld) [#/Vol] 4.64 10*6/uL 4.6-6.2 [facility] [place] Blood hemoglobin measurement (mass/volume)Ordered By: Zakiya Dupont on 07-17-2022 Hemoglobin (Bld) [Mass/Vol] 14.9 g/dL 13.0-16.5 [facility] Blood lymphocytes/100 leukoc ytesOrdered By: Zakiya Dupont on 07-17-2022 Lymphocytes/100 WBC (Bld) 29.0 % 19-41 [facility] Blood monocytes/100 leukocyt esOrdered By: Zakiya Dupont on 07-17-2022 Monocytes/100 WBC (Bld) 5.6 % 0-10 [facility] Blood platelet mean volumeOr dered By: Zakiya Dupont on 07-17-2022 Platelet mean volume (Bld) [Entitic vol] 10.0 fL 6.2-12.0 [facility] Determination of erythrocyte mean corpuscular volume (MCV)Ordered By: Zakiya Dupont on 07-17-2022 MCV (RBC) [Entitic vol] 92.2 fL 80-94 [facility] Hematocrit Auto (Bld) [Volum e fraction]Ordered By: Zakiya Dupont on 07-17-2022 Hematocrit (Bld) [Volume fraction] 42.8 % 40-54 [facility] Laboratory - Chemistry and C hemistry - challengeOrdered By: Zakiya Dupont on 07-17-2022 ALP [Catalytic activity/Vol] 71 U/L 45-117 [facility] ALT [Catalytic activity/Vol] 106 U/L 16-61 [facility] CO2 [Moles/Vol] 27.0 mmol/L 21.0-32.0 [facility] Globulin (S) [Mass/Vol] 3.6 g/dL 2.2-4.2 [facility] Lipase [Catalytic activity/Vol] 89 U/L 73-393 [facility] Natriuretic peptide B (Bld) [Mass/Vol] 5.9 pg/mL 0-100 [facility] Urea nitrogen/Creatinine [Mass ratio] 12.4 mg/mg 10-20 [facility] Laboratory - Hematology and Cell countsOrdered By: Zakiya Dupont on 07-17-2022 Erythrocyte distribution width (RBC) [Entitic vol] 39.8 fL 35.1-43.9 [facility] Erythrocyte distribution width (RBC) [Ratio] 11.9 % 11.6-14.6 [facility] Immature granulocytes/100 WBC (Bld) 1.200 % 0.0-0.9 [facility] Comment on above: IG% - Immature Granu locytes (promyelocytes, myelocytes and metamyelocytes) > 1% indicates that a LEFT SHIFT is Present. MCH (RBC) [Entitic mass] 32.1 pg 27.0-32.0 [facility] Nucleated RBC/100 WBC (Bld) [Ratio] 0.2 % 0-5 [facility] MCHC Auto (RBC) [Mass/Vol]Or dered By: Zakiya Dupont on 07-17-2022 MCHC (RBC) [Mass/Vol] 34.8 g/dL 32-36 [facility] No Panel InformationOrdered By: Zakiya Dupont on 07-17-2022 D-Dimer Quantitative (PE/DVT) < 0.27 FEU/ug/m 0.27-0.49 [facility] Comment on above: NORMAL D-Dimer level (<0.50) indicates no DVT or PE. Estimated GFR (MDRD) Amer 84 mL/min >60 [facility] Comment on above: GFR Calc Estimated GFR (MDRD) Non-Af Amer 70 mL/min >60 [facility] Comment on above: Non- GFR Calc Thyroid Stimulating Hormone (TSH) 1.29 uIU/mL 0.358-3.74 [facility] Platelets bldOrdered By: Luz Maria Dupont on 07-17-2022 Platelets (Bld) [#/Vol] 335 10*3/uL 150-450 [facility] Serum or plasma albumin navarro urement (mass/volume)Ordered By: Zakiya Dupont on 07-17-2022 Albumin [Mass/Vol] 3.9 g/dL 3.2-5.0 [facility] Serum or plasma albumin/glob ulin mass ratioOrdered By: Zakiya Dupont on 07-17-2022 Albumin/Globulin [Mass ratio] 1.1 {ratio} 0.9-2.4 [facility] Serum or plasma calcium navarro urement (mass/volume)Ordered By: Zakiya Dupont on 07-17-2022 Calcium [Mass/Vol] 9.2 mg/dL 8.5-10.1 [facility] Serum or plasma creatinine m easurement (mass/volume)Ordered By: Zakiya Dupont on 07-17-2022 Creatinine [Mass/Vol] 1.21 mg/dL 0.70-1.30 [facility] Comment on above: The validity of the calculated GFR & GFRAA in patients over 70 years has not been determined. Clinical correlation is essential. Serum or plasma urea nitroge n measurement (mass/volume)Ordered By: Zakiya Dupont on 07-17-2022 Urea nitrogen [Mass/Vol] 15 mg/dL 7-18 [facility] Thin prep Papanicolaou smear with manual screeningOrdered By: Zakiya Dupont on 07-17-2022 Thin prep Papanicolaou smear with manual screening 38 U/L 15-37 [facility] Thin prep Papanicolaou smear with manual screening 7 5-15 [facility] STREP A MOLECULAR (POC)on Procedural Control Valid [facility] Strep A (POCT) Negative Negative [facility] Absolute lymphocyte counton 02-28-2022 Lymphocytes Auto (Unsp spec) [#/Vol] 3.02 10*3/uL 0.83-4.51 [facility] Work Phone: Basophil percentageon 2021 Basophils/100 WBC (Bld) 0.2 % 0-1 [facility] Work Phone: Chloride [Moles/Vol] 106 mmol/L 98-107 [facility] Work Phone: Eosinophils/100 WBC (Bld) 0.5 % 0-5 [facility] Work Phone: Glucose [Mass/Vol] 104 mg/dL 74-106 [facility] Work Phone: Comment on above: Fasting Glucose resu lt from 100 to 125 mg/dL suggests IMPAIRED HOMEOSTASIS per A.D.A. criteria. Neutrophils (Bld) [#/Vol] 11.0 10*3/uL 2.0-7.7 [facility] Work Phone: Neutrophils/100 WBC (Bld) 72.6 % 47-70 [facility] Work Phone: Potassium [Moles/Vol] 4.1 mmol/L 3.5-5.1 [facility] Work Phone: Sodium [Moles/Vol] 138 mmol/L 136-145 [facility] Work Phone: WBC (Bld) [#/Vol] 15.1 10*3/uL 4.4-11.0 [facility] [place] Work Phone: Blood erythrocytes count (nu mber/volume)on 02-28-2022 RBC (Bld) [#/Vol] 3.66 10*6/uL 4.6-6.2 [facility] [place] Work Phone: Blood hemoglobin measurement (mass/volume)on 02-28-2022 Hemoglobin (Bld) [Mass/Vol] 11.9 g/dL 13.0-16.5 [facility] Work Phone: Blood lymphocytes/100 leukoc yteson 02-28-2022 Lymphocytes/100 WBC (Bld) 19.9 % 19-41 [facility] Work Phone: Blood monocytes/100 leukocyt eson 02-28-2022 Monocytes/100 WBC (Bld) 5.9 % 0-10 [facility] Work Phone: Blood platelet mean volumeon 02-28-2022 Platelet mean volume (Bld) [Entitic vol] 9.5 fL 6.2-12.0 [facility] Work Phone: Determination of erythrocyte mean corpuscular volume (MCV)on 02-28-2022 MCV (RBC) [Entitic vol] 96.7 fL 80-94 [facility] Work Phone: Hematocrit Auto (Bld) [Volum e fraction]on 02-28-2022 Hematocrit (Bld) [Volume fraction] 35.4 % 40-54 [facility] Work Phone: [phone] Laboratory - Chemistry and C hemistry - challengeon 02-28-2022 CO2 [Moles/Vol] 26.0 mmol/L 21.0-32.0 [facility] Work Phone: [phone] Urea nitrogen/Creatinine [Mass ratio] 22.6 mg/mg 10-20 [facility] Work Phone: [phone] Laboratory - Hematology and Cell countson 02-28-2022 Erythrocyte distribution width (RBC) [Entitic vol] 43.3 fL 35.1-43.9 [facility] Work Phone: [phone] Erythrocyte distribution width (RBC) [Ratio] 12.2 % 11.6-14.6 [facility] Work Phone: [phone] Immature granulocytes/100 WBC (Bld) 0.900 % 0.0-0.9 [facility] Work Phone: [phone] Comment on above: IG% - Immature Granu locytes (promyelocytes, myelocytes and metamyelocytes) > 1% indicates that a LEFT SHIFT is Present. MCH (RBC) [Entitic mass] 32.5 pg 27.0-32.0 [facility] Work Phone: Nucleated RBC/100 WBC (Bld) [Ratio] 0 % 0-5 [facility] Work Phone: MCHC Auto (RBC) [Mass/Vol]on 02-28-2022 MCHC (RBC) [Mass/Vol] 33.6 g/dL 32-36 [facility] Work Phone: No Panel Informationon 02-28 Estimated Creatinine Clearance Calc 122.19 ml/min [facility] Work Phone: Estimated GFR (MDRD) Amer 121 mL/min >60 [facility] Work Phone: Comment on above: GFR Calc Estimated GFR (MDRD) Non-Af Amer 100 mL/min >60 [facility] Work Phone: Comment on above: Non- GFR Calc Platelets bldon 02-28-2022 Platelets (Bld) [#/Vol] 292 10*3/uL 150-450 [facility] Work Phone: Serum or plasma calcium navarro urement (mass/volume)on 02-28-2022 Calcium [Mass/Vol] 8.7 mg/dL 8.5-10.1 [facility] Work Phone: Serum or plasma creatinine m easurement (mass/volume)on 02-28-2022 Creatinine [Mass/Vol] 0.89 mg/dL 0.70-1.30 [facility] Work Phone: Comment on above: The validity of the calculated GFR & GFRAA in patients over 70 years has not been determined. Clinical correlation is essential. Serum or plasma urea nitroge n measurement (mass/volume)on 02-28-2022 Urea nitrogen [Mass/Vol] 20 mg/dL 7-18 [facility] Work Phone: Thin prep Papanicolaou smear with manual screeningon 02-28-2022 Thin prep Papanicolaou smear with manual screening 6 5-15 [facility] Work Phone: Basophil percentageon 2021 Chloride [Moles/Vol] 103 mmol/L 98-107 [facility] Work [facility]: Glucose [Mass/Vol] 110 mg/dL 74-106 [facility] Work Phone: Comment on above: Fasting Glucose resu lt from 100 to 125 mg/dL suggests IMPAIRED HOMEOSTASIS per A.D.A. criteria. Lactate [Moles/Vol] 1.0 mmol/L 0.4-2.0 [facility] [place] Work Phone: Potassium [Moles/Vol] 4.4 mmol/L 3.5-5.1 [facility] Work Phone: Sodium [Moles/Vol] 135 mmol/L 136-145 [facility] Work Phone: WBC (Bld) [#/Vol] 17.6 10*3/uL 4.4-11.0 [facility] [place] Work Phone: Blood erythrocytes count (nu mber/volume)on 02-26-2022 RBC (Bld) [#/Vol] 4.43 10*6/uL 4.6-6.2 [facility] [place] Work Phone: Blood hemoglobin measurement (mass/volume)on 02-26-2022 Hemoglobin (Bld) [Mass/Vol] 14.0 g/dL 13.0-16.5 [facility] Work Phone: Blood platelet mean volumeon 02-26-2022 Platelet mean volume (Bld) [Entitic vol] 9.6 fL 6.2-12.0 [facility] Work Phone: Determination of erythrocyte mean corpuscular volume (MCV)on 02-26-2022 MCV (RBC) [Entitic vol] 92.8 fL 80-94 [facility] Work Phone: Hematocrit Auto (Bld) [Volum e fraction]on 02-26-2022 Hematocrit (Bld) [Volume fraction] 41.1 % 40-54 [facility] Work Phone: Laboratory - Chemistry and C hemistry - challengeon 02-26-2022 CO2 [Moles/Vol] 23.0 mmol/L 21.0-32.0 [facility] Work Phone: Urea nitrogen/Creatinine [Mass ratio] 13.0 mg/mg 10-20 [facility] Work Phone: Laboratory - Hematology and Cell countson 02-26-2022 Erythrocyte distribution width (RBC) [Entitic vol] 41.5 fL 35.1-43.9 [facility] Work Phone: Erythrocyte distribution width (RBC) [Ratio] 12.1 % 11.6-14.6 [facility] Work Phone: MCH (RBC) [Entitic mass] 31.6 pg 27.0-32.0 [facility] Work Phone: MCHC Auto (RBC) [Mass/Vol]on 02-26-2022 MCHC (RBC) [Mass/Vol] 34.1 g/dL 32-36 [facility] Work Phone: No Panel Informationon 02-26 Estimated Creatinine Clearance Calc 108.75 ml/min [facility] Work Phone: Estimated GFR (MDRD) Amer 105 mL/min >60 [facility] Work Phone: Comment on above: GFR Calc Estimated GFR (MDRD) Non-Af Amer 87 mL/min >60 [facility] Work Phone: Comment on above: Non- GFR Calc Platelets bldon 02-26-2022 Platelets (Bld) [#/Vol] 315 10*3/uL 150-450 [facility] Work Phone: Serum or plasma calcium navarro urement (mass/volume)on 02-26-2022 Calcium [Mass/Vol] 9.7 mg/dL 8.5-10.1 [facility] Work Phone: Serum or plasma creatinine m easurement (mass/volume)on 02-26-2022 Creatinine [Mass/Vol] 1.00 mg/dL 0.70-1.30 [facility] Work Phone: Comment on above: The validity of the calculated GFR & GFRAA in patients over 70 years has not been determined. Clinical correlation is essential. Serum or plasma urea nitroge n measurement (mass/volume)on 02-26-2022 Urea nitrogen [Mass/Vol] 13 mg/dL 7-18 [facility] Work Phone: Thin prep Papanicolaou smear with manual screeningon 02-26-2022 Thin prep Papanicolaou smear with manual screening 9 5-15 [facility] Work Phone: [phone] Absolute lymphocyte counton 10-10-2021 Lymphocytes Auto (Unsp spec) [#/Vol] 2.95 10*3/uL 0.83-4.51 [facility] Work Phone: Basophil percentageon 2021 Basophils/100 WBC (Bld) 0.7 % 0-1 [facility] Work Phone: Bilirubin [Mass/Vol] 0.30 mg/dL 0.20-1.00 [facility] Work Phone: Comment on above: For patients on eltr ombopag therapy, use of Dimension [place] TBIL is not recommended. Chloride [Moles/Vol] 109 mmol/L 98-107 [facility] Work Phone: Eosinophils/100 WBC (Bld) 1.1 % 0-5 [facility] Work Phone: Glucose [Mass/Vol] 115 mg/dL 74-106 [facility] Work Phone: Comment on above: Fasting Glucose resu lt from 100 to 125 mg/dL suggests IMPAIRED HOMEOSTASIS per A.D.A. criteria. Neutrophils (Bld) [#/Vol] 5.4 10*3/uL 2.0-7.7 [facility] Work Phone: [phone] Neutrophils/100 WBC (Bld) 59.7 % 47-70 [facility] Work Phone: Potassium [Moles/Vol] 4.2 mmol/L 3.5-5.1 [facility] Work Phone: Protein [Mass/Vol] 7.0 g/dL 6.4-8.2 [facility] Work [facility]: Sodium [Moles/Vol] 141 mmol/L 136-145 [facility] Work Phone: WBC (Bld) [#/Vol] 9.1 10*3/uL 4.4-11.0 [facility] Work Phone: Blood erythrocytes count (nu mber/volume)on 10-10-2021 RBC (Bld) [#/Vol] 4.23 10*6/uL 4.6-6.2 [facility] Work [facility]: Blood hemoglobin measurement (mass/volume)on 10-10-2021 Hemoglobin (Bld) [Mass/Vol] 13.4 g/dL 13.0-16.5 [facility] Work Phone: Blood lymphocytes/100 leukoc yteson 10-10-2021 Lymphocytes/100 WBC (Bld) 32.5 % 19-41 [facility] Work Phone: Blood monocytes/100 leukocyt eson 10-10-2021 Monocytes/100 WBC (Bld) 5.2 % 0-10 [facility] Work Phone: Blood platelet mean volumeon 10-10-2021 Platelet mean volume (Bld) [Entitic vol] 9.1 fL 6.2-12.0 [facility] Work Phone: Determination of erythrocyte mean corpuscular volume (MCV)on 10-10-2021 MCV (RBC) [Entitic vol] 93.9 fL 80-94 [facility] Work Phone: Erythrocyte sedimentation ra natasha 10-10-2021 ESR (Bld) [Velocity] 3 mm/h 0-20 [facility] Work Phone: Hematocrit Auto (Bld) [Volum e fraction]on 10-10-2021 Hematocrit (Bld) [Volume fraction] 39.7 % 40-54 [facility] Work Phone: Laboratory - Chemistry and C hemistry - challengeon 10-10-2021 ALP [Catalytic activity/Vol] 65 U/L 45-117 [facility] Work Phone: [phone] ALT [Catalytic activity/Vol] 71 U/L 16-61 [facility] Work Phone: [phone] CO2 [Moles/Vol] 25.0 mmol/L 21.0-32.0 [facility] Work Phone: [phone] Globulin (S) [Mass/Vol] 3.2 g/dL 2.2-4.2 [facility] Work Phone: [phone] Lipase [Catalytic activity/Vol] 72 U/L 73-393 [facility] Work Phone: [phone] Urea nitrogen/Creatinine [Mass ratio] 12.3 mg/mg 10-20 [facility] Work Phone: [phone] Laboratory - Hematology and Cell countson 10-10-2021 Erythrocyte distribution width (RBC) [Entitic vol] 42.6 fL 35.1-43.9 [facility] Work Phone: [phone] Erythrocyte distribution width (RBC) [Ratio] 12.4 % 11.6-14.6 [facility] Work Phone: [phone] Immature granulocytes/100 WBC (Bld) 0.800 % 0.0-0.9 [facility] Work Phone: [phone] Comment on above: IG% - Immature Granu locytes (promyelocytes, myelocytes and metamyelocytes) > 1% indicates that a LEFT SHIFT is Present. MCH (RBC) [Entitic mass] 31.7 pg 27.0-32.0 [facility] Work Phone: [phone] Nucleated RBC/100 WBC (Bld) [Ratio] 0 % 0-5 [facility] Work Phone: [phone] MCHC Auto (RBC) [Mass/Vol]on 10-10-2021 MCHC (RBC) [Mass/Vol] 33.8 g/dL 32-36 [facility]: [phone] No Panel Informationon 10-10 Atypical Lymphocytes 1+ % [facility] Work Phone: Estimated GFR (MDRD) Amer 84 mL/min >60 [facility] Work Phone: Comment on above: GFR Calc Estimated GFR (MDRD) Non-Af Amer 69 mL/min >60 [facility] Work Phone: Comment on above: Non- GFR Calc Reactive Lymphocytes 1+ [facility] Work Phone: Platelets bldon 10-10-2021 Platelets (Bld) [#/Vol] 302 10*3/uL 150-450 [facility] Work Phone: Serum or plasma albumin navarro urement (mass/volume)on 10-10-2021 Albumin [Mass/Vol] 3.8 g/dL 3.2-5.0 [facility] Work Phone: Serum or plasma albumin/glob ulin mass ratioon 10-10-2021 Albumin/Globulin [Mass ratio] 1.2 {ratio} 0.9-2.4 [facility] Work Phone: Serum or plasma calcium navarro urement (mass/volume)on 10-10-2021 Calcium [Mass/Vol] 8.8 mg/dL 8.5-10.1 [facility] Work Phone: Serum or plasma creatinine m easurement (mass/volume)on 10-10-2021 Creatinine [Mass/Vol] 1.22 mg/dL 0.70-1.30 [facility] Work Phone: Comment on above: The validity of the calculated GFR & GFRAA in patients over 70 years has not been determined. Clinical correlation is essential. Serum or plasma urea nitroge n measurement (mass/volume)on 10-10-2021 Urea nitrogen [Mass/Vol] 15 mg/dL 7-18 [facility] Work Phone: Thin prep Papanicolaou smear with manual screeningon 10-10-2021 Thin prep Papanicolaou smear with manual screening 26 U/L 15-37 [facility] Work Phone: Thin prep Papanicolaou smear with manual screening 7 5-15 [facility] Work Phone: Absolute lymphocyte counton 06-19-2021 Lymphocytes Auto (Unsp spec) [#/Vol] 4.25 10*3/uL 0.83-4.51 [facility] Work Phone: Basophil percentageon 2021 Basophil percentage 0 SEEN /hpf [facility] Work Phone: Basophils/100 WBC (Bld) 0.5 % 0-1 [facility] Work Phone: Chloride [Moles/Vol] 105 mmol/L 98-107 [facility] Work Phone: Eosinophils/100 WBC (Bld) 1.0 % 0-5 [facility] Work Phone: Glucose [Mass/Vol] 102 mg/dL 74-106 [facility] Work Phone: [phone] Comment on above: Fasting Glucose resu lt from 100 to 125 mg/dL suggests IMPAIRED HOMEOSTASIS per A.D.A. criteria. Neutrophils (Bld) [#/Vol] 6.0 10*3/uL 2.0-7.7 [facility] Work Phone: Neutrophils/100 WBC (Bld) 54.4 % 47-70 [facility] Work Phone: Potassium [Moles/Vol] 4.1 mmol/L 3.5-5.1 [facility] Work Phone: Sodium [Moles/Vol] 137 mmol/L 136-145 [facility] Work Phone: WBC (Bld) [#/Vol] 11.1 10*3/uL 4.4-11.0 [facility] Work Phone: Bilirubin Test strip Ql (U)o n 06-19-2021 Bilirubin Ql (U) Negative Negative [facility] Work Phone: [phone] Blood erythrocytes count (nu mber/volume)on 06-19-2021 RBC (Bld) [#/Vol] 4.99 10*6/uL 4.6-6.2 [facility] Work Phone: Blood hemoglobin measurement (mass/volume)on 06-19-2021 Hemoglobin (Bld) [Mass/Vol] 15.6 g/dL 13.0-16.5 [facility] Work Phone: Blood lymphocytes/100 leukoc yteson 06-19-2021 Lymphocytes/100 WBC (Bld) 38.3 % 19-41 [facility] Work Phone: Blood manual differential co mment interpretation (narrative result)on 06-19-2021 Manual differential comment Edward (Bld) [Interp] SCANNED [facility] Work Phone: Comment on above: AUTO DIFF OK Blood monocytes/100 leukocyt eson 06-19-2021 Monocytes/100 WBC (Bld) 4.7 % 0-10 [facility] Work Phone: Blood platelet mean volumeon 06-19-2021 Platelet mean volume (Bld) [Entitic vol] 8.7 fL 6.2-12.0 [facility] Work Phone: Determination of erythrocyte mean corpuscular volume (MCV)on 06-19-2021 MCV (RBC) [Entitic vol] 92.0 fL 80-94 [facility] Work Phone: Hematocrit Auto (Bld) [Volum e fraction]on 06-19-2021 Hematocrit (Bld) [Volume fraction] 45.9 % 40-54 [facility] Work Phone: Ketones Test strip Ql (U)on 06-19-2021 Ketones Ql (U) Negative Negative [facility] Work Phone: Laboratory - Chemistry and C hemistry - challengeon 06-19-2021 CO2 [Moles/Vol] 26.0 mmol/L 21.0-32.0 [facility] Work Phone: Urea nitrogen/Creatinine [Mass ratio] 14.4 mg/mg 10-20 [facility] Work Phone: Laboratory - Drug toxicology on 06-19-2021 Amphetamines Ql (U) Negative [facility] Work Phone: Benzodiazepines Ql (U) Negative [facility] Work Phone: Cannabinoids Screen Ql (U) Negative [facility] Work Phone: Cocaine Ql (U) Negative [facility] Work Phone: Opiates Ql (U) Negative [facility] Work Phone: Laboratory - Hematology and Cell countson 06-19-2021 Erythrocyte distribution width (RBC) [Entitic vol] 42.8 fL 35.1-43.9 [facility] Work Phone: Erythrocyte distribution width (RBC) [Ratio] 12.8 % 11.6-14.6 [facility] Work Phone: Immature granulocytes/100 WBC (Bld) 1.100 % 0.0-0.9 [facility] Work Phone: Comment on above: IG% - Immature Granu locytes (promyelocytes, myelocytes and metamyelocytes) > 1% indicates that a LEFT SHIFT is Present. MCH (RBC) [Entitic mass] 31.3 pg 27.0-32.0 [facility] Work Phone: Nucleated RBC/100 WBC (Bld) [Ratio] 0 % 0-5 [facility] Work Phone: MCHC Auto (RBC) [Mass/Vol]on 06-19-2021 MCHC (RBC) [Mass/Vol] 34.0 g/dL 32-36 [facility] Work Phone: Mucus LM Ql (Urine sed)on Mucus Ql (Urine sed) 0 SEEN /hpf [facility] Work Phone: Nitrite Test strip Ql (U)on 06-19-2021 Nitrite Ql (U) Negative Negative [facility] Work Phone: No Panel Informationon 06-19 Urine Barbiturates Screen Negative [facility] Work Phone: Urine Drug Screen Comment [facility] Work Phone: Comment on above: CONFIRMATORY TESTING FOR ALL POSITIVE URINE DRUG SCREENRESULTS WILL ONLY BE SENT OUT UPON PHYSICIAN ORDER. VISTA Urine Drug Screen methods provide only preliminaryanalytical test results. A more specific alternate chemicalmethod must be used in order to obtain a confirmedanalytical result. Gas chromatography/mass spectrometery(GC/MS) is the preferred confirmatory method. Clinicalconsideration and professional judgement should be appliedto any drug of abuse test result, particularly whenpreliminary positive results are used. URINE TCA TESTING MUST BE ORDERED SEPARATELY. USE TESTMNEMONIC: [facility] Urine Methadone Screen Negative [facility] Work Phone: Urine Methamphetamine-MDMA Screen Negative [facility] Work Phone: Estimated Creatinine Clearance Calc 98.98 ml/min [facility] Work Phone: Estimated GFR (MDRD) Amer 94 mL/min >60 [facility] Work Phone: Comment on above: GFR Calc Estimated GFR (MDRD) Non-Af Amer 77 mL/min >60 [facility] Work Phone: Comment on above: Non- GFR Calc Ethyl Alcohol Level < 3.0 mg/dL [facility] Work Phone: Comment on above: The serum:whole bloo d ethanol ratio is approximately 1.14and varies slightly with hematocrit. Medical Alcohol reference interval and critical value innon-tolerant individuals; 50 - 100 Impairment 100 Intoxication 100 - 250 Severe Poisoning 250 - 400 Deep/possible fatal coma Troponin I High Sensitivity 39 pg/mL 3.0-78.0 [facility] Work Phone: Comment on above: Please Note: New Saima t Units and Gender Specific Reference Ranges. For more information see Policy Stat Procedure [place] High Sensitivity Troponin (TNIH) and attachments. SARS-CoV-2 Antigen (Rapid) [facility] Work Phone: Platelets bldon 06-19-2021 Platelets (Bld) [#/Vol] 345 10*3/uL 150-450 [facility] Work Phone: Protein Test strip Ql (U)on 06-19-2021 Protein Ql (U) 15 mg/dl Negative [facility] Work Phone: Serum or plasma calcium navarro urement (mass/volume)on 06-19-2021 Calcium [Mass/Vol] 9.2 mg/dL 8.5-10.1 [facility] Work Phone: Serum or plasma creatinine m easurement (mass/volume)on 06-19-2021 Creatinine [Mass/Vol] 1.11 mg/dL 0.70-1.30 [facility] Work Phone: Comment on above: The validity of the calculated GFR & GFRAA in patients over 70 years has not been determined. Clinical correlation is essential. Serum or plasma urea nitroge n measurement (mass/volume)on 06-19-2021 Urea nitrogen [Mass/Vol] 16 mg/dL 7-18 [facility] Work Phone: Squamous epithelial cells de tection in urine sediment by light microscopyon 06-19-2021 Epithelial cells.squamous LM Ql (Urine sed) 0 SEEN /hpf [facility] Work Phone: Thin prep Papanicolaou smear with manual screeningon 06-19-2021 Thin prep Papanicolaou smear with manual screening 6 5-15 [facility] Work Phone: Urine blood detectionon 02- RBC Ql (U) Negative Negative [facility] Work Phone: RBC Ql (U) 0 SEEN /hpf [facility] Work Phone: Urine clarityon 06-19-2021 Clarity (U) Clear Clear [facility] Work Phone: Urine color determinationon 06-19-2021 Color (U) Yellow Yellow [facility] Work Phone: Urine glucose detectionon Glucose Ql (U) Normal mg/dl Normal [facility] Work Phone: Urine leukocyte esterase det ection by dipstickon 06-19-2021 Leukocyte esterase Test strip Ql (U) Negative Negative [facility] Work Phone: Urine pHon 06-19-2021 pH (U) 6.0 [pH] [facility] Work Phone: Urine phencyclidine (PCP) de tectionon 06-19-2021 Phencyclidine Ql (U) Negative [facility] Work Phone: Urine sediment bacteria coun t by microscopy (number/high power field)on 06-19-2021 Bacteria LM.HPF (Urine sed) [#/Area] 0 /[HPF] None Seen [facility] Work Phone: Urine specific gravity measu rementon 06-19-2021 Specific gravity (U) [Rel density] 1.020 [facility] Work Phone: Urobilinogen Auto test strip Ql (U)on 06-19-2021 Urobilinogen Ql (U) Normal mg/dl Normal [facility] Work Phone: EMERGENCY REPORTon 1 EMERGENCY REPORT [facility] EMERGENCY ROOM REPORT NAME ACCOUNT SEX AGE ADMIT DISCHARGE PT MED. RECORD# NUMBER DATE DATE TYPE JOSE ELIAS OLIVER [id number] M 40 12/04/20 12/04/20 3 C 35037 ROOM: ER DATE OF : 1980 DICTATING PHYSICIAN: Hazel Allen ADDENDUM DIAGNOSTIC DATA: White count was normal at 8.8, hemoglobin 12.9, hematocrit 37.1, and platelet count 292,000. EKG was done at 5:27 a.m. It shows a normal sinus rhythm at [address]. [address]-segment changes were noted. [place] was approximately 60 degrees. EMERGENCY DEPARTMENT COURSE AND TREATMENT: Presently, the chemistry machine is down, so I am waiting for those results. I have ordered a venous duplex of the lower extremities bilaterally, and that is pending as well. If that comes back negative, we will place the patient on Keflex 500 mg one p.o. every 6 hours, dispense #40 with no refill. The patient does not have a family doctor, so I am going to refer him for follow-up to [facility] in [facility]-5 days. DIAGNOSIS: Cellulitis to the right lower leg. Dictated By: Hazel Allen DO 12/04/20 06:52 JOB #: [id number] Transcribed By: [email or web address] 12/05/20 07:23 Electronically signed by: E-Sign: Dr. Hazel Allen D.O. 12/05/20 11:00 Page 1 of 1 JOSE ELIAS OLIVER Emergency Room Report Normal [facility] EMERGENCY REPORT [facility] EMERGENCY ROOM REPORT NAME ACCOUNT SEX AGE ADMIT DISCHARGE PT MED. RECORD# NUMBER DATE DATE TYPE JOSE ELIAS OLIVER [id number] M 40 12/04/20 12/04/20 3 C 82844 ROOM: ER DATE OF : 1980 DICTATING PHYSICIAN: Hazel Allen ADDENDUM DIAGNOSTIC DATA: Venous duplex of the bilateral lower extremities was negative for DVT and negative for SVT. Dictated By: Hazel Allen DO 12/04/20 07:06 JOB #: [id number] Transcribed By: [email or web address] 12/05/20 07:34 Electronically signed by: E-Sign: Dr. Hazel Allen D.O. 12/05/20 11:00 Page 1 of 1 JOSE ELIAS OLIVER Emergency Room Report Normal [facility] EMERGENCY REPORT [facility] EMERGENCY ROOM REPORT NAME ACCOUNT SEX AGE ADMIT DISCHARGE PT MED. RECORD# NUMBER DATE DATE TYPE JOSE ELIAS OLIVER [id number] [place] 40 12/04/20 12/04/20 3 C 22955 ROOM: ER DATE OF : 1980 DICTATING PHYSICIAN: Hazel Allen Date seen is December 04, 2020 at 0500 hours. HISTORY OF PRESENT ILLNESS: The patient is a 40-year-old male complaining of bilateral lower leg swelling "for a while". He has noticed some redness to the right lower leg, and that area is somewhat painful. He rates the pain a 7 on a severity scale of 1 to 10. He describes the pain as sharp in nature, worse in movement. Denies any associated numbness or tingling. He states at times that the right leg gets "really warm". He denies any history of prior blood clots, but his brother was treated for a pulmonary embolism in the past. The patient denies any chest pain or shortness of breath. He denies any recent falls; however, he was incarcerated for 7.5 months and he just recently got out, so he did not do a lot of walking and ambulation while in [facility]. Now, he walks everywhere, but he has just gotten out of the [facility]. He denies any fever. He does not have a primary care physician. PAST MEDICAL HISTORY: Past medical history of an irregular heart rate, which the patient states he has had a long time ago, nothing recent. He was never put on any medications for it. He also has a history of gastroesophageal reflux disease and some bulging disc in his low back. PAST SURGICAL HISTORY: Adenoidectomy. ALLERGIES: No known drug allergies. SOCIAL HISTORY: The patient is a smoker, half a pack per day. Denies any drug or alcohol use. He presently lives alone and just recently got out of [facility]. REVIEW OF SYSTEMS: The patient denies any fever, sweats, or chills. Denies any chest pain, shortness of breath, cough, sputum, wheezing, abdominal pain, nausea, vomiting, diarrhea, constipation, melena, hematochezia, headache, numbness, unsteady gait, weakness, neck or back pain. He does complain of some swelling to both lower extremities with some redness and pain to the right lower leg. Further review of systems is negative. PHYSICAL EXAMINATION: Vital signs: Blood pressure 169/116, pulse 105, respiratory rate 18, temperature 96.8, pulse ox 98%, weight 200 pounds. The patient is alert and oriented x3. He presently appears in no acute distress. He is pleasant and cooperative. Page 1 of 2 JOSE ELIAS OLIVER Emergency Room Report JOSE ELIAS OLIVER : 1980 HEENT: Head appears atraumatic. Pupils are equal and reactive to light. Red reflex intact bilaterally. Extraocular muscles are intact. No conjunctival injection. Nose: Exhibits no rhinorrhea or epistaxis. Mouth: Mucous membranes are moist. No pharyngeal erythema. Uvula is midline and elevates. Neck is supple. Trachea is midline. No JVD or lymphadenopathy. No posterior cervical tenderness. No nuchal rigidity. Lungs: Clear to auscultation in all lung mariano. No adventitious sounds are noted. No accessory muscle use noted. CV: Heart rate and rhythm are regular without murmur. Abdomen is soft and nontender with normoactive bowel sounds x4 quadrants. No guarding or rigidity. No rebound. No palpable abdominal masses. No hepatosplenomegaly. Back exhibits no midline or paraspinal region tenderness. No increased paraspinal muscle rigidity. Negative Pete's sign. Extremities: Looking at his lower extremities, I do not see any swelling. His right leg is just very mildly red just above the ankle, very minimally warm to touch. He does have good bilateral dorsalis pedis pulses. He did have tenderness to palpation in both posterior calves, but I do not see any swelling there. There are no skin abrasions or lacerations. Neurologic examine shows the patient to be alert and oriented x4. No motor or sensory deficits are noted. Normal speech. EMERGENCY DEPARTMENT COURSE AND TREATMENT: Presently, I do have some screening blood work pending, and I will get a venous duplex of the bilateral lower extremities to rule out DVT especially in light of the history of his brother having blood clots, and he has recently been incarcerated. We will then reevaluate. Dictated By: Hazel Allen DO 12/04/20 05:23 JOB #: [id number] Transcribed By: [email or web address] 12/04/20 18:22 Electronically signed by: E-Sign: Dr. Hazel Allen D.O. 12/05/20 10:59 Page 2 of 2 JOSE ELIAS OLIVER Emergency Room Report Normal [facility] CBC + DIFFon 12-04-2020 Baso # 0.10 x10EE3/UL Normal 0.00 - 0.10 [facility] Comment on above: Performed By: #### 2 53091 #### [place] [address] Basophils/100 WBC (Bld) 1.0 % Normal 0.0 - 2.0 [facility] Comment on above: Performed By: #### 2 [id number] #### [facility],[address] [place] [address] CBC + DIFF Normal [facility] Comment on above: Result Comment: CBC- COMPLETE BLOOD COUNT Performed By: #### 2 17497 #### [place] [address] EO # 0.20 x10EE3/UL Normal 0.00 - 0.50 [facility] Comment on above: Performed By: #### 2 35465 #### [facility],[address] [place] [address] Eosinophils/100 WBC (Bld) 1.9 % Normal 0.0 - 7.0 [facility] Comment on above: Performed By: #### 2 13270 #### [facility],[address] [place] [address] Erythrocyte distribution width (RBC) [Ratio] 12.4 % Normal 12.0 - 15.6 [facility] Comment on above: Performed By: #### 2 43126 #### [facility],[address] [place] [address] Hematocrit (Bld) [Volume fraction] 37.1 % Low 40.0 - 52.0 [facility] Comment on above: Performed By: #### 2 25959 #### [facility],[address] [place] [address] Hemoglobin (Bld) [Mass/Vol] 12.9 g/dL Low 13.0 - 17.5 [facility] Comment on above: Performed By: #### 2 44170 #### [facility],[address] [place] [address] Lymph # 2.20 x10EE3/UL Normal 0.80 - 2.80 [facility] Comment on above: Performed By: #### 2 86840 #### [facility],[address] [place], [place] [id number] Lymphocytes/100 WBC (Bld) 24.5 % Normal 20.0 - 45.0 [facility] Comment on above: Performed By: #### 2 53298 #### [facility],[address] [place] [address] MANUAL DIFF N/A Normal [facility] Comment on above: Performed By: #### 2 43777 #### [facility],[address] [place] [address] MCH (RBC) [Entitic mass] 32 pg Normal 27 - 33 [facility] Comment on above: Performed By: #### 2 96241 #### [facility],[address] [place] [address] MCHC 35 X10 3 Normal 32 - 36 [facility] Comment on above: Performed By: #### 2 55038 #### [place] [address] MCV (RBC) [Entitic vol] 93 fL Normal 81 - 98 [facility] Comment on above: Performed By: #### 2 14556 #### [place] [address] [place] # 0.80 x10EE3/UL Normal 0.20 - 1.00 [facility] Comment on above: Performed By: #### 2 34275 #### [facility],[address] [place] [address] MONOS % 9.5 % Normal 0.0 - 10.0 [facility] Comment on above: Performed By: #### 2 05545 #### [place] [address] Morphology Edward (Bld) [Interp] N/A Normal [facility] Comment on above: Result Comment: {CD] Performed By: #### 2 71357 #### [facility],[address] [place] [address] Neut # 5.60 x10EE3/UL Normal 1.50 - 7.10 [facility] Comment on above: Performed By: #### 2 83435 #### [place] [address] Neutrophils/100 WBC (Bld) 63.1 % Normal 46.0 - 76.0 [facility] Comment on above: Performed By: #### 2 32039 #### [place] [id number] PLATELET 292 x10EE3/UL Normal 150 - 450 [facility] Comment on above: Performed By: #### 2 91691 #### [facility],[address] [place] [address] Platelet mean volume (Bld) [Entitic vol] 7.4 fL Normal 6.4 - 10.5 [facility] Comment on above: Result Comment: AUTO MATED DIFFERENTIAL Performed By: #### 2 17995 #### [facility],[address] [place] [address] RBC 3.99 x 10EE6/UL Low 4.50 - 6.00 [facility] Comment on above: Performed By: #### 2 20461 #### [facility],[address] [place] [address] WBC 8.8 x 10EE3/UL Normal 4.5 - 10.8 [facility] Comment on above: Performed By: #### 2 04662 #### [facility],[address] [place], [place] [id number] CMP with eGFRon 12-04-2020 AGE 40 years Normal [facility] Comment on above: Performed By: #### 2 96890 #### [facility],[address] [place] [address] Albumin [Mass/Vol] 3.9 g/dL Normal 3.4 - 5.0 [facility] Comment on above: Performed By: #### 2 39294 #### [facility],[address] [place] [address] Albumin/Globulin [Mass ratio] 1.2 {ratio} Normal 0.9 - 1.6 [facility] Comment on above: Performed By: #### 2 10088 #### [facility],[address] [place] [address] ALK PHOS 64 U/L Normal 46 - 116 [facility] Comment on above: Performed By: #### 2 00246 #### [facility],[address] [place] [address] ALT [Catalytic activity/Vol] 76 U/L High 16 - 63 [facility] Comment on above: Performed By: #### 2 10142 #### [facility],[address] [place] [address] Anion gap [Moles/Vol] 11 mmol/L Normal 10 - 20 [facility] Comment on above: Performed By: #### 2 42551 #### [facility],[address] [place] [address] AST [Catalytic activity/Vol] 29 U/L Normal 15 - 37 [facility] Comment on above: Performed By: #### 2 45210 #### [facility],[address] [place], [place] [id number] B/C RATIO 15 ratio Normal 0 - 30 [facility] Comment on above: Performed By: #### 2 99870 #### [facility],[address] [place] [address] Bilirubin [Mass/Vol] 0.3 mg/dL Normal 0.2 - 1.0 [facility] Comment on above: Performed By: #### 2 57245 #### [facility],[address] [place] [address] Calcium [Mass/Vol] 9.0 mg/dL Normal 8.5 - 10.1 [facility] Comment on above: Performed By: #### 2 56500 #### [facility],[address] [place] [address] Chloride [Moles/Vol] 106 mmol/L Normal 98 - 107 [facility] Comment on above: Performed By: #### 2 73999 #### [facility],[address] [place] [address] 35979 CMP with eGFR Normal [facility] Comment on above: Result Comment: COMP REHENSIVE METABOLIC PANEL Performed By: #### 2 [id number] #### [facility],[address] [place] [address] 10293 CO2 [Moles/Vol] 28.5 mmol/L Normal 21.0 - 32.0 [facility] Comment on above: Performed By: #### 2 [id number] #### [facility],[address] [place] [address] 52095 Creatinine [Mass/Vol] 1.12 mg/dL Normal 0.70 - 1.30 [facility] Comment on above: Performed By: #### 2 [id number] #### [facility],[address] [place] [address] 76271 GFR/1.73 sq M.predicted among non-blacks MDRD (S/P/Bld) [Vol rate/Area] mL/min/{1.73_m2} Normal 60 - 999 [facility] Comment on above: Performed By: #### 2 [id number] #### [facility],[address] [place] [address] 08471 Result Comment: ACCO RDING TO THE NATIONAL KIDNEY DISEASE EDUCATION PROGRAM(NKDE), A NORMAL eGFR IS A VALUE GREATER THAN OR EQUAL TO 60 ML/MIN/1.73 SQ METERS. CHRONIC KIDNEY DISEASE: <60mL/MIN/1.73 SQ METERS KIDNEY FAILURE: <15mL/MIN/1.73 SQ METERS THIS TEST SHOULD ONLY BE USED FOR PATIENTS 18 YEARS OF AGE AND OLDER. Globulin (S) [Mass/Vol] 3.3 g/dL Normal 1.5 - 3.8 [facility] Comment on above: Performed By: #### 2 04524 #### [facility],[address] [place] [address] 22218 Glucose [Mass/Vol] 95 mg/dL Normal 74 - 106 [facility] Comment on above: Performed By: #### 2 09597 #### [facility],[address] [place] [address] 50187 Potassium [Moles/Vol] 3.7 mmol/L Normal 3.5 - 5.1 [facility] Comment on above: Performed By: #### 2 03733 #### [facility],[address] [place] [address] 38154 Protein [Mass/Vol] 7.2 g/dL Normal 6.4 - 8.2 [facility] Comment on above: Performed By: #### 2 74873 #### [facility],[address] [place] [address] 13492 Sodium [Moles/Vol] 142 mmol/L Normal 136 - 145 [facility] Comment on above: Performed By: #### 2 [id number] #### [facility],[address] [place] [address] 59934 Urea nitrogen [Mass/Vol] 17 mg/dL Normal 7 - 18 [facility] Comment on above: Performed By: #### 2 19077 #### [facility],[address] [place] [address] 44071 CPKon 12-04-2020 CPK 860 U/L High 39 - 308 [facility] Comment on above: Performed By: #### 2 78109 #### [facility],[address] [place] [address] 92058 CV VENOUS BILATERAL LOWERon 12-04-2020 CV VENOUS BILATERAL LOWER [address] [address] Patient: JOSE ELIAS OLIVER Phone#: : 1980 Age: 40 Gender: M Pt. Type: ER Account: [id number] Location: [facility] Ordering: HAZEL ALLEN Exam Date: 12/04/2020/6:44 Family Phys: Charge Code: 923859 Physician: [place] Order #: [id number] DLP Dose#: PROCEDURE: VENOUS DOPPLER BILAT LEG COMPARISON: None. INDICATIONS: Leg swelling TECHNIQUE: Color duplex Doppler ultrasound evaluation analysis was performed in the usual manner. GARMENT TURNER: JESSICA RISK FACTORS FOR VENOUS DISEASE: Other Leg swelling EXAMINATION: RIGHT +Present -Reduced o Absent LEFT SPONT PHASIC AUG REFLUX COMP SPONT PHASIC AUG REFLUX COMP + + + o + CFV + + + o + + SFJ + + + + o + FV (prox) + + + o + + FV (mid) + + FV (dist) + + + + o + POP V + + + o + + + + o + T/P TRUNK + + + o + + + + o + PTV + + + o + + + + o + PERONEAL V + + + o + + GSV + GASTROC SOLEAL V GARMENT TURNER'S NOTES: Continued Report - Page 2 of 2 Patient: JOSE ELIAS OLIVER Phone#: : 1980 Age: 40 Gender: M Pt. Type: ER Account: [id number] Location: 2 Ordering: HAZEL ALLEN Exam Date: 12/04/2020/6:44 Family Phys: Charge Code: [id number] Physician: [place] Order #: [id number] DLP Dose#: FINDINGS: THROMBI: None visible. COMPRESSIBILITY: Normal. OTHER: Negative. CONCLUSION: 1. There is no evidence of superficial or deep vein thrombus. Dictated by: Kenya Wesley MD on 12/04/2020 at 9:22 Approved by: Kenya Wesley MD on 12/04/2020 at 9:23 Normal [facility] NT-proBNPon 12-04-2020 Natriuretic peptide B (Bld) [Mass/Vol] 36 pg/mL Normal 0 - 125 [facility] Comment on above: Performed By: #### 2 00066 #### [facility],[address] [place] [address] EMERGENCY REPORTon 0 EMERGENCY REPORT [facility] EMERGENCY ROOM REPORT NAME ACCOUNT SEX AGE ADMIT DISCHARGE PT MED. RECORD# NUMBER DATE DATE TYPE JOSE ELIAS OLIVER [id number] M 39 03/03/20 03/03/20 3 C [id number] ROOM: ER DATE OF : 1980 DICTATING PHYSICIAN: Marquita Ryan CHIEF COMPLAINT: Heartburn. HISTORY OF PRESENT ILLNESS: This is a 39-year-old male who indicates that he has a long history of GERD. He indicates he had previously been on ranitidine with relief, but they had taken it off of the market. Over the past two days he has had persistent heartburn which is a burning sensation in the epigastrium. He has been nauseated, but he has not had any vomiting. He took some Tums without relief. He denies any fever, diarrhea, dysuria or frequency. PAST MEDICAL HISTORY: Gastritis. FAMILY HISTORY: Noncontributory. SOCIAL HISTORY: He does smoke, but he does not drink alcohol. REVIEW OF SYSTEMS: GENERAL: Denies fevers, chills or weight loss. SKIN: No rash. ABDOMEN: Heartburn with burning pain in the epigastrium. HEAD: No trauma or headaches. All other systems reviewed and negative unless otherwise noted. PHYSICAL EXAMINATION: VITAL SIGNS: Stable. GENERAL: The patient is alert and in no distress. SKIN: No rash. HEENT: Mouth and pharynx are clear with moist membranes. NECK: No adenopathy or JVD. CHEST: Clear with no rales, rubs or rhonchi. CARDIOVASCULAR: Regular rate and rhythm. ABDOMEN: Soft with active bowel sounds. Mild epigastric tenderness, but no guarding or rebound. EXTREMITIES: Full range of motion and no deformity. DIAGNOSTIC DATA: CT scan shows no evidence of abnormality. EMERGENCY DEPARTMENT COURSE AND TREATMENT: Laboratories ordered include CBC, electrolytes, LFTs, lipase and CT of the abdomen and pelvis. The patient refused IV or blood work at this time. DIAGNOSES: 1. Acute gastritis. 2. Abdominal pain. Page 1 of 2 JOSE ELIAS OLIVER Emergency Room Report JOSE ELIAS OLIVER : 1980 PLAN/DISPOSITION: The patient was given a GI cocktail in the department, but refuses any other treatment. We discharged him home on omeprazole and to follow up with primary care physician. Dictated By: Marquita Ryan MD 03/03/20 16:27 JOB #: [id number] Transcribed By: malissa 03/05/20 11:17 Electronically signed by: Marquita Ryan M.D. 03/05/20 21:08 Page 2 of 2 JOSE ELIAS OLIVER Emergency Room Report Normal [facility] CT ABDOMEN/PELVIS [facility] 03-03 CT ABDOMEN/PELVIS [place] [address] Patient: JOSE ELIAS OLIVER Phone#: : 1980 Age: 39 Gender: M Pt. Type: ER Account: [id number] Location: 052 Ordering: DR. MARQUITA RYAN Exam Date: 03/03/202016:08 Family Phys: NO DOCTOR Charge Code: [id number] Physician: [place] Order #: [id number] DLP Dose#: 5.50 mGy PROCEDURE: CT ABDOMEN/PELVIS WITHOUT CONTRAST COMPARISON: None. INDICATIONS: Abdominal Pain. TECHNIQUE: CT images were created without intravenous contrast. All CT scans at this facility use dose modulation, iterative reconstruction, and/or weight based dosing when appropriate to reduce radiation dose to as low as reasonably achievable. IV CONTRAST: No IV contrast used,0ml TOTAL DOSE: 5.50 CTDIvol(mGy) FINDINGS: LIVER: Normal. No enlargement, atrophy, abnormal density, or significant focal lesion. BILIARY: Normal. No visible dilatation or calcification. PANCREAS: Normal. No lesion, fluid collection, ductal dilatation, or atrophy. SPLEEN: Normal. No enlargement or focal lesion. KIDNEYS: Normal. No mass, obstruction, or calcification. ADRENALS: Normal. No mass or enlargement. AORTA/VASCULAR: Normal. No aneurysm. RETROPERITONEUM: Normal. No mass or adenopathy. BOWEL/MESENTERY: Normal. No visible mass, obstruction, or bowel wall thickening. ABDOMINAL WALL: Normal. No mass or hernia. URINARY BLADDER: Normal. No visible focal wall thickening, lesion, or calculus. PELVIC NODES: Normal. No adenopathy. PELVIC ORGANS: Normal. No visible mass. Pelvic organs appropriate for patient age. BONES: Normal. No bony lesion or fracture. LUNG BASES: Normal. No visible pulmonary or pleural disease. OTHER: Negative. Continued Report - Page 2 of 2 Patient: JOSE ELIAS OLIVER Phone#: : 1980 Age: 39 Gender: M Pt. Type: ER Account: [id number] Location: 052 Ordering: DR. MARQUITA RYAN Exam Date: 03/03/2020/16:08 Family Phys: NO DOCTOR Charge Code: [id number] Physician: [place] Order #: [id number] DLP Dose#: 5.50 mGy CONCLUSION: No acute disease. Dictated by: Kenya Wesley MD on 03/03/2020 at 16:16 Approved by: Kenya eWsley MD on 03/03/2020 at 16:19 Normal [facility] Laboratory - Microbiology an d Antimicrobial susceptibility Bacteria identified Cx Nom (Bld) No growth in 5 days. [facility] Work Phone: Vital Signs Date Time Vital Sign Value Performing Clinician Facility 10-28-2024 20:47-0400 Body temperature 98.6 [degF] Zakiya Dupont SNUBBER-C Work Phone: 8(741)761-112223 [place] [address] 10-28-2024 20:47-0400 Diastolic blood pressure 102 mm[Hg] Zakiya Dupont SNUBBER-C Work Phone: 5(262)138-158223 [place] [address] 10-28-2024 20:47-0400 Heart rate 92 /min Zakiya Dupont SNUBBER-C Work Phone: 6(324)226-531023 [place] [address] 10-28-2024 20:47-0400 Respiratory rate 18 /min Zakiya Dupont SNUBBER-C Work Phone: 8(591)914-465623 [place] [address] 10-28-2024 20:47-0400 SaO2% (BldA) [Mass fraction] 100 % Zakiya Dupont [employer]UBBER-C Work Phone: 4(199)629-621923 [place] [address] 10-28-2024 20:47-0400 Systolic blood pressure 134 mm[Hg] Zakiya Dupont SNUBBER-C Work Phone: 3(244)954-315123 [place] [address] 10-28-2024 16:33-0400 Body height 185.42 cm Zakiya Dupont SNUBBER-C Work Phone: 5(479)696-740723 [place] [address] 10-28-2024 16:33-0400 Body mass index (BMI) [Ratio] 25.1 kg/m2 Zakiya Dupont [employer]UBBER[facility]C Work Phone: 4(511)541-863323 [place] [address] 10-28-2024 16:33-0400 Body weight 86.38 kg Zakiya Dupont SNUBBER-C Work Phone: 1(695)014-675981 [address] 10-27-2024 13:00-0400 Diastolic blood pressure 120 mm[Hg] Zakiya Dupont SNUBBER-C Work Phone: [facility] 10-27-2024 13:00-0400 Heart rate 108 /min Zakiya Cresencio SNUBBER-C Work Phone: [facility] 10-27-2024 13:00-0400 Respiratory rate 22 /min Zakiya Cresencio SNUBBER-C Work Phone: [facility] 10-27-2024 13:00-0400 SaO2% (BldA) [Mass fraction] 97 % Zakiya Cresencio SNUBBER-C Work Phone: [facility] 10-27-2024 13:00-0400 Systolic blood pressure 165 mm[Hg] Zakiya Cresencio SNUBBER-C Work Phone: 6(613)565-764723 [place] [address] 10-27-2024 11:18-0400 Body height 185.42 cm Zakiya Cresencio SNUBBER-C Work Phone: 0(572)378-609523 [place] [address] 10-27-2024 11:18-0400 Body temperature 98.3 [degF] Zakiya Cresencio SNUBBER-C Work Phone: [facility] 06-13-2024 12:23-0500 Body mass index (BMI) [Ratio] 25.48 kg/m2 Neal Bradshaw APRN.EMERGENCY DEPARTMENT Work Phone: [facility] 06-13-2024 12:23-0500 Body temperature 97.3 [degF] Neal Bradshaw APRN.EMERGENCY DEPARTMENT Work Phone: [facility] 06-13-2024 12:23-0500 Body weight 87.6 kg Neal Bradshaw APRN.EMERGENCY DEPARTMENT Work Phone: [facility] 06-13-2024 12:23-0500 Diastolic blood pressure 82 mm[Hg] Neal Bradshaw APRN.EMERGENCY DEPARTMENT Work Phone: [facility] 06-13-2024 12:23-0500 Heart rate 97 /min Neal Bradshaw APRN.EMERGENCY DEPARTMENT Work Phone: [facility] 06-13-2024 12:23-0500 Respiratory rate 16 /min Neal Bradshaw APRN.EMERGENCY DEPARTMENT Work Phone: [facility] 06-13-2024 12:23-0500 SaO2% (BldA) [Mass fraction] 100 % Neal Bradshaw APRN.EMERGENCY DEPARTMENT Work Phone: [facility] 06-13-2024 12:23-0500 Systolic blood pressure 144 mm[Hg] Neal Bradshaw APRN.EMERGENCY DEPARTMENT Work Phone: [facility] 11-24-2023 12:58-0400 Body mass index (BMI) [Ratio] 24.35 kg/m2 Mat Tavarez MD Work Phone: [facility] 11-24-2023 12:58-0400 Body temperature 96.8 [degF] Mat Tavarez MD Work Phone: [facility] 11-24-2023 12:58-0400 Body weight 83.7 kg Mat Tavarez MD Work Phone: [facility] 11-24-2023 12:58-0400 Diastolic blood pressure 108 mm[Hg] Mat Tavarez MD Work Phone: [facility] 11-24-2023 12:58-0400 Heart rate 97 /min Mat Tavarez MD Work Phone: [facility] 11-24-2023 12:58-0400 Respiratory rate 20 /min Mat Tavarez MD Work Phone: [facility] 11-24-2023 12:58-0400 SaO2% (BldA) [Mass fraction] 98 % Mat Tavarez MD Work Phone: [facility] 11-24-2023 12:58-0400 Systolic blood pressure 154 mm[Hg] Mat Tavarez MD Work Phone: [facility] 09-22-2023 09:28-0400 Body temperature 97.5 [degF] [facility] 09-22-2023 09:28-0400 Diastolic blood pressure 69 mm[Hg] [facility] 09-22-2023 09:28-0400 Heart rate 82 /min [facility] 09-22-2023 09:28-0400 Respiratory rate 16 /min [facility] 09-22-2023 09:28-0400 SaO2% (BldA) [Mass fraction] 99 % [facility] 09-22-2023 09:28-0400 Systolic blood pressure 124 mm[Hg] [facility] 09-21-2023 23:53-0400 Body height 180.34 cm [facility] 05-01-2023 13:47-0500 Body height 182.88 cm [facility] 05-01-2023 13:47-0500 Body mass index (BMI) [Ratio] 27.8 kg/m2 [facility] 05-01-2023 13:47-0500 Body temperature 98.2 [degF] [facility] 05-01-2023 13:47-0500 Body weight 93 kg [facility] 05-01-2023 13:47-0500 Diastolic blood pressure 108 mm[Hg] [facility] 05-01-2023 13:47-0500 Heart rate 103 /min [facility] 05-01-2023 13:47-0500 Respiratory rate 18 /min [facility] 05-01-2023 13:47-0500 SaO2% (BldA) [Mass fraction] 97 % [facility] 05-01-2023 13:47-0500 Systolic blood pressure 166 mm[Hg] [facility] 04-30-2023 18:31-0500 Body height 185.42 cm [facility] 04-30-2023 18:31-0500 Body mass index (BMI) [Ratio] 27.3 kg/m2 [facility] 04-30-2023 18:31-0500 Body temperature 96.8 [degF] [facility] 04-30-2023 18:31-0500 Body weight 94.07 kg [facility] 04-30-2023 18:31-0500 Diastolic blood pressure 110 mm[Hg] [facility] 04-30-2023 18:31-0500 Heart rate 102 /min [facility] 04-30-2023 18:31-0500 Respiratory rate 16 /min [facility] 04-30-2023 18:31-0500 SaO2% (BldA) [Mass fraction] 100 % [facility] 04-30-2023 18:31-0500 Systolic blood pressure 152 mm[Hg] [facility] 04-05-2023 09:24-0500 Body temperature 96.91 [degF] Rafi Tadeo TRIM SETTER.EMERGENCY DEPARTMENT Work Phone: [facility] 04-05-2023 09:24-0500 Body weight 91.63 kg Rafi Tadeo TRIM SETTER.EMERGENCY DEPARTMENT Work Phone: [facility] 04-05-2023 09:24-0500 Diastolic blood pressure 90 mm[Hg] Rafi Tadeo TRIM SETTER.EMERGENCY DEPARTMENT Work Phone: [facility] 04-05-2023 09:24-0500 Heart rate 82 /min Rafi Tadeo TRIM SETTER.EMERGENCY DEPARTMENT Work Phone: [facility] 04-05-2023 09:24-0500 Respiratory rate 22 /min Rafi Tadeo TRIM SETTER.EMERGENCY DEPARTMENT Work Phone: [facility] 04-05-2023 09:24-0500 SaO2% (BldA) [Mass fraction] 97 % Rafi Tadeo TRIM SETTER.EMERGENCY DEPARTMENT Work Phone: [facility] 04-05-2023 09:24-0500 Systolic blood pressure 138 mm[Hg] Rafi Tadeo TRIM SETTER.EMERGENCY DEPARTMENT Work Phone: [facility] 01-05-2023 10:33-0400 Body temperature 97.9 [degF] Sharron Praisler-Wood TRIM SETTER.EMERGENCY DEPARTMENT Work Phone: [facility] 01-05-2023 10:33-0400 Body weight 91.72 kg Sharron Praisler-Wood TRIM SETTER.EMERGENCY DEPARTMENT Work Phone: [facility] 01-05-2023 10:33-0400 Diastolic blood pressure 82 mm[Hg] Sharron Praisler-Wood TRIM SETTER.EMERGENCY DEPARTMENT Work Phone: [facility] 01-05-2023 10:33-0400 Heart rate 77 /min Sharron Praisler-Wood TRIM SETTER.EMERGENCY DEPARTMENT Work Phone: [facility] 01-05-2023 10:33-0400 Respiratory rate 16 /min Sharron Praisler-Wood TRIM SETTER.EMERGENCY DEPARTMENT Work Phone: [facility] 01-05-2023 10:33-0400 SaO2% (BldA) [Mass fraction] 97 % Sharron Praisler-Wood TRIM SETTER.EMERGENCY DEPARTMENT Work Phone: [facility] 01-05-2023 10:33-0400 Systolic blood pressure 136 mm[Hg] Sharron Praisler-Wood TRIM SETTER.EMERGENCY DEPARTMENT Work Phone: [facility] 07-23-2022 18:28-0500 Diastolic blood pressure 104 mm[Hg] [facility] Work Phone: 9(044)597-498323 [place] [address] 07-23-2022 18:28-0500 Heart rate 81 /min [facility] Work Phone: 1(883)621-280775 [place] [address] 07-23-2022 18:28-0500 Respiratory rate 20 /min [facility] Work Phone: 9(340)121-197175 [place] [address] 07-23-2022 18:28-0500 SaO2% (BldA) [Mass fraction] 98 % [facility] Work Phone: 2(459)580-320523 [place] [address] 07-23-2022 18:28-0500 Systolic blood pressure 172 mm[Hg] [facility] Work Phone: 2(815)612-569275 [place] [address] 07-23-2022 17:58-0500 Body height 185.42 cm [facility] Work Phone: 0(429)931-273175 [place] [address] 07-23-2022 17:58-0500 Body mass index (BMI) [Ratio] 29.2 kg/m2 [facility] Work Phone: 8(506)971-778975 [place] [address] 07-23-2022 17:58-0500 Body temperature 97 [degF] [facility] Work Phone: 3(775)730-277875 [place] [address] 07-23-2022 17:58-0500 Body weight 100.33 kg [facility] Work Phone: [facility] 06-18-2022 13:22-0500 Body temperature 97.81 [degF] Sharron Praisler-Wood TRIM SETTER.EMERGENCY DEPARTMENT Work Phone: [facility] 06-18-2022 13:22-0500 Body weight 98.34 kg Sharron Praisler-Wood TRIM SETTER.EMERGENCY DEPARTMENT Work Phone: [facility] 06-18-2022 13:22-0500 Diastolic blood pressure 82 mm[Hg] Sharron Praisler-Wood TRIM SETTER.EMERGENCY DEPARTMENT Work Phone: [facility] 06-18-2022 13:22-0500 Heart rate 108 /min Sharron Praisler-Wood TRIM SETTER.EMERGENCY DEPARTMENT Work Phone: [facility] 06-18-2022 13:22-0500 Respiratory rate 18 /min Sharron Praisler-Wood TRIM SETTER.EMERGENCY DEPARTMENT Work Phone: [facility] 06-18-2022 13:22-0500 SaO2% (BldA) [Mass fraction] 97 % Sharron Praisler-Wood TRIM SETTER.EMERGENCY DEPARTMENT Work Phone: [facility] 06-18-2022 13:22-0500 Systolic blood pressure 132 mm[Hg] Sharron Praisler-Wood TRIM SETTER.EMERGENCY DEPARTMENT Work Phone: [facility] 04-24-2022 15:35-0500 Body temperature 97.7 [degF] [facility] Work Phone: [facility] 04-24-2022 15:35-0500 Diastolic blood pressure 89 mm[Hg] [facility] Work Phone: [facility] 04-24-2022 15:35-0500 Heart rate 82 /min [facility] Work Phone: [facility] 04-24-2022 15:35-0500 Respiratory rate 16 /min [facility] Work Phone: [facility] 04-24-2022 15:35-0500 SaO2% (BldA) [Mass fraction] 96 % [facility] Work Phone: 2(843)646-335523 [place] [address] 04-24-2022 15:35-0500 Systolic blood pressure 128 mm[Hg] [facility] Work Phone: 8(492)754-311375 [place] [address] 04-24-2022 09:30-0500 Body height 185.42 cm [facility] Work Phone: 1(758)939-668575 [place] [address] 04-24-2022 09:30-0500 Body mass index (BMI) [Ratio] 27.6 kg/m2 [facility] Work Phone: 2(692)879-608481 [address] 04-24-2022 09:30-0500 Body weight 95 kg [facility] Work Phone: 8(276)544-889275 [place] [address] 02-28-2022 11:48-0400 Body temperature 97.9 [degF] [facility] Work Phone: [facility] Work Phone: 02-28-2022 11:48-0400 Diastolic blood pressure 96 mm[Hg] [facility] Work Phone: [facility] Work Phone: 02-28-2022 11:48-0400 Heart rate 74 /min [facility] Work Phone: [facility] Work Phone: 02-28-2022 11:48-0400 Respiratory rate 18 /min [facility] Work Phone: [facility] Work Phone: 02-28-2022 11:48-0400 SaO2% (BldA) [Mass fraction] 97 % [facility] Work Phone: [facility] Work Phone: 02-28-2022 11:48-0400 Systolic blood pressure 141 mm[Hg] [facility] Work Phone: [facility] Work Phone: 02-27-2022 10:51-0400 Body height 185.42 cm [facility] Work Phone: [facility] Work Phone: 02-27-2022 10:51-0400 Body weight 92.6 kg [facility] Work Phone: [facility] Work Phone: 02-26-2022 15:11-0400 Body height 185.42 cm [facility] Work Phone: [facility] Work Phone: 02-26-2022 15:11-0400 Body mass index (BMI) [Ratio] 26.9 kg/m2 [facility] Work Phone: [facility] Work Phone: 02-26-2022 15:11-0400 Body weight 92.6 kg [facility] Work Phone: [facility] Work Phone: 02-26-2022 15:04-0400 Body temperature 98.7 [degF] [facility] Work Phone: [facility] Work Phone: 02-26-2022 15:04-0400 Diastolic blood pressure 97 mm[Hg] [facility] Work Phone: [facility] Work Phone: 02-26-2022 15:04-0400 Heart rate 83 /min [facility] Work Phone: [facility] Work Phone: 02-26-2022 15:04-0400 Respiratory rate 16 /min [facility] Work Phone: [facility] Work Phone: 02-26-2022 15:04-0400 SaO2% (BldA) [Mass fraction] 98 % [facility] Work Phone: [facility] Work Phone: 02-26-2022 15:04-0400 Systolic blood pressure 149 mm[Hg] [facility] Work Phone: [facility] Work Phone: 02-25-2022 17:50-0400 Heart rate 92 /min [facility] Work Phone: [facility] Work Phone: 02-25-2022 17:50-0400 Respiratory rate 17 /min [facility] Work Phone: [facility] Work Phone: 02-25-2022 17:50-0400 SaO2% (BldA) [Mass fraction] 97 % [facility] Work Phone: [facility] Work Phone: 02-25-2022 17:01-0400 Body height 185.42 cm [facility] Work Phone: [facility] Work Phone: 02-25-2022 17:01-0400 Body mass index (BMI) [Ratio] 26.4 kg/m2 [facility] Work Phone: [facility] Work Phone: 02-25-2022 17:01-0400 Body temperature 98.9 [degF] [facility] Work Phone: [facility] Work Phone: 02-25-2022 17:01-0400 Body weight 90.71 kg [facility] Work Phone: [facility] Work Phone: 02-25-2022 17:01-0400 Diastolic blood pressure 108 mm[Hg] [facility] Work Phone: [facility] Work Phone: 02-25-2022 17:01-0400 Systolic blood pressure 158 mm[Hg] [facility] Work Phone: [facility] Work Phone: 02-24-2022 20:26-0400 Body height 185.42 cm [facility] Work Phone: [facility] Work Phone: 02-24-2022 20:26-0400 Body mass index (BMI) [Ratio] 26.4 kg/m2 [facility] Work Phone: [facility] Work Phone: 02-24-2022 20:26-0400 Body temperature 97.5 [degF] [facility] Work Phone: [facility] Work Phone: 02-24-2022 20:26-0400 Body weight 90.71 kg [facility] Work Phone: [facility] Work Phone: 02-24-2022 20:26-0400 Diastolic blood pressure 108 mm[Hg] [facility] Work Phone: [facility] Work Phone: 02-24-2022 20:26-0400 Heart rate 95 /min [facility] Work Phone: [facility] Work Phone: 02-24-2022 20:26-0400 Respiratory rate 16 /min [facility] Work Phone: [facility] Work Phone: 02-24-2022 20:26-0400 SaO2% (BldA) [Mass fraction] 98 % [facility] Work Phone: [facility] Work Phone: 02-24-2022 20:26-0400 Systolic blood pressure 170 mm[Hg] [facility] Work Phone: [facility] Work Phone: 02-23-2022 08:01-0400 Body height 185.42 cm [facility] Work Phone: [facility] Work Phone: 02-23-2022 08:01-0400 Body mass index (BMI) [Ratio] 26.4 kg/m2 [facility] Work Phone: [facility] Work Phone: 02-23-2022 08:01-0400 Body temperature 98 [degF] [facility] Work Phone: [facility] Work Phone: 02-23-2022 08:01-0400 Body weight 90.71 kg [facility] Work Phone: [facility] Work Phone: 02-23-2022 08:01-0400 Diastolic blood pressure 97 mm[Hg] [facility] Work Phone: [facility] Work Phone: 02-23-2022 08:01-0400 Heart rate 102 /min [facility] Work Phone: [facility] Work Phone: 02-23-2022 08:01-0400 Respiratory rate 18 /min [facility] Work Phone: [facility] Work Phone: 02-23-2022 08:01-0400 SaO2% (BldA) [Mass fraction] 98 % [facility] Work Phone: [facility] Work Phone: 02-23-2022 08:01-0400 Systolic blood pressure 135 mm[Hg] [facility] Work Phone: [facility] Work Phone: 02-09-2022 16:41-0400 Heart rate 87 /min [facility] Work Phone: 02-09-2022 16:41-0400 Respiratory rate 17 /min [facility] Work Phone: 02-09-2022 16:41-0400 SaO2% (BldA) [Mass fraction] 98 % [facility] Work Phone: 02-09-2022 14:50-0400 Body height 182.88 cm [facility] Work Phone: 02-09-2022 14:50-0400 Body mass index (BMI) [Ratio] 28.4 kg/m2 [facility] Work Phone: 02-09-2022 14:50-0400 Body temperature 97.1 [degF] [facility] Work Phone: 02-09-2022 14:50-0400 Body weight 95.1 kg [facility] Work Phone: 02-09-2022 14:50-0400 Diastolic blood pressure 92 mm[Hg] [facility] Work Phone: 02-09-2022 14:50-0400 Systolic blood pressure 143 mm[Hg] [facility] Work Phone: 08-30-2021 13:08-0400 Body height 182.88 cm No Primary Care Physician [facility] Work Phone: 08-30-2021 13:08-0400 Body mass index (BMI) [Ratio] 27.8 kg/m2 No Primary Care Physician [facility] Work Phone: 08-30-2021 13:08-0400 Body weight 92.98 kg No Primary Care Physician [facility] Work Phone: 08-09-2021 14:48-0400 Diastolic blood pressure 86 mm[Hg] [facility] Work Phone: 08-09-2021 14:48-0400 Heart rate 66 /min [facility] Work Phone: 08-09-2021 14:48-0400 Respiratory rate 18 /min [facility] Work Phone: 08-09-2021 14:48-0400 SaO2% (BldA) [Mass fraction] 99 % [facility] Work Phone: 08-09-2021 14:48-0400 Systolic blood pressure 136 mm[Hg] [facility] Work Phone: 08-09-2021 12:38-0400 Body height 182.88 cm [facility] Work Phone: 08-09-2021 12:38-0400 Body mass index (BMI) [Ratio] 27.2 kg/m2 [facility] Work Phone: 08-09-2021 12:38-0400 Body temperature 97.6 [degF] [facility] Work Phone: 08-09-2021 12:38-0400 Body weight 91.2 kg [facility] Work Phone: 06-19-2021 17:13-0500 Diastolic blood pressure 89 mm[Hg] [facility] Work Phone: 06-19-2021 17:13-0500 SaO2% (BldA) [Mass fraction] 97 % [facility] Work Phone: 06-19-2021 17:13-0500 Systolic blood pressure 113 mm[Hg] [facility] Work Phone: 06-19-2021 16:12-0500 Heart rate 96 /min [facility] Work Phone: 06-19-2021 13:11-0500 Body mass index (BMI) [Ratio] 25 kg/m2 [facility] Work Phone: 06-19-2021 13:11-0500 Body temperature 97.9 [degF] [facility] Work Phone: 06-19-2021 13:11-0500 Body weight 86.18 kg [facility] Work Phone: 06-19-2021 13:11-0500 Respiratory rate 18 /min [facility] Work Phone: Encounters Encounter Date Encounter Type Care Provider Facility Start: 10-28-2024 End: 10-28-2024 Emergency department patient visit Zakiya Dupont NP-C Work Phone: -Emergency Department Work Phone: Start: 10-27-2024 End: 10-27-2024 Emergency department patient visit Zakiya Dupont NP-C Work Phone: -Emergency Department Work Phone: Start: 08-05-2024 ambulatory Bear Alexander [facility] Start: 07-28-2024 ambulatory Bear Alexander [facility] Start: 07-05-2024 ambulatory Farrukh Rothman Facility :[facility] Start: 07-01-2024 End: 07-01-2024 Patient encounter procedure Sumanjosh Godoy SNUBBER-C -Radiology [facility] Work Phone: Start: 07-01-2024 End: 07-01-2024 ambulatory Darrenlualex Beam [facility] Facility:[facility] Start: 06-13-2024 End: 06-13-2024 ambulatory MAT TAVAREZ Facility:[facility] Start: 06-13-2024 End: 06-13-2024 Patient encounter procedure Neal Bradshaw APRN.CNP Work Phone: [facility] Comment on above: Dental abscess (Prim mirza Dx) Start: 06-05-2024 End: 06-05-2024 Emergency department patient visit No Primary Care Physician Facility:[facility] Start: 01-20-2024 [facility] Start: 01-09-2024 ambulatory [facility] Fac[facility] ty:[facility] Start: 01-01-2024 End: 01-01-2024 Emergency department patient visit [facility] Facility:[facility] Start: 12-16-2023 End: 12-16-2023 ambulatory [facility] Facility:[facility] Start: 11-24-2023 End: 11-24-2023 Subsequent hospital visit by physician [facility] Work Phone: Radiology Comment on above: Bilateral hand pain [M79.641, M79.642] Start: 11-24-2023 End: 11-24-2023 ambulatory MAT TAVAREZ Facility:[facility] Start: 11-24-2023 End: 11-24-2023 Office outpatient visit 25 minutes Mat Tavarez MD Work Phone: [facility] Comment on above: Bilateral hand pain (Primary Dx); Dermatitis contact Start: 09-21-2023 End: 09-22-2023 Emergency department patient visit [facility]-Emergency Department Work Phone: Start: 05-01-2023 End: 05-01-2023 Emergency department patient visit [facility]-Emergency Department Work Phone: Start: 04-30-2023 End: 04-30-2023 Emergency department patient visit [facility]-Emergency Department Work Phone: Start: 04-05-2023 End: 04-05-2023 Subsequent hospital visit by physician X[facility] Work Phone: Radiology Comment on above: Wrist pain, acute, r ight [M25.531] Start: 04-05-2023 End: 04-05-2023 Patient encounter procedure Rafi Piedra APRN.EMERGENCY DEPARTMENT Work Phone: [facility] Comment on above: Wrist pain, acute, r ight (Primary Dx) Start: 01-16-2023 End: 01-16-2023 ambulatory [facility] Work Phone: Start: 01-16-2023 End: 01-16-2023 [facility] Start: 01-05-2023 End: 01-05-2023 Patient encounter procedure Sharron Durand APRN.[facility] Work Phone: [facility] Comment on above: Viral URI with cough (Primary Dx) Start: 08-02-2022 End: 08-02-2022 ambulatory [facility] Work Phone: [facility] Work Phone: Start: 08-02-2022 End: 08-02-2022 Patient encounter procedure [facility] Work Phone: [facility]-Ultrasound, [facility] Start: 07-23-2022 End: 07-23-2022 Emergency department patient visit [facility] Work Phone: [facility]-Emergency Department Start: 07-17-2022 End: 07-17-2022 ambulatory [facility] Work Phone: [facility] Work Phone: Start: 07-17-2022 End: 07-17-2022 Patient encounter procedure [facility] Work Phone: [facility]-Laboratory Start: 07-04-2022 End: 07-04-2022 Patient encounter procedure [facility] Work Phone: [facility] Start: 06-19-2022 End: 06-19-2022 Discharged Recurring [facility] Work Phone: [facility]-Physical Therapy Start: 06-18-2022 End: 06-18-2022 Patient encounter procedure Sharron Durand APRN.[facility] Work Phone: [facility] Comment on above: Sore throat (Primary Dx) Start: 06-04-2022 End: 06-04-2022 Patient encounter procedure [facility] Work Phone: [facility] Start: 05-21-2022 End: 05-21-2022 Patient encounter procedure [facility] Work Phone: [facility] Start: 05-07-2022 End: 05-07-2022 Patient encounter procedure [facility] Work Phone: [facility] Start: 04-26-2022 End: 04-26-2022 Patient encounter procedure [facility] Work Phone: [facility] Start: 04-24-2022 Non-patient / Non-visit [facility] Work Phone: [facility] Start: 04-24-2022 End: 04-24-2022 Admission to same day surgery center [facility] Work Phone: [facility]-Surgical Day Care Start: 04-24-2022 End: 04-24-2022 ambulatory [facility] Work Phone: [facility] Work Phone: Start: 03-18-2022 End: 03-18-2022 Patient encounter procedure [facility] Work Phone: [facility] Start: 03-14-2022 End: 03-14-2022 ambulatory [facility] Work Phone: [facility] Work Phone: Start: 03-14-2022 End: 03-14-2022 Patient encounter procedure [facility] Work Phone: [facility] Start: 02-28-2022 Non-patient / Non-visit [facility] Work Phone: [facility] Inpatient Physicians Start: 02-27-2022 Non-patient / Non-visit [facility] Work Phone: [facility] Start: 02-26-2022 Non-patient / Non-visit [facility] Work Phone: [facility] Start: 02-26-2022 End: 02-28-2022 Evaluation and management of inpatient [facility] Start: 02-25-2022 End: 02-25-2022 Emergency department patient visit [facility] Work Phone: [facility]-Emergency Department Start: 02-24-2022 End: 02-24-2022 Emergency department patient visit [facility] Work Phone: [facility]-Emergency Department Start: 02-23-2022 End: 02-23-2022 Emergency department patient visit [facility] Work Phone: [facility]-Emergency Department Start: 02-20-2022 End: 02-20-2022 Patient encounter procedure [facility] Work Phone: [facility] Start: 02-09-2022 End: 02-09-2022 Emergency department patient visit [facility]-Emergency Department Start: 10-10-2021 End: 10-10-2021 Patient encounter procedure No Primary Care Physician [facility]-Laboratory Start: 08-30-2021 End: 08-30-2021 Patient encounter procedure No Primary Care Physician [facility] Start: 08-09-2021 End: 08-09-2021 Emergency department patient visit [facility]-Emergency Department Start: 06-19-2021 End: 06-19-2021 Emergency department patient visit [facility]-Emergency Department Start: 12-04-2020 End: 12-04-2020 Emergency department patient visit HAZEL BROUSSARD [facility] Start: 03-03-2020 End: 03-03-2020 Emergency department patient visit DOCTOR ON SONA [facility] Procedures Date Procedure Procedure Detail Performing Clinician Start: 10-28-2024 Estimated creatinine clearance Zakiya Dupont SNUBBER-C Work Phone: Start: 10-28-2024 CT angiography of ch est with contrast Zakiya Dupont SNUBBER-C Work Phone: Start: 10-27-2024 CT of head without contrast Zakiya Dupont SNUBBER-C Work Phone: Start: 10-27-2024 X-ray of chest, PA a nd lateral views Zakiya Dupont SNUBBER-C Work Phone: Start: 07-01-2024 Plain x-ray of pelvi s and lower extremity Zakiya Dupont SNUBBER-C Work Phone: Start: 07-01-2024 Plain X-ray of shoulder Zakiya Dupont SNUBBER-C Work Phone: Start: 11-24-2023 Radex hand minimum 3 views Mat Tavarez MD Work Phone: Start: 04-05-2023 Radex wrist complete minimum 3 views Rafi Piedra APRN.CNP Work Phone: Start: 01-16-2023 X-ray of cervical spine Start: 08-02-2022 CT of abdomen [facility] Work Phone: Start: 07-17-2022 Plain chest X-ray [facility] Work Phone: Start: 06-18-2022 STREP A MOLECULAR (POC) Sharron Durand APRN.EMERGENCY DEPARTMENT Work Phone: Start: 05-21-2022 Plain X-ray of shoulder [facility] Work Phone: Start: 04-24-2022 Procedure on shoulde r joint [facility] Work Phone: Start: 03-14-2022 MRI of joint of lowe r extremity [facility] Work Phone: Start: 02-26-2022 CT of face [facility] Work Phone: Start: 02-09-2022 Plain X-ray of shoulder Start: 10-10-2021 Diagnostic radiograp hy of abdomen, decubitus and erect No Primary Care Physician Start: 08-30-2021 Diagnostic radiograp hy of finger No Primary Care Physician Start: 08-09-2021 End: 08-09-2021 Viral antigen assay No Primary Care Physician Start: 08-09-2021 Plain x-ray of hand Start: 07-12-2021 Colonoscopy Sharron Braswell APRN.EMERGENCY DEPARTMENT Work Phone: Start: 06-19-2021 Plain chest X-ray Start: 06-19-2021 SARS-CoV-2 Antigen (Rapid) Bacteria identified in Blood by Culture [facility] Work Phone: SARS-CoV-2 & FLU Ant igen (Rapid) [facility] Work Phone: Plan of Treatment Date Care Activity Detail Author Start: 07-12-2026 Colonoscopy COLONOSCOPY [facility] Start: 07-12-2026 COLORECTAL CANCER SCREENING COLORECTAL CANCER SCREENING [facility] Start: 07-12-2026 Screening for malignant neoplasm of colon [facility] Start: 10-28-2024 [facility] Start: 10-28-2024 [facility] Start: 10-27-2024 End: 10-27-2024 [facility] Start: 10-27-2024 [facility] Start: 01-18-2024 Covid-19 Vaccine () Covid-19 Vaccine () [facility] Start: 01-18-2024 Covid-19 Vaccine () Covid-19 Vaccine () [facility] Start: 01-18-2024 Influenza vaccination Influenza Vaccine (#1) [place] Start: 09-22-2023 [facility] Start: 09-22-2023 [facility] Start: 09-21-2023 Suicide precautions [facility] Start: 05-19-2023 Behavioral Health Screening Behavioral Health Screening [facility] Start: 05-01-2023 [facility] Start: 01-17-2023 Covid-19 Vaccine () Covid-19 Vaccine () [facility] Start: 01-17-2023 Influenza vaccination [facility] Start: 06-04-2022 Patient referral [facility] Work Phone: Start: 05-21-2022 Patient referral [facility] Work Phone: Start: 05-19-2022 DEPRESSION ASSESSMENT DEPRESSION ASSESSMENT [facility] Start: 04-26-2022 Patient referral [facility] Work Phone: Start: 04-24-2022 Anes arthrs humeral h/n strnclav & shoulder nos ANESTH SURGERY OF SHOULDER [facility] Start: 04-24-2022 Arthroscopy shoulder surgical capsulorrhaphy ALFRED ARTHRS SRG CAPSULORRAPHY [facility] Start: 04-24-2022 Patient discharge [facility] Start: 02-28-2022 Patient discharge [facility] Work Phone: Start: 02-28-2022 [facility] Work Phone: Start: 02-27-2022 Electrocardiographic procedure [facility] Work Phone: Start: 02-27-2022 Blood chemistry [facility] Work Phone: Start: 02-26-2022 Ambulation without limitation [facility] Work Phone: Start: 02-26-2022 Assessment of risk of venous thromboembolism [facility] Work Phone: Start: 02-26-2022 Insertion of catheter into peripheral vein [facility] Work Phone: Start: 02-26-2022 Providing care according to standard [facility] Work Phone: Start: 02-26-2022 Referral to ear, nose and throat service [facility] Work Phone: Start: 02-26-2022 [facility] Work Phone: Start: 02-26-2022 Electrocardiographic procedure [facility] Work Phone: Start: 02-26-2022 Following clinical pathway protocol [facility] Work Phone: Start: 02-26-2022 Admission procedure [facility] Work Phone: Start: 02-26-2022 Verification routine [facility] Work Phone: Start: 02-26-2022 Blood culture [facility] Work Phone: Start: 02-26-2022 Blood culture [facility] Work Phone: Start: 02-26-2022 Application of ice collar, cap or bag [facility] Work Phone: Start: 02-25-2022 Emergency department visit moderate severity EMERGENCY DEPT VISIT [facility] Work Phone: Start: 02-24-2022 Emergency department visit low/moder severity EMERGENCY DEPT VISIT [facility] Work Phone: Start: 01-17-2022 Influenza vaccination INFLUENZA (#1) [facility] Start: 08-09-2021 SARS-CoV-2 Antigen (Rapid) SARS-CoV-2 Antigen (Rapid) [facility] Work Phone: Start: 09-14-2014 Lipid 1996 panel - Serum or Plasma Lipid Screening [facility] Start: 09-14-2014 Lipid panel Lipid Screening [facility] Start: 09-14-2014 LIPID SCREEN LIPID SCREEN [facility] Start: 09-14-1998 Hepatitis B Vaccine (1 of 3 - 19+ 3-dose series) Hepatitis B Vaccine (1 of - 19+ 3-dose series) [facility] Start: 09-14-1998 Pneumococcal vaccination Pneumococcal Vaccine (1 of 2 - PCV) [facility] Start: 09-14-1998 [facility] Start: 09-14-1997 Anxiety Screening Anxiety Screening [facility] Start: 09-14-1997 Depression Screening Depression Screening [facility] Start: 09-14-1997 HEPATITIS C SCREENING HEPATITIS C SCREENING [facility] Start: 09-14-1997 Hepatitis C screening Hepatitis C Screening [facility] Start: 09-14-1997 HIV SCREENING HIV SCREENING [facility] Start: 09-14-1997 HIV screening HIV Screening [facility] Start: 09-14-1985 PNEUMOCOCCAL (1 - PCV) PNEUMOCOCCAL (1 - PCV) [facility] Start: 09-14-1985 [facility] Start: 03-16-1980 COVID-19 VACCINE (#1) COVID-19 VACCINE (#1) [facility] Start: 1979 HEPATITIS B (1 of 3 - 3-dose series) HEPATITIS B (1 of 3 - 3-dose series) [facility] Start: 1979 Hepatitis B Vaccine (1 of 3 - 3-dose series) Hepatitis B Vaccine (1 of 3 - 3-dose series) [facility] Anion gap measurement [facility] Work Phone: Bacteria identified in Blood by Culture Blood Culture [facility] Work Phone: Blood culture [facility] Work Phone: BUN/Creatinine ratio [facility] Work Phone: Calcium [Mass/volume ] in Serum or Plasma [facility] Work Phone: Carbon dioxide, tota l [Moles/volume] in Serum or Plasma [facility] Work Phone: Chloride [Moles/volu me] in Serum or Plasma [facility] Work Phone: Creatinine [Moles/vo lume] in Serum or Plasma [facility] Work Phone: Glucose [Mass/volume ] in Serum or Plasma [facility] Work Phone: Hematocrit [Volume F raction] of Blood [facility] Work Phone: Hemoglobin [Mass/vol ume] in Blood [facility] Work Phone: Leukocytes [#/volume] in Blood [facility] Work Phone: Mean corpuscular hem oglobin concentration determination [facility] Work Phone: Mean corpuscular hem oglobin determination [facility] Work Phone: Measurement of renal function [facility] Work Phone: MR Lower Extremity [facility] Work Phone: Neutrophil count [facility] Work Phone: Neutrophil percent differential count [facility] Work Phone: Patient Education [facility] Work Phone: Patient referral [facility] Work Phone: Platelets [#/volume] in Blood [facility] Work Phone: Potassium [Moles/vol ume] in Serum or Plasma [facility] Work Phone: Red blood cell count [facility] Work Phone: Red cell distributio n width determination [facility] Work Phone: Sodium [Moles/volume ] in Serum or Plasma [facility] Work Phone: Troponin T.cardiac [Mass/volume] in Serum or Plasma by High sensitivity method [facility] Troponin T.cardiac [Mass/volume] in Serum or Plasma by High sensitivity method [facility] Urea nitrogen [Mass/ volume] in Serum or Plasma [facility] Work Phone: Payers Date Payer Category Payer Self-pay [id number] 2022 Unknown [id number] 2020 Medicaid [id number] 1980 Unknown [id number] [id number] Unknown [id number] Unknown [id number] 2.16.8 [id number] Unknown [id number] 2.16.8 [id number] Unknown [id number] 2.16.8 [id number] Unknown [id number] 2.16.8 [id number] Unknown [id number] 2.16.8 [id number] Unknown [id number] 2.16.8 [id number] Unknown [id number] 2.16.8 [id number] Unknown [id number] 2.16.8 [id number] Unknown [id number] 2.16.8 [id number] Unknown [id number] 2.16.8 [id number] Unknown [id number] 2.16.8 [id number] Social History Date Type Detail Facility Start: 08-09-2021 End: 05-01-2023 Tobacco smoking status NHIS Unknown if ever smoked [facility] Start: 04-10-2020 Spouse/ Signif icant Other [facility] Start: 1980 Sex Assigned At Male [facility] Start: 06-18-2022 End: 10-28-2024 Tobacco smoking status NHIS Smokes tobacco daily [facility] History of tobacco use Cigarette Smoker C [facility] Start: 06-04-2022 End: 06-18-2022 Cigarettes smoked current (pack per day) - Reported 1 [facility] Start: 06-18-2022 End: 06-13-2024 Tobacco use and exposure Smokeless tobacco non-user [facility] Start: 06-18-2022 End: 06-13-2024 Alcohol intake Ex-drinker (finding) [facility] Start: 06-18-2022 Tobacco Comment since age 13 [facility] Start: 07-02-2021 Alcohol Comment beer [facility] Start: 1980 Sex Assigned At Not on file [facility] Start: 06-04-2022 End: 01-05-2023 Tobacco use panel [facility] National Score (1-10 0), lower number is lower risk 91 [facility] Medical Equipment Procedure Code Equipment Code Equipment Origin al Text Equipment Identifier Dates Arthroscopy, shoulder 1.8 KNOTLESS FIBERTAK SOFT ANCHOR FDA Start: 04-24-2022 Arthroscopy, shoulder 1.8 KNOTLESS FIBERTAK SOFT ANCHOR FDA Start: 04-24-2022 Arthroscopy, shoulder 1.8 KNOTLESS FIBERTAK SOFT ANCHOR FDA Start: 04-24-2022 Arthroscopy, shoulder KNOTLESS FIBERTAK FDA Start: 04-24-2022 Arthroscopy, shoulder KNOTLESS FIBERTAK FDA Start: 04-24-2022 Arthroscopy, shoulder KNOTLESS FIBERTAK FDA Start: 04-24-2022 Arthroscopy, shoulder KNOTLESS FIBERTAK FDA Start: 04-24-2022 Arthroscopy, shoulder 1.8 KNOTLESS FIBERTAK SOFT ANCHOR FDA Start: 04-24-2022 Arthroscopy, shoulder 1.8 KNOTLESS FIBERTAK SOFT ANCHOR FDA Start: 04-24-2022 Arthroscopy, shoulder 1.8 KNOTLESS FIBERTAK SOFT ANCHOR FDA Start: 04-24-2022 Arthroscopy, shoulder KNOTLESS FIBERTAK FDA Start: 04-24-2022 Arthroscopy, shoulder KNOTLESS FIBERTAK FDA Start: 04-24-2022 Arthroscopy, shoulder KNOTLESS FIBERTAK FDA Start: 04-24-2022 Arthroscopy, shoulder KNOTLESS FIBERTAK FDA Start: 04-24-2022 Arthroscopy, shoulder 1.8 KNOTLESS FIBERTAK SOFT ANCHOR FDA Start: 04-24-2022 Arthroscopy, shoulder 1.8 KNOTLESS FIBERTAK SOFT ANCHOR FDA Start: 04-24-2022 Arthroscopy, shoulder 1.8 KNOTLESS FIBERTAK SOFT ANCHOR FDA Start: 04-24-2022 Arthroscopy, shoulder KNOTLESS FIBERTAK FDA Start: 04-24-2022 Arthroscopy, shoulder KNOTLESS FIBERTAK FDA Start: 04-24-2022 Arthroscopy, shoulder KNOTLESS FIBERTAK FDA Start: 04-24-2022 Arthroscopy, shoulder KNOTLESS FIBERTAK FDA Start: 04-24-2022 Arthroscopy, shoulder 1.8 KNOTLESS FIBERTAK SOFT ANCHOR FDA Start: 04-24-2022 Arthroscopy, shoulder 1.8 KNOTLESS FIBERTAK SOFT ANCHOR FDA Start: 04-24-2022 Arthroscopy, shoulder 1.8 KNOTLESS FIBERTAK SOFT ANCHOR FDA Start: 04-24-2022 Arthroscopy, shoulder KNOTLESS FIBERTAK FDA Start: 04-24-2022 Arthroscopy, shoulder KNOTLESS FIBERTAK FDA Start: 04-24-2022 Arthroscopy, shoulder KNOTLESS FIBERTAK FDA Start: 04-24-2022 Arthroscopy, shoulder KNOTLESS FIBERTAK FDA Start: 04-24-2022 Arthroscopy, shoulder 1.8 KNOTLESS FIBERTAK SOFT ANCHOR FDA Start: 04-24-2022 Arthroscopy, shoulder 1.8 KNOTLESS FIBERTAK SOFT ANCHOR FDA Start: 04-24-2022 Arthroscopy, shoulder 1.8 KNOTLESS FIBERTAK SOFT ANCHOR FDA Start: 04-24-2022 Arthroscopy, shoulder KNOTLESS FIBERTAK FDA Start: 04-24-2022 Arthroscopy, shoulder KNOTLESS FIBERTAK FDA Start: 04-24-2022 Arthroscopy, shoulder KNOTLESS FIBERTAK FDA Start: 04-24-2022 Arthroscopy, shoulder KNOTLESS FIBERTAK FDA Start: 04-24-2022 Arthroscopy, shoulder 1.8 KNOTLESS FIBERTAK SOFT ANCHOR FDA Start: 04-24-2022 Arthroscopy, shoulder 1.8 KNOTLESS FIBERTAK SOFT ANCHOR FDA Start: 04-24-2022 Arthroscopy, shoulder 1.8 KNOTLESS FIBERTAK SOFT ANCHOR FDA Start: 04-24-2022 Arthroscopy, shoulder KNOTLESS FIBERTAK FDA Start: 04-24-2022 Arthroscopy, shoulder KNOTLESS FIBERTAK FDA Start: 04-24-2022 Arthroscopy, shoulder KNOTLESS FIBERTAK FDA Start: 04-24-2022 Arthroscopy, shoulder KNOTLESS FIBERTAK FDA Start: 04-24-2022 Arthroscopy, shoulder 1.8 KNOTLESS FIBERTAK SOFT ANCHOR FDA Start: 04-24-2022 Arthroscopy, shoulder 1.8 KNOTLESS FIBERTAK SOFT ANCHOR FDA Start: 04-24-2022 Arthroscopy, shoulder 1.8 KNOTLESS FIBERTAK SOFT ANCHOR FDA Start: 04-24-2022 Arthroscopy, shoulder KNOTLESS FIBERTAK FDA Start: 04-24-2022 Arthroscopy, shoulder KNOTLESS FIBERTAK FDA Start: 04-24-2022 Arthroscopy, shoulder KNOTLESS FIBERTAK FDA Start: 04-24-2022 Arthroscopy, shoulder KNOTLESS FIBERTAK FDA Start: 04-24-2022 Arthroscopy, shoulder 1.8 KNOTLESS FIBERTAK SOFT ANCHOR FDA Start: 04-24-2022 Arthroscopy, shoulder 1.8 KNOTLESS FIBERTAK SOFT ANCHOR FDA Start: 04-24-2022 Arthroscopy, shoulder 1.8 KNOTLESS FIBERTAK SOFT ANCHOR FDA Start: 04-24-2022 Arthroscopy, shoulder KNOTLESS FIBERTAK FDA Start: 04-24-2022 Arthroscopy, shoulder KNOTLESS FIBERTAK FDA Start: 04-24-2022 Arthroscopy, shoulder KNOTLESS FIBERTAK FDA Start: 04-24-2022 Arthroscopy, shoulder KNOTLESS FIBERTAK FDA Start: 04-24-2022 Arthroscopy, shoulder 1.8 KNOTLESS FIBERTAK SOFT ANCHOR FDA Start: 04-24-2022 Arthroscopy, shoulder 1.8 KNOTLESS FIBERTAK SOFT ANCHOR FDA Start: 04-24-2022 Arthroscopy, shoulder 1.8 KNOTLESS FIBERTAK SOFT ANCHOR FDA Start: 04-24-2022 Arthroscopy, shoulder KNOTLESS FIBERTAK FDA Start: 04-24-2022 Arthroscopy, shoulder KNOTLESS FIBERTAK FDA Start: 04-24-2022 Arthroscopy, shoulder KNOTLESS FIBERTAK FDA Start: 04-24-2022 Arthroscopy, shoulder KNOTLESS FIBERTAK FDA Start: 04-24-2022 Goals Date Patient Goal Desired Activity /State Functional Status Date Assessment Result Facility 02-28-2022 Functional status Chair [facility] Work Phone: Mental Status Date Assessment Result Facility 10-28-2024 Cognitive function Level Of Cons ciousness Follows Commands;Drowsy [facility] Work Phone: 10-27-2024 Cognitive function Voice/Name [facility] Work Phone: 04-24-2022 Cognitive function Voice/Name [facility] Work Phone: 02-28-2022 Cognitive function Voice/Name [facility] Work Phone: 02-24-2022 Cognitive function Level Of Cons ciousness Awake;Alert;Appropriate [facility] Work Phone: 02-23-2022 Cognitive function Level Of Cons ciousness Awake;Alert;Appropriate;Follow s Commands [facility] Work Phone: 06-19-2021 Cognitive function Level Of Cons ciousness Awake;Alert;Appropriate;Follow s Commands [facility] Work Phone: Clinical Notes 06-18-2022 to 10-28-2024 Neal Bradshaw, JOESTTE.EMERGENCY DEPARTMENT - 06/13/2024 12:36 PM Owen Garsia RT(R) - 11/24/2023 1:30 PM EDTMMat Huff MD - 11/24/2023 1:19 PM EDT Note Date & Type Note Facility 10-28-2024 Radiology Diagnostic study note [facility] Imaging Services [address], [place] [id number] CTA Chest W/WO Contrast MR#: [id number] Acct: [id number] Name: JOSE ELIAS OLIVER Rep #: [id number] : 1980 M 44 From: Bree Moran MD PCP: Zakiya Dupont Jeffrey, SNUBBER-C Status: REG ER Study:CTA Chest W/WO Contrast Date of Exam: 10/28/24 Exam# [id number] Ordering Dr: Jeffrey Hernandez DO PROCEDURE: CTA CHEST W/WO CONTRAST 10/28/2024 REASON FOR EXAM: CHEST PAIN, HYPERTENSION TECHNIQUE: CTA axial imaging of the chest with intravenous contrast. Coronal and Sagittal reconstruction series were provided. 3D, 3D post processing, 3D reconstructions, Maximum intensity projection (MIPs) Volume rendering and Shaded surface rendering was provided. PATIENT PREPARATION: Per protocol CONTRAST: Isovue 370 VOLUME: 100mL One or more dose reduction techniques were used (e.g., Automated exposure control, adjustment of the mA and/or kV according to patient size, use of iterative reconstruction technique). RADIATION DOSE SUMMARY: CTDlvol: 20 mGy DLP: 421 mGycm COMPARISON: Chest radiograph 10/27/2024. FINDINGS: Hardware: None. Lymph nodes: No axillary, mediastinal or hilar lymphadenopathy. Heart: The heart is normal in size without pericardial effusion. The great vessels are normal in caliber. Minimal calcific plaque of the thoracic aorta. Pulmonary Vessels: No central filling defect within the segmental or subsegmental pulmonary arteries. Lungs and Airways: The central airways are patent. Minimal bibasilar atelectasis. No suspicious pulmonary mass. No pleural effusion or pneumothorax. Upper Abdomen: Visualized portions of the upper abdominal viscera are unremarkable. Bones: Bone windows are unremarkable. CT/CTA Chest W/WO Contrast IMPRESSION: Normal CTA chest. Reading Location: [id number] CC: [facility] SNUBBER-C Zakiay Dupont; Dr. Jeffrey Hernandez, DO ~ Crusher Loader Operator: Signed [facility] 10-27-2024 Radiology Diagnostic study note [facility] Imaging Services [address] [place] [id number] Brain/Head without Contrast MR#: [id number] Acct: [id number] Name: JOSE ELIAS OLIVER Rep #: [id number] : 1980 M 44 From: Kodak Hamilton MD PCP: KENDALL Bernardo, SNUBBER-C Status: REG ER Study:Brain/Head without Contrast Date of Exa m: 10/27/24 Exam# [id number] Ordering Dr: Benjamin Baker MD PROCEDURE: BRAIN/HEAD WITHOUT CONTRAST 10/27/2024 REASON FOR EXAM: HEADACHE WITH HYPERTENSION TECHNIQUE: Head CT without intravenous contrast. Coronal and Sagittal reconstruction serieswere provided. One or more dose reduction techniques were used (e.g., Automated exposure control, adjustment of the mA and/or kV according to patient size, use of iterative reconstruction technique. RADIATION DOSE SUMMARY: CTDlvol: 47.06 mGy DLP: 872.68 mGycm COMPARISON: Prior study dated February 26, 2022 FINDINGS: Brain: Normal CSF Spaces: Normal Sinuses/Mastoids: Clear at visualized levels Bones: Unremarkable CT/Brain/Head without Contrast IMPRESSION: Unremarkable examination. Reading Location: [place] [address] CC: [facility] SNUBBER-C Zaikya Dupont; Dr. Wicho Baker MD ~ Crusher Loader Operator: Signed [facility] 10-27-2024 Radiology Diagnostic study note [facility] Imaging Services [address] [place] [address] Chest PA and Lateral MR#: [id number] Acct: [id number] Name: JOSE ELIAS OLIVER Rep #: [id number] : 1980 M 44 From: Nikolai Anne MD PCP: Zakiya Dupont Jeffrey, SNUBBER-C Status: REG ER Study:Chest PA and Lateral Date of Exam: 10/27/24 Exam# [id number] Ordering Dr: Benjamin Baker MD PROCEDURE: CHEST PA AND LATERAL 10/27/2024 REASON FOR EXAM: CHEST PAIN TECHNIQUE: Frontal and lateral views of the chest. COMPARISON: Chest x-ray of 07/17/2022 RAD/Chest PA and Lateral IMPRESSION: Lungs appear clear of acute disease. No pleural effusion or pneumothorax is noted. The cardiomediastinal silhouette is within the normal range, and unchanged. No acute osseous changes evident. Negative examination. Reading Location: [address] CC: [facility] SNUBBER-C Zakiya Dupont; Dr. Wicho Baker MD ~ Crusher Loader Operator: Signed [facility] 06-13-2024 Note HNO ID: [id number] Author: NEAL BRADSHAW APRN.EMERGENCY DEPARTMENT Service: ? Author Type: Nurse Practitioner Type: Progress Notes Filed: 06/13/2024 12:41 Note Text: This note was created using NoteWriter. Subjective Jose Elias Oliver is a 43 year old male. Presents for broken tooth to left lower gum. Reports area is swollen and painful. Has been taking ibuprofen and tylenol as needed for pain. Objective BP 144/82 Pulse 97 Temp 36.3 ?C (97.3 ?F) (Tympanic) Resp 16 Wt 87.6 kg (193 lb 2 oz) SpO2 100% BMI 25.48 kg/m? Physical Exam PHYSICAL EXAMINATION: General appearance: Well appearing, alert, in no acute distress, well-hydrated, well nourished. Oropharynx: Positive findings: tooth number 19 is cracked and dark at gumline. Lower left gum swollen and red. Neck: Supple, no adenopathy; thyroid symmetric, normal size, no bruits Assessment and Plan ASSESSMENT/PLAN: 1. Dental abscess - ICD9: 522.5, ICD10: K04.7 - AMOXICILLIN 875 MG TABLET Neal Bradshaw APRN.CNP [facility] 06-13-2024 History of Present illness Narrative This note was created using uControlter. Subjective Jose Elias Oliver is a 43 year old male. Presents for broken tooth to left lower gum. Reports area is swollen and painful. Has been taking ibuprofen and tylenol as needed for pain. Objective BP 144/82 Pulse 97 Temp 36.3 C (97.3 F) (Tympanic) Resp 16 Wt 87.6 kg (193 lb 2 oz) SpO2 100% BMI 25.48 kg/m Physical Exam PHYSICAL EXAMINATION: General appearance: Well appearing, alert, in no acute distress, well-hydrated, well nourished. Oropharynx: Positive findings: tooth number 19 is cracked and dark at gumline. Lower left gum swollen and red. Neck: Supple, no adenopathy; thyroid symmetric, normal size, no bruits Assessment and Plan ASSESSMENT/PLAN: 1. Dental abscess - ICD9: 522.5, ICD10: K04.7 - AMOXICILLIN 875 MG TABLET Neal Bradshaw APRN.EMERGENCY DEPARTMENT documented in this encounter [facility] 11-24-2023 History of Present illness Narrative Radiology Service Progress Note PATIENT NAME: Jose Elias Oliver DATE OF SERVICE: November 24, 2023 TIME: 1:31 PM PATIENT IDENTITY VERIFICATION COMPLETED USING TWO (2) IDENTIFIERS: Name and Date of confirmed by patient verbally. FALL SCREENING: Has the patient had 2 falls in the last year or 1 fall with injury or currently using an Ambulatory Assistive Device (Walker, Cane, Wheelchair, Crutches, etc.)? No PATIENT GENDER DATA: Male PATIENT RELEVANT IMPLANT DATA REVIEWED: Yes PATIENT PRESENTS WITH AN IMPLANTABLE OR ATTACHED PIPELINE EXECUTIVE: No RADIOLOGY DEPARTMENT: General X-ray: Exam(s) Completed: Upper Extremity X-Ray(s): Hand, bilateral PERIPHERAL IV DATA: Not applicable SIGNED BY: RT Terrance(Jannie) November 24, 2023 1:31 PM documented in this encounter [facility] 11-24-2023 Note HNO ID: [id number] Author: OWEN HALE RT(R) Service: ? Author Type: Track Welder Type: Progress Notes Filed: 11/24/2023 13:41 Note Text: Radiology Service Progress Note PATIENT NAME: Jose Elias Oliver DATE OF SERVICE: November 24, 2023 TIME: 1:31 PM PATIENT IDENTITY VERIFICATION COMPLETED USING TWO (2) IDENTIFIERS: Name and Date of confirmed by patient verbally. FALL SCREENING: Has the patient had 2 falls in the last year or 1 fall with injury or currently using an Ambulatory Assistive Device (Walker, Cane, Wheelchair, Crutches, etc.)? No PATIENT GENDER DATA: Male PATIENT RELEVANT IMPLANT DATA REVIEWED: Yes PATIENT PRESENTS WITH AN IMPLANTABLE OR ATTACHED PIPELINE EXECUTIVE: No RADIOLOGY DEPARTMENT: General X-ray: Exam(s) Completed: Upper Extremity X-Ray(s): Hand, bilateral PERIPHERAL IV DATA: Not applicable SIGNED BY: RT Terrance(Jannie) November 24, 2023 1:31 PM [facility] 11-24-2023 Note HNO ID: [id number] Author: MAT TAVAREZ MD Service: ? Author Type: Physician Type: Progress Notes Filed: 11/24/2023 14:07 Note Text: Patient presents with: Edema: Bilateral hand swelling, painful x 1 week HPI: Hand pain: Duration: 1 week. Started after working on a bike and having hands soaked in gasoline. Location: bilateral thumb and index more than other fingers Character: aching and sharp Radiation: right wrist pops with flexion Aggravating: grasping and touching, Relieving: Pain relievers: Motrin Associated: hands feel swollen and weak, peeling skin Pertinent negatives: Denies fever, MEDICATIONS: OLANZapine (ZYPREXA) 5 mg tablet Take 5 mg by mouth every evening. pantoprazole DR (PROTONIX) 40 mg tablet Take 1 tablet by mouth every 12 hours. famotidine (PEPCID) 10 mg tablet Take 10 mg by mouth once daily. unsure of dose (Patient not taking: Reported on 07/30/2021 ) ALLERGIES: ALLERGIES No Known Allergies VITALS: BP 154/108 Pulse 97 Temp 36 ?C (96.8 ?F) Resp 20 Wt 83.7 kg (184 lb 8.4 oz) SpO2 98% BMI 24.35 kg/m? PHYSICAL EXAM: GEN: alert, uncomfortable HEENT: PERRL, EOMI, sclera clear, MMM NECK: supple, no lymphadenopathy, no thyromegaly HEART: regular rate, regular rhythm, no murmurs LUNGS: clear to auscultation, no wheezes or crackles, no increased WOB HANDS: holding hands with fingers partially flexed. There is superficial peeling of the left index finger palmar side. Bilateral oil stains in creases. Many scars and abrasions of fingers. Diffuse suspected tenosynovitis without erythema or induration. Painful to make a fist. Bilateral tender 1st and 2nd digits. Discomfort of both palms. Crepitus in the right wrist with finger flexion. 2+/4 radial pulses. ASSESSMENT/PLAN: 1. Bilateral hand pain - ICD9: 729.5, ICD10: M79.641, M79.642 (primary diagnosis) - XR HAND GENERAL 3V PA/LAT/OBL BILATERAL - negative. 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 - PREDNISONE 10 MG TABLET taper Follow up with worsening symptoms. May need ortho or rheumatology evaluation. 2. Dermatitis contact - ICD9: 692.9, ICD10: L25.9 Irritant dermatitis. - CETAPHIL MOISTURIZING TOPICAL CREAM Mat Tavarez MD [facility] 11-24-2023 History of Present illness Narrative Patient presents with: Edema: Bilateral hand swelling, painful x 1 week HPI: Hand pain: Duration: 1 week. Started after working on a bike and having hands soaked in gasoline. Location: bilateral thumb and index more than other fingers Character: aching and sharp Radiation: right wrist pops with flexion Aggravating: grasping and touching, Relieving: Pain relievers: Motrin Associated: hands feel swollen and weak, peeling skin Pertinent negatives: Denies fever, MEDICATIONS: OLANZapine (ZYPREXA) 5 mg tablet Take 5 mg by mouth every evening. pantoprazole DR (PROTONIX) 40 mg tablet Take 1 tablet by mouth every 12 hours. famotidine (PEPCID) 10 mg tablet Take 10 mg by mouth once daily. unsure of dose (Patient not taking: Reported on 07/30/2021 ) ALLERGIES: ALLERGIES No Known Allergies VITALS: BP 154/108 Pulse 97 Temp 36 C (96.8 F) Resp 20 Wt 83.7 kg (184 lb 8.4 oz) SpO2 98% BMI 24.35 kg/m PHYSICAL EXAM: GEN: alert, uncomfortable HEENT: PERRL, EOMI, sclera clear, MMM NECK: supple, no lymphadenopathy, no thyromegaly HEART: regular rate, regular rhythm, no murmurs LUNGS: clear to auscultation, no wheezes or crackles, no increased WOB HANDS: holding hands with fingers partially flexed. There is superficial peeling of the left index finger palmar side. Bilateral oil stains in creases. Many scars and abrasions of fingers. Diffuse suspected tenosynovitis without erythema or induration. Painful to make a fist. Bilateral tender 1st and 2nd digits. Discomfort of both palms. Crepitus in the right wrist with finger flexion. 2+/4 radial pulses. ASSESSMENT/PLAN: 1. Bilateral hand pain - ICD9: 729.5, ICD10: M79.641, M79.642 (primary diagnosis) - XR HAND GENERAL 3V PA/LAT/OBL BILATERAL - negative. 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 - PREDNISONE 10 MG TABLET taper Follow up with worsening symptoms. May need ortho or rheumatology evaluation. 2. Dermatitis contact - ICD9: 692.9, ICD10: L25.9 Irritant dermatitis. - CETAPHIL MOISTURIZING TOPICAL CREAM Mat Tavarez MD documented in this encounter [facility] 09-22-2023 Discharge summary Note Date/Time September 22, 2023 12:06am [facility] Medical Records Department [address] [place] [address] Emergency Department Summary 09/22/23 MR#: [id number] Acct: [id number] Name: JOSE ELIAS OLIVER Rep #:[id number] : 1980 43 From: Marques Meyers MD PCP: Andreea Luciano Status:REG ER Location: ED ADDENDUM by Dr. Asael Pedroza DO on 09/22/23 at 0919 Patient signed out to me for monitoring until he could be seen by crisis. He has been cooperative thus far this morning and having any issues. Crisis came to evaluate the patient and he denies any suicidal or homicidal ideation. He states he did not actually take any tablets and does not want to hurt himself. Hyperextended session with the patient both I and the crisis counselor believe that the patient can be safely discharged with a safety plan. 09/22/23 0919<Electronically signed by Asael Pedroza DO> Cosigner Signature (if applicable): cc: Andreea Luciano ~* Signed HPI HPI - Psych History of Present Illness Chief Complaint: Suicidal Narrative Narrative: 43-year-old male presents with police, pink slipped for suicidal ideation. He is uncooperative with examination. It is reported that he has been suicidal rachel and taking pills. His girlfriend gave them an empty bottle of pantazaprole,and he has been taking Tylenol. There were 30 tablets found on the floor. He is uncooperative with examination and refuses to answer any questions until the police leave. However, he is belligerent and represents a danger to himself andto staff as he is yelling, screaming, and acting out. [facility] Medical History Alcohol use Anxiety Arthritis Cardiology follow-up encounter Depression Fatty liver Gastric reflux GERD (gastroesophageal reflux disease) Helicobacter pylori (H. pylori) History of edema History of hiatal hernia History of IBS History of irregular heartbeat History of pain when walking History of stress test Hypertension Leg cramps Marijuana use Migraine headache Right shoulder pain Shortness of breath on exertion Smoker Substance abuse Superior labrum [id number] (SLAP) tear of right shoulder Syncope Home Medications omeprazole 40 mg capsule,delayed release 40 mg PO BID GERD 08/30/21 [History Last Taken 2 Days Ago ~02/24/22] acetaminophen 500 mg tablet 500 mg PO Q6H PRN pain 06/04/22 [History Last Taken Unknown] pantoprazole 40 mg tablet,delayed release 40 mg PO BID 09/22/23 [History Last Taken Unknown] Allergy/AdvReac Type Severity Reaction Status Date / Time No Known Allergies Allergy Verified 05/01/23 13:47 Family History Other Cancer Heart disease Surgical History History of adenoidectomy History of esophagogastroduodenoscopy (EGD) Hx of colonoscopy Social History household members: none Smoking Status: Current every day smoker tobacco type: cigarettes alcohol intake: current alcohol intake frequency: holidays/special occasions only Alcohol type: beer ROS ROS ED ROS Narrative Unable to obtain secondary to patient refusing to answer questions, and being belligerent. EXAM Physical Exam Narrative Exam Narrative: Afebrile. Vital signs noted. Positive tachycardia. Lungs clear to auscultation bilaterally. Abdomen soft nontender with normoactive bowel sounds. Noted violent behavior and accompanied by police. Const Vital Signs: 09/21/23 23:53 09/22/23 02:04 09/22/23 03:00 Temperature 98 F Temperature Source Temporal Pulse Rate 122 H 125 H 101 H Respiratory Rate 18 19 H 19 H Blood Pressure 141/96 H 169/107 H 116/99 H Blood Pressure Mean 111 127 104 Pulse Ox 99 97 96 Oxygen Delivery Method Room Air Room Air Room Air 09/22/23 04:00 09/22/23 05:00 09/22/23 06:07 Temperature Temperature Source Pulse Rate 78 87 92 Respiratory Rate 17 19 H 16 Blood Pressure 133/103 H 155/103 H 128/89 H Blood Pressure Mean 113 120 102 Pulse Ox 96 97 97 Oxygen Delivery Method Room Air Room Air Room Air MDM MDM MDM Narrative Medical decision making narrative: For safety of the patient and for the staff, he was placed in 4 point leather restraints. He still refuses to answer questions, but he has been pink slipped by the police. He has suspected ingestion currently. Medical screening labs will be obtained. I will obtain initial acetaminophen level, but it is unknown when he last took them and how many he might have taken. After he was administered Geodon 20 mg intramuscularly, he was still belligerentand combative although he was in restraints. 1 hour [id number] recommendationis continued restraints of all 4 limbs for safety of staff. He was administeredAtivan 2 mg intramuscularly. Allowed blood work. It was discussed with him what it would take for him to getout of the leather restraints. I reviewed his laboratory work and he has an elevated white count of 15.7 which I think is nonspecific, hemoglobin normal at 15.5, platelet count normal at 350. His urine for drugs of abuse is positive for amphetamines and cannabinoids. He was more cooperative with his history, and denies taking any medications stating that his medications are on the floor including the Tylenol and that he did not ingest anything except for shot of alcohol, and he admits to he and his girlfriend smoking marijuana. He states that she called the police because he was not giving her the answer that she wanted to hear. I reviewed the patient's laboratory work further, CMP is grossly unremarkable. Salicylate level 3.1, acetaminophen level less than 2.0. We will redraw an acetaminophen level at 4 hours, but I doubt any significant rise that would put him on the nomogram that would require treatment. His urine for drugs of abuse is positive for cannabinoids which she admits to smoking and amphetamines. Additionally, his ethyl alcohol is negative. As his acetaminophen level is lessthan 2.0 at 4 hours, I feel he is medically cleared already for evaluation by the crisis counselor. The patient will be signed out to the oncoming physician Dr. Asael Pedroza, to make final disposition after evaluation by crisis counselor. Currently, he is in stable condition and out of restraints. History & Record Review Discussion w/independent historian: Other (Police/law enforcement) Lab Data Attestation: I reviewed the patient's lab results. Labs: Laboratory Results - last 24 hr 09/21/23 09/21/23 09/22/23 00:56 01:30 01:15 WBC 15.7 H RBC 4.95 Hgb 15.5 Hct 44.8 MCV 90.5 MCH 31.3 MCHC 34.6 RDW Std Deviation 39.7 RDW Coeff of Judith 11.9 Plt Count 350 MPV 9.0 Immature Gran % (Auto) 0.800 Neut % (Auto) 80.1 H Lymph % (Auto) 13.0 L [place] % (Auto) 4.8 Eos % (Auto) 0.8 Baso % (Auto) 0.5 Absolute Neuts (auto) 12.6 H Absolute Lymphs (auto) 2.05 Nucleated RBC % 0 Sodium 139 Potassium 3.8 Chloride 107 Carbon Dioxide 23.0 Anion Gap 9 BUN 15 Creatinine 1.13 Est GFR (MDRD) Af Amer 91 Est GFR (MDRD) Non-Af 75 BUN/Creatinine Ratio 13.3 Glucose 132 H Calcium 9.3 Total Bilirubin 0.40 AST 16 ALT 50 Alkaline Phosphatase 89 Total Protein 7.7 Albumin 4.1 Globulin 3.6 Albumin/Globulin Ratio 1.1 Salicylates 3.1 Urine Opiates Screen NEGATIVE Urine Methadone Screen NEGATIVE Acetaminophen < 2.0 L Ur Barbiturates Screen NEGATIVE Ur Phencyclidine Scrn NEGATIVE Ur Amphetamines Screen POSITIVE H MDMA (Ecstasy) Screen NEGATIVE U Benzodiazepines Scrn NEGATIVE Urine Cocaine Screen NEGATIVE U Cannabinoids Screen POSITIVE H Ur Drug Screen Comment Ethyl Alcohol < 3.0 09/22/23 05:15 WBC RBC Hgb Hct MCV MCH MCHC RDW Std Deviation RDW Coeff of Judith Plt Count MPV Immature Gran % (Auto) Neut % (Auto) Lymph % (Auto) [place] % (Auto) Eos % (Auto) Baso % (Auto) Absolute Neuts (auto) Absolute Lymphs (auto) Nucleated RBC % Sodium Potassium Chloride Carbon Dioxide Anion Gap BUN Creatinine Est GFR (MDRD) Af Amer Est GFR (MDRD) Non-Af BUN/Creatinine Ratio Glucose Calcium Total Bilirubin AST ALT Alkaline Phosphatase Total Protein Albumin Globulin Albumin/Globulin Ratio Salicylates Urine Opiates Screen Urine Methadone Screen Acetaminophen < 2.0 L Ur Barbiturates Screen Ur Phencyclidine Scrn Ur Amphetamines Screen MDMA (Ecstasy) Screen U Benzodiazepines Scrn Urine Cocaine Screen U Cannabinoids Screen Ur Drug Screen Comment Ethyl Alcohol Discharge Plan Triage Chief Complaint: Suicidal ED Provider: Marques Meyers Dx/Rx/DC Orders Prescriptions: No Action omeprazole 40 mg capsule,delayed release(DR/EC) 40 mg PO BID acetaminophen 500 mg tablet 500 mg PO Q6H PRN (Reason: pain) pantoprazole 40 mg tablet,delayed release (DR/EC) 40 mg PO BID Primary Care Provider: Andreea Luciano Referrals: Andreea Luciano, BEATRICE [Primary Care Provider] - What to do if you have Problems For any increased pain, shortness of breath, bleeding, nausea or vomiting, chestpain, or any unexpected problems, contact your Primary Care Provider. Call [facility] ([phone]) or report to the closest Emergency Room. Call 911 if necessary. 09/22/23704 <Electronically signed by Marques Meyers MD> Cosigner Signature (if applicable): CC: Andreea Luciano ~ Signed [facility] Work Phone: 1(155) 929-803212-14-2023 Discharge summary Author Wicho Baker [facility] May 01, 2023 2:07pm Note Date/Time May 01, 2023 2:05pm [facility] Medical Records Department [address] [place] [id number] Emergency Department Summary 05/01/23 MR#: [id number] Acct: [id number] Name: JOSE ELIAS OLIVER Rep #:[id number] : 1980 42 From: Wicho Baker MD PCP: Andreea Luciano Status:REG ER Location: ED HPI History of Present Illness Chief Complaint: Dental Detail of Chief Complaint: Dental pain and loose tooth. Informant: patient Onset/Context/Timing Onset: Days Context: Gradual Onset Timing: Continuous Current Severity: Mild Maximum Severity: Moderate Relieved by: NSAIDs Associated Symptoms Assocated Symptom - Dental: Negative for fever, jaw swelling, face swelling, cold sensitivity or hot sensitivity Narrative Narrative: 42-year-old male no seen past medical history. States is right lower front tooth is loose and painful. He has been using ibuprofen. Currently does not have a dentist. Prior similar symptoms: Yes Recent Illness/Hospitalization: No PFSH PFSH Medical History Alcohol use Anxiety Arthritis Cardiology follow-up encounter Depression Fatty liver Gastric reflux GERD (gastroesophageal reflux disease) Helicobacter pylori (H. pylori) History of edema History of hiatal hernia History of IBS History of irregular heartbeat History of pain when walking History of stress test Hypertension Leg cramps Marijuana use Migraine headache Right shoulder pain Shortness of breath on exertion Smoker Substance abuse Superior labrum [id number] (SLAP) tear of right shoulder Syncope Home Medications omeprazole 40 mg capsule,delayed release 40 mg PO BID GERD 08/30/21 [History Last Taken 2 Days Ago ~02/24/22] cyclobenzaprine 5 mg tablet 5 mg PO TID PRN muscle spasm #14 tabs 05/07/22 [Rx Last Taken Unknown] acetaminophen 500 mg tablet tablet PO 06/04/22 [History Last Taken Unknown] ibuprofen 200 mg tablet 200 mg PO Q6H PRN 07/04/22 [History Last Taken Unknown] clindamycin HCl 300 mg capsule (Cleocin HCl) 300 mg PO Q6H #40 CAPSULES 07/23/22[Rx Last Taken Unknown] hydrocodone-acetaminophen 5-325mg 5mg-325mg 1 tab PO Q4H PRN PRN Pain 2 days #10TABLETS 07/23/22 [Rx Last Taken Unknown] meloxicam 15 mg tablet 15 mg PO DAILY PRN pain #30 tabs 08/22/22 [Rx Last Taken Unknown] penicillin V potassium 500 mg tablet 500 mg PO Q6H 10 days #40 tabs 05/01/23 [Rx Last Taken Unknown] Allergy/AdvReac Type Severity Reaction Status Date / Time No Known Allergies Allergy Verified 05/01/23 13:47 Family History Other Cancer Heart disease Surgical History History of adenoidectomy History of esophagogastroduodenoscopy (EGD) Hx of colonoscopy Social History household members: none Smoking Status: Current every day smoker tobacco type: cigarettes alcohol intake: current alcohol intake frequency: holidays/special occasions only Alcohol type: beer ROS ROS ED Review of Systems ROS Unobtainable: Denies due to encephalopathy Constitutional Constitutional ED: Denies chills or fever(s) Eyes Eyes: Denies blurry vision ENT ENT ED: Denies ear pain Cardiovascular Cardiovascular: Denies chest pain Respiratory/Chest Respiratory/Chest: Denies cough or dyspnea Gastrointestinal Gastrointestinal: Denies abdominal pain Genitourinary Genitourinary ED: Denies dysuria or hematuria Musculoskeletal Musculoskeletal: Denies arthralgias Integumentary Denies abscess Neurologic Neurologic: Denies headache(s) Psychiatric Psychiatric: Denies anxiety or depression Endocrine Endocrinology: Denies cold intolerance Hematologic/Lymphatic Hematologic/Lymphatic: Denies easy bleeding or easy bruising Allergic/Immunologic Allergic/Immunologic ED: Denies mouth swelling, tongue swelling or urticaria EXAM Physical Exam Narrative Exam Narrative: 42-year-old male no acute distress. Vital signs stable and afebrile. HEENT exam multiple missing teeth. All his teeth indicating with cavities. His rightlower front tooth is loose but still in place. He has significant gingivitis. No Eileen's angina. No trouble swallowing or breathing. Posterior pharynx unremarkable. No significant facial swelling. Neck nontender no lymphadenopathy. Lungs clear. Heart regular rhythm. Abdomen soft. Moving all4 extremities. Nontender no edema. He is awake and alert. Const Vital Signs: 05/01/23 13:47 Temperature 98.2 F Temperature Source Temporal Pulse Rate 103 H Respiratory Rate 18 Blood Pressure 166/108 H Blood Pressure Mean 127 Pulse Ox 97 Oxygen Delivery Method Room Air Positive well nourished and well developed; Negative for obese, cachectic, contractures or unkempt General Appearance ED: well developed and NAD; Negative for unkempt, cachectic, contractures or pallor Nutritional Appearance: Negative for cachectic or obese HEENT Denies other Negative for trauma, tenderness or other Face and Sinus: Negative for sinuses nontender Mouth ED: No oral and palatal mucosa normal, Yes lips normal, Yes tongue normal,Yes salivary gland normal, No mouth trauma, Yes oral and palatal mucosa abnormaland No salivary gland abnormal Mouth: No oral and palatal mucosa normal, lips normal, tongue normal, salivary gland normal, No mouth trauma, oral and palatal mucosa abnormal and No salivary gland abnormal Teeth and Gingiva: abnormal tooth and associated gingiva, caries, gingiva abnormal, poor dentition and teeth discoloration Throat: posterior oropharynx normal Eyes PERRL and EOMs intact bilaterally General Eye ED: Negative for pale conjunctiva or scleral icterus Visual Acuity: Negative for other Neck no lymphadenopathy, supple and no JVD Lymph Lymphatic: no lymphadenopathy noted; Negative for lymphadenopathy or other Chest Wall inspection of chest normal and palpation of chest normal Chest: Negative for other Resp normal respiratory effort, no retractions and clear to auscultation bilaterally Effort and Inspection: Negative for other Cardio regular rate, regular rhythm, S1 normal heart sound, S2 normal heart sound and no murmurs Jugular Venous Distention: Negative for other Palpation: Negative for palpable S3 Rate: Negative for bradycardia Rhythm: Negative for abnormal rhythm GI normal to inspection, nondistended, normoactive bowel sounds, non-tender, non-distended and no masses Inspection: Negative for other Palpation: soft Bladder / Kidney Exam: No other Back/Spine no CVA tenderness General Back: Negative for CVA tenderness Cervical Spine: Negative for other Thoracic Spine / Upper Back: Negative for thoracic spinal tenderness, paraspinalmuscle tenderness or paraspinal muscle spasm Extremity normal to inspection and no joint enlargement General Extremety ED: Negative for edema or other findings General Extremity: Negative for edema or other findings Neuro oriented x3, CN's II-XII intact bilaterally, moves all extremities and no focal motor deficits Sensorium / Orientation: alert, oriented to person and oriented to place; Negative for oriented to time or orientation impaired Motor Exam: strength 5/5 throughout Psych mental status grossly normal Appearance: Negative for unkempt Attitude: No agitated Mood & Affect: Negative for depressed, anxious or tearful Skin no rashes or lesions noted and no wounds General Skin Exam: Negative for pallor MDM MDM MDM Narrative Medical decision making narrative: 42-year-old male history of substance abuse with dental pain, dental caries and gingivitis. He does have a loose right lower tooth. He will need to follow-up with a dentist. Will be placed on Pen-Vee K 500 4 times daily. Motrin and Tylenol for pain. History & Record Review Discussion w/independent historian: Patient Additional record(s) reviewed:: Prior inpatient record, Prior outpatient record,Prior ED visit and Prior labs Discharge Plan Triage Chief Complaint: Dental ED Provider: Wicho Baker Dx/Rx/DC Orders Clinical Impression: Dental caries, Gingivitis, Pain, dental Instructions: ED Dental Pain, ED Dental Cavity Prescriptions: New penicillin V potassium 500 mg tablet 500 mg PO Q6H 10 Days Qty: 40 0RF No Action omeprazole 40 mg capsule,delayed release(DR/EC) 40 mg PO BID cyclobenzaprine 5 mg tablet 5 mg PO TID MDD 3 PRN (Reason: muscle spasm) Qty: 14 2RF acetaminophen 500 mg tablet PO ibuprofen 200 mg tablet 200 mg PO Q6H PRN meloxicam 15 mg tablet 15 mg PO DAILY MDD 1 PRN (Reason: pain) Qty: 30 1RF clindamycin HCl [Cleocin HCl] 300 mg capsule 300 mg PO Q6H Qty: 40 0RF hydrocodone-acetaminophen [hydrocodone-acetaminophen] 5-325 mg tablet 1 tab PO Q4H PRN PRN (Reason: Pain) 2 Days Qty: 10 0RF Primary Care Provider: Andreea Luciano Referrals: Olivia Greenberg [Non-Staff] - As soon as possible Andreea Luciano, NURIAC [Primary Care Provider] - Activity Restrictions/Additional Instructions: Call and follow-up with a dentist as soon as possible. Warm salt water gargling. Motrin up to 800 mg 3 times a day for pain. Tylenol for pain. Take the antibiotic hetacillin 1 pill 4 times a day till gone. Disposition Disposition: Home, Self Care What to do if you have Problems For any increased pain, shortness of breath, bleeding, nausea or vomiting, chestpain, or any unexpected problems, contact your Primary Care Provider. Call [facility] ([phone]) or report to the closest Emergency Room. Call 911 if necessary. 05/01/23 1407 <Electronically signed by Wicho Baker MD> Cosigner Signature (if applicable): CC: Andreea Luciano ~ Signed [facility] Work Phone: [phone]) 993-693911-18-2023 History of Present illness Narrative* Rafi Piedra APRN.EMERGENCY DEPARTMENT - 04/05/2023 10:00 AM EST Subjective HPI HPI Jose Elias Oliver is a 42 year old male who presents today for CC of right wrist pain. This started2 weeks ago. Has tried otc medication for relief. Symptoms are worsened by rom of wrist. No injury,numbness/tingling. .Patient presents with: Pain: Right wrist pain x 2 weeks PAST MEDICAL HISTORY Diagnosis Date Arrhythmia per pt GERD (gastroesophageal reflux disease) H. pylori infection 07/12/2021 PAST SURGICAL HISTORY Procedure Laterality Date COLONOSCOPY 07/12/2021 repeat in 5 years EGD W/O BRSH SPEC VARICIES INJ 07/12/2021 PAST SURGICAL HISTORY OF 2006 colonoscopy-had polyps TONSILLECTOMY & ADENOIDECTOMY <AGE 11 TONSILLECTOMY HX ALLERGIES Patient has no known allergies. MEDICATIONS pantoprazole DR (PROTONIX) 40 mg tablet Take 1 tablet by mouth every 12 hours. bismuth subsalicylate (PEPTO-BISMOL) 262 mg chew Take 1 tablet by mouth four times daily for 14 days. omeprazole (PRILOSEC) 20 mg capsule Take 1 capsule by mouth twice daily. (Patient not taking: Reported on 01/05/2023) buspirone HCl (BUSPAR ORAL) Take by mouth once daily. Pt unsure of dose (Patient not taking: Reported on 07/30/2021 ) QUEtiapine (SEROQUEL) 50 mg tablet Take 50 mg by mouth as needed. (Patient not taking: Reported on 07/30/2021 ) famotidine (PEPCID) 10 mg tablet Take 10 mg by mouth once daily. unsure of dose (Patient not taking: Reported on 07/30/2021 ) polyethylene glycol 3350 (MIRALAX, GLYCOLAX) 17 gram/dose powder Use as directed for Miralax / Gatorade Bowel Prep Kit (Patient not taking: Reported on 07/30/2021 ) Gatorade Sports Drink Use as directed for Miralax / Gatorade Bowel Prep Kit (Patient not taking: Reported on 07/30/2021 ) Bisacodyl (DULCOLAX) 5 mg tab Use as directed for Miralax / Gatorade Bowel Prep Kit (Patient not taking: Reported on 07/30/2021 ) FAMILY HISTORY Problem Relation Age of Onset Colon Cancer Father Colon Cancer Paternal Uncle Colon Cancer Paternal Uncle Social History Tobacco Use Smoking status: Every Day Packs/day: 1 Types: Cigarettes Smokeless tobacco: Never Tobacco comments: since age 13 Vaping Use Vaping Use: Never used Substance Use Topics Alcohol use: Not Currently Comment: beer Drug use: Not Currently ROS Objective Blood pressure 138/90, pulse 82, temperature 36.1 C (96.9 F), resp. rate 22, weight 91.6 kg (202 lb), SpO2 97 %. Physical Exam Constitutional: General: He is not in acute distress. Appearance: He is not toxic-appearing or diaphoretic. HENT: Head: Normocephalic and atraumatic. Pulmonary: Effort: Pulmonary effort is normal. No accessory muscle usage or respiratory distress. Musculoskeletal: Left wrist: Tenderness (dorsal) present. No swelling, deformity, effusion, lacerations, bony tenderness, snuff box tenderness or crepitus. Decreased range of motion. Normal pulse. Neurological: Mental Status: He is alert and oriented to person, place, and time. ASSESSMENT/PLAN: 1. Wrist pain, acute, right - ICD9: 719.43, ICD10: M25.531 -no bony abnormality noted on xray Brace applied. -Rest, Ice, Compression, Elevation discussed -discussed use of ibuprofen -follow up with primary care if symptoms persist/worsen in 10-14 days - XR WRIST GENERAL 3V PA/LAT/OBL RIGHT IMPRESSION: NO ACUTE FRACTURE Dictated by : MITCH FRY MD - PREDNISONE 10 MG TABLET Rafi Piedra APRN.EMERGENCY DEPARTMENT [facility] History of Present illness Narrative* Sharron Durand APRN.EMERGENCY DEPARTMENT - 01/05/2023 10:48 AM EDT Subjective Cough Associated symptoms include headaches, myalgias and shortness of breath. Pertinent negatives include no sore throat. Jose Elias Oliver is a 42 year old male who presents with symptoms of cough, congestion, body aches, headache and shortness of breath. His symptoms started yesterday. He has been taking Nyquil at home. He denies any known sick contacts. Review of Systems Constitutional: Positive for malaise/fatigue. Negative for fever. HENT: Negative for sore throat. Respiratory: Positive for cough, sputum production and shortness of breath. Cardiovascular: Negative. Musculoskeletal: Positive for myalgias. Neurological: Positive for headaches. BP 136/82 Pulse 77 Temp 36.6 C (97.9 F) (Tympanic) Resp 16 Wt 91.7 kg (202 lb 3.2 oz) SpO2 97% BMI 26.68 kg/m PAST MEDICAL HISTORY Diagnosis Date Arrhythmia per pt GERD (gastroesophageal reflux disease) H. pylori infection 07/12/2021 PAST SURGICAL HISTORY Procedure Laterality Date COLONOSCOPY 07/12/2021 repeat in 5 years EGD W/O BRSH SPEC VARICIES INJ 07/12/2021 PAST SURGICAL HISTORY OF 2006 colonoscopy-had polyps TONSILLECTOMY & ADENOIDECTOMY <AGE 11 TONSILLECTOMY HX ALLERGIES Patient has no known allergies. MEDICATIONS pantoprazole DR (PROTONIX) 40 mg tablet Take 1 tablet by mouth every 12 hours. benzonatate (TESSALON PERLE) 100 mg capsule Take 2 capsules by mouth three times daily as needed for up to 10 days. bismuth subsalicylate (PEPTO-BISMOL) 262 mg chew Take 1 tablet by mouth four times daily for 14 days. omeprazole (PRILOSEC) 20 mg capsule Take 1 capsule by mouth twice daily. (Patient not taking: Reported on 01/05/2023) buspirone HCl (BUSPAR ORAL) Take by mouth once daily. Pt unsure of dose (Patient not taking: Reported on 07/30/2021 ) QUEtiapine (SEROQUEL) 50 mg tablet Take 50 mg by mouth as needed. (Patient not taking: Reported on 07/30/2021 ) famotidine (PEPCID) 10 mg tablet Take 10 mg by mouth once daily. unsure of dose (Patient not taking: Reported on 07/30/2021 ) polyethylene glycol 3350 (MIRALAX, GLYCOLAX) 17 gram/dose powder Use as directed for Miralax / Gatorade Bowel Prep Kit (Patient not taking: Reported on 07/30/2021 ) Gatorade Sports Drink Use as directed for Miralax / Gatorade Bowel Prep Kit (Patient not taking: Reported on 07/30/2021 ) Bisacodyl (DULCOLAX) 5 mg tab Use as directed for Miralax / Gatorade Bowel Prep Kit (Patient not taking: Reported on 07/30/2021 ) FAMILY HISTORY Problem Relation Age of Onset Colon Cancer Father Colon Cancer Paternal Uncle Colon Cancer Paternal Uncle Social History Tobacco Use Smoking status: Every Day Packs/day: 1 Types: Cigarettes Smokeless tobacco: Never Tobacco comments: since age 13 Vaping Use Vaping Use: Never used Substance Use Topics Alcohol use: Not Currently Comment: beer Drug use: Not Currently Objective Physical Exam Vitals and nursing note reviewed. Constitutional: General: He is not in acute distress. Appearance: Normal appearance. He is ill-appearing. HENT: Nose: Nose normal. Mouth/Throat: Mouth: Mucous membranes are moist. Pharynx: Oropharynx is clear. Uvula midline. No oropharyngeal exudate or posterior oropharyngeal erythema. Cardiovascular: Rate and Rhythm: Normal rate and regular rhythm. Heart sounds: Normal heart sounds. Pulmonary: Effort: Pulmonary effort is normal. No respiratory distress. Breath sounds: Normal breath sounds. No wheezing or rales. Musculoskeletal: Cervical back: Neck supple. Lymphadenopathy: Cervical: No cervical adenopathy. Skin: General: Skin is warm and dry. Findings: No erythema or rash. Neurological: Mental Status: He is alert. ASSESSMENT/PLAN: 1. Viral URI with cough - ICD9: 465.9, ICD10: J06.9 - Discussed viral etiology and rationale for treatment. - Symptomatic treatment with prn analgesia - Supportive care with fluids and rest - The patient may also use OTC cough and cold meds as needed and warm salt water gargles, throat lozenges and/or OTC throat spray as needed. - offered COVID and flu testing, patient declined. - BENZONATATE 100 MG CAPSULE - Follow-up with your PCP in 3-5 days if symptoms have not improved or sooner if symptoms worsen - Discussed red flags and need for immediate medical evaluation if any occur. - Discussed supportive care treatment with fluids, rest and analgesia. - Discussed expected course of illness Sharron Durand APRN.[facility] documented in this encounter[facility]-2023 Instructions* Patient Instructions* Sharron Durand APRN.CNP - 01/05/2023 10:48 AM EDT ASSESSMENT/PLAN: 1. Viral URI with cough - ICD9: 465.9, ICD10: J06.9 - Discussed viral etiology and rationale for treatment. - Symptomatic treatment with prn analgesia - Supportive care with fluids and rest - The patient may also use OTC cough and cold meds as needed and warm salt water gargles, throat lozenges and/or OTC throat spray as needed. - offered COVID and flu testing, patient declined. - BENZONATATE 100 MG CAPSULE - Follow-up with your PCP in 3-5 days if symptoms have not improved or sooner if symptoms worsen - Discussed red flags and need for immediate medical evaluation if any occur. - Discussed supportive care treatment with fluids, rest and analgesia. - Discussed expected course of illness Sharron Durand APRN.CNP Treatment for Viral Upper Respiratory Tract Infections Your body will kill off the virus by itself. Additionally, you can prime your body's immune system.This may help you get better more quickly. Drink lots of fluids Make sure you are eating well Get plenty of rest We do not have any medications that kill off these viruses. Antibiotics are used to treat bacterialinfections; however, they are not active against viral infections. There are some things that mighthelp you feel better, though. Vaporizers, humidifiers, hot showers, and hot fluids help open respiratory and sinus passages [place] may offer relief of nasal and head congestion Cristopher's Vapor Rub may relieve congestion Tylenol and Advil help control fevers and headaches Salt water gargles help relieve sore throats Chloraceptic spray or throat lozenges may also help relieve sore throat symptoms Occasionally, viral infections turn into something more serious. You should see your doctor or return to the Urgent Care if: You have fevers for longer than five days You have fevers above 102 degrees You are still sick after 10 days You have shortness of breath or wheezing After several days you are getting worse rather than better documented in this [facility]-2023 Instructions* Patient Instructions* Sharron Durand APRN.CNP - 06/18/2022 1:55 PM EST ASSESSMENT/PLAN: 1. Sore throat - ICD9: 462, ICD10: J02.9 - suspect viral - Alere Strep Test negative, no culture pending - Discussed supportive care treatment with fluids, rest and analgesia. - STREP A MOLECULAR (POC) - Follow-up with your PCP or ENT in 2-3 days if symptoms have not improved or sooner if symptoms worsen - Discussed red flags and need for immediate medical evaluation if any occur. - Discussed supportive care treatment with fluids, rest and analgesia. - Discussed expected course of illness Sharron Durand APRN.EMERGENCY DEPARTMENT SORE THROAT INSTRUCTIONS SORE THROAT OVERVIEW - Sore throat is a common problem during childhood, and is usually the result of a bacterial or viral infection. Although sore throat usually resolves without complications, it sometimes requires treatment with an antibiotic. There are some less common causes of sore throat that are serious or even life-threatening. This topic will discuss the most common causes and treatments of sore throat in children, as well as the warning signs of more serious conditions. SORE THROAT CAUSES - The most likely cause of a child's sore throat depends upon the child's age, the season, and the geographic area. While viruses are the most common cause of sore throat, bacteriaare another common cause. Bacteria and viruses are spread from one person to another through hand contact. Hands get contaminated when the sick individual touches their nose or mouth and then touchesanother person directly (oymr-vy-odho contact) or indirectly (zgka-vb-ruhlns, such as doorknob, telephone, toys). It is difficult to determine the cause of sore throat based upon symptoms alone; an examination andlaboratory test are recommended in most cases Viruses - There are many viruses that can cause pain and swelling of the throat. The most common include viruses that cause sore throat as part of an upper respiratory infection, such as the common cold. Other viruses that cause sore throat include influenza, adenovirus, and Shantelle-Kirkpatrick virus (thecause of mononucleosis). Symptoms - Symptoms that may occur with a viral infection can include a runny nose and congestion, irritation or redness of the eyes, cough, hoarseness, soreness in the roof of the mouth, a skin rash, or diarrhea. In addition, children with viral infections may have a fever and may feel miserable. A high fever does not necessarily mean that the child has a bacterial infection. Group A streptococcus - Group A streptococcus (GAS) is the name of the bacterium that causes strep throat. Although other bacteria can cause a sore throat, GAS is the most common bacterial cause; up to 30 percent of children with a sore throat will have GAS. Strep throat usually occurs during the winter and early spring, and is most common in school-age children and their younger siblings. Symptoms - Symptoms of strep throat in children older than 3 years often develop suddenly and include fever (temperature ?100.4 F or 38 C), headache, abdominal pain, nausea, and vomiting. Other symptoms can include swollen glands in the neck, white patches of pus in the back or sides of the throat,small red spots on the roof of the mouth, and swelling of the uvula. A cough and cold are not commonly seen in children with strep throat. Strep throat is uncommon in children younger than age 2 to 3 years. However, GAS infection can occur in younger children, and may cause a runny nose and congestion that is prolonged, low-grade fever (?101 F or 38.3 C), and tender glands in the neck. Infants younger than 1 year may be fussy and havea decreased appetite and low-grade fever. SORE THROAT TREATMENT - The treatment of sore throat depends upon the cause; strep throat is treated with an antibiotic while viral pharyngitis is treated with rest, pain relievers, and other measures to reduce symptoms. Strep throat - Strep throat is usually treated with an antibiotic, such as penicillin, or an antibiotic similar to penicillin (eg, amoxicillin). Children who are allergic to penicillin will be given an alternate antibiotic. The antibiotic is usually given in pill or liquid form two or three times per day. A one-time injection is also available, and may be recommended if a child is unwilling to take an oral medication. After completing 24 hours of antibiotics, the child is no longer contagious and may return to school. Symptoms usually improve within 1 to 2 days. However, it is important for the child to finish theentire course of treatment (usually 10 days). If a child does not begin to improve or worsens within 3 days, the child should be reevaluated. Throat pain can be treated with a non-prescription pain medication, if needed. (See 'Pain medications' below.) In addition, parents should monitor their child for dehydration, which can develop if the child is not willing to drink or eat due to a sore throat. (See 'Monitor for dehydration' below.) Viral throat pain - Sore throat caused by viral infections usually last 4 to 5 days. During this time, treatments to reduce pain may be helpful but will not help to eliminate the virus. Antibiotics do not improve throat pain caused by a virus and are not recommended. A child with a viral infection is usually allowed to return to school when there has been no fever for 24 hours and the child feels well enough to pay attention. Pain medications - Throat pain can be treated with a mild pain reliever such as acetaminophen (Tylenol ) or a non-steroidal anti-inflammatory agent such as ibuprofen (Motrin ). These medications should be dosed according to weight, not age. Aspirin is not recommended for children <18 years due to the risk of a potentially serious condition known as Malik syndrome. Monitor for dehydration - Some children with a sore throat are reluctant to drink or eat due to pain. Drinking less fluid can lead to dehydration. To reduce the risk of dehydration, parents can offerwarm or cold liquids. (See 'Other interventions' below.) Signs and symptoms of mild dehydration include a slightly dry mouth, increased thirst, and decreased urine output (one wet diaper or void in six hours). Signs of moderate or severe dehydration include decreased urine output (less than one wet diaper or void in six hours), lack of tears when crying,dry mouth, and sunken eyes. A child who is moderately or severely dehydrated should be evaluated by a healthcare provider as soon as possible to determine if treatment is needed. Oral rinses- Salt-water gargles are an old stand-by for relief of throat pain. It is not clear if this treatmentis effective, but it is unlikely to be harmful. Most recipes suggest 1/4 to 1/2 teaspoon of salt per cup (8 ounces) of warm water. The water should be gargled and then spit out (not swallowed). Children younger than six to eight years are not able to gargle properly. An oral rinse composed of equal parts of diphenhydramine (Benadryl liquid) and Maalox (magnesium hydroxide, aluminum hydroxide, and simethicone) may be helpful for pain caused by a sore mouth or ulcers in the mouth. Children older than six to eight years may swish and spit (not swallow) the mixture. Sprays - Sprays containing topical anesthetics are available to treat sore throat. However, such sprays are no more effective than sucking on hard candy. In addition, a common anesthetic ingredient, benzocaine, can cause allergic reactions. We do not recommend throat sprays for children. Lozenges - A variety of medicated throat lozenges are available to relieve dryness or pain. However, it is not clear that lozenges work any better than hard candy. We do not recommend throat lozengesfor children, especially children younger than 3 to 4 years, who can choke. Sucking on hard candy may provide some relief for children older than 3 to 4 years, who are not at risk for choking. Other interventions - Other interventions include sipping warm beverages (eg, honey or lemon tea, chicken soup), cold beverages, or eating cold or frozen desserts (eg, ice cream, popsicles). These treatments are safe for children. Honey should not be given to children younger than 12 months due to the potential risk of botulism poisoning. Alternative therapies - [employer] food stores, vitamin outlets, and Internet Web sites offer alternative treatments for relief of sore throat pain. We do not recommend these treatments due to the risks of contamination with pesticides/herbicides, inaccurate labeling and dosing information, and a lack of studies showing that these treatments are safe and effective. SORE THROAT PREVENTION - Hand washing is an essential and highly effective way to prevent the spread of infection. Hands should be wet with water and plain soap, and rubbed together for 15 to 30 seconds. Special attention should be paid to the fingernails, between the fingers, and the wrists. Handsshould be rinsed thoroughly, and dried with a single use towel. Alcohol-based hand rubs are a good alternative for disinfecting hands if a sink is not available. Hand rubs should be spread over the entire surface of hands, fingers, and wrists until dry, and may be used several times. These rubs can be used repeatedly without skin irritation or loss of effectiveness. Hand rubs are available as a liquid or wipe in small, portable sizes that are easy to carry in a pocket or handbag. When a sink is available, visibly soiled hands should be washed with soap and water. Hands should be washed after coughing, blowing the nose or sneezing. While it is not always possible to limit contact with a person who is sick, avoiding touching the eyes, nose, or mouth after direct contact can help to prevent the spread of infection. In addition, tissues should be used to cover the mouth when sneezing or coughing. These used tissues should be disposed of promptly. Sneezing/coughing into the sleeve of one's clothing (at the inner elbow) is another means of containing sprays of saliva and secretions and has the advantage of not co ntaminating the hands. WHEN TO SEEK HELP - Parents of a child with throat pain and one or more of the following should contact their healthcare provider immediately: Difficulty swallowing or breathing Excessive drooling in an or young child Temperature ?101 F or 38.3 C Swelling of the neck Child is unable or unwilling to drink or eat Voice sounds muffled Child has a stiff neck or difficulty opening the mouth WHERE TO GET MORE INFORMATION - Your child's healthcare provider is the best source of information for questions and concerns related to your child's medical problem. This article will be updated as needed every four months on our web site ([email or web address]). Information below was obtained from "Up to date" Last literature review version 19.2: September 2010 This topic last updated: January 03, 2010 [facility] History of Present illness Narrative* Sharron Durand APRN.CNP - 06/18/2022 1:51 PM EST Subjective Sore Throat Associated symptoms include diarrhea. Pertinent negatives include no congestion, coughing, ear painor vomiting. Jose Elias Oliver is a 41 year old male who presents with a sore throat for the past 2 days. He has not had a fever. He has not taken any medication for pain. He rates the pain 6-7/10. He denies associated URI symptoms. Review of Systems Constitutional: Negative for chills and fever. HENT: Positive for sore throat. Negative for congestion and ear pain. Respiratory: Negative for cough. Cardiovascular: Negative. Gastrointestinal: Positive for diarrhea. Negative for nausea and vomiting. Musculoskeletal: Negative for myalgias. BP 132/82 Pulse 108 Temp 36.6 C (97.8 F) (Tympanic) Resp 18 Wt 98.3 kg (216 lb 12.8 oz) SpO2 97% BMI 28.60 kg/m PAST MEDICAL HISTORY Diagnosis Date Arrhythmia per pt GERD (gastroesophageal reflux disease) H. pylori infection 07/12/2021 PAST SURGICAL HISTORY Procedure Laterality Date COLONOSCOPY 07/12/2021 repeat in 5 years EGD W/O BRSH SPEC VARICIES INJ 07/12/2021 PAST SURGICAL HISTORY OF 2006 colonoscopy-had polyps TONSILLECTOMY & ADENOIDECTOMY <AGE 11 TONSILLECTOMY HX ALLERGIES Patient has no known allergies. MEDICATIONS omeprazole (PRILOSEC) 20 mg capsule Take 1 capsule by mouth twice daily. bismuth subsalicylate (PEPTO-BISMOL) 262 mg chew Take 1 tablet by mouth four times daily for 14 days. buspirone HCl (BUSPAR ORAL) Take by mouth once daily. Pt unsure of dose (Patient not taking: Reported on 07/30/2021 ) QUEtiapine (SEROQUEL) 50 mg tablet Take 50 mg by mouth as needed. (Patient not taking: Reported on 07/30/2021 ) famotidine (PEPCID) 10 mg tablet Take 10 mg by mouth once daily. unsure of dose (Patient not taking: Reported on 07/30/2021 ) polyethylene glycol 3350 (MIRALAX, GLYCOLAX) 17 gram/dose powder Use as directed for Miralax / Gatorade Bowel Prep Kit (Patient not taking: Reported on 07/30/2021 ) Gatorade Sports Drink Use as directed for Miralax / Gatorade Bowel Prep Kit (Patient not taking: Reported on 07/30/2021 ) Bisacodyl (DULCOLAX) 5 mg tab Use as directed for Miralax / Gatorade Bowel Prep Kit (Patient not taking: Reported on 07/30/2021 ) FAMILY HISTORY Problem Relation Age of Onset Colon Cancer Father Colon Cancer Paternal Uncle Colon Cancer Paternal Uncle Social History Tobacco Use Smoking status: Every Day Packs/day: 1.00 Types: Cigarettes Smokeless tobacco: Never Tobacco comments: since age 13 Vaping Use Vaping Use: Never used Substance Use Topics Alcohol use: Not Currently Comment: beer Drug use: Not Currently Objective Physical Exam Vitals and nursing note reviewed. Constitutional: Appearance: Normal appearance. HENT: Right Ear: Tympanic membrane, ear canal and external ear normal. Left Ear: Tympanic membrane, ear canal and external ear normal. Nose: Nose normal. Mouth/Throat: Mouth: Mucous membranes are moist. Pharynx: Uvula midline. Posterior oropharyngeal erythema present. No oropharyngeal exudate. Tonsils: 1+ on the right. 1+ on the left. Cardiovascular: Rate and Rhythm: Normal rate and regular rhythm. Heart sounds: Normal heart sounds. Pulmonary: Effort: Pulmonary effort is normal. No respiratory distress. Breath sounds: Normal breath sounds. No wheezing or rales. Musculoskeletal: Cervical back: Neck supple. Lymphadenopathy: Cervical: No cervical adenopathy. Skin: General: Skin is warm and dry. Findings: No erythema or rash. Neurological: Mental Status: He is alert. ASSESSMENT/PLAN: 1. Sore throat - ICD9: 462, ICD10: J02.9 - suspect viral - Alere Strep Test negative, no culture pending - Discussed supportive care treatment with fluids, rest and analgesia. - STREP A MOLECULAR (POC) - Follow-up with your PCP or ENT in 2-3 days if symptoms have not improved or sooner if symptoms worsen - Discussed red flags and need for immediate medical evaluation if any occur. - Discussed supportive care treatment with fluids, rest and analgesia. - Discussed expected course of illness Sharron Durand APRN.EMERGENCY DEPARTMENT documented in this encounterOhio [facility] HospitalEvaluation noteNo assessment information availableWBarnesville Hospital Work Phone: Evaluation note* Diagnosis Onset Date Resolution Status Injury of right thumb acute Thumb laceration acute [facility] Work Phone: Evaluation note* Diagnosis Onset Date Resolution Status Dislocation of right shoulder joint acute Right shoulder pain acute [facility] Work Phone: Evaluation note* Diagnosis Onset Date Resolution Status Dislocation of right shoulder joint acute Right shoulder pain acute Cellulitis, face acute Dental abscess acute Dental caries acute Dental caries extending into pulp acute Leukocytosis acute Ludwigs angina acute Right facial swelling acute [facility] Work Phone: Evaluation note* Diagnosis Onset Date Resolution Status Dislocation of right shoulder joint acute Right shoulder pain acute Cellulitis, face acute Dental abscess acute Dental caries acute Right facial swelling acute Leukocytosis resolved Ludwigs angina resolved Dislocation of right shoulder joint acute Right shoulder pain acute [facility] Work Phone: Evaluation note* Diagnosis Onset Date Resolution Status Dislocation of right shoulder joint acute Right shoulder pain acute Cellulitis, face acute Dental abscess acute Dental caries acute Right facial swelling acute Leukocytosis resolved Ludwigs angina resolved Dislocation of right shoulder joint acute Right shoulder pain acute Dislocation of right shoulder joint acute [facility] Work Phone: Evaluation note* Diagnosis Sore throat- Primary Acute pharyngitis [facility] Diagnosis Onset Date Resolution Status Dislocation of right shoulder joint acute Dislocation of right shoulder joint acute Dislocation of right shoulder joint acute Right shoulder pain acute Dislocation of right shoulder joint acute Dislocation of right shoulder joint acute Right shoulder pain acute [facility] Work Phone: Evaluation note* Diagnosis Viral URI with cough- Primary Acute upper respiratory infections of unspecified site [facility]* Diagnosis Wrist pain, acute, right- Primary [facility]* Diagnosis Bilateral hand pain- Primary Pain in limb Dermatitis contact Bilateral hand pain Pain in limb [facility]* Diagnosis Bilateral hand pain Pain in limb [facility]* Diagnosis Dental abscess- Primary Periapical abscess without sinus [facility] Work Phone: Hospital Discharge instructions Additional Instructions Ice to the shoulder to decrease pain and swelling. Motrin Tylenol for pain. Follow-up with orthopedic doctor shoulders not improving he may need an MRI to evaluate for possible rotator cuff tear.[facility] Work Phone: Hospital Discharge instructions Additional Instructions 1. If you are unable to eat or drink anything return to the emergency department. 2. If you are unable to swallow your own saliva return immediately 3. The only person who will alleviate your pain and discomfort is a dentist. [facility] Work [facility] Hospital Discharge instructions Additional Instructions You were given a list of dentists in the area. Recommend contacting them all tomorrow to see when you could be seen for definitive care. Recommend avoiding cold or hot beverages. Recommend pur eing your food. 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 Pain will not be alleviated until you see a dentist for definitive care.[facility] Work Phone: Hospital Discharge instructions Additional Instructions Call and follow-up with a dentist as soon as possible. Warm salt water gargling. Motrin up to 800 mg 3 times a day for pain. Tylenol for pain. Take the antibiotic hetacillin 1 pill 4 times a day till gone.[facility] Work Phone: Reason for referral (narrative)* Diagnostic Procedure Only (Urgent) - Closed Specialty Diagnoses / Procedures Referred By Contac t Referred To Contact XR IMAGING Diagnoses Wrist pain, acute, right Procedures XR WRIST GENERAL 3V PA/LAT/OBL RIGHT RADEX WRIST COMPLETE MINIMUM 3 VIEWS Rafi Piedra APRN.CNP [address] [place] [address] [place] [address] Referral ID Status Reason Start Date Expiration Date V isits Requested Visits Authorized [id number] Closed Auto-Generate d Referral 04/05/2023 05/04/2024 1 1 [facility] for referral (narrative)* Diagnostic Procedure Only (Urgent) - Closed Specialty Diagnoses / Procedures Referred By Contac t Referred To Contact XR IMAGING Diagnoses Bilateral hand pain Procedures XR HAND GENERAL 3V PA/LAT/OBL BILATERAL RADEX HAND MINIMUM 3 VIEWS Mat Tavarez MD [address] [place] [address] [place] [address] Referral ID Status Reason Start Date Expiration Date V isits Requested Visits Authorized [id number] Closed Auto-Generate d Referral 11/24/2023 12/23/2024 1 1 [facility] for referral (narrative)* Diagnostic Procedure Only (Urgent) - Closed Specialty Diagnoses / Procedures Referred By Contac t Referred To Contact XR IMAGING Diagnoses Bilateral hand pain Procedures XR HAND GENERAL 3V PA/LAT/OBL BILATERAL RADEX HAND MINIMUM 3 VIEWS Mat Tavarez MD [address] [place] [address] [place] [address] Referral ID Status Reason Start Date Expiration Date V isits Requested Visits Authorized [id number] Closed Auto-Generate d Referral 11/24/2023 12/23/2024 1 1 [facility] for referral (narrative)No reason for referral information availableWBarnesville Hospital Work Phone: Reason for visit Narrative* Diagnostic Procedure Only (Urgent) - Closed Specialty Diagnoses / Procedures Referred By Contac t Referred To Contact XR IMAGING Diagnoses Bilateral hand pain Procedures XR HAND GENERAL 3V PA/LAT/OBL BILATERAL RADEX HAND MINIMUM 3 VIEWS Mat Tavarez MD [address] [place] [address] [place] [address] Referral ID Status Reason Start Date Expiration Date V isits Requested Visits Authorized [id number] Closed Auto-Generate d Referral 11/24/2023 12/23/2024 1 1 [facility] for visit Narrative* Diagnostic Procedure Only (Urgent) - Closed Specialty Diagnoses / Procedures Referred By Contac t Referred To Contact XR IMAGING Diagnoses Wrist pain, acute, right Procedures XR WRIST GENERAL 3V PA/LAT/OBL RIGHT RADEX WRIST COMPLETE MINIMUM 3 VIEWS Rafi Piedra APRN.CNP [address] [place] [address] [place] [address] Referral ID Status Reason Start Date Expiration Date V isits Requested Visits Authorized [id number] Closed Auto-Generate d Referral 04/05/2023 05/04/2024 1 1 [facility] Summary Purpose Family History No Family History Records Found Relationship Condition Age at Onset Recorded Date/T zuleyma Not Specified Cardiac disease Unknown Malignant neoplasm Unknown Advance Directives No Advanced Directives Records Found Advance Directive Response Recorded Date/ Time Living Will No August 09, 2021 2:45pm Power of Exerciser Horse No August 09 2:45pm Advance Directive Response Recorded Date/ Time Living Will No February 09, 2022 3:02pm Power of Exerciser Horse No January 3:02pm Advance Directive Response Recorded Date/ Time Living Will No February 23 8:13am Power of Exerciser Horse No February 23 8:13am Advance Directive Response Recorded Date/ Time Living Will No February 24 8:35pm Power of Exerciser Horse No February 24 8:35pm Advance Directive Response Recorded Date/ Time Living Will No February 25 5:26pm Power of Exerciser Horse No February 25, 2022 5:26pm Advance Directive Response Recorded Date/ Time Living Will No February 26 3:12pm Power of Exerciser Horse No February 26, 2022 3:12pm Advance Directive Response Recorded Date/ Time Living Will No April 17 8:22am Power of Exerciser Horse No April 17, 2022 8:22am Advance Directive Response Recorded Date/ Time Living Will No July 23, 2022 6:27pm Power of Exerciser Horse No July 23 6:27pm Advance Directive Response Recorded Date/ Time Living Will No July 23, 2022 7:27pm Power of Exerciser Horse No July 23 7:27pm Advance Directive Response Recorded Date/ Time Living Will No September 22, 2023 1: 51am Power of Exerciser Horse No September 22, 2023 1:51am Advance Directive Response Recorded Date/ Time Living Will No May 01 023 2:00pm Power of Exerciser Horse No May 01, 2023 2:00pm Advance Directive Response Recorded Date/ Time Do you have a Healthcare Power of Exerciser Horse? No October 27, 2024 11:34am Advance Directive Response Recorded Date/ Time Do you have a Healthcare Power of Exerciser Horse? No October 27, 2024 11:34am Do you have a Healthcare Power of Exerciser Horse? No October 28, 2024 4:52pm Chief Complaint and Reason for Visit Chief Complaint GENERAL ILLNESS lac Chief Complaint lac Right thumb xray Reason for Visit Injury of right thum b Thumb laceration Chief Complaint UPPER EXTREMITY Chief Complaint UPPER EXTREMITY RIGHT SHOULDER 'ear infection' Reason for Visit Dislocation of right shoulder joint Right shoulder pain Chief Complaint UPPER EXTREMITY RIGHT SHOULDER 'ear infection' PAIN OTHER Reason for Visit Dislocation of right shoulder joint Right shoulder pain Chief Complaint UPPER EXTREMITY RIGHT SHOULDER 'ear infection' PAIN OTHER SWELLING Reason for Visit Dislocation of right shoulder joint Right shoulder pain Chief Complaint UPPER EXTREMITY RIGHT SHOULDER 'ear infection' PAIN OTHER SWELLING RIGHT FACIAL CELLULITIS DENTAL Reason for Visit Dislocation of right shoulder joint Right shoulder pain Cellulitis, face Dental abscess Dental caries Dental caries extending into pulp Leukocytosis Ludwigs angina Right facial swelling Chief Complaint UPPER EXTREMITY RIGHT SHOULDER 'ear infection' PAIN OTHER SWELLING RIGHT FACIAL CELLULITIS DENTAL RIGHT FACIAL CELLULITIS RIGHT FACIAL CELLULITIS RIGHT SHOULDER PAIN RIGHT SHOULDER Reason for Visit Dislocation of right shoulder joint Right shoulder pain Cellulitis, face Dental abscess Dental caries Right facial swelling Leukocytosis Ludwigs angina Dislocation of right shoulder joint Right shoulder pain Chief Complaint UPPER EXTREMITY RIGHT SHOULDER 'ear infection' PAIN OTHER SWELLING RIGHT FACIAL CELLULITIS DENTAL RIGHT FACIAL CELLULITIS RIGHT FACIAL CELLULITIS RIGHT SHOULDER PAIN RIGHT SHOULDER RT SHOULDER ARTHROSCOPY STABILIZATION RT SHOULDER ARTHROSCOPY STABILIZATION Reason for Visit Dislocation of right shoulder joint Right shoulder pain Cellulitis, face Dental abscess Dental caries Right facial swelling Leukocytosis [place] angina Dislocation of right shoulder joint Right shoulder pain Dislocation of right shoulder joint Chief Complaint RT SHOULDER ARTHROSC OPY STABILIZATION RT SHOULDER ARTHROSCOPY STABILIZATION right shoulder right shoulder RIGHT SHOULDER Rm 2 xray RIGHT SHOULDER DISLOCATION OF R SHOULDER RX HERE RIGHT SHOULDER Reason for Visit Dislocation of right shoulder joint Dislocation of right shoulder joint Dislocation of right shoulder joint Right shoulder pain Dislocation of right shoulder joint Dislocation of right shoulder joint Right shoulder pain Chief Complaint RT SHOULDER ARTHROSC OPY STABILIZATION RT SHOULDER ARTHROSCOPY STABILIZATION right shoulder right shoulder RIGHT SHOULDER Rm 2 xray RIGHT SHOULDER DISLOCATION OF R SHOULDER RX HERE RIGHT SHOULDER BACK PAIN Reason for Visit Dislocation of right shoulder joint Dislocation of right shoulder joint Dislocation of right shoulder joint Right shoulder pain Dislocation of right shoulder joint Dislocation of right shoulder joint Right shoulder pain Chief Complaint RT SHOULDER ARTHROSC OPY STABILIZATION RT SHOULDER ARTHROSCOPY STABILIZATION right shoulder right shoulder RIGHT SHOULDER Rm 2 xray RIGHT SHOULDER DISLOCATION OF R SHOULDER RX HERE RIGHT SHOULDER BACK PAIN RUQ PAIN Reason for Visit Dislocation of right shoulder joint Dislocation of right shoulder joint Dislocation of right shoulder joint Right shoulder pain Dislocation of right shoulder joint Dislocation of right shoulder joint Right shoulder pain Chief Complaint CERVICAL SPINE Chief Complaint CERVICAL SPINE DENTAL Chief Complaint si combative Chief Complaint CERVICAL SPINE DENTAL DENTAL Chief Complaint Admit Date htn October 27, 2024 11:1 6am Chief Complaint Admit Date htn October 27, 2024 11:1 6am HYPERTENSION October 28, 2024 4:33 pm Additional Source Comments (unrecognized sect ion and content) No Status Records FoundNo Status Records FoundNo Status Records Found INFORMATION SOURCE (unrecogn ized section and content) DATE CREATED AUTHOR 12/06/2020 iRshi Whiteside [facility] DATE CREATED AUTHOR AUTHOR'S ORGANIZ ATION 06/13/2024 [facility] DATE CREATED AUTHOR AUTHOR'S ORGANIZ ATION 11/03/2024 [facility] Goals (unrecognized section and content) Goals may be documented in a n alternate sectionGoals may be documented in an alternate sectionGoals may be documented in an alternate sectionGoals may be documented in an alternate sectionGoals may be documented in an alternate sectionGoals may be documented in an alternate sectionGoals may be documented in an alternate sectionGoals may be documented in an alternate sectionGoals may be documented in an alternate sectionGoals may be documented in an alternate sectionGoals may be documented in an alternate sectionGoals may be documented in an alternate sectionGoals may be documented in an alternate section Source Comments (unrecognize d section and content) In the event this informatio n is protected by the Federal Confidentiality of Alcohol and Drug Abuse Patient Records regulations: The Federal rules restrict any use of the information to criminally investigate or prosecute any alcohol or drug abuse patient.[facility] the event this information is protected by the Federal Confidentiality of Alcohol and Drug Abuse Patient Records regulations: The Federal rules restrict any use of the information to criminally investigate or prosecute any alcohol or drug abuse patient.[facility] Hospital[facility] the event this information is protected by the Federal Confidentiality of Alcohol and Drug Abuse Patient Records regulations: The Federal rules restrict any use of the information to criminally investigate or prosecute any alcohol or drug abuse patient.[facility] the event this information is protected by the Federal Confidentiality of Alcohol and Drug Abuse Patient Records regulations: The Federal rules restrict any use of the information to criminally investigate or prosecute any alcohol or drug abuse patient.[facility] the event this information is protected by the Federal Confidentiality of Alcohol and Drug Abuse Patient Records regulations: The Federal rules restrict any use of the information to criminally investigate or prosecute any alcohol or drug abuse patient.[facility] the event this information is protected by the Federal Confidentiality of Alcohol and Drug Abuse Patient Records regulations: The Federal rules restrict any use of the information to criminally investigate or prosecute any alcohol or drug abuse patient.[facility] the event this information is protected by the Federal Confidentiality of Alcohol and Drug Abuse Patient Records regulations: The Federal rules restrict any use of the information to criminally investigate or prosecute any alcohol or drug abuse patient.[facility] Reason for Visit (unrecogniz ed section and content) Reason Comments Sore Throat ST x 2 days Reason Comments Cough Cough, chest congest ion, DAVIS, bodyaches x 2 days Reason Comments Pain Right wrist pain x 2 weeks Reason Comments Edema Bilateral hand swell ing, painful x 1 week Reason Comments Dental Problem Broken tooth with sw elling and pain x 2 days Care Teams (unrecognized sec tion and content) Water/Wastewater Project Engineer Relationship Specialty Start Date End Date [facility], Olivia [facility]berg [address] [place] [address] PCP - General 06/18/22 Zakiya Dupont NP [address] [place], [place] [address] Referring Family Medicine 05/31/22 Team Status: Active Member Role Status Dates No Primary Care Physician Family Provider Active [facility] Primary Care Provider A ctive Team Status: Inactive Member Role Status Dates [facility] Primary Care Provider, Referring Provider Active Farrukh Rothman MD Attending Provider Active Team Status: Active Member Role Status Dates [facility] Primary Care Provider A ctive Farrukh Rothman MD Attending Provider, Referring Provider, Other Provider Active Team Status: Inactive Member Role Status Dates [facility] Primary Care Provider A ctive Dr. Augustin Rodriguez MD Attending Provider Active Team Status: Inactive Member Role Status Dates [facility] Primary Care Provider A ctive Farrukh Rothman MD Attending Provider, Referring Prov ider Active Team Status: Inactive Member Role Status Dates [facility] Primary Care Provider A annabelle Dupont SNUBBER, SNUBBER-C Attending Provider Active Team Status: Active Member Role Status Dates No Primary Care Physician Family Provider Active Andreea Ankita , SNUBBER-C Primary Care Provider Active Team Status: Inactive Member Role Status Dates Dr. Manny Martinez , Emergency Provider Active Andreea Ankita , SNUBBER-C Primary Care Provider Active Team Status: Active Member Role Status Dates No Primary Care Physician Family Provider Active Andreeamart Luciano VSC, SNUBBER-C Primary Care Provider Active Team Status: Inactive Member Role Status Dates Dr. Manny Martinez , Attending Provider, Emergency Pro vider Active Andreeamart Luciano VSC, SNUBBER-C Primary Care Provider Active Team Status: Inactive Member Role Status Dates Andreea WILLIAMC, SNUBBER-C Primary Care Provider Active Zakiya Dupont SNUBBER, SNUBBER-C Attending Provider, [facility] Active Water[employer]Wastewater Project Engineer Relationship Specialty Start Date End Date Clinic, [address] [address] PCP - General 06/18/22 Zakiya Dupont NP Referring Family Medicine 05/31/22 Water/Wastewater Project Engineer Relationship Specialty Start Date End Date [facility], [address] [address] PCP - General 06/18/22 Zakiya Dupont NP Referring Family Medicine 05/31/22 Team Status: Inactive Member Role Status Dates Andreea Luciano VSC, SNUBBER-C Primary Care Provider Active Ed Physician Provider Emergency Provider Active Team Status: Inactive Member Role Status Dates Andreea Luciano VSC, SNUBBER-C Primary Care Provider Active Marques Meyers MD Emergency Provider Active Water/Wastewater Project Engineer Relationship Specialty Start Date End Date Clinic, [facility] PCP - General 06/18/22 Zakiya Dupont NP Referring Family Medicine 05/31/22 Zakiya Dupont NP [address] [place] [address] Referring Family Medicine 08/08/23 Water/Wastewater Project Engineer Relationship Specialty Start Date End Date Clinic, [facility] PCP - General 06/18/22 Zakiya Dupont NP Referring Family Medicine 05/31/22 Zakiya Dupont NP [address] [place] [address] Referring Family Medicine 08/08/23 Water/Wastewater Project Engineer Relationship Specialty Start Date End Date Clinic, [facility] PCP - General 06/18/22 Zakiya Dupont NP Referring Family Medicine 05/31/22 Team Status: Inactive Member Role Status Dates Andreea Luciano VSJeffrey, SNUBBER-C Primary Care Provider Active Dr. Wicho Baker MD Emergency Provider Active Water/Wastewater Project Engineer Relationship Specialty Start Date End Date [facility], [facility] PCP - General 06/18/22 Zakiya Dupont NP Referring Family Medicine 05/31/22 Zakiya Dupont NP [address] [place] [address] Referring Family Medicine 08/08/23 Team Status: Active Member Role Status Dates Zakiya Dupont VSC, SNUBBER-C Primary Care Provider Activ e Team Status: Inactive Member Role Status Dates Zakiya Dupont VSC, SNUBBER-C Primary Care Provider Activ e Start: July 01, 2024 End: July 01, 2024 Zebulualex Beam VSC, SNUBBER-C Attending Provider Active Start: July 01, 2024 End: July 01, 2024 Zebulun Beam VSC, SNUBBER-C Referring Provider Active Start: July 01, 2024 End: July 01, 2024 Team Status: Inactive Member Role Status Dates Zakiya Dupont NATALIIAC, SNUBBER-C Primary Care Provider Activ e Start: October 27, 2024 End: October 27, 2024 Dr. Wicho Baker MD Emergency Provider Active S tart: October 27, 2024 End: October 27, 2024 Team Status: Inactive Member Role Status Dates Zakiya Dupont VSC, SNUBBER-C Primary Care Provider Activ e Start: October 28, 2024 End: October 28, 2024 Dr. Jeffrey Hernandez , Referring Provider Active Start: October 28, 2024 End: October 28, 2024 Dr. Jeffrey Hernandez , Emergency Provider Active Start: October 28, 2024 End: October 28, 2024 FOR RECORDS PERTAINING TO PATIENTS WHO ARE OR HAVE BEEN ENROLLED IN A CHEMICAL DEPENDENCY/SUBSTANCEABUSE PROGRAM, SOME INFORMATION MAY BE OMITTED. This clinical summary was aggregated from multiple sources. Caution should be exercised in using it in the provision of clinical care. This summary normalizes information from multiple sources, and as a consequence, information in this document may materially change the coding, format and clinical context of patient data. In addition, data may be omitted in some cases. CLINICAL DECISIONS SHOULD BE BASED ON THE PRIMARY CLINICAL RECORDS. [employer] provides no warranty or guarantee of the accuracy or completeness of information in this document.
[2025-04-03 12:00] VITALS: BP 141/78; PULSE 64; RESP 18; O2SAT 98
[2025-04-03 12:06] VITALS: BP 141/78; PULSE 78; RESP 16; TEMP 36.9; O2SAT 99
== END 2025-04-03 12:07 | disposition home or self-care (01) ==
PROVIDERS: Emergency Provider Emergency Medicine; PCP Nurse Practitioner Family; Visit Provider Emergency Medicine
DX: K02.9 Dental caries, unspecified (principal); K04.7 Periapical abscess without sinus; Z59.00 Homelessness unspecified; R68.84 Jaw pain; F17.210 Nicotine dependence, cigarettes, uncomplicated; Z79.899 Other long term (current) drug therapy
CPT/HCPCS: 70491; 80048; 85025; 96374; 99282; Q9967; A4216

== ENCOUNTER 2025-04-04 14:22 | Emergency (ER) | payer MEDICAID, SELFPAY ==
[2025-04-04 14:23] VITALS: BP 143/99; PULSE 101; RESP 16; TEMP 36.5; O2SAT 99; BMI 27.4
--- NOTE | 2025-04-04 15:24 | CT_ITS ---
PROCEDURE: CT SOFT TISSUE NECK WITH CONTRAST 04/04/2025 REASON FOR EXAM: RT SIDED FACIAL SWELLING,REPORTEDLY WORSE THAN YDA TECHNIQUE: Procedure Code: CTNEW Modality: CT Procedure: SOFT TISSUE NECK WITH CONTRAST CONTRAST: Isovue-300 VOLUME: 98 mL One or more dose reduction techniques were used (e.g., Automated exposure control, adjustment of the mA and/or kV according to patient size, use of iterative reconstruction technique). RADIATION DOSE SUMMARY: CTDlvol: 17.23 mGy DLP: 552.7 mGycm COMPARISON: Neck CT 04/03/2025, 01/01/2024. FINDINGS: Poor dentition with numerous dental caries and periapical lucencies. No aggressive osseous erosion or destruction. Clear paranasal sinuses and bilateral mastoid air cells. Mild inflammatory fat infiltration/edema in the right perimandibular facial soft tissues and involving the right pterygoids and masseter muscles, but no rim enhancing drainable fluid collection/abscess is present. Increased number of mildly prominent reactive right submandibular cervical lymph nodes. The airway is widely patent and midline. No prevertebral/retropharyngeal soft tissue swelling. Normal symmetric appearance of the major salivary glands. Unremarkable thyroid. Unremarkable orbital contents. Mild noncalcified atheromatous plaque at the bilateral carotid artery bifurcations, with mild less than 50% luminal narrowing. CT/Soft Tissue Neck WITH Contrast IMPRESSION: Mild inflammatory changes/edema in the right perimandibular facial soft tissues , presumably odontogenic in nature as there are numerous dental caries and periapical lucencies. No drainable fluid collection/abscess. Mildly prominent reactive right submand ibular lymph nodes. Reading Location: [id number]
--- NOTE | 2025-04-04 15:27 | EDS_ITS ---
HPI History of Present Illness Chief Complaint: Dental Narrative Narrative: Patient is a 44-year-old male presenting to the emergency department for right sided facial swelling and pain. Patient has a past medical history of dental caries, dental abscesses. He was just here yesterday and had labs as well as a CT of his neck done. He states that since leaving he has developed worsening swelling on the right side of his jaw. He has been taking Tylenol for pain relief. States he has been compliant with his Augmentin that was prescribed to him. He reports that he called the dentist and they told him to come here for evaluation. He endorses subjective fevers at home. Reports difficulty opening his mouth fully due to the pain on the right side. He reports painful swallowing. Denies any difficulty breathing. [facility] Medical History (Updated 04/04/25 @ 16:[address] Maira Bourgeois MD) Asthma TIA (transient ischemic attack) Right shoulder pain Depression Anxiety Substance abuse Marijuana use Alcohol use Arthritis Fatty liver Migraine headache Syncope History of hiatal hernia History of IBS Gastric reflux Smoker Shortness of breath on exertion Leg cramps History of pain when walking History of edema History of stress test Cardiology follow-up encounter Hypertension History of irregular heartbeat Superior labrum [id number] (SLAP) tear of right shoulder Helicobacter pylori (H. pylori) GERD (gastroesophageal reflux disease) Home Medications ?Medication ?Instructions ?Recorded ?Last Taken ?Type clonidine HCl 0.2 mg tablet 0.2 mg PO DAILY #10 tabs 0 10/28/24 04/02/25 Rx acetaminophen 500 mg capsule 1,000 mg PO Q6H PRN pain 04/03/25 04/02/25 History amoxicillin 875 mg-potassium 1 tab PO BID #20 tabs Unknown Rx clavulanate 125 mg tablet escitalopram oxalate 20 mg tablet 20 mg PO DAILY 04/0304/02/25 History ibuprofen 200 mg tablet (Advil) 400 mg PO Q4H PRN pain 04/03/25 04/02/25 History lisinopril 20 mg tablet 20 mg PO DAILY 04/03/2503/19 History naproxen sodium 220 mg capsule 220 mg PO BID PRN pain 04/03/25 04/02/25 History (Aleve) quetiapine 100 mg tablet 100 mg PO QHS 04/03/2504/01 History Allergy/AdvReac Type Severity Reaction Status Date / Time No Known Allergies Allergy Verified 04/04/25 14:25 Family History Other Cancer Heart disease Surgical History Hx of colonoscopy History of esophagogastroduodenoscopy (EGD) History of adenoidectomy Social History household members: none housing: homeless Smoking Status: Current every day smoker tobacco type: cigarettes alcohol intake: current alcohol intake frequency: holidays/special occasions only Alcohol type: beer ROS ROS ED ROS Narrative see HPI EXAM Physical Exam Narrative Exam Narrative: Vital signs: Reviewed General: Alert and oriented x 3. No acute distress. Disheveled appearing. Unkept. HEENT: Head is normocephalic and atraumatic, sinuses nontender, pupils equal round and reactive. Nares are patent. There is mild swelling to the right sided cheek and mandible. There is no overlying erythema, fluctuance or crepitus. There is no swelling or lymphadenopathy of the neck. Trachea is midline. On inspection of the mouth there is significant dental caries. Patient has mild trismus and is unable to open his mouth fully which limits inspection of the mouth however tongue is midline with no elevation. There is no tenderness or bogginess of the palate. Uvula is midline. No swelling noted to the posterior oropharynx. No dental abscesses noted on limited inspection. Neck: Supple without lymphadenopathy nontender Cardiovascular: Regular rate and rhythm, no murmurs. No rubs or gallops. Normal S1 and S2 Respiratory: Clear to auscultation bilaterally. No wheezes, rales, rhonchi Abdominal: Soft and nontender. Normal bowel sounds. No guarding or rebound. Nonsurgical abdomen Extremities: No tenderness. No bruising. Normal range of motion. Normal sensation. Skin: No rash or redness. Neurological: Cranial nerves II through XII are grossly intact. Normal strength and sensation. Normal cerebellar function The rest of the physical exam is unremarkable Const Vital Signs: 04/04/25 14:23 04/04/25 17:26 Temperature 97.7 F L 98.3 F Temperature Source Oral Pulse Rate 101 H 92 Respiratory Rate 16 18 Blood Pressure 143/99 H 157/107 H Blood Pressure Mean 113 123 Pulse Ox 99 99 Oxygen Delivery Method Room Air MDM MDM MDM Narrative Medical decision making narrative: Patient is a 44-year-old male presenting to the emergency department for right sided facial swelling and pain. Patient was seen and examined. Vitals are stable. Patient resting in bed comfortably in no acute distress. Saturating 99% on room air. Limited inspection of the oropharynx given the mild trismus on the right side. There is no significant erythema or crepitus or fluctuance noted of the jaw or cheek. There is no dental abscess noted on inspection of the mouth. There is no evidence of Richardson's angina. Given the patients reports of worsening swelling and pain, will repeat CT imaging of the neck and obtain labs. Will give the patient norco here. Last tylenol dose was this morning. CT shows mild inflammatory changes/edema in the right perimandibular facial soft tissues, presumably odontogenic in nature as there are numerous dental caries and periapical lucencies. No drainable fluid collection/abscess. Mildly prominent reactive right submandibular lymph nodes. CBC with mild leukocytosis of 12.4 and mild anemia of 12.7. BMP with no significant abnormalities. Patient was updated on the findings. Instructed to continue his Augmentin at home. He has been on only 1 day of antibiotics and given this I do not think he has failed them. He has no evidence of distress. Tolerating secretions. I updated the patient on the lab and imaging findings. Instructed him to take Tylenol and Motrin at home for pain control and call his dentist for follow-up tomorrow. He states he has a dental referral sheet already at home. Patient discharged from the Emergency Department. I do not feel that the patient's evaluation reveals any acute reason for admission at this time. I instructed them to either follow- up with their primary care physician or promptly return to the Emergency Department for reevaluation should symptoms worsen or new symptoms develop. I explained what symptoms would indicate the need to return to the emergency department. Shared decision making was used. The patient voiced understanding of the treatment plan and is agreeable with it. Clinical impression: Dental infection History & Record Review Discussion w/independent historian: Patient Additional record(s) reviewed:: Prior ED visit and Prior labs Lab Data Attestation: I reviewed the patient's lab results. Labs: Laboratory Results - last 24 hr 04/04/25 15:35 WBC 12.4 H RBC 3.97 L Hgb 12.7 L Hct 37.0 L MCV 93.2 MCH 32.0 MCHC 34.3 RDW Std Deviation 42.6 RDW Coeff of Judith 12.4 Plt Count 324 MPV 9.1 Immature Gran % (Auto) 0.500 Neut % (Auto) 78.5 H Lymph % (Auto) 13.4 L [place] % (Auto) 6.7 Eos % (Auto) 0.6 Baso % (Auto) 0.3 Absolute Neuts (auto) 9.7 H Absolute Lymphs (auto) 1.66 Nucleated RBC % 0 Sodium 139 Potassium 4.0 Chloride 104 Carbon Dioxide 23.0 Anion Gap 11 BUN 13 Creatinine 0.79 Estim Creat Clear Calc 129.61 Est GFR (MDRD) Non-Af 111 BUN/Creatinine Ratio 16.5 Glucose 118 H Calcium 9.5 Radiography Diagnostic Testing: Clinical Impression(s) from Imaging Studies Soft Tissue Neck CT 04/04/25 15:24 IMPRESSION: Mild inflammatory changes/edema in the right perimandibular facial soft tissues, presumably odontogenic in nature as there are numerous dental caries and periapical lucencies. No drainable fluid collection/abscess. Mildly prominent reactive right submandibular lymph nodes. Reading Location: [facility] Discharge Plan Triage Chief Complaint: Dental ED Provider: Maira Bourgeois Dx/Rx/DC Orders Clinical Impression: Dental caries, Dental infection Instructions: ED Dental Abscess Facial Cellulitis Prescriptions: No Action lisinopril 20 mg tablet 20 mg PO DAILY quetiapine 100 mg tablet 100 mg PO QHS escitalopram oxalate 20 mg tablet 20 mg PO DAILY naproxen sodium [Aleve] 220 mg capsule 220 mg PO BID PRN (Reason: pain) ibuprofen [Advil] 200 mg tablet 400 mg PO Q4H PRN (Reason: pain) acetaminophen 500 mg capsule 1,000 mg PO Q6H PRN (Reason: pain) amoxicillin-pot clavulanate 875-125 mg tablet 1 tab PO BID Qty: 20 0RF clonidine HCl 0.2 mg tablet 0.2 mg PO DAILY Qty: 10 0RF Primary Care Provider: Zakiya Dupont [facility] Referrals: Zakiya Dupont [facility], OCC MED PHYSICIAN-C [Primary Care Provider, Family Practice] - As soon as possible Activity Restrictions/Additional Instructions: Continue taking your antibiotics as prescribed. Follow up with a dentist as soon as possible. Take Tylenol and motrin for pain and swelling control at home. You can ice the cheek as well to help with swelling. Your evaluation in the Emergency Department did not reveal any acute reason for admission. However, I want to emphasize that you may be early in the course of a disease process or illness even if it is not present. For this reason you should follow-up within 24 hours for reevaluation with either your primary care physician or if necessary back here in the Emergency Department. You should return to the Emergency Department immediately if your symptoms worsen or new symptoms develop. Print Language: Bermudian Disposition Disposition: Home, Self Care Discharge Date/Time: 04/04/25 17:27
[2025-04-04] MEDS: HYDROcodone Bitartrate/Apap 5/325 Tablet PO (15:30)
[2025-04-04 15:56] LABS: Anion Gap 11 (5-15); BUN 13 mg/dL (4-19); BUN/Creat Ratio 16.5 RATIO (10-20); Calcium,Total 9.5 mg/dL (7.6-11.0); Carbon Dioxide 23.0 mmol/L (21.0-32.0); Chloride 104 mmol/L (98-108); Estimated Creatinine Clearance 129.61 ml/min (50-250); Glucose 118 mg/dL (70-99); Potassium 4.0 mmol/L (3.3-5.1)
[2025-04-04 16:04] LABS: Hematocrit 37.0 % (40-54); Hemoglobin 12.7 g/dL (13.0-16.5); Immature Granulocytes Count 0.060 X10^3/uL (0.0-0.0); Mean Corp Hgb Conc 34.3 g/dL (32-36); Mean Corpuscular Volume 93.2 fL (80-94); Mean Platelet Vol. 9.1 fl (6.2-12.0); NRBC Flagged by Analyzer 0 % (0-5); Platelet Count 324 K/mm3 (150-450); RBC Distribution Width CV 12.4 % (11.6-14.6); RBC Distribution Width SD 42.6 fl (35.1-43.9); Red Blood Count 3.97 M/mm3 (4.6-6.2); White Blood Count 12.4 K/mm3 (4.4-11.0)
[2025-04-04 17:26] VITALS: BP 157/107; PULSE 92; RESP 18; TEMP 36.8; O2SAT 99
--- NOTE | 2025-04-04 20:17 | CM.ED ---
Social Work Patient presented to ED with dental concerns. Dental resource list that includes oral surgeons was provided. Patient expressed being thankful for resource. No further needs at this time. Earline Carr, SHAKE FEEDER, BUSINESS ARCHITECT
== END 2025-04-04 17:27 | disposition home or self-care (01) ==
PROVIDERS: Emergency Provider Student in an Organized Health Care Education/Training Program; PCP Nurse Practitioner Family; Visit Provider Student in an Organized Health Care Education/Training Program
DX: K04.7 Periapical abscess without sinus (principal); F17.210 Nicotine dependence, cigarettes, uncomplicated; Z59.00 Homelessness unspecified
CPT/HCPCS: 70491; 80048; 85025; 99283; Q9967; A4216

== ENCOUNTER 2025-04-06 13:06 | Emergency (ER) | payer MEDICAID, SELFPAY ==
[2025-04-06] VITALS (7 sets, daily range): BP systolic 160–185; BP diastolic 84–103; PULSE 78–103; RESP 16–22; TEMP 36.1–36.7; O2SAT 94–100; BMI 27.6
--- NOTE | 2025-04-06 13:18 | ED.VIS.DENTA ---
HPI History of Present Illness Chief Complaint: Dental Informant: patient and other (dentist) Narrative Narrative: Patient is a 44-year-old male with a history of dental issues presenting with worsening right-sided facial pain and swelling since Friday, about 4 days ago. - Reports worsening pain and swelling on the right side of the face despite being on Augmentin x 4d. - Recent dental visit today; previous similar episode required admission and IV antibiotics. - Pain localized to the lower teeth, with associated symptoms including odynophagia, trismus, and headache. - Reports subjective fevers, but no measured temperatures. - Denies oral bleeding or discharge prior to dental incision today. Dentist performed some mild local anesthesia and a small incision, he states he got some purulent material out but expected more but unable to do more due to trismus and pain and lack of ability to sedate the patient in the office. Oral surgery was not able to be consulted or available today so referred here to ER. - Denies history of DM. - Has been drinking fluids as able; has not eaten today. PFSH PFS Medical History Asthma TIA (transient ischemic attack) Right shoulder pain Depression Anxiety Substance abuse Marijuana use Alcohol use Arthritis Fatty liver Migraine headache Syncope History of hiatal hernia History of IBS Gastric reflux Smoker Shortness of breath on exertion Leg cramps History of pain when walking History of edema History of stress test Cardiology follow-up encounter Hypertension History of irregular heartbeat Superior labrum [id number] (SLAP) tear of right shoulder Helicobacter pylori (H. pylori) GERD (gastroesophageal reflux disease) Home Medications ?Medication ?Instructions ?Recorded ?Last Taken ?Type clonidine HCl 0.2 mg tablet 0.2 mg PO DAILY #10 tabs 10/28/24 04/02/25 Rx escitalopram oxalate 20 mg tablet 20 mg PO DAILY 04/03/25 04/02/25 History ibuprofen 200 mg tablet (Advil) 400 mg PO Q4H PRN pain 04/03/25 04/02/25 History lisinopril 20 mg tablet 20 mg PO DAILY 04/03/25 04/02/25 History naproxen sodium 220 mg capsule 220 mg PO BID PRN pain 04/03/25 04/02/25 History (Aleve) quetiapine 100 mg tablet 100 mg PO QHS 04/03/25 04/01/25 History clindamycin HCl 300 mg capsule 300 mg PO Q6H #40 CAPSULES 04/06/25 Unknown Rx (Cleocin HCl) hydrocodone-acetaminophen 5-325mg 1 tab PO Q6H PRN PRN Pain 3 days 04/06/25 Unknown Rx 5mg-325mg #10 TABLETS Allergy/AdvReac Type Severity Reaction Status Date / Time No Known Allergies Allergy Verified 04/06/25 13:07 Family History Other Cancer Heart disease Surgical History Hx of colonoscopy History of esophagogastroduodenoscopy (EGD) History of adenoidectomy Social History household members: none housing: homeless Smoking Status: Current every day smoker tobacco type: cigarettes alcohol intake: current alcohol intake frequency: holidays/special occasions only Alcohol type: beer ROS ROS ED Constitutional Constitutional ED: Reports fever(s) and subjective; Denies chills Eyes Eyes: Denies change in vision or double vision ENT ENT ED: Reports dental pain, facial pain and headache(s); Denies nasal congestion, sinus pain or throat swelling Cardiovascular Cardiovascular: Denies chest pain or palpitations Respiratory/Chest Respiratory/Chest: Denies cough or dyspnea Integumentary Denies abscess or rash Neurologic Neurologic: Denies headache(s), paresthesias or weakness EXAM Physical Exam Const Vital Signs: 04/06/25 13:07 04/06/25 13:09 Temperature 96.9 F L 96.9 F L Temperature Source Temporal Oral Pulse Rate 103 H 87 Respiratory Rate 22 H 16 Blood Pressure 185/93 H 169/94 H Blood Pressure Mean 123 119 Pulse Ox 100 100 Oxygen Delivery Method Room Air Room Air Positive well nourished and well developed General Appearance ED: well developed and NAD HEENT HEENT Narrative: Right facial swelling without palpable fluctuance. Patient has trismus, I can see the severe decay of all of the right mandibular molars, there is a small amount of blood present where dentistry recently made a small incision there is no active bleeding. He is tender throughout all of this area posteriorly and the mandibular dentition but not the maxillary. Tongue is normal there is no elevation floor the mouth is soft, he is tender externally but I cannot palpate any enlarged or swollen lymph nodes. No ear tenderness or mastoid process tenderness/swelling/erythema. Neck is supple. Face and Sinus: sinuses nontender Eyes PERRL and EOMs intact bilaterally Neck no lymphadenopathy and supple Resp normal respiratory effort and clear to auscultation bilaterally Neuro oriented x3 and CN's II-XII intact bilaterally Sensorium / Orientation: alert Gait (Neuro): normal gait Psych mental status grossly normal and thought process normal Skin no rashes or lesions noted and no wounds MDM MDM MDM Narrative Medical decision making narrative: I reviewed the patient's visit from two days ago, which included a CT showing mild swelling and inflammatory changes without a drainable collection. I repeated the blood work from that day, in addition to the CT. His white blood cell count has decreased from 12.4 to 11.5, and his renal function is normal. I reviewed the CT images and report, which show an unchanged, stable exam with no drainable collection. Therefore, I do not think sedation and an attempt at drainage would be beneficial, especially since the dentist evaluated him today and already performed a drainage, obtaining a small amount of perennial material. Based on the clinical and radiographic findings, I do not believe further drainage would help. He was given morphine, Zofran, IV fluids, empiric clindamycin 600 milligrams, and a dose of Decadron 10 milligrams, which will hopefully help with pain and swelling. I do not think he needs admission at this time. He is able to drink fluids. I recommend he follow up with dentistry, and we will prescribe pain medications if needed. History & Record Review Additional record(s) reviewed:: Prior ED visit (and CT neck x 2 in past week, basically neg for abscess) Lab Data Attestation: I reviewed the patient's lab results. Labs: Laboratory Results - last 24 hr 04/06/25 13:26 WBC 11.5 H RBC 3.58 L Hgb 11.5 L Hct 34.0 L MCV 95.0 H MCH 32.1 H MCHC 33.8 RDW Std Deviation 42.6 RDW Coeff of Judith 12.1 Plt Count 301 MPV 8.8 Immature Gran % (Auto) 0.700 Neut % (Auto) 81.2 H Lymph % (Auto) 12.9 L [place] % (Auto) 4.6 Eos % (Auto) 0.3 Baso % (Auto) 0.3 Absolute Neuts (auto) 9.3 H Absolute Lymphs (auto) 1.48 Nucleated RBC % 0 Sodium 137 Potassium 4.2 Chloride 102 Carbon Dioxide 23.9 Anion Gap 11 BUN 13 Creatinine 0.75 Estim Creat Clear Calc 136.52 Est GFR (MDRD) Non-Af 113 BUN/Creatinine Ratio 17.8 Glucose 121 H Calcium 9.3 Radiography Diagnostic Testing: Clinical Impression(s) from Imaging Studies Soft Tissue Neck CT 04/06/25 13:40 IMPRESSION: Essentially stable examination demonstrating mild inflammatory changes in the right perimandibular and right facial soft tissues most likely secondary to odontogenic origin. Reading Location: [id number] Discharge Plan Triage Chief Complaint: Dental ED Provider: Baron Sparks Dx/Rx/DC Orders Clinical Impression: Dental infection, Dental decay, Trismus Instructions: Dental Abscess Prescriptions: New clindamycin HCl [Cleocin HCl] 300 mg capsule 300 mg PO Q6H Qty: 40 0RF hydrocodone-acetaminophen 5-325 mg tablet 1 tab PO Q6H PRN PRN (Reason: Pain) 3 Days Qty: 10 0RF Continued lisinopril 20 mg tablet 20 mg PO DAILY quetiapine 100 mg tablet 100 mg PO QHS escitalopram oxalate 20 mg tablet 20 mg PO DAILY naproxen sodium [Aleve] 220 mg capsule 220 mg PO BID PRN (Reason: pain) ibuprofen [Advil] 200 mg tablet 400 mg PO Q4H PRN (Reason: pain) clonidine HCl 0.2 mg tablet 0.2 mg PO DAILY Qty: 10 0RF Discontinued acetaminophen 500 mg capsule 1,000 mg PO Q6H PRN (Reason: pain) amoxicillin-pot clavulanate 875-125 mg tablet 1 tab PO BID Qty: 20 0RF Primary Care Provider: Zakiya Dupont Referrals: Dentist,Your [STAFF PHYSICIAN, Dentistry] - 3-5 Days Activity Restrictions/Additional Instructions: - A repeat CT scan and blood work were done today; results showed no new drainable abscess, stable mild inflammation, a white blood cell count of 11.5 (decreased), and normal kidney function. - IV clindamycin 600 mg was given to target your dental infection, and a single dose of Decadron 10 mg was administered to reduce swelling, which should continue to work for several days. - Your antibiotic is being changed to clindamycin. - Follow up with your dentist as recommended for ongoing dental care and any further drainage or antibiotic adjustments; may return to ER for reevaluation if you feel swelling is continuing to worsening despite this treatment. - Continue to drink fluids as tolerated. You have a higher chance of having diarrhea and/or C. difficile infection being on clindamycin. To help mitigate this risk, take either a twice daily probiotic or eat yogurt every day while you are on the antibiotics. Print Language: Yoruba Disposition Disposition: Home, Self Care
[2025-04-06] MEDS: 0.9% Normal Saline (1000mL) 1,000 ML 999 ML IV (13:27)
[2025-04-06] MEDS: Clindamycin 600 MG/50 ML BAG 100 MG IV (13:29)
[2025-04-06 13:35] LABS: Hematocrit 34.0 % (40-54); Hemoglobin 11.5 g/dL (13.0-16.5); Immature Granulocytes Count 0.080 X10^3/uL (0.0-0.0); Mean Corp Hgb Conc 33.8 g/dL (32-36); Mean Corpuscular Volume 95.0 fL (80-94); Mean Platelet Vol. 8.8 fl (6.2-12.0); NRBC Flagged by Analyzer 0 % (0-5); Platelet Count 301 K/mm3 (150-450); RBC Distribution Width CV 12.1 % (11.6-14.6); RBC Distribution Width SD 42.6 fl (35.1-43.9); Red Blood Count 3.58 M/mm3 (4.6-6.2); White Blood Count 11.5 K/mm3 (4.4-11.0)
--- NOTE | 2025-04-06 13:40 | CT_ITS ---
PROCEDURE: SOFT TISSUE NECK WITH CONTRAST 04/06/2025 REASON FOR EXAM: DENTAL PAIN, FACIAL SWELLING, TRISMUS, WORSENING TECHNIQUE: Procedure Code: CTNEW Modality: CT Procedure: SOFT TISSUE NECK WITH CONTRAST CONTRAST: Isovue 370 VOLUME: 75 mL One or more dose reduction techniques were used (e.g., Automated exposure control, adjustment of the mA and/or kV according to patient size, use of iterative reconstruction technique). RADIATION DOSE SUMMARY: CTDlvol: 16.4 mGy DLP: 422.09 mGycm COMPARISON: Prior study dated April 04, 2025. FINDINGS: Airway: Midline and patent. Salivary glands: Unremarkable. Stable mild inflammatory changes/edema in the right perimandibular and right facial soft tissues most likely secondary to odontogenic origin. Lymph nodes: No cervical lymphadenopathy. Thyroid: Unremarkable. Vasculature: Carotid arteries and internal jugular veins are unremarkable. Orbits: Unremarkable at visualized levels. Paranasal sinuses and mastoids: Grossly clear at visualized levels. Lung apices: Unremarkable Upper mediastinum: Unremarkable Bones: Unremarkable. Other: CT/Soft Tissue Neck WITH Contrast IMPRESSION: Essentially stable examination demonstrating mild inflammatory changes in the r ight perimandibular and right facial soft tissues most likely secondary to odontogenic origin. Reading Location: [facility]
[2025-04-06 14:03] LABS: Anion Gap 11 (5-15); BUN 13 mg/dL (4-19); BUN/Creat Ratio 17.8 RATIO (10-20); Calcium,Total 9.3 mg/dL (7.6-11.0); Carbon Dioxide 23.9 mmol/L (21.0-32.0); Chloride 102 mmol/L (98-108); Estimated Creatinine Clearance 136.52 ml/min (50-250); Glucose 121 mg/dL (70-99); Potassium 4.2 mmol/L (3.3-5.1)
== END 2025-04-06 14:38 | disposition home or self-care (01) ==
PROVIDERS: Emergency Provider Emergency Medicine; PCP Nurse Practitioner Family; Visit Provider Emergency Medicine
DX: K04.7 Periapical abscess without sinus (principal); Z59.00 Homelessness unspecified; F17.210 Nicotine dependence, cigarettes, uncomplicated; I10 Essential (primary) hypertension; K02.9 Dental caries, unspecified; R25.2 Cramp and spasm; Z86.73 Personal history of transient ischemic attack (TIA), and cerebral infarction without residual deficits; F32.A Depression, unspecified; F41.9 Anxiety disorder, unspecified; Z79.899 Other long term (current) drug therapy
CPT/HCPCS: 70491; 80048; 85025; 96365; 96375; 99283; Q9967; A4216; J2405

== ENCOUNTER 2025-04-21 12:05 | Emergency (ER) | payer MEDICAID, SELFPAY ==
[2025-04-21 12:06] VITALS: BP 152/98; PULSE 92; RESP 18; TEMP 36.6; O2SAT 99
--- NOTE | 2025-04-21 12:23 | CT_ITS ---
PROCEDURE: SOFT TISSUE NECK WITH CONTRAST 04/21/2025 REASON FOR EXAM: SWOLLEN UVULA TECHNIQUE: Procedure Code: CTNEW Modality: CT Procedure: SOFT TISSUE NECK WITH CONTRAST CONTRAST: Isovue 370 VOLUME: 75 mL One or more dose reduction techniques were used (e.g., Automated exposure control, adjustment of the mA and/or kV according to patient size, use of iterative reconstruction technique). RADIATION DOSE SUMMARY: DLP: 674.64 mGycm COMPARISON: CT neck 04/06/2025, 04/04/2025, 04/03/2025 FINDINGS: Aerodigestive tract: There has been resolution of previously seen right pre malar fat stranding. Mild edema of the posterior most aspect of the soft palate best demonstrated on sagittal reconstruction. The epiglottis is unremarkable. The floor of mouth, base of tongue, nasopharynx, hypopharynx, and larynx appear overall symmetric without evidence of nodular or masslike enhancement. The visualized trachea is clear. There is no prevertebral soft tissue swelling. The nasal cavity is unobstructed. There are multiple dental caries. Salivary glands: (Major): The submandibular glands and parotid glands appear within normal limits. Thyroid gland: Unremarkable. Lymph nodes: There is no evidence of pathologic cervical lymphadenopathy. Vasculature: The common carotid, cervical internal carotid, and cervical vertebral arteries opacify with intravenously administered contrast. Paranasal sinuses: The paranasal sinuses are predominantly clear. Orbits: Unremarkable. Intracranial/cranium: The partially visualized intracranial contents appear overall within normal limits for the patient's stated age, although assessment is limited due to technique (e.g. the [id number]). Cervical spine: Cervical spondylosis without high-grade spinal canal stenosis. Lung apices: The visualized lung apices are predominantly clear. CT/Soft Tissue Neck WITH Contrast IMPRESSION: 1. Compared to prior CT of the neck 04/06/2025, resolution of previously seen r ight premalar inflammatory changes. 2. Mildly edematous uvula, nonspecific but suspicious for infectious etiology. 3. Multiple dental caries. Recommend dental consultation. Reading Location: [id number]
--- NOTE | 2025-04-21 12:25 | EX.ED.DYSGE1 ---
HPI History of Present Illness Chief Complaint: General Illness Narrative Narrative: Patient is a 44-year-old male presenting to the emergency department for feeling of fullness in the back of his throat. States he woke up with this. He has a past medical history of dental caries, dental abscess, substance abuse, recent hospitalization at [facility] last week for osteomyelitis of the jaw. He is currently on amoxicillin. Also has a history of hypertension on lisinopril. He states that he woke up this morning and felt like when he swallowed there was a fullness in his throat. He denies any chest pain or shortness of breath. He denies fever or chills. Denies any nausea or vomiting. [facility] Medical History Asthma TIA (transient ischemic attack) Right shoulder pain Depression Anxiety Substance abuse Marijuana use Alcohol use Arthritis Fatty liver Migraine headache Syncope History of hiatal hernia History of IBS Gastric reflux Smoker Shortness of breath on exertion Leg cramps History of pain when walking History of edema History of stress test Cardiology follow-up encounter Hypertension History of irregular heartbeat Superior labrum [id number] (SLAP) tear of right shoulder Helicobacter pylori (H. pylori) GERD (gastroesophageal reflux disease) Home Medications ?Medication ?Instructions ?Recorded ?Last Taken ?Type clonidine HCl 0.2 mg tablet 0.2 mg PO DAILY #10 tabs 10/28/24 04/02/25 Rx escitalopram oxalate 20 mg tablet 20 mg PO DAILY 04/03/25 04/02/25 History ibuprofen 200 mg tablet (Advil) 400 mg PO Q4H PRN pain 04/03/25 04/02/25 History lisinopril 20 mg tablet 20 mg PO DAILY 04/03/25 04/02/25 History naproxen sodium 220 mg capsule 220 mg PO BID PRN pain 04/03/25 04/02/25 History (Aleve) quetiapine 100 mg tablet 100 mg PO QHS 04/03/25 04/01/25 History clindamycin HCl 300 mg capsule 300 mg PO Q6H #40 CAPSULES 04/06/25 Unknown Rx (Cleocin HCl) hydrocodone-acetaminophen 5-325mg 1 tab PO Q6H PRN PRN Pain 3 days 04/06/25 Unknown Rx 5mg-325mg #10 TABLETS amlodipine 5 mg tablet 5 mg PO DAILY #30 tabs 04/21/25 Unknown Rx prednisone 20 mg tablet 40 mg (2 x 20 mg) PO DAILY 5 days 04/21/25 Unknown Rx #10 tabs Allergy/AdvReac Type Severity Reaction Status Date / Time No Known Allergies Allergy Verified 04/21/25 12:08 Family History Other Cancer Heart disease Surgical History Hx of colonoscopy History of esophagogastroduodenoscopy (EGD) History of adenoidectomy Social History household members: none housing: homeless Smoking Status: Current every day smoker tobacco type: cigarettes alcohol intake: current alcohol intake frequency: holidays/special occasions only Alcohol type: beer ROS ROS ED ROS Narrative See HPI EXAM Physical Exam Narrative Exam Narrative: Vital signs: Reviewed General: Alert and oriented x 3. No acute distress. Nontoxic-appearing. HEENT: Head is normocephalic and atraumatic, sinuses nontender, pupils equal round and reactive. Nares are patent. Oropharynx and throat exam with swollen uvula. No petechiae of the uvula. No BLACK OXIDE OPERATOR. Tongue midline, no elevation. No swelling of the tongue or lips. Neck: Supple without lymphadenopathy nontender. Trachea midline. No swelling, erythema of the neck. Cardiovascular: Regular rate and rhythm, no murmurs. No rubs or gallops. Normal S1 and S2 Respiratory: Clear to auscultation bilaterally. No wheezes, rales, rhonchi Abdominal: Soft and nontender. Normal bowel sounds. No guarding or rebound. Nonsurgical abdomen Extremities: No tenderness. No bruising. Normal range of motion. Normal sensation. Skin: No rash or redness. Neurological: Cranial nerves II through XII are grossly intact. Normal strength and sensation. Normal cerebellar function The rest of the physical exam is unremarkable Const Vital Signs: 04/21/25 12:06 04/21/25 12:21 04/21/25 13:06 Temperature 98 F Temperature Source Temporal Pulse Rate 92 68 Respiratory Rate 18 12 Respiratory Pattern Normal Blood Pressure 152/98 H 147/99 H Blood Pressure Mean 116 115 Pulse Ox 99 98 Oxygen Delivery Method Room Air Room Air 04/21/25 14:00 04/21/25 14:10 Temperature 98 F Temperature Source Pulse Rate 79 79 Respiratory Rate 16 16 Respiratory Pattern Blood Pressure 147/99 H 147/99 H Blood Pressure Mean 115 115 Pulse Ox 100 100 Oxygen Delivery Method Room Air MDM MDM MDM Narrative Medical decision making narrative: Patient is a 44-year-old male presenting to the emergency department for a fullness in the back of his throat. Patient was seen and examined. Vitals are stable. Patient resting bed comfortably in no acute distress. Patient saturating 98% on room air. He is nontoxic-appearing. Differential includes but is not limited to: Allergic reaction, DESIREE inhibitor angioedema, uvulitis Patient will be given Benadryl and steroids. Basic labs including CBC and BMP and CT scan of the neck will be obtained. CBC with no leukocytosis and mild anemia of 12.8. BMP with no significant abnormalities. CT of the neck shows compared to prior CT of the neck 04/06/2025, resolution of previously seen right premalar inflammatory changes. Mildly edematous uvula, nonspecific but suspicious for infectious etiology. Multiple dental caries. Recommend dental consultation. Patient was reevaluated, sleeping on me entering the room. Mother is now at bedside. Patient is feeling improved. His symptoms have not worsened since he noticed them this AM. No worsening of symptoms since arrival here. On physical exam reevaluation, stable. Saturating 100% on RA. Patient was updated on the CT findings. I have low suspicion for allergic reaction secondary to his amoxicillin given this is the patient's only symptom. Denies any urticaria, wheezing, abdominal pain, nausea, vomiting, diarrhea. May be DESIREE inhibitor angioedema, I recommended stopping the lisinopril and will switch to amlodipine. I did call his primary care doctor and notified them of this change. I will also prescribe the patient 5 days of prednisone to help with swelling. I did discuss possible admission for observation with the patient and shared decision making was used. Patient feels comfortable with discharge home, mother is planning on staying with him for 2 days. Patient discharged from the Emergency Department. I do not feel that the patient's evaluation reveals any acute reason for admission at this time. I instructed them to either follow-up with their primary care physician or promptly return to the Emergency Department for reevaluation should symptoms worsen or new symptoms develop. I explained what symptoms would indicate the need to return to the emergency department. Shared decision making was used. The patient voiced understanding of the treatment plan and is agreeable with it. Clinical impression Uvulitis History & Record Review Discussion w/independent historian: Patient and Family Lab Data Attestation: I reviewed the patient's lab results. Labs: Laboratory Results - last 24 hr 04/21/25 12:39 WBC 9.2 RBC 4.07 L Hgb 12.8 L Hct 39.4 L MCV 96.8 H MCH 31.4 MCHC 32.5 RDW Std Deviation 44.3 H RDW Coeff of Judith 12.4 Plt Count 322 MPV 9.3 Immature Gran % (Auto) 3.200 H Neut % (Auto) 56.0 Lymph % (Auto) 27.4 [place] % (Auto) 6.6 Eos % (Auto) 5.3 H Baso % (Auto) 1.5 H Absolute Neuts (auto) 5.1 Absolute Lymphs (auto) 2.51 Nucleated RBC % 0 Sodium 138 Potassium 4.3 Chloride 103 Carbon Dioxide 23.4 Anion Gap 11 BUN 18 Creatinine 0.80 Est GFR (MDRD) Non-Af 111 BUN/Creatinine Ratio 23.0 H Glucose 95 Calcium 9.3 Radiography Diagnostic Testing: Clinical Impression(s) from Imaging Studies Soft Tissue Neck CT 04/21/25 12:23 IMPRESSION: 1. Compared to prior CT of the neck 04/06/2025, resolution of previously seen right premalar inflammatory changes. 2. Mildly edematous uvula, nonspecific but suspicious for infectious etiology. 3. Multiple dental caries. Recommend dental consultation. Reading Location: [facility] Discharge Plan Triage Chief Complaint: General Illness ED Provider: Maira Bourgeois Dx/Rx/DC Orders Clinical Impression: Uvulitis Instructions: ED Uvulitis Prescriptions: New prednisone 20 mg tablet 40 mg PO DAILY 5 Days Qty: 10 0RF amlodipine 5 mg tablet 5 mg PO DAILY Qty: 30 0RF No Action lisinopril 20 mg tablet 20 mg PO DAILY quetiapine 100 mg tablet 100 mg PO QHS escitalopram oxalate 20 mg tablet 20 mg PO DAILY naproxen sodium [Aleve] 220 mg capsule 220 mg PO BID PRN (Reason: pain) ibuprofen [Advil] 200 mg tablet 400 mg PO Q4H PRN (Reason: pain) clonidine HCl 0.2 mg tablet 0.2 mg PO DAILY Qty: 10 0RF clindamycin HCl [Cleocin HCl] 300 mg capsule 300 mg PO Q6H Qty: 40 0RF hydrocodone-acetaminophen 5-325 mg tablet 1 tab PO Q6H PRN PRN (Reason: Pain) 3 Days Qty: 10 0RF Primary Care Provider: Zakiya Dupont Referrals: Zakiya Dupont, THERMOSTAT MACHINE TENDER-C [Primary Care Provider, Family Practice] - As soon as possible Activity Restrictions/Additional Instructions: Do not take your lisinopril anymore. I switched your blood pressure medication to amlodipine which you will take daily. Also take the prednisone, steroid, 2 tablets daily for the next 5 days. You need to return immediately if you develop any new or worsening symptoms including any difficulty swallowing or breathing. Your evaluation in the Emergency Department did not reveal any acute reason for admission. However, I want to emphasize that you may be early in the course of a disease process or illness even if it is not present. For this reason you should follow-up within 24 hours for reevaluation with either your primary care physician or if necessary back here in the Emergency Department. You should return to the Emergency Department immediately if your symptoms worsen or new symptoms develop. Print Language: Greenlandic Disposition Disposition: Home, Self Care Discharge Date/Time: 04/21/25 14:11
[2025-04-21 12:48] LABS: Hematocrit 39.4 % (40-54); Hemoglobin 12.8 g/dL (13.0-16.5); Immature Granulocytes Count 0.290 X10^3/uL (0.0-0.0); Mean Corp Hgb Conc 32.5 g/dL (32-36); Mean Corpuscular Volume 96.8 fL (80-94); Mean Platelet Vol. 9.3 fl (6.2-12.0); NRBC Flagged by Analyzer 0 % (0-5); Platelet Count 322 K/mm3 (150-450); RBC Distribution Width CV 12.4 % (11.6-14.6); RBC Distribution Width SD 44.3 fl (35.1-43.9); Red Blood Count 4.07 M/mm3 (4.6-6.2); White Blood Count 9.2 K/mm3 (4.4-11.0)
[2025-04-21 13:06] VITALS: BP 147/99; PULSE 68; RESP 12; O2SAT 98
[2025-04-21 13:24] LABS: Anion Gap 11 (5-15); BUN 18 mg/dL (4-19); BUN/Creat Ratio 23.0 RATIO (10-20); Calcium,Total 9.3 mg/dL (7.6-11.0); Carbon Dioxide 23.4 mmol/L (21.0-32.0); Chloride 103 mmol/L (98-108); Glucose 95 mg/dL (70-99); Potassium 4.3 mmol/L (3.3-5.1)
[2025-04-21 14:00] VITALS: BP 147/99; PULSE 79; RESP 16; O2SAT 100
[2025-04-21 14:10] VITALS: BP 147/99; PULSE 79; RESP 16; TEMP 36.6; O2SAT 100
== END 2025-04-21 14:11 | disposition home or self-care (01) ==
PROVIDERS: Emergency Provider Student in an Organized Health Care Education/Training Program; PCP Nurse Practitioner Family; Visit Provider Student in an Organized Health Care Education/Training Program
DX: K12.2 Cellulitis and abscess of mouth (principal); I10 Essential (primary) hypertension; M27.2 Inflammatory conditions of jaws; J45.909 Unspecified asthma, uncomplicated; K21.9 Gastro-esophageal reflux disease without esophagitis; F32.A Depression, unspecified; F41.9 Anxiety disorder, unspecified; M19.90 Unspecified osteoarthritis, unspecified site; F17.210 Nicotine dependence, cigarettes, uncomplicated; Z79.52 Long term (current) use of systemic steroids; Z79.899 Other long term (current) drug therapy; Z59.00 Homelessness unspecified
CPT/HCPCS: 70491; 80048; 85025; 99285; Q9967; A4216